=== PATIENT | male | born 1990 | race American Indian/Alaskan Native ===

== ENCOUNTER 2018-12-13 18:12 | Inpatient (IN) | payer OTHER ==
[2018-12-13] MEDS ORDERED: ZOFRAN ODT PO ONE (18:31)
--- NOTE | 2018-12-13 18:31 | Event Note ---
ED Screening Note Date of service: 12/13/18 Time: 18:23 ED Screening Note: This is a 28 y.o. M. that presents with N/V/D x 2 days. Nonsmoker Reports shock sensation going through body. States he think it is food poisoning. This initial assessment/diagnostic orders/clinical plan/treatment(s) is/are subject to change based on patients health status, clinical progression and re- assessment by fellow clinical providers in the ED. Further treatment and workup at subsequent clinical providers discretion. Patient/guardian urged not to elope from the ED as their condition may be serious if not clinically assessed and managed. Initial orders include: Labs and CT of abdomen Given Zofran odt Main ED for further evaluation
[2018-12-13] MEDS ORDERED: ZOFRAN ONE (18:59)
[2018-12-13] MEDS ORDERED: NACL 0.9% 1000 ML 1,000 ML ONE ×2 (19:00)
[2018-12-13] MEDS ORDERED: ZOFRAN IV ONE (19:07)
[2018-12-13] MEDS ORDERED: NACL 0.9% 1000 ML 1,000 ML IV ONE ×3 (19:07→19:48)
[2018-12-13 19:31] LABS: Basophils % (Auto) 0.2 % (0.0-1.8); Hematocrit 59.1 % (35.5-45.6); Hemoglobin 19.2 gm/dl (11.8-15.2); Lymphocytes # (Auto) 0.7 K/mm3 (1.2-5.4); Lymphocytes % (Auto) 8.8 % (13.4-35.0); Mean Corpuscular HGB Conc 33 % (32-34); Mean Corpuscular Volume 83 fl (84-94); Monocytes # (Auto) 0.9 K/mm3 (0.0-0.8); Monocytes % (Auto) 11.1 % (0.0-7.3); Platelet Count 384 K/mm3 (140-440); Red Blood Count 7.11 M/mm3 (3.65-5.03); Red Cell Distribution Width 14.9 % (13.2-15.2)
[2018-12-13] MEDS ORDERED: PEPCID IV ONE (19:49)
[2018-12-13] MEDS ORDERED: LOMOTIL PO ONE (19:54)
--- NOTE | 2018-12-13 19:54 | Emergency Department Report ---
HPI - General Chief Complaint: Nausea/Vomiting/Diarrhea Time Seen by Provider: 12/13/18 18:23 - HPI HPI: Room 2 The patient is a 28-year-old male presenting with a chief complaint of nausea vomiting and diarrhea. The patient states 3 days ago he ate beef and broccoli, [place] chicken and [employer] mein from [employer]. The patient states the following day he developed frequent diarrhea nausea and vomiting. Patient complains of soreness to his bilateral sides and subjective fever. Patient denies having any sick contacts. Patient denies any recent antibiotic use. Location: [See above] Duration: [See above] Quality: [See above] Severity: [See above] Modifying factors: [see above] Context: [see above] Mode of transportation: [not driving] ED Past Medical Hx - Past Medical History Previous Medical History?: No - Surgical History Past Surgical History?: No - Family History Family history: no significant - Social History Smoking Status: Never Smoker Substance Use Type: None (denies illicit drug use) ED Review of Systems ROS: Stated complaint: WEAKNESS/STOMACH PAIN Other details as noted in HPI Constitutional: fever (subjective) Eyes: denies: eye pain ENT: denies: throat pain Respiratory: no symptoms reported Cardiovascular: denies: chest pain Endocrine: no symptoms reported Gastrointestinal: abdominal pain, nausea, vomiting, diarrhea Genitourinary: denies: dysuria Musculoskeletal: denies: back pain Neurological: denies: headache Physical Exam - Physical Exam Vital Signs: Vital Signs 12/13/18 12/13/18 12/13/18 18:23 19:04 19:35 Temperature 96.5 F L Pulse Rate 145 H 126 H 111 H Respiratory 14 15 20 Rate Blood Pressure 132/80 126/91 [Right] O2 Sat by Pulse 84 97 100 Oximetry Physical Exam: GENERAL: The patient is well-developed well-nourished male lying on stretcher not appearing to be in acute distress. [] HEENT: Normocephalic. Atraumatic. Extraocular motions are intact. Patient has dry mucous membranes. NECK: Supple. Trachea midline CHEST/LUNGS: Clear to auscultation. There is no respiratory distress noted. HEART/CARDIOVASCULAR: Regular. There is no tachycardia. There is no gallop rub or murmur. ABDOMEN: Abdomen is soft, with mild discomfort to palpation in the left upper quadrant and left lower quadrant. Patient has normal bowel sounds. There is no abdominal distention. SKIN: There is no rash. There is no edema. There is no diaphoresis. NEURO: The patient is awake, alert, and oriented. The patient is cooperative. The patient has normal speech MUSCULOSKELETAL: There is no evidence of acute injury. ED Course Vital Signs 12/13/18 12/13/18 12/13/18 18:23 19:04 19:35 Temperature 96.5 F L Pulse Rate 145 H 126 H 111 H Respiratory 14 15 20 Rate Blood Pressure 132/80 126/91 [Right] O2 Sat by Pulse 84 97 100 Oximetry - Consultations Consultation #1: 12/13/18 20:30 Nephrology paged- case discussed with Dr. Amadou ARROYO Medical Decision Making - Lab Data Result diagrams: 12/13/18 18:57 12/13/18 18:57 Laboratory Tests 12/13/18 12/13/18 12/13/18 18:57 18:57 18:57 WBC 7.6 RBC 7.11 H Hgb 19.2 H Hct 59.1 H MCV 83 L MCH 27 L MCHC 33 RDW 14.9 Plt Count 384 Lymph % (Auto) 8.8 L Moody % (Auto) 11.1 H Eos % (Auto) 0.0 Baso % (Auto) 0.2 Lymph # 0.7 L Moody # 0.9 H Eos # 0.0 Baso # 0.0 Seg Neutrophils % 79.9 H Seg Neutrophils # 6.1 Sodium 140 Potassium 5.4 H Chloride 92.2 L Carbon Dioxide 11 L Anion Gap 42 BUN 53 H Creatinine 7.5 H Estimated GFR 10 BUN/Creatinine Ratio 7 Glucose 171 H Calcium 10.3 H Total Bilirubin 0.50 AST 27 ALT 16 Alkaline Phosphatase 108 Total Protein 13.3 H Albumin 5.4 H Albumin/Globulin Ratio 0.7 Lipase 85 H Urine Color Urine Turbidity Urine pH Ur Specific Cres[place] Urine Protein Urine Glucose (UA) Urine Ketones Urine Blood Urine Nitrite Urine Bilirubin Urine Urobilinogen Ur Leukocyte Esterase Urine WBC (Auto) Urine RBC (Auto) U Epithel Cells (Auto) Urine Bacteria (Auto) Hyaline Casts Urine Mucus Urine Yeast (Budding) 12/13/18 20:40 WBC RBC Hgb Hct MCV MCH MCHC RDW Plt Count Lymph % (Auto) Moody % (Auto) Eos % (Auto) Baso % (Auto) Lymph # Moody # Eos # Baso # Seg Neutrophils % Seg Neutrophils # Sodium Potassium Chloride Carbon Dioxide Anion Gap BUN Creatinine Estimated GFR BUN/Creatinine Ratio Glucose Calcium Total Bilirubin AST ALT Alkaline Phosphatase Total Protein Albumin Albumin/Globulin Ratio Lipase Urine Color Yellow Urine Turbidity Cloudy Urine pH 5.0 Ur Specific Cresco 1.014 Urine Protein 100 mg/dl Urine Glucose (UA) Neg Urine Ketones Neg Urine Blood Lg Urine Nitrite Neg Urine Bilirubin Neg Urine Urobilinogen < 2.0 Ur Leukocyte Esterase Neg Urine WBC (Auto) 22.0 H Urine RBC (Auto) 9.0 U Epithel Cells (Auto) 2.0 Urine Bacteria (Auto) 1+ Hyaline Casts 2 Urine Mucus 3+ Urine Yeast (Budding) 2+ - Radiology Data Radiology results: report reviewed (CT abdomen pel), image reviewed (CT abdomen and pelvis) [place] [id number] Cat Scan Report Signed Patient: TOBY ROJAS MR#: [id number] : 1990 Acct:[id number] Age/Sex: 28 / M ADM Date: 12/13/18 Loc: ED Attending Dr: Ordering Physician: SHAUNA ROD Date of Service: 12/13/18 Procedure(s): CT abdomen pelvis wo con Accession Number(s): [id number] cc: SHAUNA ROD CT abdomen pelvis wo con INDICATION / CLINICAL INFORMATION: Diffuse abdominal pain with nausea and vomiting for 3 days after eating [place] food. TECHNIQUE: All CT scans at this location are performed using CT dose reduction for ALARA by means of automated exposure control. COMPARISON: None available. FINDINGS: ABDOMEN: The liver, gallbladder, bile ducts, pancreas, spleen, adrenal glands, kidneys and bowel are normal. No adenopathy is seen. The lung bases are clear. PELVIS: The distal ureters, urinary bladder and prostate gland are normal. A normal appendix is present and there is no evidence of diverticulitis. No abnormal mass or fluid collection is seen. I do not identify a hernia. No acute osseous abnormality is seen. IMPRESSION: No acute abnormality is identified. Signer Name: Henok Watt MD Signed: 12/13/2018 9:30 PM Workstation Name: [id number] Transcribed By: RT Dictated By: Henok Watt MD Electronically Authenticated By: Henok Watt MD Signed Date/Time: 12/13/182129 DD/ 26 TD/TT: - Differential Diagnosis acute gastroenteritis, partial small bowel obstruction Critical care attestation.: If time is entered above; I have spent that time in minutes in the direct care of this critically ill patient, excluding procedure time. ED Disposition Clinical Impression: Nausea vomiting and diarrhea, Acute renal failure Disposition: OP ADMIT IP TO THIS HOSP Is pt being admited?: Yes Does the pt Need Aspirin: No Condition: Fair Referrals: ADA HERNANDEZ MD [Primary Care Provider] - 3-5 Days Time of Disposition: 22:11 (hospitalist paged (Dr. Anne-Marie Allen))
[2018-12-13 20:27] LABS: Albumin 5.4 g/dL (3.9-5); Calcium 10.3 mg/dL (8.4-10.2)
[2018-12-13 21:13] LABS: Bacteria,Urine 1+ /HPF (Negative); Bilirubin,Urine NEG (Negative); Blood,Urine LG (Negative); Color,Urine Yellow (Yellow); Hyaline Casts,Urine 2 /LPF; Mucus,Urine 3+ /HPF; Urobilinogen,Urine < 2.0 mg/dL (<2.0)
--- NOTE | 2018-12-13 21:34 | Cat Scan Report ---
CT abdomen pelvis wo con INDICATION / CLINICAL INFORMATION: Diffuse abdominal pain with nausea and vomiting for 3 days after eating [place] food. TECHNIQUE: All CT scans at this location are performed using CT dose reduction for ALARA by means of automated e xposure control. COMPARISON: None available. FINDINGS: ABDOMEN: The liver, gallbladder, bile ducts, pancreas, spleen, adrenal glands, kidneys and bowel are normal. No adenopathy is seen. The lung bases are clear. PELVIS: The distal ureters, urinary bladder and prostate gland are normal. A normal appendix is prese nt and there is no evidence of diverticulitis. No abnormal mass or fluid collection is seen. I do not identify a hernia. No acute osseous abnormality is seen. IMPRESSION: No acute abnormality is identified. Signer Name: Henok Watt MD Signed: 12/13/2018 9:30 PM Workstation Name: [id number]
[2018-12-13] MEDS ORDERED: KIONEX PO ONE (22:06)
--- NOTE | 2018-12-13 22:57 | History and Physical Report ---
History of Present Illness Date of examination: 12/13/18 History of present illness: 28 -year-old male with no medical problems comes emergency room with complaints of nausea vomiting and diarrhea since . He had numerous episodes of each. He stated that he ate at beef and broccoli chomein and an orange chicken at [employer] on Saturday. Symptoms worsened today so he came to the emergency room for evaluation, denies fever chills, no recent antibiotic Review of systems Constitutional: no weight loss, chills, fever Ears, eyes, nose, mouth and throat: no nasal congestion, no nasal discharge, no sinus pressure, no vision change, no red eye. Neck: No neck pain or rigidity. Cardiovascular: no palpitations, chest pain Respiratory: no cough, shortness of breath Gastrointestinal: no hematochezia, abdominal pain Genitourinary : no frequency , no hematuria Musculoskeletal: no joint swelling or muscle ache Integumentary: no rash, no pruritis Neurological: no parathesias, no focal weakness Endocrine: no cold or heat intolerance, no polyuria or polydipsia Hematologic/Lymphatic: no easy bruising, no easy bleeding, no gland swelling Allergic/Immunologic: no urticaria, no angioedema. PAST MEDICAL HISTORY: None PAST SURGICAL HISTORY: None SOCIAL HISTORY: Denies alcohol, drugs, tobacco FAMILY HISTORY: Hypertension Medications and Allergies Allergies Allergy/AdvReac Type Severity Reaction Status Date / Time No Known Allergies Allergy Verified 12/13/18 18:58 Active Meds: Active Medications Acetaminophen (Tylenol) 650 mg PO Q4H PRN PRN Reason: Pain MILD(1-3)/Fever >100.5/HOLT Enoxaparin Sodium (Lovenox) 30 mg SUB-Q QDAY MARIA E Sodium Chloride (Nacl 0.9% 1000 Ml) 1,000 mls @ 150 mls/hr IV DIRECT MARIA E Ondansetron HCl (Zofran) 4 mg IV Q4H PRN PRN Reason: Nausea And Vomiting Sodium Chloride (Sodium Chloride Flush Syringe 10 Ml) 10 ml IV BID MARIA E Sodium Chloride (Sodium Chloride Flush Syringe 10 Ml) 10 ml IV PRN PRN PRN Reason: LINE FLUSH Exam - Physical Exam Narrative exam: General Apperance: The patient lying in bed, breathing comfortable HEENT: Normocephalic, atraumatic. Pupils equally round and reactive to light, EOMI, no sclericterus or JVD or thyromegaly or nodule. , no carotid bruit, mucous membranes moist, no exudate or erythema Heart: S1-S2, regular is rhythm Lungs: Clear to auscultation bilaterally, breathing comfortable Abdomen: Positive bowel sounds, soft, nontender, nondistended, no organomegaly Extremities: No edema cyanosis clubbing Skin: no rash, nodule, warm and dry Neuro: cranial nerves 2-12 intact, speech is fluent, motor/sensory intact - Constitutional Vitals: Temp Pulse Resp BP Pulse Ox 98.3 F 111 H 20 126/91 100 12/13/18 20:21 12/13/18 19:35 12/13/18 19:35 12/13/18 19:04 12/13/18 19:35 Results - Labs CBC & Chem 7: 12/13/18 18:57 12/13/18 18:57 Labs: Abnormal lab results 12/13/18 12/13/18 12/13/18 Range/Units 18:57 18:57 18:57 RBC 7.11 H (3.65-5.03) M/mm3 Hgb 19.2 H (11.8-15.2) gm/dl Hct 59.1 H (35.5-45.6) % MCV 83 L (84-94) fl MCH 27 L (28-32) pg Lymph % (Auto) 8.8 L (13.4-35.0) % Elliott % (Auto) 11.1 H (0.0-7.3) % Lymph # 0.7 L (1.2-5.4) K/mm3 Elliott # 0.9 H (0.0-0.8) K/mm3 Seg Neutrophils % 79.9 H (40.0-70.0) % Potassium 5.4 H (3.6-5.0) mmol/L Chloride 92.2 L (98-107) mmol/L Carbon Dioxide 11 L (22-30) mmol/L BUN 53 H (9-20) mg/dL Creatinine 7.5 H (0.8-1.5) mg/dL Glucose 171 H (75-100) mg/dL Calcium 10.3 H (8.4-10.2) mg/dL Total Protein 13.3 H (6.3-8.2) g/dL Albumin 5.4 H (3.9-5) g/dL Lipase 85 H (13-60) units/L Urine WBC (Auto) (0.0-6.0) /HPF 12/13/18 Range/Units 20:40 RBC (3.65-5.03) M/mm3 Hgb (11.8-15.2) gm/dl Hct (35.5-45.6) % MCV (84-94) fl MCH (28-32) pg Lymph % (Auto) (13.4-35.0) % Elliott % (Auto) (0.0-7.3) % Lymph # (1.2-5.4) K/mm3 Elliott # (0.0-0.8) K/mm3 Seg Neutrophils % (40.0-70.0) % Potassium (3.6-5.0) mmol/L Chloride (98-107) mmol/L Carbon Dioxide (22-30) mmol/L BUN (9-20) mg/dL Creatinine (0.8-1.5) mg/dL Glucose (75-100) mg/dL Calcium (8.4-10.2) mg/dL Total Protein (6.3-8.2) g/dL Albumin (3.9-5) g/dL Lipase (13-60) units/L Urine WBC (Auto) 22.0 H (0.0-6.0) /HPF - Imaging and Cardiology CT scan - abdomen: report reviewed CT scan - pelvis: report reviewed Assessment and Plan Assessment Acute renal failure Hyperkalemia Gastroenteritis, viral Plan Admit to medicine Start aggressive IV fluid, consult renal Check stool cultures, s/p cocktail for hyperkalemia DVT prophylaxis
[2018-12-13] MEDS ORDERED: CALCIUM CHLORIDE 1,000 MG in NACL 0.9% 100 ML IV ONE (23:52)
[2018-12-13] MEDS ORDERED: D50W (25GM) Syringe IV PRN ×2 (23:53)
[2018-12-13] MEDS ORDERED: HumuLIN R SUB-Q ONE (23:53)
[2018-12-14] MEDS ORDERED: LEVAQUIN 500MG/100ML 500 MG/100 ML BAG IV SCH ×3 (01:00→10:00)
[2018-12-14] MEDS: NACL 0.9% 1000 ML 1,000 ML IV SCH ×4 (02:01→22:12)
[2018-12-14 05:53] LABS: Basophils % (Auto) 0.1 % (0.0-1.8); Hematocrit 48.9 % (35.5-45.6); Hemoglobin 16.3 gm/dl (11.8-15.2); Lymphocytes # (Auto) 0.7 K/mm3 (1.2-5.4); Lymphocytes % (Auto) 8.5 % (13.4-35.0); Mean Corpuscular HGB Conc 33 % (32-34); Mean Corpuscular Volume 82 fl (84-94); Monocytes # (Auto) 1.1 K/mm3 (0.0-0.8); Monocytes % (Auto) 14.5 % (0.0-7.3); Platelet Count 299 K/mm3 (140-440); Red Blood Count 5.96 M/mm3 (3.65-5.03); Red Cell Distribution Width 14.6 % (13.2-15.2)
[2018-12-14 06:12] LABS: Calcium 8.9 mg/dL (8.4-10.2)
--- NOTE | 2018-12-14 08:44 | Consultation ---
History of Present Illness - Reason for Consult Consult date: 12/14/18 acute renal failure - History of Present Illness 28-year-old [place] male with no significant past medical history other than chronic migraines presented to emergency department secondary to 3 days of worsening nausea, vomiting, diarrhea, and decreased by mouth intake. This started after he ate and express on Saturday. He states that since then he has had these symptoms which have been continuous. He has not been able to keep any food down. He came into the emergency department for further evaluation. Laboratory studies initially revealed significant acute kidney injury likely the setting of dehydration and pre-renal status. Nephrology consult for further evaluation. Patient was started on IV fluids. His labs today already are showing improvement in his overall renal function. He remains nauseous this morning but denies any significant vomiting. He has not had any diarrheal episodes since coming into the emergency department. He is on contact precautions and stool studies are pending at this time. Past History Past Medical History: other (chronic migraines) Past Surgical History: No surgical history Social history: no significant social history Family history: hypertension Medications and Allergies Allergies Allergy/AdvReac Type Severity Reaction Status Date / Time No Known Allergies Allergy Verified 12/13/18 18:58 Active Meds: Active Medications Acetaminophen (Tylenol) 650 mg PO Q4H PRN PRN Reason: Pain MILD(1-3)/Fever >100.5/HOLT Enoxaparin Sodium (Lovenox) 30 mg SUB-Q QDAY MARIA E Sodium Chloride (Nacl 0.9% 1000 Ml) 1,000 mls @ 150 mls/hr IV DIRECT MARIA E Last Admin: 12/14/18 02:01 Dose: 150 mls/hr Documented by: Levofloxacin/Dextrose (Levaquin 500mg/100ml) 500 mg in 100 mls @ 100 mls/hr IV Q48H MARIA E; Protocol Last Admin: 12/14/18 02:00 Dose: 100 mls/hr Documented by: Ondansetron HCl (Zofran) 4 mg IV Q4H PRN PRN Reason: Nausea And Vomiting Sodium Chloride (Sodium Chloride Flush Syringe 10 Ml) 10 ml IV BID MARIA E Sodium Chloride (Sodium Chloride Flush Syringe 10 Ml) 10 ml IV PRN PRN PRN Reason: LINE FLUSH Review of Systems All systems: negative Constitutional: fatigue, weakness Gastrointestinal: abdominal pain, nausea, vomiting, diarrhea Exam - Vital Signs Vital signs: Vital Signs Temp Pulse Resp BP Pulse Ox 96.5 F L 145 H 14 132/80 84 12/13/18 18:23 12/13/18 18:23 12/13/18 18:23 12/13/18 18:23 12/13/18 18:23 - General Appearance General appearance: well-developed, well-nourished, appears stated age EENT: ATNC, PERRL Neck: Present: neck supple, trachea midline Respiratory: Clear to Ascultation, Normal Exam Heart: regular, S1S2 Gastrointestinal: Present: normal, normoactive bowel sounds Integumentary: no rash, warm and dry Neurologic: no focal deficit, no asterixis, alert and oriented x3 Musculoskeletal: Present: other (negative edema) Psychiatric: mood/affect appropriate, cooperative Results - Lab Results 12/14/18 05:34 12/14/18 05:34 Most recent lab results Calcium 8.9 mg/dL (8.4-10.2) 12/14/18 05:34 Assessment and Plan - Patient Problems (1) Acute renal failure Current Visit: Yes Status: Acute Plan to address problem: Likely prerenal injury secondary to the aforementioned symptoms of persistent nausea, vomiting, diarrhea, decreased oral intake. Agree with current management in regards to fluid hydration. We will also obtain a renal ultrasound as well as urine electrolytes and urine analysis. We will continue to monitor. Please avoid all nephrotoxins. Please maintain MAP above 65. (2) Nausea vomiting and diarrhea Current Visit: Yes Status: Acute Plan to address problem: Symptomatic treatment per primary team. We will continue to monitor. Stool Studies pending at this time (3) Metabolic acidosis Current Visit: Yes Status: Acute Plan to address problem: In The setting of the aforementioned diarrhea symptoms. Slow improvement noted. We'll continue to monitor on consequent labs. Continue with current IV fluid hydration. (4) Weakness Current Visit: Yes Status: Acute Plan to address problem: Slow improvement noted with the appropriate IV fluid hydration and supportive care. We'll continue to monitor. Recommend the patient slowly start diet as tolerated.
[2018-12-14] MEDS: SODIUM CHLORIDE FLUSH SYRINGE 10 ML IV SCH (09:08)
[2018-12-14] MEDS: LOVENOX SUB-Q SCH (09:08)
--- NOTE | 2018-12-14 13:08 | Progress Note ---
Assessment and Plan Assessment and plan: 28-year-old man who presented to the hospital nausea vomiting and diarrhea which began after he ate [employer]. Acute gastroenteritis, most likely viral Continue supportive care, fup stool studies Acute kidney injury due to dehydration and vasomotor nephropathy improving With IV fluids, nephrology input appreciated Hyperkalemia Was medically treated, now resolved DVT prophylaxis early ambulation, most likely viral History Interval history: Review of systems Constitutional: No fevers, no malaise, no joint pains CVS: No chest pain, no orthopnea, no dyspnea on exertion, no pedal edema GI: No abdominal pain, diarrhea and vomiting is less frequent Respiratory: no wheezing, no coughing Hospitalist Physical - Physical exam Narrative exam: General.: Appears well, no distress, nontoxic HEENT: Moist mucous membranes, extraocular muscles intact, no lymphadenopathy Neck: supple Cardiac: S1-S2 heard Lungs: clear to auscultation bilaterally Abdomen: soft , nontender, nondistended, bowel sounds positive Extremities: no edema clubbing or cyanosis Skin: no rash or lesions Neurologic: no gross focal deficits Psych: calm, and cooperative - Constitutional Vitals: Temp Pulse Resp BP Pulse Ox 98.6 F 105 H 18 131/91 98 12/14/18 07:52 12/14/18 09:00 12/14/18 07:52 12/14/18 07:52 12/14/18 05:13 Results - Labs CBC & Chem 7: 12/14/18 05:34 12/14/18 05:34 Labs: Laboratory Last Values WBC 7.8 K/mm3 (4.5-11.0) 12/14/18 05:34 RBC 5.96 M/mm3 (3.65-5.03) H 12/14/18 05:34 Hgb 16.3 gm/dl (11.8-15.2) H 12/14/18 05:34 Hct 48.9 % (35.5-45.6) H D 12/14/18 05:34 MCV 82 fl (84-94) L 12/14/18 05:34 MCH 27 pg (28-32) L 12/14/18 05:34 MCHC 33 % (32-34) 12/14/18 05:34 RDW 14.6 % (13.2-15.2) 12/14/18 05:34 Plt Count 299 K/mm3 (140-440) 12/14/18 05:34 Lymph % (Auto) 8.5 % (13.4-35.0) L 12/14/18 05:34 [place]ama % (Auto) 14.5 % (0.0-7.3) H 12/14/18 05:34 Eos % (Auto) 0.0 % (0.0-4.3) 12/14/18 05:34 Baso % (Auto) 0.1 % (0.0-1.8) 12/14/18 05:34 Lymph # 0.7 K/mm3 (1.2-5.4) L 12/14/18 05:34 Tama # 1.1 K/mm3 (0.0-0.8) H 12/14/18 05:34 Eos # 0.0 K/mm3 (0.0-0.4) 12/14/18 05:34 Baso # 0.0 K/mm3 (0.0-0.1) 12/14/18 05:34 Seg Neutrophils % 76.9 % (40.0-70.0) H 12/14/18 05:34 Seg Neutrophils # 6.0 K/mm3 (1.8-7.7) 12/14/18 05:34 Sodium 143 mmol/L (137-145) 12/14/18 05:34 Potassium 4.2 mmol/L (3.6-5.0) D 12/14/18 05:34 Chloride 107.9 mmol/L (98-107) H 12/14/18 05:34 Carbon Dioxide 15 mmol/L (22-30) L 12/14/18 05:34 24 mmol/L 12/14/18 05:34 BUN 48 mg/dL (9-20) H 12/14/18 05:34 3.1 mg/dL (0.8-1.5) H D 12/14/18 05:34 Estimated GFR 29 ml/min 12/14/18 05:34 15 % 12/14/18 05:34 Glucose 113 mg/dL (75-100) H 12/14/18 05:34 Calcium 8.9 mg/dL (8.4-10.2) 12/14/18 05:34 0.50 mg/dL (0.1-1.2) 12/13/18 18:57 AST 27 units/L (5-40) 12/13/18 18:57 ALT 16 units/L (7-56) 12/13/18 18:57 108 units/L (35-129) 12/13/18 18:57 13.3 g/dL (6.3-8.2) H 12/13/18 18:57 5.4 g/dL (3.9-5) H 12/13/18 18:57 0.7 % 12/13/18 18:57 85 units/L (13-60) H 12/13/18 18:57 Yellow (Yellow) 12/13/18 20:40 Cloudy (Clear) 12/13/18 20:40 5.0 (5.0-7.0) 12/13/18 20:40 Ur Specific Elton 1.014 (1.003-1.030) 12/13/18 20:40 100 mg/dl mg/dL (Negative) 12/13/18 20:40 Neg mg/dL (Negative) 12/13/18 20:40 Neg mg/dL (Negative) 12/13/18 20:40 Lg (Negative) 12/13/18 20:40 Neg (Negative) 12/13/18 20:40 Neg (Negative) 12/13/18 20:40 < 2.0 mg/dL (<2.0) 12/13/18 20:40 Ur Leukocyte Esterase Neg (Negative) 12/13/18 20:40 22.0 /HPF (0.0-6.0) H 12/13/18 20:40 9.0 /HPF (0.0-6.0) 12/13/18 20:40 U Epithel Cells (Auto) 2.0 /HPF (0-13.0) 12/13/18 20:40 1+ /HPF (Negative) 12/13/18 20:40 Hyaline Casts 2 /LPF 12/13/18 20:40 3+ /HPF 12/13/18 20:40 2+ /HPF 12/13/18 20:40 Active Medications - Current Medications Current Medications: Generic Name Dose Route Start Last Admin Trade Name Freq PRN Reason Stop Dose Admin Acetaminophen 650 mg 12/13/18 22:54 Tylenol PO Q4H PRN Pain MILD(1-3)/Fever >100.5/HOLT Enoxaparin Sodium 30 mg 12/14/18 10:00 12/14/18 09:08 Lovenox SUB-Q 30 mg QDAY MARIA E Administration Sodium Chloride 1,000 mls @ 150 mls/hr 12/13/18 23:00 12/14/18 09:07 Nacl 0.9% 1000 Ml IV 150 mls/hr DIRECT MARIA E Administration Levofloxacin/Dextrose 500 mg in 100 mls @ 100 mls/hr 12/14/18 01:00 12/14/18 02:00 Levaquin 500mg/100ml IV 100 mls/hr Q48H MARIA E Administration Protocol Ondansetron HCl 4 mg 12/13/18 22:54 Zofran IV Q4H PRN Nausea And Vomiting Sodium Chloride 10 ml 12/14/18 10:00 12/14/18 09:08 Sodium Chloride Flush Syringe 10 Ml IV 10 ml BID MARIA E Administration Sodium Chloride 10 ml 12/13/18 22:54 Sodium Chloride Flush Syringe 10 Ml IV PRN PRN LINE FLUSH
[2018-12-14] MEDS: ZOFRAN IV PRN ×2 (13:51→20:04)
[2018-12-15] MEDS: SODIUM CHLORIDE FLUSH SYRINGE 10 ML IV SCH ×3 (02:39→23:46)
--- NOTE | 2018-12-15 08:31 | Progress Note ---
Assessment and Plan - Patient Problems (1) Acute renal failure Current Visit: Yes Status: Acute Plan to address problem: Likely prerenal injury secondary to the aforementioned symptoms of persistent nausea, vomiting, diarrhea, decreased oral intake. Agree with current management in regards to fluid hydration. Labs are pending this morning and we will follow-up. We will also obtain a renal ultrasound as well as urine electrolytes and urine analysis. We will continue to monitor. Please avoid all nephrotoxins. Please maintain MAP above 65. (2) Nausea vomiting and diarrhea Current Visit: Yes Status: Acute Plan to address problem: Symptomatic treatment per primary team. We will continue to monitor. Stool Studies preliminarily have been negative (3) Metabolic acidosis Current Visit: Yes Status: Acute Plan to address problem: In The setting of the aforementioned diarrhea symptoms. Slow improvement noted. We'll continue to monitor on consequent labs. Continue with current IV fluid hydration. (4) Weakness Current Visit: Yes Status: Acute Plan to address problem: Slow improvement noted with the appropriate IV fluid hydration and supportive care. We'll continue to monitor. Recommend the patient slowly start diet as tolerated. Subjective Date of service: 12/15/18 Interval history: No acute changes overnight. He continues to have nausea, vomiting, and episodes of diarrhea this morning. He is not tolerating food very well at this time. Labs are pending this morning. He remains on normal saline running at 150 mL an hour. Objective - Vital Signs Vital signs: Vital Signs - 12hr 12/14/18 12/14/18 12/15/18 20:47 21:08 05:26 Temperature 99.3 F 98.5 F Pulse Rate 92 H 94 H Respiratory 20 16 20 Rate Blood Pressure 136/93 139/100 O2 Sat by Pulse 100 99 Oximetry - General Appearance General appearance: well-developed, appears stated age EENT: ATNC, PERRL Neck: no JVD, no thyromegaly Respiratory: Present: Clear to Ascultation, Normal Exam Cardiology: regular, S1S2 Gastrointestinal: normal, normoactive bowel sounds Integumentary: no rash, cool/clammy Neurologic: no focal deficit, no asterixis, alert and oriented x3 Psychiatric: mood/affect appropriate, cooperative - Lab 12/14/18 05:34 12/14/18 05:34 Most recent lab results Calcium 8.9 mg/dL (8.4-10.2) 12/14/18 05:34 - Allied health notes Allied health notes reviewed: nursing Medications & Allergies - Medications Allergies/Adverse Reactions: Allergies No Known Allergies Allergy (Verified 12/13/18 18:58) Active Medications: Generic Name Dose Route Start Last Admin Trade Name Freq PRN Reason Stop Dose Admin Acetaminophen 650 mg 12/13/18 22:54 Tylenol PO Q4H PRN Pain MILD(1-3)/Fever >100.5/HOLT Enoxaparin Sodium 30 mg 12/14/18 10:00 12/14/18 09:08 Lovenox SUB-Q 30 mg QDAY MARIA E Administration Sodium Chloride 1,000 mls @ 150 mls/hr 12/13/18 23:00 12/14/18 22:12 Nacl 0.9% 1000 Ml IV 150 mls/hr DIRECT MARIA E Administration Levofloxacin/Dextrose 500 mg in 100 mls @ 100 mls/hr 12/14/18 01:00 12/14/18 02:00 Levaquin 500mg/100ml IV 100 mls/hr Q48H MARIA E Administration Protocol Metoclopramide HCl 10 mg 12/15/18 04:17 Reglan IV Q6H PRN Nausea And Vomiting Ondansetron HCl 4 mg 12/13/18 22:54 12/14/18 20:04 Zofran IV 4 mg Q4H PRN Administration Nausea And Vomiting Sodium Chloride 10 ml 12/14/18 10:00 12/15/18 02:39 Sodium Chloride Flush Syringe 10 Ml IV Not Given BID MARIA E Sodium Chloride 10 ml 12/13/18 22:54 Sodium Chloride Flush Syringe 10 Ml IV PRN PRN LINE FLUSH
[2018-12-15 10:00] LABS: BUN/Creatinine Ratio 21; Blood Urea Nitrogen 30 mg/dL (9-20); Calcium 9.9 mg/dL (8.4-10.2); Hemolysis Index 149
[2018-12-15] MEDS: LOVENOX SUB-Q SCH (11:01)
[2018-12-15] MEDS: NACL 0.9% 1000 ML 1,000 ML IV SCH ×3 (11:01→23:46)
--- NOTE | 2018-12-15 15:31 | Progress Note ---
Assessment and Plan Assessment and plan: 28-year-old man who presented to the hospital nausea vomiting and diarrhea which began after he ate [employer]. Acute gastroenteritis, most likely viral Continue supportive care, fup stool studies, ID consult keep NPO until vomiting resolves Acute kidney injury due to dehydration and vasomotor nephropathy improving With IV fluids, nephrology input appreciated Hyperkalemia Was medically treated, now resolved DVT prophylaxis early ambulation, most likely viral History Interval history: Review of systems Constitutional: No fevers, no malaise, no joint pains CVS: No chest pain, no orthopnea, no dyspnea on exertion, no pedal edema GI: No abdominal pain, diarrhea and vomiting is less frequent Respiratory: no wheezing, no coughing Hospitalist Physical - Physical exam Narrative exam: General.: Appears well, no distress, nontoxic HEENT: Moist mucous membranes, extraocular muscles intact, no lymphadenopathy Neck: supple Cardiac: S1-S2 heard Lungs: clear to auscultation bilaterally Abdomen: soft , nontender, nondistended, bowel sounds positive Extremities: no edema clubbing or cyanosis Skin: no rash or lesions Neurologic: no gross focal deficits Psych: calm, and cooperative - Constitutional Vitals: Temp Pulse Resp BP Pulse Ox 98.5 F 94 H 20 139/100 99 12/15/18 05:26 12/15/18 05:26 12/15/18 05:26 12/15/18 05:26 12/15/18 05:26 Results - Labs CBC & Chem 7: 12/14/18 05:34 12/15/18 09:14 Labs: Laboratory Last Values WBC 7.8 K/mm3 (4.5-11.0) 12/14/18 05:34 RBC 5.96 M/mm3 (3.65-5.03) H 12/14/18 05:34 Hgb 16.3 gm/dl (11.8-15.2) H 12/14/18 05:34 Hct 48.9 % (35.5-45.6) H D 12/14/18 05:34 MCV 82 fl (84-94) L 12/14/18 05:34 MCH 27 pg (28-32) L 12/14/18 05:34 MCHC 33 % (32-34) 12/14/18 05:34 RDW 14.6 % (13.2-15.2) 12/14/18 05:34 Plt Count 299 K/mm3 (140-440) 12/14/18 05:34 Lymph % (Auto) 8.5 % (13.4-35.0) L 12/14/18 05:34 [place] % (Auto) 14.5 % (0.0-7.3) H 12/14/18 05:34 Eos % (Auto) 0.0 % (0.0-4.3) 12/14/18 05:34 Baso % (Auto) 0.1 % (0.0-1.8) 12/14/18 05:34 Lymph # 0.7 K/mm3 (1.2-5.4) L 12/14/18 05:34 [place] # 1.1 K/mm3 (0.0-0.8) H 12/14/18 05:34 Eos # 0.0 K/mm3 (0.0-0.4) 12/14/18 05:34 Baso # 0.0 K/mm3 (0.0-0.1) 12/14/18 05:34 Seg Neutrophils % 76.9 % (40.0-70.0) H 12/14/18 05:34 Seg Neutrophils # 6.0 K/mm3 (1.8-7.7) 12/14/18 05:34 Sodium 140 mmol/L (137-145) 12/15/18 09:14 Potassium 4.5 mmol/L (3.6-5.0) 12/15/18 09:14 Chloride 109.7 mmol/L (98-107) H 12/15/18 09:14 Carbon Dioxide 16 mmol/L (22-30) L 12/15/18 09:14 19 mmol/L 12/15/18 09:14 BUN 30 mg/dL (9-20) H 12/15/18 09:14 1.4 mg/dL (0.8-1.5) D 12/15/18 09:14 Estimated GFR > 60 ml/min 12/15/18 09:14 21 % 12/15/18 09:14 Glucose 87 mg/dL (75-100) 12/15/18 09:14 Calcium 9.9 mg/dL (8.4-10.2) 12/15/18 09:14 0.50 mg/dL (0.1-1.2) 12/13/18 18:57 AST 27 units/L (5-40) 12/13/18 18:57 ALT 16 units/L (7-56) 12/13/18 18:57 108 units/L (35-129) 12/13/18 18:57 13.3 g/dL (6.3-8.2) H 12/13/18 18:57 5.4 g/dL (3.9-5) H 12/13/18 18:57 0.7 % 12/13/18 18:57 85 units/L (13-60) H 12/13/18 18:57 Yellow (Yellow) 12/13/18 20:40 Cloudy (Clear) 12/13/18 20:40 5.0 (5.0-7.0) 12/13/18 20:40 Ur Specific [place] 1.014 (1.003-1.030) 12/13/18 20:40 100 mg/dl mg/dL (Negative) 12/13/18 20:40 Neg mg/dL (Negative) 12/13/18 20:40 Neg mg/dL (Negative) 12/13/18 20:40 Lg (Negative) 12/13/18 20:40 Neg (Negative) 12/13/18 20:40 Neg (Negative) 12/13/18 20:40 < 2.0 mg/dL (<2.0) 12/13/18 20:40 Ur Leukocyte Esterase Neg (Negative) 12/13/18 20:40 22.0 /HPF (0.0-6.0) H 12/13/18 20:40 9.0 /HPF (0.0-6.0) 12/13/18 20:40 U Epithel Cells (Auto) 2.0 /HPF (0-13.0) 12/13/18 20:40 1+ /HPF (Negative) 12/13/18 20:40 Hyaline Casts 2 /LPF 12/13/18 20:40 3+ /HPF 12/13/18 20:40 2+ /HPF 12/13/18 20:40 C. difficile Tox (PCR) Negative (Negative) 12/14/18 14:00 Active Medications - Current Medications Current Medications: Generic Name Dose Route Start Last Admin Trade Name Freq PRN Reason Stop Dose Admin Acetaminophen 650 mg 12/13/18 22:54 Tylenol PO Q4H PRN Pain MILD(1-3)/Fever >100.5/HOLT Enoxaparin Sodium 40 mg 12/16/18 10:00 Lovenox SUB-Q QDAY@1000 MARIA E Sodium Chloride 1,000 mls @ 150 mls/hr 12/13/18 23:00 12/15/18 11:01 Nacl 0.9% 1000 Ml IV 150 mls/hr DIRECT MARIA E Administration Levofloxacin/Dextrose 500 mg in 100 mls @ 100 mls/hr 12/15/18 12:00 Levaquin 500mg/100ml IV Q24HR [facility] Protocol Metoclopramide HCl 10 mg 12/15/18 04:17 Reglan IV Q6H PRN Nausea And Vomiting Ondansetron HCl 4 mg 12/13/18 22:54 12/14/18 20:04 Zofran IV 4 mg Q4H PRN Administration Nausea And Vomiting Sodium Chloride 10 ml 12/14/18 10:00 12/15/18 11:01 Sodium Chloride Flush Syringe 10 Ml IV 10 ml BID MARIA E Administration Sodium Chloride 10 ml 12/13/18 22:54 Sodium Chloride Flush Syringe 10 Ml IV PRN PRN LINE FLUSH
[2018-12-15] MEDS: LEVAQUIN 500MG/100ML 500 MG/100 ML BAG IV SCH (16:34)
[2018-12-15] MEDS: REGLAN IV PRN (16:35)
[2018-12-16] MEDS: NACL 0.9% 1000 ML 1,000 ML IV SCH ×3 (06:43→18:29)
--- NOTE | 2018-12-16 08:17 | Ultrasound Report ---
ULTRASOUND RENAL INDICATION / CLINICAL INFORMATION: MEHNAZ. Elevated BUN. No flank pain reported by the patient. COMPARISON: CT abdomen pelvis without contrast performed 12/13/2018 FINDINGS: RIGHT KIDNEY: Length = 10.1 cm. [normal > 9 cm] - Parenchymal Thickness = 1.3 cm. [normal > 1.5 cm] - Echogenicity: Slightly increased - Hydronephrosis: None. - Cyst or mass: No significant abnormality. - Stones: None seen. LEFT KIDNEY: Length = 9.5 cm. [normal > 9 cm] - Parenchymal Thickness = 1.7 cm. [normal > 1.5 cm] - Echogenicity: Slightly increased - Hydronephrosis: None. - Cyst or mass: No significant abnormality. - Stones: None seen. URINARY BLADDER: No significant abnormality. FREE FLUID: None. ADDITIONAL FINDINGS: None. IMPRESSION: 1. Normal size but slightly echogenic kidneys consistent with nonspecific renal parenchymal disease. No focal renal lesion or hydronephrosis. Signer Name: Michael Shultz Jr, MD Signed: 12/16/2018 8:13 AM Workstation Name: [id number]
[2018-12-16 10:35] LABS: Blood Urea Nitrogen TNR mg/dL (9-20)
[2018-12-16 10:36] LABS: BUN/Creatinine Ratio TNR; Calcium TNR mg/dL (8.4-10.2)
[2018-12-16 10:37] LABS: Hemolysis Index TNR
[2018-12-16 11:50] LABS: BUN/Creatinine Ratio 20; Blood Urea Nitrogen 26 mg/dL (9-20); Calcium 9.9 mg/dL (8.4-10.2); Hemolysis Index 49
[2018-12-16] MEDS: LOVENOX SUB-Q SCH (12:28)
[2018-12-16] MEDS: LEVAQUIN 500MG/100ML 500 MG/100 ML BAG IV SCH (12:28)
[2018-12-16] MEDS: SODIUM CHLORIDE FLUSH SYRINGE 10 ML IV SCH ×2 (12:29→23:46)
--- NOTE | 2018-12-16 13:01 | Consultation ---
History of Present Illness - Reason for Consult Consult date: 12/16/18 Diarrhea Requesting physician: LOUIE PATTON - History of Present Illness This patient is a 28-year old male with no previous medical history that presents to the ED on 12/13/18 with complaints of nausea, vomiting and diarrhea since . He reports eating beef and broccoli chomein and orange chicken at [email or web address] on Saturday12-10-18. His symptoms worsened the next day. On admission WBC 7.6, Creatinine 7.5, C-Diff negative, Temperature 98.3, HR 97, BP 150/106.. UA with mild pyuria, LE negative.. Abdomen/pelvis is unremarkable. Renal ultrasound shows no focal renal lesion or hydronephrosis. Kidneys consistent with nonspecific renal parechymal disease. Stool cultures Shigella species. Urine cultures no growth. With reluctance, patient admitted to MSM behavior and that he tested positive for HIV in 2017. He states that he has been noncompliant with recommended follow-up with ID doctor. He does not know his current CD4 count or Viral load. He has consented to further testing in the hospital and has agreed to follow-up at our ID [facility]. Extensive education given regarding the same. Review of Systems: General: no fever, chills, nightsweats, + unintentional weight change, and change in appetite Cutaneous: no rash, pruritus Head: no headaches or injury Eyes: no changes in vision, eye pain, double vision Ears: no ear pain, ear discharge, ringing or hearing loss Nose: no nose bleeding, stuffiness Mouth & throat: no bleeding gums, no horseness, no dental problems, or swollen glands Neck: no pain, node enlargement/lumps, tyroid enlargement or tenderness Respiratory: no cough, wheezing, sputum, hemoptysis, pleuritic chest pain Cardiovascular: no chest pain, leg edema, cyanosis, TOURE, orthopnea Musculoskeletal: no decreased joint motion, bone or joint pain, joint swelling, muscle aches Gastrointestinal: + nausea vomiting, diarrhea, no constipation, melena, bright red blood in stools, fecal incontinence, jaundice Genitourinary/Reproductive: no frequent urination, no dysuria, hematuria, incontinence Neurogical: no seizures, no headaches, no weakness, no paresthesias, no loss of speech or vision; no memory loss, no vertigo, no tremors, no numbness Psychiatric: + sadness , no excessive anxiety, Past History Past Medical History: other (chronic migraines) Past Surgical History: No surgical history Social history: no significant social history Family history: hypertension Medications and Allergies Allergies Allergy/AdvReac Type Severity Reaction Status Date / Time No Known Allergies Allergy Verified 12/13/18 18:58 Active Meds: Active Medications Acetaminophen (Tylenol) 650 mg PO Q4H PRN PRN Reason: Pain MILD(1-3)/Fever >100.5/HOLT Enoxaparin Sodium (Lovenox) 40 mg SUB-Q QDAY@1000 MARIA E Last Admin: 12/16/18 12:28 Dose: 40 mg Documented by: Sodium Chloride (Nacl 0.9% 1000 Ml) 1,000 mls @ 150 mls/hr IV DIRECT MARIA E Last Admin: 12/16/18 12:28 Dose: 150 mls/hr Documented by: Levofloxacin/Dextrose (Levaquin 500mg/100ml) 500 mg in 100 mls @ 100 mls/hr IV Q24HR MARIA E; Protocol Last Admin: 12/16/18 12:28 Dose: 100 mls/hr Documented by: Metoclopramide HCl (Reglan) 10 mg IV Q6H PRN PRN Reason: Nausea And Vomiting Last Admin: 12/15/18 16:35 Dose: 10 mg Documented by: Ondansetron HCl (Zofran) 4 mg IV Q4H PRN PRN Reason: Nausea And Vomiting Last Admin: 12/14/18 20:04 Dose: 4 mg Documented by: Sodium Chloride (Sodium Chloride Flush Syringe 10 Ml) 10 ml IV BID [facility] Last Admin: 12/16/18 12:29 Dose: 10 ml Documented by: Sodium Chloride (Sodium Chloride Flush Syringe 10 Ml) 10 ml IV PRN PRN PRN Reason: LINE FLUSH Physical Examination - Physical Exam Narrative exam: Constitutional: Alert, cooperative. Generalized weakness and abdominal pain. Head, Ears, Nose: Normocephalic, atraumatic. External ears, nose normal Eyes: Conjunctivae/corneas clear. No icterus. No ptosis. Neck: Supple, no meningeal signs Oral: dentition good. No thrush Cardiovascular: S1, S2 normal. Respiratory: Good air entry, clear to auscultation bilaterally GI: Soft, -tender; bowel sounds hypoactive, No peritoneal signs Musculoskeletal: No pedal edema, no cyanosis. Skin: No rash or abscess. Hem/Lymphatic: No palpable cervical or supraclavicular nodes. No lymphangitis Psych: Mood ok. Affect normal Neurological: Awake, alert, oriented. - Constitutional Vitals: Vital Signs Temp Pulse Resp BP Pulse Ox 97.5 F L 98 H 20 138/84 100 12/16/18 06:03 12/16/18 06:03 12/16/18 06:03 12/16/18 06:03 12/16/18 06:03 Temperature -Last 24 Hours Temperature 97.5 F Temperature 98.1 F Temperature 97.8 F Results - Labs CBC & Chem 7: 12/14/18 05:34 12/16/18 11:27 Labs: Abnormal lab results 12/16/18 Range/Units 11:27 Carbon Dioxide 16 L (22-30) mmol/L BUN 26 H (9-20) mg/dL - Imaging and Cardiology CT scan - abdomen: report reviewed (No acute abnormality is identified. ) Assessment and Plan Cultures: 12/13/18 Urine: less than 10K 12/14/18 Stool: Shigella species A/P: 28-year old male with no previous medical history that presents to the ED on 12/13/18 with complaints of nausea, vomiting and diarrhea since . He reports eating beef and broccoli chomein and orange chicken at [email or web address] on Saturday12-10-18. His symptoms worsened the next day. Admitted with. 1. Acute Bacterial Gastroenteritis secondary to Shigella. : Acute Diarrhea. Stool cultures Shigella species. Currently being treated with Levaquin. 2. HIV/AIDS: diagnosed 2 years ago.. No follow-up with ID. Unknown CD4 count/Viral load. No ART therapy. Family members do not know his HIV status. Patient consented to HIV testing while inpatient. Extensive patient education given. 3 MEHNAZ: likely reactive to dehydration. Now resolved. Nephrology following. Recommendations: -Discontinue Levaquin 500mg IV q 24 -Start Ceftriaxone 2 grams IV q day -Stool culture ordered for Ova and Parasites HIV rapid CD4 count, Viral load, HIV genotype ordered [facility] M: [phone] O:[phone]
[2018-12-16] MEDS: ZOFRAN IV PRN (18:28)
[2018-12-16] MEDS: ROCEPHIN/NS 2 GM/100 ML 2 GM/100 ML BAG IV SCH (18:28)
--- NOTE | 2018-12-16 18:31 | Progress Note ---
Assessment and Plan Assessment and plan: 28-year-old man who presented to the hospital nausea vomiting and diarrhea which began after he ate [employer]. Acute gastroenteritis, most likely viral Continue supportive care, fup stool studies, ID consult keep NPO until vomiting resolves Acute kidney injury due to dehydration and vasomotor nephropathy improving With IV fluids, nephrology input appreciated Hyperkalemia Was medically treated, now resolved DVT prophylaxis early ambulation, most likely viral History Interval history: Review of systems Constitutional: No fevers, no malaise, no joint pains CVS: No chest pain, no orthopnea, no dyspnea on exertion, no pedal edema GI: No abdominal pain, diarrhea and vomiting is less frequent Respiratory: no wheezing, no coughing Hospitalist Physical - Physical exam Narrative exam: General.: Appears well, no distress, nontoxic HEENT: Moist mucous membranes, extraocular muscles intact, no lymphadenopathy Neck: supple Cardiac: S1-S2 heard Lungs: clear to auscultation bilaterally Abdomen: soft , nontender, nondistended, bowel sounds positive Extremities: no edema clubbing or cyanosis Skin: no rash or lesions Neurologic: no gross focal deficits Psych: calm, and cooperative - Constitutional Vitals: Temp Pulse Resp BP Pulse Ox 97.8 F 91 H 20 139/97 99 12/16/18 16:51 12/16/18 16:51 12/16/18 16:51 12/16/18 16:51 12/16/18 16:51 Results - Labs CBC & Chem 7: 12/19/18 05:49 12/20/18 04:43 Labs: Laboratory Last Values WBC 7.8 K/mm3 (4.5-11.0) 12/14/18 05:34 RBC 5.96 M/mm3 (3.65-5.03) H 12/14/18 05:34 Hgb 16.3 gm/dl (11.8-15.2) H 12/14/18 05:34 Hct 48.9 % (35.5-45.6) H D 12/14/18 05:34 MCV 82 fl (84-94) L 12/14/18 05:34 MCH 27 pg (28-32) L 12/14/18 05:34 MCHC 33 % (32-34) 12/14/18 05:34 RDW 14.6 % (13.2-15.2) 12/14/18 05:34 Plt Count 299 K/mm3 (140-440) 12/14/18 05:34 Lymph % (Auto) 8.5 % (13.4-35.0) L 12/14/18 05:34 [place] % (Auto) 14.5 % (0.0-7.3) H 12/14/18 05:34 Eos % (Auto) 0.0 % (0.0-4.3) 12/14/18 05:34 Baso % (Auto) 0.1 % (0.0-1.8) 12/14/18 05:34 Lymph # 0.7 K/mm3 (1.2-5.4) L 12/14/18 05:34 [place] # 1.1 K/mm3 (0.0-0.8) H 12/14/18 05:34 Eos # 0.0 K/mm3 (0.0-0.4) 12/14/18 05:34 Baso # 0.0 K/mm3 (0.0-0.1) 12/14/18 05:34 Seg Neutrophils % 76.9 % (40.0-70.0) H 12/14/18 05:34 Seg Neutrophils # 6.0 K/mm3 (1.8-7.7) 12/14/18 05:34 Sodium 140 mmol/L (137-145) 12/16/18 11:27 Potassium 3.6 mmol/L (3.6-5.0) 12/16/18 11:27 Chloride 106.1 mmol/L (98-107) 12/16/18 11:27 Carbon Dioxide 16 mmol/L (22-30) L 12/16/18 11:27 22 mmol/L 12/16/18 11:27 BUN 26 mg/dL (9-20) H 12/16/18 11:27 1.3 mg/dL (0.8-1.5) 12/16/18 11:27 Estimated GFR > 60 ml/min 12/16/18 11:27 20 % 12/16/18 11:27 Glucose 98 mg/dL (75-100) 12/16/18 11:27 Calcium 9.9 mg/dL (8.4-10.2) 12/16/18 11:27 0.50 mg/dL (0.1-1.2) 12/13/18 18:57 AST 27 units/L (5-40) 12/13/18 18:57 ALT 16 units/L (7-56) 12/13/18 18:57 108 units/L (35-129) 12/13/18 18:57 13.3 g/dL (6.3-8.2) H 12/13/18 18:57 5.4 g/dL (3.9-5) H 12/13/18 18:57 0.7 % 12/13/18 18:57 85 units/L (13-60) H 12/13/18 18:57 Yellow (Yellow) 12/13/18 20:40 Cloudy (Clear) 12/13/18 20:40 5.0 (5.0-7.0) 12/13/18 20:40 Ur Specific [place] 1.014 (1.003-1.030) 12/13/18 20:40 100 mg/dl mg/dL (Negative) 12/13/18 20:40 Neg mg/dL (Negative) 12/13/18 20:40 Neg mg/dL (Negative) 12/13/18 20:40 Lg (Negative) 12/13/18 20:40 Neg (Negative) 12/13/18 20:40 Neg (Negative) 12/13/18 20:40 < 2.0 mg/dL (<2.0) 12/13/18 20:40 Ur Leukocyte Esterase Neg (Negative) 12/13/18 20:40 22.0 /HPF (0.0-6.0) H 12/13/18 20:40 9.0 /HPF (0.0-6.0) 12/13/18 20:40 U Epithel Cells (Auto) 2.0 /HPF (0-13.0) 12/13/18 20:40 1+ /HPF (Negative) 12/13/18 20:40 Hyaline Casts 2 /LPF 12/13/18 20:40 3+ /HPF 12/13/18 20:40 2+ /HPF 12/13/18 20:40 C. difficile Tox (PCR) Negative (Negative) 12/14/18 14:00 HIV 1&2 Antibody Rapid Reactive (Non React) 12/16/18 16:36 Non react (Non React) 12/16/18 16:36 Active Medications - Current Medications Current Medications: Generic Name Dose Route Start Last Admin Trade Name Freq PRN Reason Stop Dose Admin Acetaminophen 650 mg 12/13/18 22:54 Tylenol PO Q4H PRN Pain MILD(1-3)/Fever >100.5/HOLT Enoxaparin Sodium 40 mg 12/16/18 10:00 12/16/18 12:28 Lovenox SUB-Q 40 mg QDAY@1000 MARIA E Administration Sodium Chloride 1,000 mls @ 150 mls/hr 12/13/18 23:00 12/16/18 18:29 Nacl 0.9% 1000 Ml IV 150 mls/hr DIRECT MARIA E Administration Ceftriaxone Sodium 2 gm in 100 mls @ 200 mls/hr 12/16/18 16:00 12/16/18 18:28 Rocephin/Ns 2 Gm/100 Ml IV 200 mls/hr Q24H MARIA E Administration Protocol Metoclopramide HCl 10 mg 12/15/18 04:17 12/15/18 16:35 Reglan IV 10 mg Q6H PRN Administration Nausea And Vomiting Ondansetron HCl 4 mg 12/13/18 22:54 12/16/18 18:28 Zofran IV 4 mg Q4H PRN Administration Nausea And Vomiting Sodium Chloride 10 ml 12/14/18 10:00 12/16/18 12:29 Sodium Chloride Flush Syringe 10 Ml IV 10 ml BID MARIA E Administration Sodium Chloride 10 ml 12/13/18 22:54 Sodium Chloride Flush Syringe 10 Ml IV PRN PRN LINE FLUSH
[2018-12-17] MEDS: NACL 0.9% 1000 ML 1,000 ML IV SCH ×2 (01:56→08:47)
[2018-12-17] MEDS: ZOFRAN IV PRN ×3 (01:59→22:54)
[2018-12-17] MEDS: SODIUM CHLORIDE FLUSH SYRINGE 10 ML IV SCH ×3 (01:59→22:50)
[2018-12-17 05:34] LABS: BUN/Creatinine Ratio 24; Blood Urea Nitrogen 26 mg/dL (9-20); Calcium 10.1 mg/dL (8.4-10.2); Hemolysis Index 57
[2018-12-17] MEDS: LOVENOX SUB-Q SCH (08:59)
--- NOTE | 2018-12-17 09:11 | Progress Note ---
Assessment and Plan - Patient Problems (1) Acute renal failure Current Visit: Yes Status: Acute Plan to address problem: Likely prerenal injury secondary to the aforementioned symptoms of persistent nausea, vomiting, diarrhea, decreased oral intake. Agree with current management in regards to fluid hydration. Overall renal function is improving back to baseline with appropriate hydration.. Renal ultrasound reviewed without any acute abnormalities. We will continue to monitor. Please avoid all nephrotoxins. Please maintain MAP above 65. (2) Nausea vomiting and diarrhea Current Visit: Yes Status: Acute Plan to address problem: Symptomatic treatment per primary team. We will continue to monitor. Stool studies are positive for Shigella. On appropriate meds. Infectious disease recommendation. (3) Metabolic acidosis Current Visit: Yes Status: Acute Plan to address problem: In The setting of the aforementioned diarrhea symptoms. Slow improvement noted. We'll continue to monitor on consequent labs. Continue with IV fluid hydration but will switch to D5W with 150 mEq of sodium bicarbonate to be running at 75 mL an hour (4) Weakness Current Visit: Yes Status: Acute Plan to address problem: Continue with current supportive care as well as IV fluid hydration. We'll continue to monitor closely. Encourage oral intake as tolerated. Subjective Date of service: 12/17/18 Interval history: Continues to have loose bowel movements. Study showing positive Shigella species. ID evaluation noted and patient apparently had tested positive for HIV in the past. Per infectious disease note he had been noncompliant with follow- up with the infectious disease specialist at the time that he was diagnosed HIV. Testing is underway at this time. Labs noted his renal function stable. He continues to have metabolic acidosis in the setting of his persistent diarrheal symptoms. He is on normal saline IV fluid. Objective - Vital Signs Vital signs: Vital Signs - 12hr 12/16/18 12/17/18 12/17/18 23:31 05:32 05:41 Temperature 97.9 F 97.5 F L Pulse Rate 107 H 97 H 95 H Respiratory 18 18 18 Rate Blood Pressure 140/96 143/111 149/111 Blood Pressure [Right] O2 Sat by Pulse 99 99 98 Oximetry 12/17/18 05:43 Temperature Pulse Rate 88 Respiratory 18 Rate Blood Pressure Blood Pressure 135/93 [Right] O2 Sat by Pulse 100 Oximetry - General Appearance General appearance: well-developed, appears stated age EENT: ATNC, PERRL Neck: no JVD, no thyromegaly Respiratory: Present: Clear to Ascultation, Normal Exam Cardiology: regular, S1S2 Gastrointestinal: normal Integumentary: no rash, warm and dry Neurologic: no focal deficit, no asterixis, alert and oriented x3 Psychiatric: mood/affect appropriate, cooperative - Lab 12/14/18 05:34 12/17/18 04:53 Most recent lab results Calcium 10.1 mg/dL (8.4-10.2) 12/17/18 04:53 - Imaging Kidney/bladder ultrasound: report reviewed - Allied health notes Allied health notes reviewed: nursing Medications & Allergies - Medications Allergies/Adverse Reactions: Allergies No Known Allergies Allergy (Verified 12/13/18 18:58) Active Medications: Generic Name Dose Route Start Last Admin Trade Name Freq PRN Reason Stop Dose Admin Acetaminophen 650 mg 12/13/18 22:54 Tylenol PO Q4H PRN Pain MILD(1-3)/Fever >100.5/HOLT Enoxaparin Sodium 40 mg 12/16/18 10:00 12/17/18 08:59 Lovenox SUB-Q 40 mg QDAY@1000 MARIA E Administration Ceftriaxone Sodium 2 gm in 100 mls @ 200 mls/hr 12/16/18 16:00 12/16/18 18:28 Rocephin/Ns 2 Gm/100 Ml IV 200 mls/hr Q24H MARIA E Administration Protocol Metoclopramide HCl 10 mg 12/15/18 04:17 12/15/18 16:35 Reglan IV 10 mg Q6H PRN Administration Nausea And Vomiting Ondansetron HCl 4 mg 12/13/18 22:54 12/17/18 01:59 Zofran IV 4 mg Q4H PRN Administration Nausea And Vomiting Sodium Chloride 10 ml 12/14/18 10:00 12/17/18 08:59 Sodium Chloride Flush Syringe 10 Ml IV 10 ml BID MARIA E Administration Sodium Chloride 10 ml 12/13/18 22:54 Sodium Chloride Flush Syringe 10 Ml IV PRN PRN LINE FLUSH
--- NOTE | 2018-12-17 10:03 | Progress Note ---
Assessment and Plan Cultures: 12/13/18 Urine: less than 10K 12/14/18 Stool: Shigella species 12/14/18 C-Diff: negative 12/17/18 HIV Rapid; reactive A/P: 28-year old male with no previous medical history that presents to the ED on 12/13/18 with complaints of nausea, vomiting and diarrhea since . 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 His symptoms worsened the next day. Admitted with. 1. Acute Bacterial Gastroenteritis secondary to Shigella. : Diarrhea continuing. Stool cultures Shigella species. Currently being treated with Ceftriaxone and Flagyl. 2. HIV/AIDS: diagnosed 2 years ago.. No follow-up with ID. Unknown CD4 count/Viral load. No ART therapy. Family members do not know his HIV status. Patient consented to HIV testing while inpatient. Extensive patient education given. 3 MEHNAZ: likely reactive to dehydration. Now resolved. Nephrology following. Recommendations: -continue Ceftriaxone 2 grams IV q day, D2 -add Flagyl 500mg IV every 8 hours - follow-up Stool culture ordered for Ova and Parasites -follow-up CD4 count, Viral load, HIV genotype [facility] M: [phone] O:[phone] Subjective Date of service: 12/17/18 Interval history: Patient seen and examined. Continued abdominal pain and generalized weakness. Diarrhea ongoing. No fevers. Objective - Exam Narrative Exam: Constitutional: Alert, cooperative. Generalized weakness and abdominal pain. Head, Ears, Nose: Normocephalic, atraumatic. External ears, nose normal Eyes: Conjunctivae/corneas clear. No icterus. No ptosis. Neck: Supple, no meningeal signs Oral: dentition good. No thrush Cardiovascular: S1, S2 normal. Respiratory: Good air entry, clear to auscultation bilaterally GI: Soft, -tender; bowel sounds hypoactive, No peritoneal signs Musculoskeletal: No pedal edema, no cyanosis. Skin: No rash or abscess. Hem/Lymphatic: No palpable cervical or supraclavicular nodes. No lymphangitis Psych: Mood ok. Affect normal Neurological: Awake, alert, oriented. - Constitutional Vitals: Vital Signs Temp Pulse Resp BP Pulse Ox 97.5 F L 88 18 135/93 100 12/17/18 05:32 12/17/18 05:43 12/17/18 05:43 12/17/18 05:43 12/17/18 05:43 Temperature -Last 24 Hours Temperature 97.5 F Temperature 97.9 F Temperature 97.8 F Temperature 97.3 F - Labs CBC & Chem 7: 12/14/18 05:34 12/17/18 04:53 Labs: Abnormal lab results 12/16/18 12/17/18 Range/Units 11:27 04:53 Chloride 111.8 H (98-107) mmol/L Carbon Dioxide 16 L 12 L (22-30) mmol/L BUN 26 H 26 H (9-20) mg/dL
[2018-12-17] MEDS: SODIUM BICARBONATE 150 MEQ in D5W 1,000 ML IV SCH (12:12)
[2018-12-17] MEDS: FLAGYL 500 MG/100 ML 500 MG/100 ML BAG IV SCH ×2 (13:28→22:50)
--- NOTE | 2018-12-17 15:05 | Progress Note ---
Assessment and Plan Assessment and plan: 28-year-old man who presented to the hospital nausea vomiting and diarrhea which began after he ate [employer]. Shigella enteritis, cryptosporidium enteritis Continue supportive care, fup stool studies, ID consult keep NPO until vomiting resolves cont abx, Acute kidney injury due to dehydration and vasomotor nephropathy cont IV fluids, nephrology input appreciated acute metabolic acidosis cont bicarb drip HIV, with aids defining illness stool pos for crypto, fup viral load and cd4 count on ppx meds per ID Hyperkalemia Was medically treated, now resolved DVT prophylaxis early ambulation, most likely viral History Interval history: Review of systems Constitutional: No fevers, no malaise, no joint pains CVS: No chest pain, no orthopnea, no dyspnea on exertion, no pedal edema GI: No abdominal pain, diarrhea and vomiting is less frequent Respiratory: no wheezing, no coughing Hospitalist Physical - Physical exam Narrative exam: General.: Appears well, no distress, nontoxic HEENT: Moist mucous membranes, extraocular muscles intact, no lymphadenopathy Neck: supple Cardiac: S1-S2 heard Lungs: clear to auscultation bilaterally Abdomen: soft , nontender, nondistended, bowel sounds positive Extremities: no edema clubbing or cyanosis Skin: no rash or lesions Neurologic: no gross focal deficits Psych: calm, and cooperative - Constitutional Vitals: Temp Pulse Resp BP Pulse Ox 97.4 F L 87 20 128/80 86 12/17/18 11:52 12/17/18 11:52 12/17/18 11:52 12/17/18 11:52 12/17/18 11:52 Results - Labs CBC & Chem 7: 12/19/18 05:49 12/20/18 04:43 Labs: Laboratory Last Values WBC 7.8 K/mm3 (4.5-11.0) 12/14/18 05:34 RBC 5.96 M/mm3 (3.65-5.03) H 12/14/18 05:34 Hgb 16.3 gm/dl (11.8-15.2) H 12/14/18 05:34 Hct 48.9 % (35.5-45.6) H D 12/14/18 05:34 MCV 82 fl (84-94) L 12/14/18 05:34 MCH 27 pg (28-32) L 12/14/18 05:34 MCHC 33 % (32-34) 12/14/18 05:34 RDW 14.6 % (13.2-15.2) 12/14/18 05:34 Plt Count 299 K/mm3 (140-440) 12/14/18 05:34 Lymph % (Auto) 8.5 % (13.4-35.0) L 12/14/18 05:34 [place] % (Auto) 14.5 % (0.0-7.3) H 12/14/18 05:34 Eos % (Auto) 0.0 % (0.0-4.3) 12/14/18 05:34 Baso % (Auto) 0.1 % (0.0-1.8) 12/14/18 05:34 Lymph # 0.7 K/mm3 (1.2-5.4) L 12/14/18 05:34 [place] # 1.1 K/mm3 (0.0-0.8) H 12/14/18 05:34 Eos # 0.0 K/mm3 (0.0-0.4) 12/14/18 05:34 Baso # 0.0 K/mm3 (0.0-0.1) 12/14/18 05:34 Seg Neutrophils % 76.9 % (40.0-70.0) H 12/14/18 05:34 Seg Neutrophils # 6.0 K/mm3 (1.8-7.7) 12/14/18 05:34 Sodium 139 mmol/L (137-145) 12/17/18 04:53 Potassium 4.1 mmol/L (3.6-5.0) 12/17/18 04:53 Chloride 111.8 mmol/L (98-107) H 12/17/18 04:53 Carbon Dioxide 12 mmol/L (22-30) L 12/17/18 04:53 19 mmol/L 12/17/18 04:53 BUN 26 mg/dL (9-20) H 12/17/18 04:53 1.1 mg/dL (0.8-1.5) 12/17/18 04:53 Estimated GFR > 60 ml/min 12/17/18 04:53 24 % 12/17/18 04:53 Glucose 99 mg/dL (75-100) 12/17/18 04:53 Calcium 10.1 mg/dL (8.4-10.2) 12/17/18 04:53 0.50 mg/dL (0.1-1.2) 12/13/18 18:57 AST 27 units/L (5-40) 12/13/18 18:57 ALT 16 units/L (7-56) 12/13/18 18:57 108 units/L (35-129) 12/13/18 18:57 13.3 g/dL (6.3-8.2) H 12/13/18 18:57 5.4 g/dL (3.9-5) H 12/13/18 18:57 0.7 % 12/13/18 18:57 85 units/L (13-60) H 12/13/18 18:57 Yellow (Yellow) 12/13/18 20:40 Cloudy (Clear) 12/13/18 20:40 5.0 (5.0-7.0) 12/13/18 20:40 Ur Specific [place] 1.014 (1.003-1.030) 12/13/18 20:40 100 mg/dl mg/dL (Negative) 12/13/18 20:40 Neg mg/dL (Negative) 12/13/18 20:40 Neg mg/dL (Negative) 12/13/18 20:40 Lg (Negative) 12/13/18 20:40 Neg (Negative) 12/13/18 20:40 Neg (Negative) 12/13/18 20:40 < 2.0 mg/dL (<2.0) 12/13/18 20:40 Ur Leukocyte Esterase Neg (Negative) 12/13/18 20:40 22.0 /HPF (0.0-6.0) H 12/13/18 20:40 9.0 /HPF (0.0-6.0) 12/13/18 20:40 U Epithel Cells (Auto) 2.0 /HPF (0-13.0) 12/13/18 20:40 1+ /HPF (Negative) 12/13/18 20:40 Hyaline Casts 2 /LPF 12/13/18 20:40 3+ /HPF 12/13/18 20:40 2+ /HPF 12/13/18 20:40 C. difficile Tox (PCR) Negative (Negative) 12/14/18 14:00 HIV 1&2 Antibody Rapid Reactive (Non React) 12/16/18 16:36 Non react (Non React) 12/16/18 16:36 Active Medications - Current Medications Current Medications: Generic Name Dose Route Start Last Admin Trade Name Freq PRN Reason Stop Dose Admin Acetaminophen 650 mg 12/13/18 22:54 Tylenol PO Q4H PRN Pain MILD(1-3)/Fever >100.5/HOLT Enoxaparin Sodium 40 mg 12/16/18 10:00 12/17/18 08:59 Lovenox SUB-Q 40 mg QDAY@1000 MARIA E Administration Ceftriaxone Sodium 2 gm in 100 mls @ 200 mls/hr 12/16/18 16:00 12/16/18 18:28 Rocephin/Ns 2 Gm/100 Ml IV 200 mls/hr Q24H MARIA E Administration Protocol Sodium Bicarbonate 150 meq/ 1,150 mls @ 75 mls/hr 12/17/18 10:00 12/17/18 12:12 Dextrose IV 75 mls/hr DIRECT MARIA E Administration Metronidazole 500 mg in 100 mls @ 100 mls/hr 12/17/18 14:00 12/17/18 13:28 Flagyl 500 Mg/100 Ml IV 100 mls/hr Q8HR MARIA E Administration Protocol Metoclopramide HCl 10 mg 12/15/18 04:17 12/15/18 16:35 Reglan IV 10 mg Q6H PRN Administration Nausea And Vomiting Ondansetron HCl 4 mg 12/13/18 22:54 12/17/18 12:12 Zofran IV 4 mg Q4H PRN Administration Nausea And Vomiting Sodium Chloride 10 ml 12/14/18 10:00 12/17/18 08:59 Sodium Chloride Flush Syringe 10 Ml IV 10 ml BID MARIA E Administration Sodium Chloride 10 ml 12/13/18 22:54 Sodium Chloride Flush Syringe 10 Ml IV PRN PRN LINE FLUSH
[2018-12-17] MEDS: REGLAN IV PRN (15:58)
[2018-12-17] MEDS: ROCEPHIN/NS 2 GM/100 ML 2 GM/100 ML BAG IV SCH (15:58)
[2018-12-18] MEDS: LOPRESSOR PO SCH ×3 (00:32→11:24)
[2018-12-18 07:15] LABS: Calcium 11.1 mg/dL (8.4-10.2)
[2018-12-18] MEDS: FLAGYL 500 MG/100 ML 500 MG/100 ML BAG IV SCH ×3 (07:28→21:16)
[2018-12-18] MEDS: ZOFRAN IV PRN ×2 (08:35→21:19)
--- NOTE | 2018-12-18 09:08 | Progress Note ---
Assessment and Plan Assessment and plan: 28-year-old man who presented to the hospital nausea vomiting and diarrhea which began after he ate [employer]. Shigella enteritis, cryptosporidium enteritis Continue supportive care, fup stool studies, ID consult keep NPO until vomiting resolves cont abx, Acute kidney injury due to dehydration and vasomotor nephropathy cont IV fluids, nephrology input appreciated acute metabolic acidosis cont bicarb drip HIV, with aids defining illness stool pos for crypto, fup viral load and cd4 count on ppx meds per ID Hyperkalemia Was medically treated, now resolved DVT prophylaxis early ambulation, most likely viral History Interval history: Review of systems Constitutional: No fevers, no malaise, no joint pains CVS: No chest pain, no orthopnea, no dyspnea on exertion, no pedal edema GI: No abdominal pain, diarrhea and vomiting is less frequent Respiratory: no wheezing, no coughing Hospitalist Physical - Physical exam Narrative exam: General.: Appears well, no distress, nontoxic HEENT: Moist mucous membranes, extraocular muscles intact, no lymphadenopathy Neck: supple Cardiac: S1-S2 heard Lungs: clear to auscultation bilaterally Abdomen: soft , nontender, nondistended, bowel sounds positive Extremities: no edema clubbing or cyanosis Skin: no rash or lesions Neurologic: no gross focal deficits Psych: calm, and cooperative - Constitutional Vitals: Temp Pulse Resp BP Pulse Ox 96.4 F L 107 H 18 145/98 95 12/18/18 07:52 12/18/18 08:50 12/18/18 08:50 12/18/18 08:50 12/18/18 07:24 Results - Labs CBC & Chem 7: 12/19/18 05:49 12/20/18 04:43 Labs: Laboratory Last Values WBC 7.8 K/mm3 (4.5-11.0) 12/14/18 05:34 RBC 5.96 M/mm3 (3.65-5.03) H 12/14/18 05:34 Hgb 16.3 gm/dl (11.8-15.2) H 12/14/18 05:34 Hct 48.9 % (35.5-45.6) H D 12/14/18 05:34 MCV 82 fl (84-94) L 12/14/18 05:34 MCH 27 pg (28-32) L 12/14/18 05:34 MCHC 33 % (32-34) 12/14/18 05:34 RDW 14.6 % (13.2-15.2) 12/14/18 05:34 Plt Count 299 K/mm3 (140-440) 12/14/18 05:34 Lymph % (Auto) 8.5 % (13.4-35.0) L 12/14/18 05:34 [place] % (Auto) 14.5 % (0.0-7.3) H 12/14/18 05:34 Eos % (Auto) 0.0 % (0.0-4.3) 12/14/18 05:34 Baso % (Auto) 0.1 % (0.0-1.8) 12/14/18 05:34 Lymph # 0.7 K/mm3 (1.2-5.4) L 12/14/18 05:34 [place] # 1.1 K/mm3 (0.0-0.8) H 12/14/18 05:34 Eos # 0.0 K/mm3 (0.0-0.4) 12/14/18 05:34 Baso # 0.0 K/mm3 (0.0-0.1) 12/14/18 05:34 Seg Neutrophils % 76.9 % (40.0-70.0) H 12/14/18 05:34 Seg Neutrophils # 6.0 K/mm3 (1.8-7.7) 12/14/18 05:34 POC ABG pH 7.324 (7.35-7.45) L 12/18/18 08:56 POC ABG pO2 167 (80-105) H 12/18/18 08:56 POC ABG HCO3 11.3 (22-26 mml/L) 12/18/18 08:56 POC ABG Total CO2 12 (23-27mmol/L) 12/18/18 08:56 POC ABG O2 Sat 99 12/18/18 08:56 POC ABG Base Excess -15 ((-2) - (+3)mmol/L) 12/18/18 08:56 28 % 12/18/18 08:56 Sodium 141 mmol/L (137-145) 12/18/18 05:30 Potassium 4.1 mmol/L (3.6-5.0) 12/18/18 05:30 Chloride 99.0 mmol/L (98-107) 12/18/18 05:30 Carbon Dioxide 7 mmol/L (22-30) L* 12/18/18 05:30 39 mmol/L 12/18/18 05:30 BUN 45 mg/dL (9-20) H 12/18/18 05:30 3.8 mg/dL (0.8-1.5) H D 12/18/18 05:30 Estimated GFR 23 ml/min 12/18/18 05:30 12 % 12/18/18 05:30 Glucose 131 mg/dL (75-100) H 12/18/18 05:30 Calcium 11.1 mg/dL (8.4-10.2) H 12/18/18 05:30 0.50 mg/dL (0.1-1.2) 12/13/18 18:57 AST 27 units/L (5-40) 12/13/18 18:57 ALT 16 units/L (7-56) 12/13/18 18:57 108 units/L (35-129) 12/13/18 18:57 13.3 g/dL (6.3-8.2) H 12/13/18 18:57 5.4 g/dL (3.9-5) H 12/13/18 18:57 0.7 % 12/13/18 18:57 85 units/L (13-60) H 12/13/18 18:57 Yellow (Yellow) 12/13/18 20:40 Cloudy (Clear) 12/13/18 20:40 5.0 (5.0-7.0) 12/13/18 20:40 Ur Specific [place] 1.014 (1.003-1.030) 12/13/18 20:40 100 mg/dl mg/dL (Negative) 12/13/18 20:40 Neg mg/dL (Negative) 12/13/18 20:40 Neg mg/dL (Negative) 12/13/18 20:40 Lg (Negative) 12/13/18 20:40 Neg (Negative) 12/13/18 20:40 Neg (Negative) 12/13/18 20:40 < 2.0 mg/dL (<2.0) 12/13/18 20:40 Ur Leukocyte Esterase Neg (Negative) 12/13/18 20:40 22.0 /HPF (0.0-6.0) H 12/13/18 20:40 9.0 /HPF (0.0-6.0) 12/13/18 20:40 U Epithel Cells (Auto) 2.0 /HPF (0-13.0) 12/13/18 20:40 1+ /HPF (Negative) 12/13/18 20:40 Hyaline Casts 2 /LPF 12/13/18 20:40 3+ /HPF 12/13/18 20:40 2+ /HPF 12/13/18 20:40 C. difficile Tox (PCR) Negative (Negative) 12/14/18 14:00 HIV 1&2 Antibody Rapid Reactive (Non React) 12/16/18 16:36 Non react (Non React) 12/16/18 16:36 Active Medications - Current Medications Current Medications: Generic Name Dose Route Start Last Admin Trade Name Freq PRN Reason Stop Dose Admin Acetaminophen 650 mg 12/13/18 22:54 Tylenol PO Q4H PRN Pain MILD(1-3)/Fever >100.5/HOLT Enoxaparin Sodium 40 mg 12/16/18 10:00 12/17/18 08:59 Lovenox SUB-Q 40 mg QDAY@1000 MARIA E Administration Ceftriaxone Sodium 2 gm in 100 mls @ 200 mls/hr 12/16/18 16:00 12/17/18 15:58 Rocephin/Ns 2 Gm/100 Ml IV 200 mls/hr Q24H MARIA E Administration Protocol Sodium Bicarbonate 150 meq/ 1,150 mls @ 75 mls/hr 12/17/18 10:00 12/17/18 12:12 Dextrose IV 75 mls/hr DIRECT MARIA E Administration Metronidazole 500 mg in 100 mls @ 100 mls/hr 12/17/18 14:00 12/18/18 07:28 Flagyl 500 Mg/100 Ml IV 100 mls/hr Q8HR MARIA E Administration Protocol Metoclopramide HCl 10 mg 12/15/18 04:17 12/17/18 15:58 Reglan IV 10 mg Q6H PRN Administration Nausea And Vomiting Metoprolol Tartrate 50 mg 12/18/18 01:00 12/18/18 00:32 Lopressor PO 50 mg BID MARIA E Administration Ondansetron HCl 4 mg 12/13/18 22:54 12/18/18 08:35 Zofran IV 4 mg Q4H PRN Administration Nausea And Vomiting Sodium Chloride 10 ml 12/14/18 10:00 12/17/18 22:50 Sodium Chloride Flush Syringe 10 Ml IV 10 ml BID MARIA E Administration Sodium Chloride 10 ml 12/13/18 22:54 Sodium Chloride Flush Syringe 10 Ml IV PRN PRN LINE FLUSH
--- NOTE | 2018-12-18 10:03 | Progress Note ---
Assessment and Plan - Patient Problems (1) Acute renal failure Current Visit: Yes Status: Acute Plan to address problem: Likely prerenal injury secondary to the aforementioned symptoms of persistent nausea, vomiting, diarrhea, decreased oral intake. Agree with current management in regards to fluid hydration. Have increased his fluids and agree with transfer to IMCU given his progressively worsening metabolic acidosis/hypotehermia/possible sepsis Overall renal function has now worsened in the setting of worsening renal failure Renal ultrasound reviewed without any acute abnormalities. We will continue to monitor. Please avoid all nephrotoxins. Please maintain MAP above 65. Will repeat UA. (2) Nausea vomiting and diarrhea Current Visit: Yes Status: Acute Plan to address problem: Symptomatic treatment per primary team. We will continue to monitor. Stool studies are positive for Shigella. On appropriate meds. Infectious disease recommendation. His symptoms have progressively worsened, leading to worsening renal failure/metabolic acidosis. (3) Metabolic acidosis Current Visit: Yes Status: Acute Plan to address problem: In The setting of the aforementioned diarrhea symptoms. Worsening noted overnight. Continue with IV fluid hydration but will increase the D5W with 150 mEq of sodium bicarbonate to be running at 150 mL an hour (4) Weakness Current Visit: Yes Status: Acute Plan to address problem: Continue with current supportive care as well as IV fluid hydration. We'll continue to monitor closely. Subjective Date of service: 12/18/18 Interval history: Has been having worsening GI symptoms of nausea, vomitting, diarrhea, and hypothermia overnight. renal function shows worsening along with progressively worsening metabolic acidosis in the setting of worsening diarrhea and pre-renal failure. Discussed case with primary attending, and likely his level of imm unosupression with his HIV status may be making him more prone to worsening affect of his current symptoms. He has been on D5W/150 Meq NaHCO3 at 75cc/hr. Objective - Vital Signs Vital signs: Vital Signs - 12hr 12/17/18 12/17/18 12/18/18 22:55 23:10 00:17 Temperature 97.4 F L 97.5 F L Pulse Rate 143 H 138 H Respiratory 20 18 Rate Blood Pressure 135/92 144/85 Blood Pressure [Right] O2 Sat by Pulse 97 97 Oximetry 12/18/18 12/18/18 12/18/18 00:32 06:51 07:23 Temperature Pulse Rate 138 H 108 H 93 H Respiratory 20 18 Rate Blood Pressure 144/85 135/96 117/71 Blood Pressure [Right] O2 Sat by Pulse 83 L 92 Oximetry 12/18/18 12/18/18 12/18/18 07:24 07:52 08:50 Temperature 96.4 F L Pulse Rate 92 H 107 H Respiratory 18 Rate Blood Pressure Blood Pressure 145/98 [Right] O2 Sat by Pulse 95 Oximetry - General Appearance General appearance: moderate distress, frail EENT: ATNC, PERRL Neck: no JVD, no thyromegaly Respiratory: Present: Normal Exam Cardiology: regular, normal heart rate, S1S2 Gastrointestinal: normal, normoactive bowel sounds Integumentary: warm and dry Neurologic: no focal deficit, alert and oriented x3 Psychiatric: mood/affect appropriate, cooperative - Lab 12/14/18 05:34 12/18/18 05:30 Most recent lab results Calcium 11.1 mg/dL (8.4-10.2) H 12/18/18 05:30 - Allied health notes Allied health notes reviewed: nursing Medications & Allergies - Medications Allergies/Adverse Reactions: Allergies No Known Allergies Allergy (Verified 12/13/18 18:58) Active Medications: Generic Name Dose Route Start Last Admin Trade Name Freq PRN Reason Stop Dose Admin Acetaminophen 650 mg 12/13/18 22:54 Tylenol PO Q4H PRN Pain MILD(1-3)/Fever >100.5/HOLT Enoxaparin Sodium 40 mg 12/16/18 10:00 12/17/18 08:59 Lovenox SUB-Q 40 mg QDAY@1000 MARIA E Administration Ceftriaxone Sodium 2 gm in 100 mls @ 200 mls/hr 12/16/18 16:00 12/17/18 15:58 Rocephin/Ns 2 Gm/100 Ml IV 200 mls/hr Q24H MARIA E Administration Protocol Sodium Bicarbonate 150 meq/ 1,150 mls @ 150 mls/hr 12/17/18 10:00 12/17/18 12:12 Dextrose IV 75 mls/hr DIRECT MARIA E Administration Metronidazole 500 mg in 100 mls @ 100 mls/hr 12/17/18 14:00 12/18/18 07:28 Flagyl 500 Mg/100 Ml IV 100 mls/hr Q8HR MARIA E Administration Protocol Metoclopramide HCl 10 mg 12/15/18 04:17 12/17/18 15:58 Reglan IV 10 mg Q6H PRN Administration Nausea And Vomiting Metoprolol Tartrate 50 mg 12/18/18 01:00 12/18/18 00:32 Lopressor PO 50 mg BID MARIA E Administration Ondansetron HCl 4 mg 12/13/18 22:54 12/18/18 08:35 Zofran IV 4 mg Q4H PRN Administration Nausea And Vomiting Sodium Chloride 10 ml 12/14/18 10:00 12/17/18 22:50 Sodium Chloride Flush Syringe 10 Ml IV 10 ml BID MARIA E Administration Sodium Chloride 10 ml 12/13/18 22:54 Sodium Chloride Flush Syringe 10 Ml IV PRN PRN LINE FLUSH
[2018-12-18] MEDS: LOVENOX SUB-Q SCH ×2 (10:28→11:08)
--- NOTE | 2018-12-18 10:32 | Progress Note ---
Assessment and Plan Cultures: 12/13/18 Urine: less than 10K 12/14/18 Stool: Shigella species 12/14/18 C-Diff: negative 12/17/18 HIV Rapid; reactive 12/17/18 Cryptosporidium: positive : Giardia: negative A/P: 28-year old male with no previous medical history that presents to the ED on 12/13/18 with complaints of nausea, vomiting and diarrhea since . He reports eating beef and broccoli chomein and orange chicken at [employer] on Saturday12-10-18. His symptoms worsened the next day. Admitted with. 1. Acute Bacterial Gastroenteritis secondary to Shigella. : Diarrhea continuing. Clinically not improving. Stool cultures Shigella species. Cryptosporidium: positive. Currently being treated with Ceftriaxone and Flagyl. 2. HIV/AIDS: diagnosed 2 years ago.. No follow-up with ID. Unknown CD4 count/Viral load. No ART therapy. Family members do not know his HIV status. Patient consented to HIV testing while inpatient. Extensive patient education given. 3 MEHNAZ: progressively worsening metabolic acidosis. Nephrology following. 4. Sepsis: not on admission, evidenced by hypothermia, increased lactic acid and tachycardia. Etiology acute bacterial gastroenteritis secondary to shigella and likely immunosupression with HIV. Will be moved to IMCU for closer monitoring. Currently being treated with Ceftriaxone and Flagyl, Atovaquone and Azithromycin. Recommendations: -continue Ceftriaxone 2 grams IV q day, D3 - continue Flagyl 500mg IV every 8 hours, D2 -start Atovaquone 1500mg IV every 24 hours -start Azithromycin 500mg IV every 24 hours -follow-up CD4 count, Viral load, HIV genotype -CBC with differential, CMP ordered. -AFB blood culture crytococcal antigen ,CMV DNA PCR ordered Ann-Marie Rich NP [facility] M: [id number] O:[phone] Subjective Date of service: 12/18/18 Interval history: Patient seen and examined. Continued abdominal pain, generalized weakness, hypothermia. No SOB or fevers. Objective - Exam Narrative Exam: Constitutional: Asleep, easy to arouse but generalized weakness , hypothermia, abdominal pain. . Head, Ears, Nose: Normocephalic, atraumatic. External ears, nose normal Eyes: Conjunctivae/corneas clear. No icterus. No ptosis. Neck: Supple, no meningeal signs Oral: dentition good. No thrush Cardiovascular: S1, S2 normal. Respiratory: Good air entry, clear to auscultation bilaterally GI: Soft, -tender; bowel sounds hypoactive, No peritoneal signs Musculoskeletal: No pedal edema, no cyanosis. Skin: No rash or abscess. Hem/Lymphatic: No palpable cervical or supraclavicular nodes. No lymphangitis Psych: Affect flat Neurological: Asleep, drowsy, acute distress - Constitutional Vitals: Vital Signs Temp Pulse Resp BP Pulse Ox 96.4 F L 107 H 18 145/98 95 12/18/18 07:52 12/18/18 08:50 12/18/18 08:50 12/18/18 08:50 12/18/18 07:24 Temperature -Last 24 Hours Temperature 96.4 F Temperature 97.5 F Temperature 97.4 F Temperature 97.6 F Temperature 97.4 F - Labs CBC & Chem 7: 12/14/18 05:34 12/18/18 05:30 Labs: Abnormal lab results 12/18/18 12/18/18 Range/Units 05:30 08:56 POC ABG pH 7.324 L (7.35-7.45) POC ABG pO2 167 H (80-105) Carbon Dioxide 7 L* (22-30) mmol/L BUN 45 H (9-20) mg/dL Creatinine 3.8 H D (0.8-1.5) mg/dL Glucose 131 H (75-100) mg/dL Calcium 11.1 H (8.4-10.2) mg/dL
[2018-12-18] MEDS: SODIUM CHLORIDE FLUSH SYRINGE 10 ML IV SCH ×2 (11:08→22:32)
[2018-12-18] MEDS: REGLAN IV PRN (11:32)
[2018-12-18] MEDS: SODIUM BICARBONATE 150 MEQ in D5W 1,000 ML IV SCH ×2 (12:00→22:32)
[2018-12-18] MEDS: ZITHROMAX 500 MG in NACL 0.9% 250ML 250 ML IV SCH (13:36)
[2018-12-18] MEDS: MEPRON PO SCH (14:42)
[2018-12-18] MEDS: ROCEPHIN/NS 2 GM/100 ML 2 GM/100 ML BAG IV SCH (17:05)
[2018-12-18] MEDS: TYLENOL PO PRN (21:16)
[2018-12-19] MEDS: FLAGYL 500 MG/100 ML 500 MG/100 ML BAG IV SCH ×3 (05:37→23:31)
[2018-12-19 06:20] LABS: Basophils % (Auto) 0.3 % (0.0-1.8); Eosinophils % (Auto) 0.1 % (0.0-4.3); Hematocrit 54.3 % (35.5-45.6); Hemoglobin 18.3 gm/dl (11.8-15.2); Lymphocytes # (Auto) 1.1 K/mm3 (1.2-5.4); Lymphocytes % (Auto) 13.4 % (13.4-35.0); Mean Corpuscular HGB Conc 34 % (32-34); Mean Corpuscular Volume 79 fl (84-94); Monocytes % (Auto) 13.3 % (0.0-7.3); Platelet Count 331 K/mm3 (140-440); Red Blood Count 6.87 M/mm3 (3.65-5.03); Red Cell Distribution Width 13.5 % (13.2-15.2)
[2018-12-19] MEDS: SODIUM BICARBONATE 150 MEQ in D5W 1,000 ML IV SCH (06:23)
[2018-12-19 06:41] LABS: Albumin 4.8 g/dL (3.9-5); Calcium 9.8 mg/dL (8.4-10.2)
[2018-12-19] MEDS: LOVENOX SUB-Q SCH (10:04)
[2018-12-19] MEDS: SODIUM CHLORIDE FLUSH SYRINGE 10 ML IV SCH (10:05)
[2018-12-19] MEDS: MEPRON PO SCH (10:05)
[2018-12-19] MEDS: ZOFRAN IV PRN ×2 (10:06→14:17)
--- NOTE | 2018-12-19 10:34 | Progress Note ---
Assessment and Plan - Patient Problems (1) Acute renal failure Current Visit: Yes Status: Acute Plan to address problem: Likely prerenal injury secondary to the aforementioned symptoms of persistent nausea, vomiting, diarrhea, decreased oral intake. Agree with current management in regards to fluid hydration. Currently being monitored closely in the ICU Renal ultrasound reviewed without any acute abnormalities. We will continue to monitor. Please avoid all nephrotoxins. Please maintain MAP above 65. Will monitor renal function closely. (2) Nausea vomiting and diarrhea Current Visit: Yes Status: Acute Plan to address problem: Symptomatic treatment per primary team. We will continue to monitor. Stool studies are positive for Shigella and now cryptosporidium. On appropriate meds. Infectious disease recommendation. His symptoms have progressively worsened, lead to worsening renal failure/metabolic acidosis. (3) Metabolic acidosis Current Visit: Yes Status: Acute Plan to address problem: Placed on bicarb gtt, which has shown appropriate improvement. In the setting of improvement in treatment of metabolic acidosis, and also in the setting of hypokalemia, can recommend that we switch IVF to NS at 150 cc/hr and monitor closely. (4) Weakness Current Visit: Yes Status: Acute Plan to address problem: Continue with current supportive care as well as IV fluid hydration. We'll continue to monitor closely. (5) Hypokalemia Current Visit: Yes Status: Acute Plan to address problem: Likely secondary to GI losses. Replete per protocol. Subjective Date of service: 12/19/18 Interval history: Seen earlier this am. Overall symptoms remain with only mild improvement per patient. Transferred to the ICU for further monitoring. Labs noted, and overall renal function stable. Objective - Vital Signs Vital signs: Vital Signs - 12hr 12/18/18 12/18/18 12/18/18 22:31 22:41 22:51 Temperature Pulse Rate 95 H 125 H 98 H Pulse Rate [ From Monitor] Respiratory 15 12 6 L Rate Blood Pressure 135/92 135/92 135/92 O2 Sat by Pulse 99 99 99 Oximetry 12/18/18 12/18/18 12/18/18 23:01 23:10 23:21 Temperature Pulse Rate 103 H 96 H 156 H Pulse Rate [ From Monitor] Respiratory 14 12 24 Rate Blood Pressure 135/92 135/92 135/92 O2 Sat by Pulse 100 98 99 Oximetry 12/18/18 12/18/18 12/18/18 23:31 23:33 23:41 Temperature 97.9 F Pulse Rate 139 H 109 H Pulse Rate [ From Monitor] Respiratory 17 19 Rate Blood Pressure 135/92 135/92 O2 Sat by Pulse 100 99 Oximetry 12/18/18 12/19/18 12/19/18 23:51 00:00 00:11 Temperature Pulse Rate 122 H 99 H 102 H Pulse Rate [ 98 H From Monitor] Respiratory 25 H 15 13 Rate Blood Pressure 135/92 117/73 117/73 O2 Sat by Pulse 97 94 98 Oximetry 12/19/18 12/19/18 12/19/18 00:21 00:31 00:41 Temperature Pulse Rate 122 H 149 H 119 H Pulse Rate [ From Monitor] Respiratory 15 21 13 Rate Blood Pressure 117/73 117/73 117/73 O2 Sat by Pulse 100 98 98 Oximetry 12/19/18 12/19/18 12/19/18 00:51 01:01 01:11 Temperature Pulse Rate 101 H 104 H 100 H Pulse Rate [ From Monitor] Respiratory 14 13 13 Rate Blood Pressure 117/73 117/73 117/73 O2 Sat by Pulse 97 100 98 Oximetry 12/19/18 12/19/18 12/19/18 01:21 01:31 01:41 Temperature Pulse Rate 124 H 114 H 104 H Pulse Rate [ From Monitor] Respiratory 12 14 13 Rate Blood Pressure 117/73 117/73 117/73 O2 Sat by Pulse 94 95 97 Oximetry 12/19/18 12/19/18 12/19/18 01:50 02:01 02:11 Temperature Pulse Rate 124 H 98 H 100 H Pulse Rate [ From Monitor] Respiratory 15 13 14 Rate Blood Pressure 117/73 117/73 117/73 O2 Sat by Pulse 99 98 98 Oximetry 12/19/18 12/19/18 12/19/18 02:12 02:21 02:31 Temperature Pulse Rate 101 H 123 H 125 H Pulse Rate [ From Monitor] Respiratory 14 15 Rate Blood Pressure 117/73 117/73 O2 Sat by Pulse 98 100 Oximetry 12/19/18 12/19/18 12/19/18 02:41 02:51 03:00 Temperature Pulse Rate 135 H 98 H 94 H Pulse Rate [ From Monitor] Respiratory 21 16 13 Rate Blood Pressure 117/73 117/73 117/73 O2 Sat by Pulse 100 100 Oximetry 12/19/18 12/19/18 12/19/18 03:11 03:21 03:31 Temperature Pulse Rate 127 H 96 H 96 H Pulse Rate [ From Monitor] Respiratory 16 13 13 Rate Blood Pressure 117/73 117/73 117/73 O2 Sat by Pulse 98 Oximetry 12/19/18 12/19/18 12/19/18 03:41 03:51 04:00 Temperature 97.8 F Pulse Rate 100 H 96 H 131 H Pulse Rate [ 100 H From Monitor] Respiratory 15 13 11 L Rate Blood Pressure 117/73 117/73 135/89 O2 Sat by Pulse 99 100 100 Oximetry 12/19/18 12/19/18 12/19/18 04:11 04:21 04:31 Temperature Pulse Rate 129 H 121 H 100 H Pulse Rate [ From Monitor] Respiratory 17 16 13 Rate Blood Pressure 135/89 135/89 135/89 O2 Sat by Pulse 100 99 95 Oximetry 12/19/18 12/19/18 05:59 07:38 Temperature Pulse Rate 100 H Pulse Rate [ From Monitor] Respiratory Rate Blood Pressure O2 Sat by Pulse 100 Oximetry - General Appearance General appearance: appears stated age, moderate distress, fatigue EENT: ATNC, PERRL Neck: no JVD, no thyromegaly Respiratory: Present: Clear to Ascultation Cardiology: regular, S1S2 Gastrointestinal: normal, normoactive bowel sounds Integumentary: no rash, warm and dry Neurologic: no focal deficit, no asterixis, alert and oriented x3 Psychiatric: mood/affect appropriate - Lab 12/19/18 05:49 12/19/18 05:49 Most recent lab results Calcium 9.8 mg/dL (8.4-10.2) 12/19/18 05:49 - Allied health notes Allied health notes reviewed: nursing Medications & Allergies - Medications Allergies/Adverse Reactions: Allergies No Known Allergies Allergy (Verified 12/13/18 18:58) Home Medications: Home Medications Medication Instructions Recorded Confirmed Last Taken Type No Known Home Medications [No 12/18/18 12/18/18 Unknown History Reported Home Medications] Active Medications: Generic Name Dose Route Start Last Admin Trade Name Freq PRN Reason Stop Dose Admin Acetaminophen 650 mg 12/13/18 22:54 12/18/18 21:16 Tylenol PO 650 mg Q4H PRN Administration Pain MILD(1-3)/Fever >100.5/HOLT Atovaquone 1,500 mg 12/18/18 14:00 12/19/18 10:05 Mepron PO 1,500 mg QDAY MARIA E Administration Enoxaparin Sodium 30 mg 12/18/18 11:00 12/19/18 10:04 Lovenox SUB-Q 30 mg QDAY MARIA E Administration Ceftriaxone Sodium 2 gm in 100 mls @ 200 mls/hr 12/16/18 16:00 12/18/18 17:05 Rocephin/Ns 2 Gm/100 Ml IV 200 mls/hr Q24H MARIA E Administration Protocol Sodium Bicarbonate 150 meq/ 1,150 mls @ 150 mls/hr 12/17/18 10:00 12/19/18 06:23 Dextrose IV 150 mls/hr DIRECT MARIA E Administration Metronidazole 500 mg in 100 mls @ 100 mls/hr 12/17/18 14:00 12/19/18 05:37 Flagyl 500 Mg/100 Ml IV 100 mls/hr Q8HR MARIA E Administration Protocol Azithromycin 500 mg/ Sodium 250 mls @ 250 mls/hr 12/18/18 14:00 12/18/18 13:36 Chloride IV 250 mls/hr Q24H MARIA E Administration Protocol Metoclopramide HCl 10 mg 12/15/18 04:17 12/18/18 11:32 Reglan IV 10 mg Q6H PRN Administration Nausea And Vomiting Ondansetron HCl 4 mg 12/13/18 22:54 12/19/18 10:06 Zofran IV 4 mg Q4H PRN Administration Nausea And Vomiting Sodium Chloride 10 ml 12/14/18 10:00 12/19/18 10:05 Sodium Chloride Flush Syringe 10 Ml IV 10 ml BID MARIA E Administration Sodium Chloride 10 ml 12/13/18 22:54 Sodium Chloride Flush Syringe 10 Ml IV PRN PRN LINE FLUSH
--- NOTE | 2018-12-19 11:26 | Progress Note ---
Assessment and Plan Cultures: 12/13/18 Urine: less than 10K 12/14/18 Stool: Shigella species 12/14/18 C-Diff: negative 12/17/18 HIV Rapid; reactive 12/17/18 Cryptosporidium: positive : Giardia: negative 12/18/2018 serum Cryptococcal Ag: Negaitve A/P: 28-year old male with no previous medical history that presents to the ED on 12/13/18 with complaints of nausea, vomiting and diarrhea since . He reported eating beef and broccoli chomein and orange chicken at [employer] on Saturday12-10-18. His symptoms worsened the next day. Admitted with. 1. Acute bacterial gastroenteritis secondary to Shigella with co-infection from Cryptosporidium: Diarrhea continuing. Clinically not improving. Stool cultures Shigella species. Cryptosporidium: positive. Currently being treated with Ceftriaxone and Azithromycin as dual coverage for the Shigella and also on empiric IV Flagyl. 2. HIV/AIDS: diagnosed 2 years ago. No follow-up with ID. Unknown CD4 c ount/Viral load. Never been on HIV therapy. Family members do not know his HIV status. Labs pending here. Likely AIDS given the lymphopenia. 3 MEHNAZ: progressively worsening metabolic acidosis and creatinine. Platelet count, hemoglobin normal, unlikely HUS. Nephrology following. 4. Sepsis v/s SIRS: hypothermia, increased lactic acid and tachycardia, likely hypovolemia given the evidence of hemoconcentration. Recs: continue IV Ceftriaxone, Azithromycin and Flagyl No specific treatment for cryptosporidium (mainly needs HIV therapy. Alinia is non-formulary). Continue supportive care continue PO Atovaquone for prophylaxis (likely AIDS) f/u CMV PCR, AFB blood cultures (for disseminated MAC) correction of hypovolemia and acidosis Will follow. Dana Sharp MD, FACP [facility] ([facility] C: [phone] O: [phone] F: [phone] Subjective Date of service: 12/19/18 Interval history: Moved to [facility] yesterday. Continues with diarrhea, per RN stools are quite mucoid, dark. Temperature improving, patient still on [employer] more due to preference. Continues on IV fluids. Denies any abdominal pain. Objective - Exam Narrative Exam: Physical Exam: Constitutional: Alert, cooperative. Mild distress Head, Ears, Nose: Normocephalic, atraumatic. External ears, nose normal Eyes: Conjunctivae/corneas clear. No icterus. No ptosis. Neck: Supple, no meningeal signs Oral: dentition fair, no thrush Cardiovascular: S1, S2 normal. Respiratory: Good air entry, clear to auscultation bilaterally GI: Soft, non-tender; bowel sounds + No peritoneal signs Musculoskeletal: No pedal edema, no cyanosis. Skin: No rash or abscess Hem/Lymphatic: No palpable cervical or supraclavicular nodes. No lymphangitis Psych: Mood ok. Affect normal Neurological: Awake, alert, oriented. No gross abnormality - Constitutional Vitals: Vital Signs Temp Pulse Resp BP Pulse Ox 97.8 F 100 H 13 135/89 100 12/19/18 04:00 12/19/18 05:59 12/19/18 04:31 12/19/18 04:31 12/19/18 07:38 Temperature -Last 24 Hours Temperature 97.8 F Temperature 97.9 F Temperature 98.3 F Temperature 98.3 F Temperature 96.9 F - Labs CBC & Chem 7: 12/19/18 05:49 12/19/18 05:49 Labs: Abnormal lab results 12/18/18 12/18/18 12/19/18 Range/Units 16:09 Unknown 00:42 RBC (3.65-5.03) M/mm3 Hgb (11.8-15.2) gm/dl Hct (35.5-45.6) % MCV (84-94) fl MCH (28-32) pg [place] % (Auto) (0.0-7.3) % Lymph # (1.2-5.4) K/mm3 Adams # (0.0-0.8) K/mm3 Seg Neutrophils % (40.0-70.0) % Potassium (3.6-5.0) mmol/L Chloride (98-107) mmol/L BUN (9-20) mg/dL Creatinine (0.8-1.5) mg/dL Glucose (75-100) mg/dL Lactic Acid 3.40 H* 4.60 H* 2.90 H* (0.7-2.0) mmol/L Total Protein (6.3-8.2) g/dL 12/19/18 12/19/18 12/19/18 Range/Units 05:49 05:49 05:49 RBC 6.87 H (3.65-5.03) M/mm3 Hgb 18.3 H (11.8-15.2) gm/dl Hct 54.3 H (35.5-45.6) % MCV 79 L (84-94) fl MCH 27 L (28-32) pg [place] % (Auto) 13.3 H (0.0-7.3) % Lymph # 1.1 L (1.2-5.4) K/mm3 Adams # 1.0 H (0.0-0.8) K/mm3 Seg Neutrophils % 72.9 H (40.0-70.0) % Potassium 2.9 L* D (3.6-5.0) mmol/L Chloride 89.5 L (98-107) mmol/L BUN 60 H (9-20) mg/dL Creatinine 3.2 H (0.8-1.5) mg/dL Glucose 157 H (75-100) mg/dL Lactic Acid 3.20 H* (0.7-2.0) mmol/L Total Protein 9.3 H (6.3-8.2) g/dL 12/19/18 Range/Units 09:00 RBC (3.65-5.03) M/mm3 Hgb (11.8-15.2) gm/dl Hct (35.5-45.6) % MCV (84-94) fl MCH (28-32) pg [place] % (Auto) (0.0-7.3) % Lymph # (1.2-5.4) K/mm3 Adams # (0.0-0.8) K/mm3 Seg Neutrophils % (40.0-70.0) % Potassium (3.6-5.0) mmol/L Chloride (98-107) mmol/L BUN (9-20) mg/dL Creatinine (0.8-1.5) mg/dL Glucose (75-100) mg/dL Lactic Acid 2.60 H* (0.7-2.0) mmol/L Total Protein (6.3-8.2) g/dL
[2018-12-19] MEDS: REGLAN IV PRN (12:26)
[2018-12-19] MEDS: SODIUM CHLORIDE FLUSH SYRINGE 10 ML IV PRN (12:27)
[2018-12-19] MEDS: ZITHROMAX 500 MG in NACL 0.9% 250ML 250 ML IV SCH (14:04)
[2018-12-19] MEDS: NACL 0.9% 1000 ML 1,000 ML IV SCH (14:16)
[2018-12-19] MEDS: ROCEPHIN/NS 2 GM/100 ML 2 GM/100 ML BAG IV SCH (16:00)
[2018-12-19] MEDS: KCL 10MEQ/100ML 10 MEQ/100 ML BAG IV SCH (16:00)
--- NOTE | 2018-12-19 16:01 | Progress Note ---
Assessment and Plan Assessment and plan: 28-year-old man who presented to the hospital nausea vomiting and diarrhea which began after he ate [employer]. Shigella enteritis, cryptosporidium enteritis, severe sepsis Continue supportive care, fup stool studies, ID consult keep NPO until vomiting resolves cont abx, severe hypokalemia cont to replete IV, likely loss from diarrhea Acute kidney injury due to dehydration and vasomotor nephropathy cont IV fluids, nephrology input appreciated acute metabolic acidosis cont bicarb drip HIV, with aids defining illness stool pos for crypto, fup viral load and cd4 count on ppx meds per ID Hyperkalemia Was medically treated, now resolved DVT prophylaxis early ambulation, most likely viral History Interval history: Review of systems Constitutional: No fevers, no malaise, no joint pains CVS: No chest pain, no orthopnea, no dyspnea on exertion, no pedal edema GI: No abdominal pain, diarrhea and vomiting is less frequent Respiratory: no wheezing, no coughing Hospitalist Physical - Physical exam Narrative exam: General.: Appears well, no distress, nontoxic HEENT: Moist mucous membranes, extraocular muscles intact, no lymphadenopathy Neck: supple Cardiac: S1-S2 heard Lungs: clear to auscultation bilaterally Abdomen: soft , nontender, nondistended, bowel sounds positive Extremities: no edema clubbing or cyanosis Skin: no rash or lesions Neurologic: no gross focal deficits Psych: calm, and cooperative - Constitutional Vitals: Temp Pulse Resp BP Pulse Ox 97.0 F L 100 H 14 132/91 98 12/19/18 12:00 12/19/18 12:00 12/19/18 12:00 12/19/18 12:00 12/19/18 12:00 Results - Labs CBC & Chem 7: 12/19/18 05:49 12/20/18 04:43 Labs: Laboratory Last Values WBC 7.8 K/mm3 (4.5-11.0) 12/19/18 05:49 RBC 6.87 M/mm3 (3.65-5.03) H 12/19/18 05:49 Hgb 18.3 gm/dl (11.8-15.2) H 12/19/18 05:49 Hct 54.3 % (35.5-45.6) H 12/19/18 05:49 MCV 79 fl (84-94) L 12/19/18 05:49 MCH 27 pg (28-32) L 12/19/18 05:49 MCHC 34 % (32-34) 12/19/18 05:49 RDW 13.5 % (13.2-15.2) 12/19/18 05:49 Plt Count 331 K/mm3 (140-440) 12/19/18 05:49 Lymph % (Auto) 13.4 % (13.4-35.0) 12/19/18 05:49 [place] % (Auto) 13.3 % (0.0-7.3) H 12/19/18 05:49 Eos % (Auto) 0.1 % (0.0-4.3) 12/19/18 05:49 Baso % (Auto) 0.3 % (0.0-1.8) 12/19/18 05:49 Lymph # 1.1 K/mm3 (1.2-5.4) L 12/19/18 05:49 [place] # 1.0 K/mm3 (0.0-0.8) H 12/19/18 05:49 Eos # 0.0 K/mm3 (0.0-0.4) 12/19/18 05:49 Baso # 0.0 K/mm3 (0.0-0.1) 12/19/18 05:49 Seg Neutrophils % 72.9 % (40.0-70.0) H 12/19/18 05:49 Seg Neutrophils # 5.7 K/mm3 (1.8-7.7) 12/19/18 05:49 POC ABG pH 7.324 (7.35-7.45) L 12/18/18 08:56 POC ABG pO2 167 (80-105) H 12/18/18 08:56 POC ABG HCO3 11.3 (22-26 mml/L) 12/18/18 08:56 POC ABG Total CO2 12 (23-27mmol/L) 12/18/18 08:56 POC ABG O2 Sat 99 12/18/18 08:56 POC ABG Base Excess -15 ((-2) - (+3)mmol/L) 12/18/18 08:56 28 % 12/18/18 08:56 Sodium 137 mmol/L (137-145) 12/19/18 05:49 Potassium 2.9 mmol/L (3.6-5.0) L* D 12/19/18 05:49 Chloride 89.5 mmol/L (98-107) L 12/19/18 05:49 Carbon Dioxide 24 mmol/L (22-30) D 12/19/18 05:49 26 mmol/L 12/19/18 05:49 BUN 60 mg/dL (9-20) H 12/19/18 05:49 3.2 mg/dL (0.8-1.5) H 12/19/18 05:49 Estimated GFR 28 ml/min 12/19/18 05:49 19 % 12/19/18 05:49 Glucose 157 mg/dL (75-100) H 12/19/18 05:49 Lactic Acid 2.70 mmol/L (0.7-2.0) H* 12/19/18 10:50 Calcium 9.8 mg/dL (8.4-10.2) 12/19/18 05:49 1.10 mg/dL (0.1-1.2) 12/19/18 05:49 AST 21 units/L (5-40) 12/19/18 05:49 ALT 13 units/L (7-56) 12/19/18 05:49 77 units/L (35-129) 12/19/18 05:49 9.3 g/dL (6.3-8.2) H 12/19/18 05:49 4.8 g/dL (3.9-5) 12/19/18 05:49 1.1 % 12/19/18 05:49 85 units/L (13-60) H 12/13/18 18:57 Yellow (Yellow) 12/13/18 20:40 Cloudy (Clear) 12/13/18 20:40 5.0 (5.0-7.0) 12/13/18 20:40 Ur Specific [place] 1.014 (1.003-1.030) 12/13/18 20:40 100 mg/dl mg/dL (Negative) 12/13/18 20:40 Neg mg/dL (Negative) 12/13/18 20:40 Neg mg/dL (Negative) 12/13/18 20:40 Lg (Negative) 12/13/18 20:40 Neg (Negative) 12/13/18 20:40 Neg (Negative) 12/13/18 20:40 < 2.0 mg/dL (<2.0) 12/13/18 20:40 Ur Leukocyte Esterase Neg (Negative) 12/13/18 20:40 22.0 /HPF (0.0-6.0) H 12/13/18 20:40 9.0 /HPF (0.0-6.0) 12/13/18 20:40 U Epithel Cells (Auto) 2.0 /HPF (0-13.0) 12/13/18 20:40 1+ /HPF (Negative) 12/13/18 20:40 Hyaline Casts 2 /LPF 12/13/18 20:40 3+ /HPF 12/13/18 20:40 2+ /HPF 12/13/18 20:40 C. difficile Tox (PCR) Negative (Negative) 12/14/18 14:00 HIV 1&2 Antibody Rapid Reactive (Non React) 12/16/18 16:36 Non react (Non React) 12/16/18 16:36 Active Medications - Current Medications Current Medications: Generic Name Dose Route Start Last Admin Trade Name Freq PRN Reason Stop Dose Admin Acetaminophen 650 mg 12/13/18 22:54 12/18/18 21:16 Tylenol PO 650 mg Q4H PRN Administration Pain MILD(1-3)/Fever >100.5/HOLT Atovaquone 1,500 mg 12/18/18 14:00 12/19/18 10:05 Mepron PO 1,500 mg QDAY MARIA E Administration Enoxaparin Sodium 30 mg 12/18/18 11:00 12/19/18 10:04 Lovenox SUB-Q 30 mg QDAY MARIA E Administration Ceftriaxone Sodium 2 gm in 100 mls @ 200 mls/hr 12/16/18 16:00 12/18/18 17:05 Rocephin/Ns 2 Gm/100 Ml IV 200 mls/hr Q24H MARIA E Administration Protocol Metronidazole 500 mg in 100 mls @ 100 mls/hr 12/17/18 14:00 12/19/18 13:50 Flagyl 500 Mg/100 Ml IV 100 mls/hr Q8HR MARIA E Administration Protocol Azithromycin 500 mg/ Sodium 250 mls @ 250 mls/hr 12/18/18 14:00 12/19/18 14:04 Chloride IV 250 mls/hr Q24H MARIA E Administration Protocol Sodium Chloride 1,000 mls @ 125 mls/hr 12/19/18 14:00 12/19/18 14:16 Nacl 0.9% 1000 Ml IV 125 mls/hr DIRECT MARIA E Administration Metoclopramide HCl 10 mg 12/15/18 04:17 12/19/18 12:26 Reglan IV 10 mg Q6H PRN Administration Nausea And Vomiting Ondansetron HCl 4 mg 12/13/18 22:54 12/19/18 14:17 Zofran IV 4 mg Q4H PRN Administration Nausea And Vomiting Sodium Chloride 10 ml 12/14/18 10:00 12/19/18 10:05 Sodium Chloride Flush Syringe 10 Ml IV 10 ml BID MARIA E Administration Sodium Chloride 10 ml 12/13/18 22:54 12/19/18 12:27 Sodium Chloride Flush Syringe 10 Ml IV 10 ml PRN PRN Administration LINE FLUSH Nutrition/Malnutrition Assess - Dietary Evaluation Nutrition/Malnutrition Findings: Nutrition Notes Start: 12/19/18 15:24 Freq: Status: Active Protocol: Document 12/19/18 15:24 RM (Rec: 12/19/18 15:35 RM [email or web address]) Nutrition Notes Need for Assessment generated from: LOS Initial or Follow up Assessment Current Diagnosis Acute Kidney Injury Other Pertinent Diagnosis N/V/D, Gastroenteritis, HIV Current Diet No diet ordered Labs/Tests Reviewed Pertinent Medications Zofran Height 6 ft 2 in Weight 74.5 kg [place] Body Weight (kg) 86.36 BMI 21.0 Subjective/Other Information Screened for LOS. Pt stated that [employer] he had no appetite, has not eaten since the , and has no appetite now. Admitted to N/V. Stated that he is able to keep down some liquids. Unsure of UBW. No temporal or orbital wasting . Percent of energy/protein needs met: 0%/0% Burn Absent Trauma Absent #1 Nutrition Diagnosis Inadequate oral intake Etiology gastroenteritis As Evidenced by Signs and Symptoms Pt statement that Is patient on ventilator? No Is Patient Ambulatory and/or Out of Bed Yes REE-([place]-. Jeor-ambulatory/OOB) [ 6510.349 [id number]] Calculation Used for Recommendations [facility] Additional Notes Protein Needs: 60-75g (0.8-1g/ kg) Fluid Needs: 1 ml/kcal Nutrition Intervention Change Diet Order: Order diet Add Supplement/Snack (indicate name/kcal Ensure Clear Apple 1 daily /protein ) once diet ordered Provides kCal: 240 Provides Protein (gm) 8 Goal #1 Diet order Anticipated Discharge Needs: Unable to determine at this time Follow-Up By: 12/22/18 Additional Comments Follow for diet order, PO and ONS intakes
[2018-12-19] MEDS ORDERED: KCL 40 MEQ in NACL 0.45% 500 ML IV SCH (16:30)
[2018-12-20] MEDS: NACL 0.9% 1000 ML 1,000 ML IV SCH (03:09)
[2018-12-20] MEDS: SODIUM CHLORIDE FLUSH SYRINGE 10 ML IV SCH ×3 (03:11→23:05)
[2018-12-20 06:02] LABS: Calcium 9.9 mg/dL (8.4-10.2)
[2018-12-20] MEDS: FLAGYL 500 MG/100 ML 500 MG/100 ML BAG IV SCH ×3 (06:56→22:34)
[2018-12-20] MEDS: ZOFRAN IV PRN ×2 (07:02→22:34)
[2018-12-20] MEDS ORDERED: KCL 10MEQ/100ML 10 MEQ/100 ML BAG IV SCH (10:00)
--- NOTE | 2018-12-20 10:15 | Progress Note ---
Assessment and Plan - Patient Problems (1) Acute renal failure Current Visit: Yes Status: Acute Plan to address problem: Acute kidney failure Prerenal azotemia versus acute tubular necrosis secondary to hypotension/volume depletion. Continue volume repletion. Follow-up electrolytes and renal function (2) Hypokalemia Current Visit: Yes Status: Acute Plan to address problem: Supplement potassium and follow-up levels (3) Metabolic acidosis Current Visit: Yes Status: Acute Plan to address problem: secondary to diarrhea. Follow-up bicarbonate level. We will have to restart bicarbonate drip if it drops (4) Nausea vomiting and diarrhea Current Visit: Yes Status: Acute Plan to address problem: Continue management by infectious disease Subjective Date of service: 12/20/18 Principal diagnosis: acute kidney injury Interval history: Patient seen lying in bed. He has no new complaints. Still having copious diarrhea. No nausea or vomiting Objective - Exam Narrative Exam: Young -Bel[place]ian male lying in bed ill-looking in no acute distress HEENT: NCAT, pink oral mucous membrane Neck: Supple, no venous distention CVS: S1S2 RRR with no murmur, rub or gallop Chest: Clear to auscultation Abdomen: Protuberant, soft, nontender, no organomegaly, bowel sounds are present Extremities: No edema Neuro: Awake, alert no focal deficits - Vital Signs Vital signs: Vital Signs - 12hr 12/19/18 12/20/18 12/20/18 23:01 00:00 00:01 Temperature 96.8 F L Pulse Rate 146 H 131 H Pulse Rate [ 123 H From Monitor] Pulse Rate [ 123 H Right Radial] Respiratory 14 23 13 Rate Blood Pressure 155/99 155/99 O2 Sat by Pulse 98 94 95 Oximetry 12/20/18 12/20/18 12/20/18 01:00 02:00 03:00 Temperature Pulse Rate 151 H 106 H 105 H Pulse Rate [ From Monitor] Pulse Rate [ Right Radial] Respiratory 19 Rate Blood Pressure 127/94 150/102 143/109 O2 Sat by Pulse 96 95 97 Oximetry 12/20/18 12/20/18 12/20/18 04:00 06:00 08:00 Temperature 97.9 F 97.3 F L Pulse Rate 116 H Pulse Rate [ 123 H From Monitor] Pulse Rate [ 116 H Right Radial] Respiratory 18 Rate Blood Pressure O2 Sat by Pulse 97 Oximetry - Lab 12/19/18 05:49 07/14/19 Unknown Most recent lab results Calcium 9.9 mg/dL (8.4-10.2) 12/20/18 04:43 Magnesium 2.30 mg/dL (1.7-2.3) 12/19/18 17:09 Medications & Allergies - Medications Allergies/Adverse Reactions: Allergies No Known Allergies Allergy (Verified 12/13/18 18:58) Home Medications: Home Medications Medication Instructions Recorded Confirmed Last Taken Type No Known Home Medications [No 12/18/18 12/18/18 Unknown History Reported Home Medications] Active Medications: Generic Name Dose Route Start Last Admin Trade Name Freq PRN Reason Stop Dose Admin Acetaminophen 650 mg 12/13/18 22:54 12/18/18 21:16 Tylenol PO 650 mg Q4H PRN Administration Pain MILD(1-3)/Fever >100.5/HOLT Atovaquone 1,500 mg 12/18/18 14:00 12/19/18 10:05 Mepron PO 1,500 mg QDAY MARIA E Administration Enoxaparin Sodium 30 mg 12/18/18 11:00 12/19/18 10:04 Lovenox SUB-Q 30 mg QDAY MARIA E Administration Ceftriaxone Sodium 2 gm in 100 mls @ 200 mls/hr 12/16/18 16:00 12/19/18 16:00 Rocephin/Ns 2 Gm/100 Ml IV 200 mls/hr Q24H MARIA E Administration Protocol Metronidazole 500 mg in 100 mls @ 100 mls/hr 12/17/18 14:00 12/20/18 06:56 Flagyl 500 Mg/100 Ml IV 100 mls/hr Q8HR MARIA E Administration Protocol Azithromycin 500 mg/ Sodium 250 mls @ 250 mls/hr 12/18/18 14:00 12/19/18 14:04 Chloride IV 250 mls/hr Q24H MARIA E Administration Protocol Sodium Chloride 1,000 mls @ 125 mls/hr 12/19/18 14:00 12/20/18 03:09 Nacl 0.9% 1000 Ml IV 125 mls/hr DIRECT MARIA E Administration Potassium Chloride 10 meq in 100 mls @ 100 mls/hr 12/20/18 10:00 Kcl 10meq/100ml IV 12/20/18 13:59 Q1H MARIA E Metoclopramide HCl 10 mg 12/15/18 04:17 12/19/18 12:26 Reglan IV 10 mg Q6H PRN Administration Nausea And Vomiting Ondansetron HCl 4 mg 12/13/18 22:54 12/20/18 07:02 Zofran IV 4 mg Q4H PRN Administration Nausea And Vomiting Sodium Chloride 10 ml 12/14/18 10:00 12/20/18 03:11 Sodium Chloride Flush Syringe 10 Ml IV 10 ml BID MARIA E Administration Sodium Chloride 10 ml 12/13/18 22:54 12/19/18 12:27 Sodium Chloride Flush Syringe 10 Ml IV 10 ml PRN PRN Administration LINE FLUSH
[2018-12-20] MEDS ORDERED: NACL 0.9% 1000 ML 1,000 ML with KCL 40 MEQ IV SCH (11:00)
[2018-12-20] MEDS ORDERED: NS/KCL 40MEQ 40 MEQ/1,000 ML BAG IV SCH (11:00)
--- NOTE | 2018-12-20 12:12 | XRay Report ---
CHEST 1 VIEW INDICATION / CLINICAL INFORMATION: L arm PICC placement. Chest pain COMPARISON: None available. FINDINGS: SUPPORT DEVICES: Left arm PICC line terminates near the SVC/right atrial region.. HEART / MEDIASTINUM: No significant abnormality. LUNGS / PLEURA: No significant pulmonary or pleural abnormality. No pneumothorax. ADDITIONAL FINDINGS: No significant additional findings. IMPRESSION: 1. No acute findings. Signer Name: Gurjit Coats MD Signed: 12/20/2018 12:08 PM Workstation Name: [id number]
[2018-12-20] MEDS: KCL 10MEQ/100ML 10 MEQ/100 ML BAG IV SCH (12:52)
[2018-12-20] MEDS: LOVENOX SUB-Q SCH (13:41)
[2018-12-20] MEDS: MEPRON PO SCH (13:43)
[2018-12-20] MEDS: ZITHROMAX 500 MG in NACL 0.9% 250ML 250 ML IV SCH (15:40)
[2018-12-20] MEDS: ROCEPHIN/NS 2 GM/100 ML 2 GM/100 ML BAG IV SCH (15:41)
--- NOTE | 2018-12-20 16:45 | Progress Note ---
Assessment and Plan Assessment and plan: 28-year-old man who presented to the hospital nausea vomiting and diarrhea which began after he ate [employer]. Shigella enteritis, cryptosporidium enteritis, severe sepsis Continue supportive care, fup stool studies, ID consult keep NPO until vomiting resolves cont abx, severe hypokalemia cont to replete IV, likely loss from diarrhea Acute kidney injury due to dehydration and vasomotor nephropathy cont IV fluids, nephrology input appreciated acute metabolic acidosis cont bicarb drip HIV, with aids defining illness stool pos for crypto, fup viral load and cd4 count on ppx meds per ID Hyperkalemia Was medically treated, now resolved DVT prophylaxis early ambulation, most likely viral History Interval history: Review of systems Constitutional: No fevers, no malaise, no joint pains CVS: No chest pain, no orthopnea, no dyspnea on exertion, no pedal edema GI: No abdominal pain, diarrhea and vomiting is less frequent Respiratory: no wheezing, no coughing Hospitalist Physical - Physical exam Narrative exam: General.: Appears well, no distress, nontoxic HEENT: Moist mucous membranes, extraocular muscles intact, no lymphadenopathy Neck: supple Cardiac: S1-S2 heard Lungs: clear to auscultation bilaterally Abdomen: soft , nontender, nondistended, bowel sounds positive Extremities: no edema clubbing or cyanosis Skin: no rash or lesions Neurologic: no gross focal deficits Psych: calm, and cooperative - Constitutional Vitals: Temp Pulse Resp BP Pulse Ox 97.8 F 110 H 20 138/80 97 12/20/18 12:00 12/20/18 11:01 12/20/18 08:00 12/20/18 12:00 12/20/18 12:00 Results - Labs CBC & Chem 7: 12/19/18 05:49 12/20/18 04:43 Labs: Laboratory Last Values WBC 7.8 K/mm3 (4.5-11.0) 12/19/18 05:49 RBC 6.87 M/mm3 (3.65-5.03) H 12/19/18 05:49 Hgb 18.3 gm/dl (11.8-15.2) H 12/19/18 05:49 Hct 54.3 % (35.5-45.6) H 12/19/18 05:49 MCV 79 fl (84-94) L 12/19/18 05:49 MCH 27 pg (28-32) L 12/19/18 05:49 MCHC 34 % (32-34) 12/19/18 05:49 RDW 13.5 % (13.2-15.2) 12/19/18 05:49 Plt Count 331 K/mm3 (140-440) 12/19/18 05:49 Lymph % (Auto) 13.4 % (13.4-35.0) 12/19/18 05:49 [place] % (Auto) 13.3 % (0.0-7.3) H 12/19/18 05:49 Eos % (Auto) 0.1 % (0.0-4.3) 12/19/18 05:49 Baso % (Auto) 0.3 % (0.0-1.8) 12/19/18 05:49 Lymph # 1.1 K/mm3 (1.2-5.4) L 12/19/18 05:49 [place] # 1.0 K/mm3 (0.0-0.8) H 12/19/18 05:49 Eos # 0.0 K/mm3 (0.0-0.4) 12/19/18 05:49 Baso # 0.0 K/mm3 (0.0-0.1) 12/19/18 05:49 Seg Neutrophils % 72.9 % (40.0-70.0) H 12/19/18 05:49 Seg Neutrophils # 5.7 K/mm3 (1.8-7.7) 12/19/18 05:49 POC ABG pH 7.324 (7.35-7.45) L 12/18/18 08:56 POC ABG pO2 167 (80-105) H 12/18/18 08:56 POC ABG HCO3 11.3 (22-26 mml/L) 12/18/18 08:56 POC ABG Total CO2 12 (23-27mmol/L) 12/18/18 08:56 POC ABG O2 Sat 99 12/18/18 08:56 POC ABG Base Excess -15 ((-2) - (+3)mmol/L) 12/18/18 08:56 28 % 12/18/18 08:56 Sodium 135 mmol/L (137-145) L 12/20/18 04:43 Potassium 2.3 mmol/L (3.6-5.0) L* 12/20/18 04:43 Chloride 91.9 mmol/L (98-107) L 12/20/18 04:43 Carbon Dioxide 19 mmol/L (22-30) L 12/20/18 04:43 26 mmol/L 12/20/18 04:43 BUN 75 mg/dL (9-20) H 12/20/18 04:43 2.8 mg/dL (0.8-1.5) H 12/20/18 04:43 Estimated GFR 33 ml/min 12/20/18 04:43 27 % 12/20/18 04:43 Glucose 141 mg/dL (75-100) H 12/20/18 04:43 Lactic Acid 2.70 mmol/L (0.7-2.0) H* 12/19/18 10:50 Calcium 9.9 mg/dL (8.4-10.2) 12/20/18 04:43 Magnesium 2.30 mg/dL (1.7-2.3) 12/19/18 17:09 1.10 mg/dL (0.1-1.2) 12/19/18 05:49 AST 21 units/L (5-40) 12/19/18 05:49 ALT 13 units/L (7-56) 12/19/18 05:49 77 units/L (35-129) 12/19/18 05:49 9.3 g/dL (6.3-8.2) H 12/19/18 05:49 4.8 g/dL (3.9-5) 12/19/18 05:49 1.1 % 12/19/18 05:49 85 units/L (13-60) H 12/13/18 18:57 Yellow (Yellow) 12/13/18 20:40 Cloudy (Clear) 12/13/18 20:40 5.0 (5.0-7.0) 12/13/18 20:40 Ur Specific [place] 1.014 (1.003-1.030) 12/13/18 20:40 100 mg/dl mg/dL (Negative) 12/13/18 20:40 Neg mg/dL (Negative) 12/13/18 20:40 Neg mg/dL (Negative) 12/13/18 20:40 Lg (Negative) 12/13/18 20:40 Neg (Negative) 12/13/18 20:40 Neg (Negative) 12/13/18 20:40 < 2.0 mg/dL (<2.0) 12/13/18 20:40 Ur Leukocyte Esterase Neg (Negative) 12/13/18 20:40 22.0 /HPF (0.0-6.0) H 12/13/18 20:40 9.0 /HPF (0.0-6.0) 12/13/18 20:40 U Epithel Cells (Auto) 2.0 /HPF (0-13.0) 12/13/18 20:40 1+ /HPF (Negative) 12/13/18 20:40 Hyaline Casts 2 /LPF 12/13/18 20:40 3+ /HPF 12/13/18 20:40 2+ /HPF 12/13/18 20:40 C. difficile Tox (PCR) Negative (Negative) 12/14/18 14:00 HIV 1&2 Antibody Rapid Reactive (Non React) 12/16/18 16:36 Non react (Non React) 12/16/18 16:36 Active Medications - Current Medications Current Medications: Generic Name Dose Route Start Last Admin Trade Name Jose PRN Reason Stop Dose Admin Acetaminophen 650 mg 12/13/18 22:54 12/18/18 21:16 Tylenol PO 650 mg Q4H PRN Administration Pain MILD(1-3)/Fever >100.5/HOLT Atovaquone 1,500 mg 12/18/18 14:00 12/20/18 13:43 Mepron PO 1,500 mg QDAY MARIA E Administration Enoxaparin Sodium 30 mg 12/18/18 11:00 12/20/18 13:41 Lovenox SUB-Q 30 mg QDAY MARIA E Administration Ceftriaxone Sodium 2 gm in 100 mls @ 200 mls/hr 12/16/18 16:00 12/20/18 15:41 Rocephin/Ns 2 Gm/100 Ml IV 200 mls/hr Q24H MARIA E Administration Protocol Metronidazole 500 mg in 100 mls @ 100 mls/hr 12/17/18 14:00 12/20/18 13:36 Flagyl 500 Mg/100 Ml IV 100 mls/hr Q8HR MARIA E Administration Protocol Azithromycin 500 mg/ Sodium 250 mls @ 250 mls/hr 12/18/18 14:00 12/20/18 15:40 Chloride IV 250 mls/hr Q24H MARIA E Administration Protocol Potassium Chloride/Sodium Chloride 40 meq in 1,000 mls @ 125 mls/hr 12/20/18 11:00 12/20/18 13:28 Ns/Kcl 40meq IV 125 mls/hr DIRECT AMRIA E Administration Metoclopramide HCl 10 mg 12/15/18 04:17 12/19/18 12:26 Reglan IV 10 mg Q6H PRN Administration Nausea And Vomiting Ondansetron HCl 4 mg 12/13/18 22:54 12/20/18 07:02 Zofran IV 4 mg Q4H PRN Administration Nausea And Vomiting Sodium Chloride 10 ml 12/14/18 10:00 12/20/18 13:42 Sodium Chloride Flush Syringe 10 Ml IV 10 ml BID MARIA E Administration Sodium Chloride 10 ml 12/13/18 22:54 12/19/18 12:27 Sodium Chloride Flush Syringe 10 Ml IV 10 ml PRN PRN Administration LINE FLUSH Nutrition/Malnutrition Assess - Dietary Evaluation Nutrition/Malnutrition Findings: Nutrition Notes Start: 12/19/18 15:24 Freq: Status: Active Protocol: Document 12/19/18 15:24 RM (Rec: 12/19/18 15:35 RM [id number]) Nutrition Notes Need for Assessment generated from: LOS Initial or Follow up Assessment Current Diagnosis Acute Kidney Injury Other Pertinent Diagnosis N/V/D, Gastroenteritis, HIV Current Diet No diet ordered Labs/Tests Reviewed Pertinent Medications Zofran Height 6 ft 2 in Weight 74.5 kg [place] Body Weight (kg) 86.36 BMI 21.0 Subjective/Other Information Screened for 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 Admitted to N/V. Stated that he is able to keep down some liquids. Unsure of UBW. No temporal or orbital wasting . Percent of energy/protein needs met: 0%/0% Burn Absent Trauma Absent #1 Nutrition Diagnosis Inadequate oral intake Etiology gastroenteritis As Evidenced by Signs and Symptoms Pt statement that Is patient on ventilator? No Is Patient Ambulatory and/or Out of Bed Yes REE-([facility]-ambulatory/OOB) [ 2313.675 NUTR.MSJOOB] Calculation Used for Recommendations [facility] Additional Notes Protein Needs: 60-75g (0.8-1g/ kg) Fluid Needs: 1 ml/kcal Nutrition Intervention Change Diet Order: Order diet Add Supplement/Snack (indicate name/kcal Ensure Clear Apple 1 daily /protein ) once diet ordered Provides kCal: 240 Provides Protein (gm) 8 Goal #1 Diet order Anticipated Discharge Needs: Unable to determine at this time Follow-Up By: 12/22/18 Additional Comments Follow for diet order, PO and ONS intakes
[2018-12-20] MEDS ORDERED: KCL 40 MEQ in NACL 0.45% 500 ML IV SCH (17:15)
[2018-12-20] MEDS ORDERED: KCL 20MEQ/100ML 20 MEQ/100 ML BAG IV SCH (19:00)
[2018-12-21] MEDS: FLAGYL 500 MG/100 ML 500 MG/100 ML BAG IV SCH ×3 (05:04→21:06)
[2018-12-21] MEDS: ZOFRAN IV PRN ×4 (05:04→21:07)
[2018-12-21] MEDS ORDERED: KCL 40 MEQ in NACL 0.45% 1000 ML 1,000 ML IV SCH (08:00)
[2018-12-21 08:04] LABS: Calcium 10.2 mg/dL (8.4-10.2)
[2018-12-21] MEDS: SODIUM CHLORIDE FLUSH SYRINGE 10 ML IV SCH ×2 (09:53→22:00)
[2018-12-21] MEDS: REGLAN IV PRN ×2 (09:53→16:33)
[2018-12-21] MEDS: LOVENOX SUB-Q SCH (09:55)
[2018-12-21] MEDS: MEPRON PO SCH (09:55)
[2018-12-21] MEDS: NACL 0.45% IV SCH ×2 (12:04→21:06)
[2018-12-21] MEDS: KCL IV SCH ×2 (12:04→21:06)
--- NOTE | 2018-12-21 14:12 | Progress Note ---
Assessment and Plan Assessment and plan: 28-year-old man who presented to the hospital nausea vomiting and diarrhea which began after he ate [employer]. Shigella enteritis, cryptosporidium enteritis, severe sepsis Continue supportive care, fup stool studies, ID consult keep NPO until vomiting resolves cont abx, severe hypokalemia cont to replete IV, likely loss from diarrhea Acute kidney injury due to dehydration and vasomotor nephropathy cont IV fluids, nephrology input appreciated acute metabolic acidosis cont bicarb drip HIV, with aids defining illness stool pos for crypto, fup viral load and cd4 count on ppx meds per ID Hyperkalemia Was medically treated, now resolved DVT prophylaxis lovenox History Interval history: Review of systems Constitutional: No fevers, no malaise, no joint pains CVS: No chest pain, no orthopnea, no dyspnea on exertion, no pedal edema GI: No abdominal pain, no vomiting, still having diarrhea every 30mins to 1 hour Respiratory: no wheezing, no coughing Hospitalist Physical - Physical exam Narrative exam: General.: Appears ill, mild distresss, toxic HEENT: Moist mucous membranes, extraocular muscles intact, no lymphadenopathy Neck: supple Cardiac: S1-S2 heard Lungs: clear to auscultation bilaterally Abdomen: soft , nontender, nondistended, bowel sounds positive Extremities: no edema clubbing or cyanosis Skin: no rash or lesions Neurologic: no gross focal deficits Psych: calm, and cooperative - Constitutional Vitals: Temp Pulse Resp BP Pulse Ox 95.8 F L 117 H 16 148/117 99 12/21/18 11:41 12/21/18 08:00 12/21/18 11:41 12/21/18 11:41 12/21/18 05:10 Results - Labs CBC & Chem 7: 12/19/18 05:49 12/22/18 06:40 Labs: Laboratory Last Values WBC 7.8 K/mm3 (4.5-11.0) 12/19/18 05:49 RBC 6.87 M/mm3 (3.65-5.03) H 12/19/18 05:49 Hgb 18.3 gm/dl (11.8-15.2) H 12/19/18 05:49 Hct 54.3 % (35.5-45.6) H 12/19/18 05:49 MCV 79 fl (84-94) L 12/19/18 05:49 MCH 27 pg (28-32) L 12/19/18 05:49 MCHC 34 % (32-34) 12/19/18 05:49 RDW 13.5 % (13.2-15.2) 12/19/18 05:49 Plt Count 331 K/mm3 (140-440) 12/19/18 05:49 Lymph % (Auto) 13.4 % (13.4-35.0) 12/19/18 05:49 [place] % (Auto) 13.3 % (0.0-7.3) H 12/19/18 05:49 Eos % (Auto) 0.1 % (0.0-4.3) 12/19/18 05:49 Baso % (Auto) 0.3 % (0.0-1.8) 12/19/18 05:49 Lymph # 1.1 K/mm3 (1.2-5.4) L 12/19/18 05:49 [place] # 1.0 K/mm3 (0.0-0.8) H 12/19/18 05:49 Eos # 0.0 K/mm3 (0.0-0.4) 12/19/18 05:49 Baso # 0.0 K/mm3 (0.0-0.1) 12/19/18 05:49 Seg Neutrophils % 72.9 % (40.0-70.0) H 12/19/18 05:49 Seg Neutrophils # 5.7 K/mm3 (1.8-7.7) 12/19/18 05:49 POC ABG pH 7.324 (7.35-7.45) L 12/18/18 08:56 POC ABG pO2 167 (80-105) H 12/18/18 08:56 POC ABG HCO3 11.3 (22-26 mml/L) 12/18/18 08:56 POC ABG Total CO2 12 (23-27mmol/L) 12/18/18 08:56 POC ABG O2 Sat 99 12/18/18 08:56 POC ABG Base Excess -15 ((-2) - (+3)mmol/L) 12/18/18 08:56 28 % 12/18/18 08:56 Sodium 137 mmol/L (137-145) 12/21/18 Unknown Potassium 2.4 mmol/L (3.6-5.0) L* 12/21/18 Unknown Chloride 93.4 mmol/L (98-107) L 12/21/18 Unknown Carbon Dioxide 19 mmol/L (22-30) L 12/21/18 Unknown 27 mmol/L 12/21/18 Unknown BUN 90 mg/dL (9-20) H 12/21/18 Unknown 3.0 mg/dL (0.8-1.5) H 12/21/18 Unknown Estimated GFR 30 ml/min 12/21/18 Unknown 30 % 12/21/18 Unknown Glucose 140 mg/dL (75-100) H 12/21/18 Unknown Lactic Acid 2.70 mmol/L (0.7-2.0) H* 12/19/18 10:50 Calcium 10.2 mg/dL (8.4-10.2) 12/21/18 Unknown Magnesium 3.00 mg/dL (1.7-2.3) H 12/21/18 Unknown 1.10 mg/dL (0.1-1.2) 12/19/18 05:49 AST 21 units/L (5-40) 12/19/18 05:49 ALT 13 units/L (7-56) 12/19/18 05:49 77 units/L (35-129) 12/19/18 05:49 9.3 g/dL (6.3-8.2) H 12/19/18 05:49 4.8 g/dL (3.9-5) 12/19/18 05:49 1.1 % 12/19/18 05:49 85 units/L (13-60) H 12/13/18 18:57 Yellow (Yellow) 12/13/18 20:40 Cloudy (Clear) 12/13/18 20:40 5.0 (5.0-7.0) 12/13/18 20:40 Ur Specific [place] 1.014 (1.003-1.030) 12/13/18 20:40 100 mg/dl mg/dL (Negative) 12/13/18 20:40 Neg mg/dL (Negative) 12/13/18 20:40 Neg mg/dL (Negative) 12/13/18 20:40 Lg (Negative) 12/13/18 20:40 Neg (Negative) 12/13/18 20:40 Neg (Negative) 12/13/18 20:40 < 2.0 mg/dL (<2.0) 12/13/18 20:40 Ur Leukocyte Esterase Neg (Negative) 12/13/18 20:40 22.0 /HPF (0.0-6.0) H 12/13/18 20:40 9.0 /HPF (0.0-6.0) 12/13/18 20:40 U Epithel Cells (Auto) 2.0 /HPF (0-13.0) 12/13/18 20:40 1+ /HPF (Negative) 12/13/18 20:40 Hyaline Casts 2 /LPF 12/13/18 20:40 3+ /HPF 12/13/18 20:40 2+ /HPF 12/13/18 20:40 C. difficile Tox (PCR) Negative (Negative) 12/14/18 14:00 HIV 1&2 Antibody Rapid Reactive (Non React) 12/16/18 16:36 Non react (Non React) 12/16/18 16:36 Active Medications - Current Medications Current Medications: Generic Name Dose Route Start Last Admin Trade Name Freq PRN Reason Stop Dose Admin Acetaminophen 650 mg 12/13/18 22:54 12/18/18 21:16 Tylenol PO 650 mg Q4H PRN Administration Pain MILD(1-3)/Fever >100.5/HOLT Atovaquone 1,500 mg 12/18/18 14:00 12/21/18 09:55 Mepron PO 1,500 mg QDAY MARIA E Administration Enoxaparin Sodium 30 mg 12/18/18 11:00 12/21/18 09:55 Lovenox SUB-Q 30 mg QDAY MARIA E Administration Ceftriaxone Sodium 2 gm in 100 mls @ 200 mls/hr 12/16/18 16:00 12/20/18 15:41 Rocephin/Ns 2 Gm/100 Ml IV 200 mls/hr Q24H MARIA E Administration Protocol Metronidazole 500 mg in 100 mls @ 100 mls/hr 12/17/18 14:00 12/21/18 05:04 Flagyl 500 Mg/100 Ml IV 100 mls/hr Q8HR MARIA E Administration Protocol Azithromycin 500 mg/ Sodium 250 mls @ 250 mls/hr 12/18/18 14:00 12/20/18 15:40 Chloride IV 250 mls/hr Q24H MARIA E Administration Protocol Potassium Chloride 40 meq/ 1,020 mls @ 125 mls/hr 12/21/18 08:00 12/21/18 09:54 Sodium Chloride IV 125 mls/hr DIRECT MARIA E Administration Potassium Chloride 60 meq/ 530 mls @ 88.333 mls/hr 12/21/18 10:30 12/21/18 12:04 Sodium Chloride IV 12/22/18 16:29 88.333 mls/hr DIRECT MARIA E Administration Metoclopramide HCl 10 mg 12/15/18 04:17 12/21/18 09:53 Reglan IV 10 mg Q6H PRN Administration Nausea And Vomiting Ondansetron HCl 4 mg 12/13/18 22:54 12/21/18 09:53 Zofran IV 4 mg Q4H PRN Administration Nausea And Vomiting Sodium Chloride 10 ml 12/14/18 10:00 12/21/18 09:53 Sodium Chloride Flush Syringe 10 Ml IV 10 ml BID MARIA E Administration Sodium Chloride 10 ml 12/13/18 22:54 12/19/18 12:27 Sodium Chloride Flush Syringe 10 Ml IV 10 ml PRN PRN Administration LINE FLUSH Nutrition/Malnutrition Assess - Dietary Evaluation Nutrition/Malnutrition Findings: Nutrition Notes Start: 12/19/18 15:24 Freq: Status: Active Protocol: Document 12/19/18 15:24 RM (Rec: 12/19/18 15:35 RM [id number]) Nutrition Notes Need for Assessment generated from: LOS Initial or Follow up Assessment Current Diagnosis Acute Kidney Injury Other Pertinent Diagnosis N/V/D, Gastroenteritis, HIV Current Diet No diet ordered Labs/Tests Reviewed Pertinent Medications Zofran Height 6 ft 2 in Weight 74.5 kg [place] Body Weight (kg) 86.36 BMI 21.0 Subjective/Other Information Screened 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 Admitted to N/V. Stated that he is able to keep down some liquids. Unsure of UBW. No temporal or orbital wasting . Percent of energy/protein needs met: 0%/0% Burn Absent Trauma Absent #1 Nutrition Diagnosis Inadequate oral intake Etiology gastroenteritis As Evidenced by Signs and Symptoms Pt statement that Is patient on ventilator? No Is Patient Ambulatory and/or Out of Bed Yes REE-([facility]-ambulatory/OOB) [ 4899.165 NUTR.MSJOOB] Calculation Used for Recommendations [facility] Additional Notes Protein Needs: 60-75g (0.8-1g/ kg) Fluid Needs: 1 ml/kcal Nutrition Intervention Change Diet Order: Order diet Add Supplement/Snack (indicate name/kcal Ensure Clear [place] 1 daily /protein ) once diet ordered Provides kCal: 240 Provides Protein (gm) 8 Goal #1 Diet order Anticipated Discharge Needs: Unable to determine at this time Follow-Up By: 12/22/18 Additional Comments Follow for diet order, PO and ONS intakes
[2018-12-21] MEDS: ROCEPHIN/NS 2 GM/100 ML 2 GM/100 ML BAG IV SCH (16:32)
[2018-12-21] MEDS: ZITHROMAX 500 MG in NACL 0.9% 250ML 250 ML IV SCH (17:12)
[2018-12-21] MEDS ORDERED: NACL 0.9% 1000 ML 1,000 ML IV ONE ×2 (17:56→18:12)
[2018-12-21] MEDS ORDERED: RESTORIL PO PRN (18:13)
--- NOTE | 2018-12-21 19:44 | Progress Note ---
Assessment and Plan - Patient Problems (1) Acute renal failure Current Visit: Yes Status: Acute Plan to address problem: Acute kidney failure Prerenal azotemia versus acute tubular necrosis secondary to hypotension/volume depletion. Continue volume repletion. Follow-up electrolytes and renal function (2) Hypokalemia Current Visit: Yes Status: Acute Plan to address problem: Supplement potassium and follow-up levels (3) Metabolic acidosis Current Visit: Yes Status: Acute Plan to address problem: secondary to diarrhea. Follow-up bicarbonate level. We will have to restart bicarbonate drip if it drops (4) Nausea vomiting and diarrhea Current Visit: Yes Status: Acute Plan to address problem: Continue management by Federico DEGROOT MD and infectious disease Subjective Date of service: 12/21/18 Principal diagnosis: acute kidney injury Interval history: Patient seen lying in bed. He has no new complaints. Still having copious diarrhea. Still having nausea and vomiting Objective - Exam Narrative Exam: Young -[place] male lying in bed ill-looking in no acute distress HEENT: NCAT, pink oral mucous membrane Neck: Supple, no venous distention CVS: S1S2 RRR with no murmur, rub or gallop Chest: Clear to auscultation Abdomen: Protuberant, soft, nontender, no organomegaly, bowel sounds are present Extremities: No edema Neuro: Awake, alert no focal deficits - Vital Signs Vital signs: Vital Signs - 12hr 12/21/18 12/21/18 12/21/18 08:00 11:41 17:44 Temperature 95.8 F L 93.0 F L Pulse Rate 66 Pulse Rate [ 117 H From Monitor] Respiratory 16 16 Rate Blood Pressure 148/117 77/58 O2 Sat by Pulse 97 Oximetry - Lab 12/19/18 05:49 12/21/18 Unknown Most recent lab results Calcium 10.2 mg/dL (8.4-10.2) 12/21/18 Unknown Magnesium 3.00 mg/dL (1.7-2.3) H 12/21/18 Unknown Medications & Allergies - Medications Allergies/Adverse Reactions: Allergies No Known Allergies Allergy (Verified 12/13/18 18:58) Home Medications: Home Medications Medication Instructions Recorded Confirmed Last Taken Type No Known Home Medications [No 12/18/18 12/18/18 Unknown History Reported Home Medications] Active Medications: Generic Name Dose Route Start Last Admin Trade Name Freq PRN Reason Stop Dose Admin Acetaminophen 650 mg 12/13/18 22:54 12/18/18 21:16 Tylenol PO 650 mg Q4H PRN Administration Pain MILD(1-3)/Fever >100.5/HOLT Atovaquone 1,500 mg 12/18/18 14:00 12/21/18 09:55 Mepron PO 1,500 mg QDAY MARIA E Administration Enoxaparin Sodium 30 mg 12/18/18 11:00 12/21/18 09:55 Lovenox SUB-Q 30 mg QDAY MARIA E Administration Ceftriaxone Sodium 2 gm in 100 mls @ 200 mls/hr 12/16/18 16:00 12/21/18 16:32 Rocephin/Ns 2 Gm/100 Ml IV 200 mls/hr Q24H MARIA E Administration Protocol Metronidazole 500 mg in 100 mls @ 100 mls/hr 12/17/18 14:00 12/21/18 16:32 Flagyl 500 Mg/100 Ml IV 100 mls/hr Q8HR MARIA E Administration Protocol Azithromycin 500 mg/ Sodium 250 mls @ 250 mls/hr 12/18/18 14:00 12/21/18 17:12 Chloride IV 250 mls/hr Q24H MARIA E Administration Protocol Potassium Chloride 40 meq/ 1,020 mls @ 125 mls/hr 12/21/18 08:00 12/21/18 09:54 Sodium Chloride IV 125 mls/hr DIRECT MARIA E Administration Potassium Chloride 60 meq/ 530 mls @ 88.333 mls/hr 12/21/18 10:30 12/21/18 12:04 Sodium Chloride IV 12/22/18 16:29 88.333 mls/hr DIRECT MARIA E Administration Metoclopramide HCl 10 mg 12/15/18 04:17 12/21/18 16:33 Reglan IV 10 mg Q6H PRN Administration Nausea And Vomiting Ondansetron HCl 4 mg 12/13/18 22:54 12/21/18 16:33 Zofran IV 4 mg Q4H PRN Administration Nausea And Vomiting Sodium Chloride 10 ml 12/14/18 10:00 12/21/18 09:53 Sodium Chloride Flush Syringe 10 Ml IV 10 ml BID MARIA E Administration Sodium Chloride 10 ml 12/13/18 22:54 12/19/18 12:27 Sodium Chloride Flush Syringe 10 Ml IV 10 ml PRN PRN Administration LINE FLUSH Temazepam 15 mg 12/21/18 18:13 Restoril PO QHS PRN Sleep
[2018-12-22] MEDS: FLAGYL 500 MG/100 ML 500 MG/100 ML BAG IV SCH ×3 (06:13→21:13)
[2018-12-22 07:17] LABS: Calcium 9.7 mg/dL (8.4-10.2)
--- NOTE | 2018-12-22 08:50 | Progress Note ---
Assessment and Plan - Patient Problems (1) Acute renal failure Current Visit: Yes Status: Acute Plan to address problem: Acute kidney failure Prerenal azotemia versus acute tubular necrosis secondary to hypotension/volume depletion. Continue volume repletion but will increase intravenous fluids.. Follow-up electrolytes and renal function (2) Hypokalemia Current Visit: Yes Status: Acute Plan to address problem: Supplement potassium and follow-up levels (3) Metabolic acidosis Current Visit: Yes Status: Acute Plan to address problem: secondary to diarrhea. Restart bicarbonate drip. Follow-up bicarbonate level. (4) Nausea vomiting and diarrhea Current Visit: Yes Status: Acute Plan to address problem: Continue management by Federico DEGROOT MD and infectious disease Subjective Date of service: 12/22/18 Principal diagnosis: acute kidney injury Interval history: Patient seen lying in bed. He has no new complaints. Mother at the bedside and is quite upset. She does not feel he is getting better. Still having copious diarrhea. Still having nausea and vomiting. Had episode of hypotension yesterday Objective - Exam Narrative Exam: Young -[place]er male lying in bed ill-looking in no acute distress HEENT: NCAT, pink oral mucous membrane Neck: Supple, no venous distention CVS: S1S2 RRR with no murmur, rub or gallop Chest: Clear to auscultation Abdomen: Protuberant, soft, nontender, no organomegaly, bowel sounds are present Extremities: No edema Neuro: Awake, alert no focal deficits - Vital Signs Vital signs: Vital Signs - 12hr 12/21/18 12/21/18 12/22/18 21:08 23:22 05:43 Temperature 98.4 F Pulse Rate 125 H 100 H Respiratory 18 20 Rate Blood Pressure 136/96 126/93 O2 Sat by Pulse 92 95 Oximetry - Lab 12/19/18 05:49 12/22/18 06:40 Most recent lab results Calcium 9.7 mg/dL (8.4-10.2) 12/22/18 06:40 Magnesium 3.40 mg/dL (1.7-2.3) H 12/22/18 06:40 Medications & Allergies - Medications Allergies/Adverse Reactions: Allergies No Known Allergies Allergy (Verified 12/13/18 18:58) Home Medications: Home Medications Medication Instructions Recorded Confirmed Last Taken Type No Known Home Medications [No 12/18/18 12/18/18 Unknown History Reported Home Medications] Active Medications: Generic Name Dose Route Start Last Admin Trade Name Freq PRN Reason Stop Dose Admin Acetaminophen 650 mg 12/13/18 22:54 12/18/18 21:16 Tylenol PO 650 mg Q4H PRN Administration Pain MILD(1-3)/Fever >100.5/HOLT Atovaquone 1,500 mg 12/18/18 14:00 12/21/18 09:55 Mepron PO 1,500 mg QDAY MARIA E Administration Enoxaparin Sodium 30 mg 12/18/18 11:00 12/21/18 09:55 Lovenox SUB-Q 30 mg QDAY MARIA E Administration Ceftriaxone Sodium 2 gm in 100 mls @ 200 mls/hr 12/16/18 16:00 12/21/18 16:32 Rocephin/Ns 2 Gm/100 Ml IV 200 mls/hr Q24H MARIA E Administration Protocol Metronidazole 500 mg in 100 mls @ 100 mls/hr 12/17/18 14:00 12/22/18 06:13 Flagyl 500 Mg/100 Ml IV 100 mls/hr Q8HR MARIA E Administration Protocol Azithromycin 500 mg/ Sodium 250 mls @ 250 mls/hr 12/18/18 14:00 12/21/18 17:12 Chloride IV 250 mls/hr Q24H MARIA E Administration Protocol Potassium Chloride 40 meq/ 1,020 mls @ 125 mls/hr 12/21/18 08:00 12/21/18 09:54 Sodium Chloride IV 125 mls/hr DIRECT MARIA E Administration Potassium Chloride 60 meq/ 530 mls @ 88.333 mls/hr 12/21/18 10:30 12/21/18 21:06 Sodium Chloride IV 12/22/18 16:29 88.333 mls/hr DIRECT MARIA E Administration Sodium Bicarbonate 150 meq/ 1,150 mls @ 100 mls/hr 12/22/18 10:00 Sterile Water IV DIRECT MARIA E Metoclopramide HCl 10 mg 12/15/18 04:17 12/21/18 16:33 Reglan IV 10 mg Q6H PRN Administration Nausea And Vomiting Ondansetron HCl 4 mg 12/13/18 22:54 12/21/18 21:07 Zofran IV 4 mg Q4H PRN Administration Nausea And Vomiting Sodium Chloride 10 ml 12/14/18 10:00 12/21/18 22:00 Sodium Chloride Flush Syringe 10 Ml IV 10 ml BID MARIA E Administration Sodium Chloride 10 ml 12/13/18 22:54 12/19/18 12:27 Sodium Chloride Flush Syringe 10 Ml IV 10 ml PRN PRN Administration LINE FLUSH Temazepam 15 mg 12/21/18 18:13 12/21/18 21:07 Restoril PO 15 mg QHS PRN Administration Sleep
[2018-12-22] MEDS: REGLAN IV PRN (10:01)
[2018-12-22] MEDS: SODIUM BICARBONATE 150 MEQ in STERILE WATER 1,000 ML IV SCH ×2 (10:10→22:48)
[2018-12-22] MEDS: LOVENOX SUB-Q SCH (10:19)
[2018-12-22] MEDS: MEPRON PO SCH (10:23)
[2018-12-22] MEDS: SODIUM CHLORIDE FLUSH SYRINGE 10 ML IV SCH ×2 (10:32→21:13)
--- NOTE | 2018-12-22 10:40 | Progress Note ---
Assessment and Plan Assessment and plan: 28-year-old man who presented to the hospital nausea vomiting and diarrhea which began after he ate [employer]. Shigella enteritis, cryptosporidium enteritis, severe sepsis Continue supportive care, fup stool studies, ID consult keep NPO until vomiting resolves cont abx, Rectal tube ordered, TPN ordered (has not kept food down in over a week) severe hypokalemia cont to replete IV, likely loss from diarrhea Acute kidney injury due to dehydration and vasomotor nephropathy and ATN cont IV fluids, nephrology input appreciated acute metabolic acidosis cont bicarb drip HIV, with aids defining illness stool pos for crypto, fup viral load and cd4 count on ppx meds per ID Hyperkalemia Was medically treated, now resolved Moderate malnutrition Ware[employer] consult, for TPN Discussed his HIV status with patient, ID and mother in the room per patients request. all questions answered. DVT prophylaxis lovenox History Interval history: Review of systems Constitutional: No fevers, no malaise, no joint pains CVS: No chest pain, no orthopnea, no dyspnea on exertion, no pedal edema GI: No abdominal pain, he is still vomiting, still having diarrhea every 30mins to 1 hour Respiratory: no wheezing, no coughing Hospitalist Physical - Physical exam Narrative exam: General.: Appears ill, mild distresss, toxic HEENT: Moist mucous membranes, extraocular muscles intact, no lymphadenopathy Neck: supple Cardiac: S1-S2 heard Lungs: clear to auscultation bilaterally Abdomen: soft , nontender, nondistended, bowel sounds positive Extremities: no edema clubbing or cyanosis Skin: no rash or lesions Neurologic: no gross focal deficits Psych: calm, and cooperative - Constitutional Vitals: Temp Pulse Resp BP Pulse Ox 98.4 F 100 H 20 126/93 95 12/21/18 21:08 12/22/18 05:43 12/22/18 05:43 12/22/18 05:43 12/22/18 05:43 Results - Labs CBC & Chem 7: 12/19/18 05:49 12/23/18 04:18 Labs: Laboratory Last Values WBC 7.8 K/mm3 (4.5-11.0) 12/19/18 05:49 RBC 6.87 M/mm3 (3.65-5.03) H 12/19/18 05:49 Hgb 18.3 gm/dl (11.8-15.2) H 12/19/18 05:49 Hct 54.3 % (35.5-45.6) H 12/19/18 05:49 MCV 79 fl (84-94) L 12/19/18 05:49 MCH 27 pg (28-32) L 12/19/18 05:49 MCHC 34 % (32-34) 12/19/18 05:49 RDW 13.5 % (13.2-15.2) 12/19/18 05:49 Plt Count 331 K/mm3 (140-440) 12/19/18 05:49 Lymph % (Auto) 13.4 % (13.4-35.0) 12/19/18 05:49 [place] % (Auto) 13.3 % (0.0-7.3) H 12/19/18 05:49 Eos % (Auto) 0.1 % (0.0-4.3) 12/19/18 05:49 Baso % (Auto) 0.3 % (0.0-1.8) 12/19/18 05:49 Lymph # 1.1 K/mm3 (1.2-5.4) L 12/19/18 05:49 [place] # 1.0 K/mm3 (0.0-0.8) H 12/19/18 05:49 Eos # 0.0 K/mm3 (0.0-0.4) 12/19/18 05:49 Baso # 0.0 K/mm3 (0.0-0.1) 12/19/18 05:49 Seg Neutrophils % 72.9 % (40.0-70.0) H 12/19/18 05:49 Seg Neutrophils # 5.7 K/mm3 (1.8-7.7) 12/19/18 05:49 POC ABG pH 7.324 (7.35-7.45) L 12/18/18 08:56 POC ABG pO2 167 (80-105) H 12/18/18 08:56 POC ABG HCO3 11.3 (22-26 mml/L) 12/18/18 08:56 POC ABG Total CO2 12 (23-27mmol/L) 12/18/18 08:56 POC ABG O2 Sat 99 12/18/18 08:56 POC ABG Base Excess -15 ((-2) - (+3)mmol/L) 12/18/18 08:56 28 % 12/18/18 08:56 Sodium 133 mmol/L (137-145) L 12/22/18 06:40 Potassium 3.2 mmol/L (3.6-5.0) L D 12/22/18 06:40 Chloride 92.4 mmol/L (98-107) L 12/22/18 06:40 Carbon Dioxide 14 mmol/L (22-30) L 12/22/18 06:40 30 mmol/L 12/22/18 06:40 BUN 105 mg/dL (9-20) H 12/22/18 06:40 5.8 mg/dL (0.8-1.5) H D 12/22/18 06:40 Estimated GFR 14 ml/min 12/22/18 06:40 18 % 12/22/18 06:40 Glucose 131 mg/dL (75-100) H 12/22/18 06:40 Lactic Acid 2.70 mmol/L (0.7-2.0) H* 12/19/18 10:50 Calcium 9.7 mg/dL (8.4-10.2) 12/22/18 06:40 Magnesium 3.40 mg/dL (1.7-2.3) H 12/22/18 06:40 1.10 mg/dL (0.1-1.2) 12/19/18 05:49 AST 21 units/L (5-40) 12/19/18 05:49 ALT 13 units/L (7-56) 12/19/18 05:49 77 units/L (35-129) 12/19/18 05:49 9.3 g/dL (6.3-8.2) H 12/19/18 05:49 4.8 g/dL (3.9-5) 12/19/18 05:49 1.1 % 12/19/18 05:49 85 units/L (13-60) H 12/13/18 18:57 Yellow (Yellow) 12/13/18 20:40 Cloudy (Clear) 12/13/18 20:40 5.0 (5.0-7.0) 12/13/18 20:40 Ur Specific [place] 1.014 (1.003-1.030) 12/13/18 20:40 100 mg/dl mg/dL (Negative) 12/13/18 20:40 Neg mg/dL (Negative) 12/13/18 20:40 Neg mg/dL (Negative) 12/13/18 20:40 Lg (Negative) 12/13/18 20:40 Neg (Negative) 12/13/18 20:40 Neg (Negative) 12/13/18 20:40 < 2.0 mg/dL (<2.0) 12/13/18 20:40 Ur Leukocyte Esterase Neg (Negative) 12/13/18 20:40 22.0 /HPF (0.0-6.0) H 12/13/18 20:40 9.0 /HPF (0.0-6.0) 12/13/18 20:40 U Epithel Cells (Auto) 2.0 /HPF (0-13.0) 12/13/18 20:40 1+ /HPF (Negative) 12/13/18 20:40 Hyaline Casts 2 /LPF 12/13/18 20:40 3+ /HPF 12/13/18 20:40 2+ /HPF 12/13/18 20:40 C. difficile Tox (PCR) Negative (Negative) 12/14/18 14:00 HIV 1&2 Antibody Rapid Reactive (Non React) 12/16/18 16:36 Non react (Non React) 12/16/18 16:36 Active Medications - Current Medications Current Medications: Generic Name Dose Route Start Last Admin Trade Name Freq PRN Reason Stop Dose Admin Acetaminophen 650 mg 12/13/18 22:54 12/18/18 21:16 Tylenol PO 650 mg Q4H PRN Administration Pain MILD(1-3)/Fever >100.5/HOLT Atovaquone 1,500 mg 12/18/18 14:00 12/22/18 10:23 Mepron PO 1,500 mg QDAY MARIA E Administration Enoxaparin Sodium 30 mg 12/18/18 11:00 12/22/18 10:19 Lovenox SUB-Q 30 mg QDAY MARIA E Administration Ceftriaxone Sodium 2 gm in 100 mls @ 200 mls/hr 12/16/18 16:00 12/21/18 16:32 Rocephin/Ns 2 Gm/100 Ml IV 200 mls/hr Q24H MARIA E Administration Protocol Metronidazole 500 mg in 100 mls @ 100 mls/hr 12/17/18 14:00 12/22/18 06:13 Flagyl 500 Mg/100 Ml IV 100 mls/hr Q8HR MARIA E Administration Protocol Azithromycin 500 mg/ Sodium 250 mls @ 250 mls/hr 12/18/18 14:00 12/21/18 17:12 Chloride IV 250 mls/hr Q24H MARIA E Administration Protocol Potassium Chloride 40 meq/ 1,020 mls @ 125 mls/hr 12/21/18 08:00 12/21/18 09:54 Sodium Chloride IV 125 mls/hr DIRECT MARIA E Administration Potassium Chloride 60 meq/ 530 mls @ 88.333 mls/hr 12/21/18 10:30 12/21/18 21:06 Sodium Chloride IV 12/22/18 16:29 88.333 mls/hr DIRECT MARIA E Administration Sodium Bicarbonate 150 meq/ 1,150 mls @ 100 mls/hr 12/22/18 10:00 12/22/18 10:10 Sterile Water IV 100 mls/hr DIRECT MARIA E Administration Metoclopramide HCl 5 mg 12/22/18 10:00 12/22/18 10:01 Reglan IV 5 mg Q6H PRN Administration Nausea And Vomiting Ondansetron HCl 4 mg 12/13/18 22:54 12/21/18 21:07 Zofran IV 4 mg Q4H PRN Administration Nausea And Vomiting Sodium Chloride 10 ml 12/14/18 10:00 12/22/18 10:32 Sodium Chloride Flush Syringe 10 Ml IV 10 ml BID MARIA E Administration Sodium Chloride 10 ml 12/13/18 22:54 12/19/18 12:27 Sodium Chloride Flush Syringe 10 Ml IV 10 ml PRN PRN Administration LINE FLUSH Temazepam 15 mg 12/21/18 18:13 12/21/18 21:07 Restoril PO 15 mg QHS PRN Administration Sleep Nutrition/Malnutrition Assess - Dietary Evaluation Nutrition/Malnutrition Findings: Nutrition Notes Start: 12/19/18 15:24 Freq: Status: Active Protocol: Document 12/19/18 15:24 RM (Rec: 12/19/18 15:35 RM [email or web address]) Nutrition Notes Need for Assessment generated from: LOS Initial or Follow up Assessment Current Diagnosis Acute Kidney Injury Other Pertinent Diagnosis N/V/D, Gastroenteritis, HIV Current Diet No diet ordered Labs/Tests Reviewed Pertinent Medications Zofran Height 6 ft 2 in Weight 74.5 kg [place] Body Weight (kg) 86.36 BMI 21.0 Subjective/Other Information Screened for LOS. Pt stated that [employer] he had no appetite, has not eaten since the 4th, and has no appetite now. Admitted to N/V. Stated that he is able to keep down some liquids. Unsure of UBW. No temporal or orbital wasting . Percent of energy/protein needs met: 0%/0% Burn Absent Trauma Absent #1 Nutrition Diagnosis Inadequate oral intake Etiology gastroenteritis As Evidenced by Signs and Symptoms Pt statement that he has not eaten since the 4th Is patient on ventilator? No Is Patient Ambulatory and/or Out of Bed Yes REE-([facility]-ambulatory/OOB) [ 2313.675 [id number]] Calculation Used for Recommendations [facility] Additional Notes Protein Needs: 60-75g (0.8-1g/ kg) Fluid Needs: 1 ml/kcal Nutrition Intervention Change Diet Order: Order diet Add Supplement/Snack (indicate name/kcal Ensure Clear Apple 1 daily /protein ) once diet ordered Provides kCal: 240 Provides Protein (gm) 8 Goal #1 Diet order Anticipated Discharge Needs: Unable to determine at this time Follow-Up By: 12/22/18 Additional Comments Follow for diet order, PO and ONS intakes
--- NOTE | 2018-12-22 13:00 | Progress Note ---
Assessment and Plan Cultures: 12/13/18 Urine: less than 10K 12/14/18 Stool: Shigella species 12/14/18 C-Diff: negative 12/17/18 HIV Rapid; reactive 12/17/18 Cryptosporidium: positive : Giardia: negative 12/18/2018 serum Cryptococcal Ag: Negaitve A/P: 28-year old male with no previous medical history that presents to the ED on 12/13/18 with complaints of nausea, vomiting and diarrhea since . He reported eating beef and broccoli chomein and orange chicken at [employer] on Saturday12-10-18. His symptoms worsened the next day. Admitted with. 1. Acute bacterial gastroenteritis secondary to Shigella with co-infection from Cryptosporidium: Diarrhea continuing. Worsening. Stool cultures Shigella species. Cryptosporidium: positive. Cdiff negative. Currently being treated with Ceftriaxone and Azithromycin as dual coverage for the Shigella and also on empiric IV Flagyl. 2. HIV/AIDS: diagnosed 2 years ago. No follow-up with ID. Unknown CD4 count/Viral load. Never been on HIV therapy. Mother is now aware of HIV. Labs pending here. Likely AIDS given the lymphopenia. Crypto antigen negative. 3 MEHNAZ: worsening. Nephrology following. 4. Sepsis v/s SIRS: hypothermia, increased lactic acid and tachycardia, likely hypovolemia given the evidence of hemoconcentration. Recs: given diarrhea's not improvement after 7 days of IV antibiotics, will start ART renally adjusted - emtricitabine 200 mg q 72 hour, tenofovir 300 mg q 72 hour and raltegravir 400 mg BID (genotype is pending) continue IV Ceftriaxone D7, Azithromycin D5 and Flagyl D6 request nitazoxanide 1 gm po BID - will get it tomorrow per pharmacy GI med consult to consider flexsig to r/o Kaposi's sarcoma/lymphoma continue PO Atovaquone for prophylaxis (likely AIDS) f/u CMV PCR, AFB blood cultures (for disseminated MAC) f/u HIV-VL, CD4, HIV-genotype Discussed with patient, mother and Dr Harrington Will follow. Ani Fry MD Infectious Diseases [employer] [facility] [place] M [phone] O [phone] Subjective Date of service: 07/15/19 Principal diagnosis: acute kidney injury Interval history: Remains sick debilitated having watery diarrhea every 30 min, mother at bedside, she is now aware of HIV. Objective - Exam Narrative Exam: General: Alert in NAD debilitated Head, Ears, Nose: Normocephalic, atraumatic. External ears, nose normal Eyes: Conjunctivae/corneas clear. No icterus. No ptosis. Neck: Supple, no meningeal signs Oral: dentition fair, no thrush Cardiovascular: S1, S2 normal. Respiratory: Good air entry, clear to auscultation bilaterally GI: Soft, non-tender; bowel sounds + No peritoneal signs Musculoskeletal: No pedal edema, no cyanosis. Skin: No rash or abscess Hem/Lymphatic: No palpable cervical or supraclavicular nodes. No lymphangitis Psych: Mood ok. Affect normal Neurological: Awake, alert, oriented. No gross abnormality - Constitutional Vitals: Vital Signs Temp Pulse Resp BP Pulse Ox 98.4 F 100 H 20 126/93 99 12/21/18 21:08 12/22/18 05:43 12/22/18 05:43 12/22/18 05:43 12/22/18 11:00 Temperature -Last 24 Hours Temperature 98.4 F Temperature 93.0 F - Labs CBC & Chem 7: 12/19/18 05:49 12/22/18 06:40 Labs: Abnormal lab results 12/22/18 12/22/18 12/22/18 Range/Units 06:40 06:40 11:08 Sodium 133 L (137-145) mmol/L Potassium 3.2 L D (3.6-5.0) mmol/L Chloride 92.4 L (98-107) mmol/L Carbon Dioxide 14 L (22-30) mmol/L BUN 105 H (9-20) mg/dL Creatinine 5.8 H D (0.8-1.5) mg/dL Glucose 131 H (75-100) mg/dL POC Glucose 115 H (70-105) Phosphorus 9.20 H (2.5-4.5) mg/dL Magnesium 3.40 H (1.7-2.3) mg/dL
[2018-12-22] MEDS ORDERED: EMTRIVA PO SCH (14:00)
[2018-12-22] MEDS ORDERED: VIREAD PO SCH (14:00)
[2018-12-22] MEDS: ISENTRESS PO SCH ×2 (15:35→21:13)
[2018-12-22] MEDS: ZITHROMAX 500 MG in NACL 0.9% 250ML 250 ML IV SCH (15:35)
[2018-12-22 16:32] LABS: HIV-1 RNA QN PCR TNR (())
[2018-12-22] MEDS: ROCEPHIN/NS 2 GM/100 ML 2 GM/100 ML BAG IV SCH (17:23)
[2018-12-22] MEDS ORDERED: TPN ADULT 2,400 ML IV SCH (20:00)
[2018-12-22] MEDS ORDERED: NACL 0.9% 500 ML 500 ML IV ONE (23:01)
[2018-12-23 05:00] LABS: Calcium 8.5 mg/dL (8.4-10.2)
[2018-12-23] MEDS: FLAGYL 500 MG/100 ML 500 MG/100 ML BAG IV SCH (06:20)
[2018-12-23 07:33] LABS: HIV-1 Antibody Differentiation SEE SCANNED RESULT; HIV-2 Antibody Differentiation SEE SCANNED RESULT
[2018-12-23 07:34] LABS: CD19, Absolute SEE SCANNED RESULT; CD3, Absolute SEE SCANNED RESULT; CD3, Percentage SEE SCANNED RESULT; CD4, Absolute SEE SCANNED RESULT; CD4, Percentage SEE SCANNED RESULT; CD4/CD8 Ratio SEE SCANNED RESULT; CD8, Absolute SEE SCANNED RESULT; CD8, Percentage SEE SCANNED RESULT; Lymphocytes, Absolute SEE SCANNED RESULT
--- NOTE | 2018-12-23 08:36 | Progress Note ---
Assessment and Plan - Patient Problems (1) Acute renal failure Current Visit: Yes Status: Acute Plan to address problem: Acute kidney failure Prerenal azotemia versus acute tubular necrosis secondary to hypotension/volume depletion. Unfortunately kidney disease are still worsening. Patient will need to start dialysis for solute clearance. Discussed benefits and risks with patient and mother. He agrees to proceed. We'll consult vascular for access placement and initiate dialysis thereafter (2) Hypokalemia Current Visit: Yes Status: Acute Plan to address problem: Supplement potassium, dialyze on a 4K bath and follow-up levels (3) Metabolic acidosis Current Visit: Yes Status: Acute Plan to address problem: secondary to diarrhea. Continue bicarbonate drip. Dialyze on a 40 mmol/L bicarbonate bath. Follow-up bicarbonate level. (4) Nausea vomiting and diarrhea Current Visit: Yes Status: Acute Plan to address problem: Continue management by Federico DEGROOT MD and infectious disease Subjective Date of service: 12/23/18 Principal diagnosis: acute kidney injury Interval history: Patient seen lying in bed. He has no new complaints. Mother at the bedside. No nausea or vomiting today. Wants to drink water. Objective - Exam Narrative Exam: Young -[place] Islander male lying in bed ill-looking in no acute distress HEENT: NCAT, pink oral mucous membrane Neck: Supple, no venous distention CVS: S1S2 RRR with no murmur, rub or gallop Chest: Clear to auscultation Abdomen: Protuberant, soft, nontender, no organomegaly, bowel sounds are present Extremities: No edema Neuro: Awake, alert no focal deficits - Vital Signs Vital signs: Vital Signs - 12hr 12/22/18 12/22/18 12/22/18 21:58 22:00 22:03 Temperature 97.4 F L Pulse Rate 61 112 H Respiratory Rate Blood Pressure 88/28 O2 Sat by Pulse 93 Oximetry 12/22/18 12/23/18 12/23/18 22:38 00:16 02:42 Temperature Pulse Rate Respiratory Rate Blood Pressure 82/38 96/52 107/66 O2 Sat by Pulse Oximetry 12/23/18 12/23/18 06:15 08:19 Temperature 97.8 F Pulse Rate 121 H Respiratory 20 Rate Blood Pressure 102/56 O2 Sat by Pulse 96 99 Oximetry - Lab 12/19/18 05:49 12/23/18 04:18 Most recent lab results Calcium 8.5 mg/dL (8.4-10.2) 12/23/18 04:18 Phosphorus 10.30 mg/dL (2.5-4.5) H 12/23/18 04:18 Magnesium 2.70 mg/dL (1.7-2.3) H 12/23/18 04:18 Medications & Allergies - Medications Allergies/Adverse Reactions: Allergies No Known Allergies Allergy (Verified 12/13/18 18:58) Home Medications: Home Medications Medication Instructions Recorded Confirmed Last Taken Type No Known Home Medications [No 12/18/18 12/18/18 Unknown History Reported Home Medications] Active Medications: Generic Name Dose Route Start Last Admin Trade Name Freq PRN Reason Stop Dose Admin Acetaminophen 650 mg 12/13/18 22:54 12/18/18 21:16 Tylenol PO 650 mg Q4H PRN Administration Pain MILD(1-3)/Fever >100.5/HOLT Atovaquone 1,500 mg 12/18/18 14:00 12/22/18 10:23 Mepron PO 1,500 mg QDAY MARIA E Administration Emtricitabine 200 mg 12/22/18 14:00 Emtriva PO Q72HR MARIA E Enoxaparin Sodium 30 mg 12/18/18 11:00 12/22/18 10:19 Lovenox SUB-Q 30 mg QDAY MARIA E Administration Ceftriaxone Sodium 2 gm in 100 mls @ 200 mls/hr 12/16/18 16:00 12/22/18 17:23 Rocephin/Ns 2 Gm/100 Ml IV 200 mls/hr Q24H MARIA E Administration Protocol Metronidazole 500 mg in 100 mls @ 100 mls/hr 12/17/18 14:00 12/23/18 06:20 Flagyl 500 Mg/100 Ml IV 100 mls/hr Q8HR MARIA E Administration Protocol Azithromycin 500 mg/ Sodium 250 mls @ 250 mls/hr 12/18/18 14:00 12/22/18 15:35 Chloride IV 250 mls/hr Q24H MARIA E Administration Protocol Sodium Bicarbonate 150 meq/ 1,150 mls @ 100 mls/hr 12/22/18 10:00 12/22/18 22:48 Sterile Water IV 100 mls/hr DIRECT MARIA E Administration Amino Acids/Electrolytes/Dextrose 2,400 mls @ 100 mls/hr 12/22/18 20:00 12/22/18 20:28 Tpn Adult IV 12/23/18 19:59 100 mls/hr DAILY@2000 MARIA E Administration Protocol Lorazepam 1 mg 12/22/18 12:06 Ativan IV Q4H PRN for insomnia or anxiety Metoclopramide HCl 5 mg 12/22/18 10:00 12/22/18 10:01 Reglan IV 5 mg Q6H PRN Administration Nausea And Vomiting Nitazoxanide 500 mg 12/23/18 10:00 Alinia (Nf) PO 12/28/18 22:01 BID MARIA E Ondansetron HCl 4 mg 12/13/18 22:54 12/21/18 21:07 Zofran IV 4 mg Q4H PRN Administration Nausea And Vomiting Raltegravir 400 mg 12/22/18 14:00 12/22/18 21:13 Isentress PO 400 mg BID MARIA E Administration Sodium Chloride 10 ml 12/14/18 10:00 12/22/18 21:13 Sodium Chloride Flush Syringe 10 Ml IV 10 ml BID MARIA E Administration Sodium Chloride 10 ml 12/13/18 22:54 12/19/18 12:27 Sodium Chloride Flush Syringe 10 Ml IV 10 ml PRN PRN Administration LINE FLUSH Temazepam 15 mg 12/21/18 18:13 12/21/18 21:07 Restoril PO 15 mg QHS PRN Administration Sleep Tenofovir Disoproxil Fumarate 300 mg 12/22/18 14:00 Viread PO Q72HR MARIA E
[2018-12-23] MEDS ORDERED: HEPARIN IV PRN (08:39)
[2018-12-23] MEDS ORDERED: NACL 0.9% 100 ML IV PRN (08:39)
--- NOTE | 2018-12-23 09:13 | Event Note ---
Date: 12/23/18 Contacted about permcath placement by Dr. Arriaza. NPO except sips of water. offset label rewinder orders placed for permcath placement today.
[2018-12-23] MEDS: SODIUM CHLORIDE FLUSH SYRINGE 10 ML IV SCH ×2 (10:00→21:27)
[2018-12-23] MEDS: MEPRON PO SCH (10:00)
[2018-12-23] MEDS: ALINIA PO SCH ×2 (10:00→21:26)
[2018-12-23] MEDS: LOVENOX SUB-Q SCH (10:00)
[2018-12-23] MEDS: ISENTRESS PO SCH ×2 (10:00→21:26)
--- NOTE | 2018-12-23 10:46 | Progress Note ---
Assessment and Plan Cultures: 12/13/18 Urine: less than 10K 12/14/18 Stool: Shigella species 12/14/18 C-Diff: negative 12/17/18 HIV Rapid; reactive 12/17/18 Cryptosporidium: positive : Giardia: negative 12/18/2018 serum Cryptococcal Ag: Negaitve A/P: 28-year old male with no previous medical history that presents to the ED on 12/13/18 with complaints of nausea, vomiting and diarrhea since . He reported eating beef and broccoli chomein and orange chicken at [employer] on Saturday12-10-18. His symptoms worsened the next day. Admitted with. 1. Acute bacterial gastroenteritis secondary to Shigella with co-infection from Cryptosporidium: Diarrhea continuing. Stool cultures Shigella species. Cryptosporidium: positive. Cdiff negative. Currently being treated with Ceftriaxone and Azithromycin as dual coverage for the Shigella and also on empiric IV Flagyl. 2. HIV/AIDS: CD4=26, 3% on 12/16/2018; diagnosed 2 years ago. No follow-up with ID. Unknown CD4 count/Viral load. Never been on HIV therapy. Mother is now aware of HIV. Labs pending here. Likely AIDS given the lymphopenia. Crypto antigen negative. 3 MEHNAZ: worsening. Nephrology following. To have 1st HD 4. Sepsis v/s SIRS: hypothermia, increased lactic acid and tachycardia, likely hypovolemia given the evidence of hemoconcentration. Recs: continue ART renally adjusted - emtricitabine 200 mg q 72 hour, tenofovir 300 mg q 72 hour and raltegravir 400 mg BID (genotype is pending) stop IV Ceftriaxone after today D7 stop Flagyl after today D7 continue Azithromycin D6 start nitazoxanide 1 gm po BID x 3 days then 500 mg po BID for 2 weeks GI med consult to consider flexsig to r/o Kaposi's sarcoma/lymphoma continue PO Atovaquone for prophylaxis (likely AIDS) f/u CMV PCR, AFB blood cultures (for disseminated MAC) f/u HIV-VL, HIV-genotype Discussed with patient, mother Will follow. Ani Fry MD Infectious Diseases Assistant Public Defender [facility] M [phone] O [phone] Subjective Date of service: 12/23/18 Principal diagnosis: acute kidney injury Interval history: Feels slightly better, still watery diarrhea now with rectal tube, mother at bedside. ROS weakness, diarrhea, oliguria, rest negative Objective - Exam Narrative Exam: General: Alert in NAD debilitated Head, Ears, Nose: Normocephalic, atraumatic. External ears, nose normal Eyes: Conjunctivae/corneas clear. No icterus. No ptosis. Neck: Supple, no meningeal signs Oral: dentition fair, no thrush Cardiovascular: RRR Respiratory: Good air entry, clear to auscultation bilaterally GI: Soft, non-tender; bowel sounds + No peritoneal signs Musculoskeletal: No pedal edema, no cyanosis. Skin: No rash or abscess Hem/Lymphatic: No palpable cervical or supraclavicular nodes. No lymphangitis Psych: Mood ok. Affect normal Neurological: Awake, alert, oriented. No gross abnormality rectal tube watery black diarrhea - Constitutional Vitals: Vital Signs Temp Pulse Resp BP Pulse Ox 97.8 F 121 H 20 102/56 99 12/23/18 06:15 12/23/18 06:15 12/23/18 06:15 12/23/18 06:15 12/23/18 08:19 Temperature -Last 24 Hours Temperature 97.8 F Temperature 97.4 F - Labs CBC & Chem 7: 12/19/18 05:49 12/23/18 04:18 Labs: Abnormal lab results 12/22/18 12/22/18 12/23/18 Range/Units 06:40 11:08 04:18 Sodium 129 L (137-145) mmol/L Potassium 3.0 L (3.6-5.0) mmol/L Chloride 86.1 L (98-107) mmol/L Carbon Dioxide 15 L (22-30) mmol/L BUN 131 H (9-20) mg/dL Creatinine 8.6 H (0.8-1.5) mg/dL Glucose 122 H (75-100) mg/dL POC Glucose 115 H (70-105) Phosphorus 9.20 H 10.30 H (2.5-4.5) mg/dL Magnesium 2.70 H (1.7-2.3) mg/dL
[2018-12-23] MEDS ORDERED: HEPARIN/NS 5000 UNIT/500ML(CATH LAB) 500 ML IR ONE (13:21)
[2018-12-23] MEDS ORDERED: XYLOCAINE 2% INFILTRATI ONE (13:22)
[2018-12-23] MEDS ORDERED: HEPARIN 10,000 UNITS/10 ML ONE (13:22)
[2018-12-23] MEDS ORDERED: NACL 0.9% 250ML 250 ML ONE (13:24)
[2018-12-23 13:46] LABS: Hepatitis B Surface Antigen Non-Reactive (Negative); Hepatitis C Virus Antibody Non-Reactive (NonReactive)
[2018-12-23] MEDS ORDERED: VERSED ONE (13:51)
[2018-12-23] MEDS ORDERED: SUBLIMAZE ONE (13:51)
[2018-12-23] MEDS: ZITHROMAX 500 MG in NACL 0.9% 250ML 250 ML IV SCH (14:00)
--- NOTE | 2018-12-23 15:04 | Progress Note ---
Assessment and Plan Assessment and plan: Patient is a 28-year-old man with a history of HIV diagnosis 2 years ago, without any follow up, not on antiviral who presented to [facility] ED with nausea/vomiting and diarrhea which began after he ate [employer]. Mother did not know of her son HIV status, HIV status discussed with patient, ID and mother in the room per patients request. all questions answered. Cultures: 12/13/18 Urine: less than 10K 12/14/18 Stool: Shigella species 12/14/18 C-Diff: negative 12/17/18 HIV Rapid; reactive 12/17/18 Cryptosporidium: positive : Giardia: negative 12/18/2018 serum Cryptococcal Ag: Negative Sepsis due to Acute bacterial gastroenteritis secondary to Shigella with co- infection from Cryptosporidium: Diarrhea continuing. Still NPO, on TPN with left arm PICC and rectal tube in place. Treat with Ceftriaxone and Azithromycin as dual coverage for the Shigella and also on empiric IV Flagyl. Severe hypokalemia: cont to replete IV, likely loss from diarrhea ARF, most likely ATN and vasomotor nephropathy: Hemodialysis to start, treated with IVF, Nephrology consulted, input noted Acute metabolic acidosis: treat with bicarbonate, monitor bmp closely HIV, with AIDS defining illness: ID following, adjusted ART mediations, start nitazoxanide 1 gm po BID x 3 days then 500 mg po BID for 2 weeks, continue PO Atovaquone for prophylaxis (likely AIDS), f/u CMV PCR, AFB blood cultures (for disseminated MAC). ID to follow up HIV-VL, HIV-genotype, consulted GI Hyperkalemia, Was medically treated, now resolved: monitor bmp closely Moderate malnutrition: Locomotive Mechanic Apprentice consult, for TPN Chest pains with dyspepsia; Consulted GI DVT prophylaxis lovenox hemodialysis to start History Interval history: Patient was seen and examined. Follow-up on current diagnosis AIDs illness. No overnight events reported to me. Patient denies any shortness breath, nausea/vomiting or severe headaches. Imaging, nursing note, chart, labs and old chart reviewed. Discussed with patient. + burning substernal chest pains. Hospitalist Physical - Physical exam Narrative exam: Gen: WDWN, NAD, Awake, Alert, Orientated HEENT: NCAT, EOMI, PERRL, OP Clear Neck: supple, no adenopathy, no thyromegaly, no JVD CVS/Heart: RRR, normal S1S2, pulses present bilaterally Chest/Lungs: CTA B, Symmetrical chest expansion, good air entry bilaterally GI/Abdomen: soft, NTND, good bowel sounds, no guarding or rebound /Bladder: no suprapubic tenderness, no CVA or paraspinal tenderness Extermity/Skin: no c/c/e, no obvious rash MSK: FROM x 4 Neuro: CN 2-12 grossly intact, no new focal deficits Psych: calm - Constitutional Vitals: Temp Pulse Resp BP Pulse Ox 96.6 F L 106 H 18 90/55 100 12/23/18 11:34 12/23/18 11:34 12/23/18 11:34 12/23/18 11:34 12/23/18 11:34 Results - Labs CBC & Chem 7: 12/19/18 05:49 12/23/18 04:18 Labs: Laboratory Last Values WBC 7.8 K/mm3 (4.5-11.0) 12/19/18 05:49 RBC 6.87 M/mm3 (3.65-5.03) H 12/19/18 05:49 Hgb 18.3 gm/dl (11.8-15.2) H 12/19/18 05:49 Hct 54.3 % (35.5-45.6) H 12/19/18 05:49 MCV 79 fl (84-94) L 12/19/18 05:49 MCH 27 pg (28-32) L 12/19/18 05:49 MCHC 34 % (32-34) 12/19/18 05:49 RDW 13.5 % (13.2-15.2) 12/19/18 05:49 Plt Count 331 K/mm3 (140-440) 12/19/18 05:49 Lymph % (Auto) 13.4 % (13.4-35.0) 12/19/18 05:49 [place] % (Auto) 13.3 % (0.0-7.3) H 12/19/18 05:49 Eos % (Auto) 0.1 % (0.0-4.3) 12/19/18 05:49 Baso % (Auto) 0.3 % (0.0-1.8) 12/19/18 05:49 Lymph # 1.1 K/mm3 (1.2-5.4) L 12/19/18 05:49 [place] # 1.0 K/mm3 (0.0-0.8) H 12/19/18 05:49 Eos # 0.0 K/mm3 (0.0-0.4) 12/19/18 05:49 Baso # 0.0 K/mm3 (0.0-0.1) 12/19/18 05:49 Seg Neutrophils % 72.9 % (40.0-70.0) H 12/19/18 05:49 Seg Neutrophils # 5.7 K/mm3 (1.8-7.7) 12/19/18 05:49 Abs Lymphs (Manual) See scanned result 12/16/18 16:36 POC ABG pH 7.324 (7.35-7.45) L 12/18/18 08:56 POC ABG pCO2 < 30 (35-45) L 12/18/18 08:56 POC ABG pO2 167 (80-105) H 12/18/18 08:56 POC ABG HCO3 11.3 (22-26 mml/L) 12/18/18 08:56 POC ABG Total CO2 12 (23-27mmol/L) 12/18/18 08:56 POC ABG O2 Sat 99 12/18/18 08:56 POC ABG Base Excess -15 ((-2) - (+3)mmol/L) 12/18/18 08:56 28 % 12/18/18 08:56 Sodium 129 mmol/L (137-145) L 12/23/18 04:18 Potassium 3.0 mmol/L (3.6-5.0) L 12/23/18 04:18 Chloride 86.1 mmol/L (98-107) L 12/23/18 04:18 Carbon Dioxide 15 mmol/L (22-30) L 12/23/18 04:18 31 mmol/L 12/23/18 04:18 BUN 131 mg/dL (9-20) H 12/23/18 04:18 8.6 mg/dL (0.8-1.5) H 12/23/18 04:18 Estimated GFR 9 ml/min 12/23/18 04:18 15 % 12/23/18 04:18 Glucose 122 mg/dL (75-100) H 12/23/18 04:18 POC Glucose 115 (70-105) H 12/22/18 11:08 Lactic Acid 2.70 mmol/L (0.7-2.0) H* 12/19/18 10:50 Calcium 8.5 mg/dL (8.4-10.2) 12/23/18 04:18 Phosphorus 10.30 mg/dL (2.5-4.5) H 12/23/18 04:18 Magnesium 2.70 mg/dL (1.7-2.3) H 12/23/18 04:18 1.10 mg/dL (0.1-1.2) 12/19/18 05:49 AST 21 units/L (5-40) 12/19/18 05:49 ALT 13 units/L (7-56) 12/19/18 05:49 77 units/L (35-129) 12/19/18 05:49 9.3 g/dL (6.3-8.2) H 12/19/18 05:49 4.8 g/dL (3.9-5) 12/19/18 05:49 1.1 % 12/19/18 05:49 Triglycerides 148 mg/dL (2-149) 12/23/18 04:18 85 units/L (13-60) H 12/13/18 18:57 Yellow (Yellow) 12/13/18 20:40 Cloudy (Clear) 12/13/18 20:40 5.0 (5.0-7.0) 12/13/18 20:40 Ur Specific [place] 1.014 (1.003-1.030) 12/13/18 20:40 100 mg/dl mg/dL (Negative) 12/13/18 20:40 Neg mg/dL (Negative) 12/13/18 20:40 Neg mg/dL (Negative) 12/13/18 20:40 Lg (Negative) 12/13/18 20:40 Neg (Negative) 12/13/18 20:40 Neg (Negative) 12/13/18 20:40 < 2.0 mg/dL (<2.0) 12/13/18 20:40 Ur Leukocyte Esterase Neg (Negative) 12/13/18 20:40 22.0 /HPF (0.0-6.0) H 12/13/18 20:40 9.0 /HPF (0.0-6.0) 12/13/18 20:40 U Epithel Cells (Auto) 2.0 /HPF (0-13.0) 12/13/18 20:40 1+ /HPF (Negative) 12/13/18 20:40 Hyaline Casts 2 /LPF 12/13/18 20:40 3+ /HPF 12/13/18 20:40 2+ /HPF 12/13/18 20:40 Lymph Enumerat CD4/CD8 See scanned result 12/16/18 16:36 % CD3 Cells See scanned result 12/16/18 16:36 See scanned result 12/16/18 16:36 % CD4 Cells See scanned result 12/16/18 16:36 See scanned result 12/16/18 16:36 % CD8 Cells See scanned result 12/16/18 16:36 See scanned result 12/16/18 16:36 % CD19 Cells See scanned result 12/16/18 16:36 See scanned result 12/16/18 16:36 C. difficile Tox (PCR) Negative (Negative) 12/14/18 14:00 CMV DNA PCR log endoscope technician/mL See scanned result 12/18/18 12:29 Hepatitis A IgM Ab Non-reactive (NonReactive) 12/23/18 11:20 Hep Bs Antigen Non-reactive (Negative) 12/23/18 11:20 Hep B Core IgM Ab Non-reactive (NonReactive) 12/23/18 11:20 Non-reactive (NonReactive) 12/23/18 11:20 See scanned result 12/16/18 16:49 HIV-1 RNA PCR copies/ml TNR 12/16/18 16:36 TNR 12/16/18 16:36 HIV-2 Ab (Immunoblot) See scanned result 12/16/18 16:49 HIV 1&2 Antibody Rapid Reactive (Non React) 12/16/18 16:36 Non react (Non React) 12/16/18 16:36 Active Medications - Current Medications Current Medications: Generic Name Dose Route Start Last Admin Trade Name Freq PRN Reason Stop Dose Admin Acetaminophen 650 mg 12/13/18 22:54 12/18/18 21:16 Tylenol PO 650 mg Q4H PRN Administration Pain MILD(1-3)/Fever >100.5/HOLT Atovaquone 1,500 mg 12/18/18 14:00 12/23/18 10:00 Mepron PO 1,500 mg QDAY MARIA E Administration Emtricitabine 200 mg 12/22/18 14:00 12/23/18 11:13 Emtriva PO 200 mg Q72HR MARIA E Administration Enoxaparin Sodium 30 mg 12/18/18 11:00 12/23/18 10:00 Lovenox SUB-Q 30 mg QDAY MARIA E Administration Heparin Sodium (Porcine) 5,000 unit 12/23/18 08:39 Heparin IV ALYSSIA PRN hemodialysis Azithromycin 500 mg/ Sodium 250 mls @ 250 mls/hr 12/18/18 14:00 12/22/18 15:35 Chloride IV 250 mls/hr Q24H MARIA E Administration Protocol Sodium Bicarbonate 150 meq/ 1,150 mls @ 100 mls/hr 12/22/18 10:00 12/22/18 22:48 Sterile Water IV 100 mls/hr DIRECT MARIA E Administration Amino Acids/Electrolytes/Dextrose 2,400 mls @ 100 mls/hr 12/22/18 20:00 12/22/18 20:28 Tpn Adult IV 12/23/18 19:59 100 mls/hr DAILY@1999 MARIA E Administration Protocol Sodium Chloride 100 mls @ 999 mls/hr 12/23/18 08:39 Nacl 0.9% IV ALYSSIA PRN Hypotension Amino Acids/Electrolytes/Dextrose 2,400 mls @ 100 mls/hr 12/23/18 20:00 Tpn Adult IV 12/24/18 19:59 DAILY@1999 [facility] Protocol Lorazepam 1 mg 12/22/18 12:06 Ativan IV Q4H PRN for insomnia or anxiety Metoclopramide HCl 5 mg 12/22/18 10:00 12/22/18 10:01 Reglan IV 5 mg Q6H PRN Administration Nausea And Vomiting Nitazoxanide 500 mg 12/23/18 10:00 12/23/18 10:00 Alinia (Nf) PO 12/28/18 22:01 500 mg BID MARIA E Administration Ondansetron HCl 4 mg 12/13/18 22:54 12/21/18 21:07 Zofran IV 4 mg Q4H PRN Administration Nausea And Vomiting Raltegravir 400 mg 12/22/18 14:00 12/23/18 10:00 Isentress PO 400 mg BID MARIA E Administration Sodium Chloride 10 ml 12/14/18 10:00 12/23/18 10:00 Sodium Chloride Flush Syringe 10 Ml IV 10 ml BID MARIA E Administration Sodium Chloride 10 ml 12/13/18 22:54 12/19/18 12:27 Sodium Chloride Flush Syringe 10 Ml IV 10 ml PRN PRN Administration LINE FLUSH Temazepam 15 mg 12/21/18 18:13 12/21/18 21:07 Restoril PO 15 mg QHS PRN Administration Sleep Tenofovir Disoproxil Fumarate 300 mg 12/22/18 14:00 Viread PO Q72HR MARIA E Nutrition/Malnutrition Assess - Dietary Evaluation Nutrition/Malnutrition Findings: Nutrition Notes Start: 12/19/18 15:24 Freq: Status: Active Protocol: Document 12/23/18 09:43 LP (Rec: 12/23/18 09:50 LP [id number]) Nutrition Notes Initial or Follow up Reassessment Current Diagnosis Acute Kidney Injury,Sepsis Other Pertinent Diagnosis Shigella enteritis, N/V/D, dehydration, Gastroenteritis, HIV Current Diet PPN at 100ml/hr Labs/Tests Na 129 K 3 Phos 10.3 Mg 2.7 Pertinent Medications Reviewed Height 6 ft 2 in Weight 75 kg [place] Body Weight (kg) 86.36 BMI 21.2 Subjective/Other Information Day 2 PPN. Pt consuming ice chips. Pt with rectal tube with 1500ml of output and will have permacath placed today for dialysis. Percent of energy/protein needs met: 28%/100% Burn Absent Trauma Absent #1 Nutrition Diagnosis Inadequate oral intake Diagnosis Progress(for reassessment Continues documentation) Is patient on ventilator? No Is Patient Ambulatory and/or Out of Bed Yes REE-([facility]-ambulatory/OOB) [ [id number] [id number]] Calculation Used for Recommendations [facility] Additional Notes Protein Needs: 75-97g (1-1.3g/ kg) Fluid Needs: 1 ml/kcal Nutrition Intervention Change Diet Order: TPN Nutrition Support: PPN at 100ml/hr: 204mEq Na, 72mEq K, MVI, thiamine, MTE, Chloride: Acetate 50:50 Kcal 640 Protein (gm) 75 Carbohydrates (gm) 100 Fat (gm) 0 Fluid (mL) 2,400 Fiber (gm) 0 Add Supplement/Snack (indicate name/kcal D/C /protein ) Goal #1 PPN to meet nutritional needs as best possible Anticipated Discharge Needs: Unable to determine at this time Follow-Up By: 12/24/18 Additional Comments Follow for labs in AM: BMP, Mg , Phos
[2018-12-23] MEDS ORDERED: PROTONIX IV SCH (16:00)
[2018-12-23] MEDS: PEPCID IV SCH (16:00)
[2018-12-23] MEDS: SODIUM BICARBONATE 150 MEQ in STERILE WATER 1,000 ML IV SCH (16:00)
--- NOTE | 2018-12-23 18:09 | Operative Report ---
Operative Report Operative Report: Date of procedure: 12/23/2018 Pre-operative diagnosis: Acute Renal Failure Post-operative diagnosis: Same Procedure(s): 1. Ultrasound-Guided Access Right Internal Vein 2. Placement of 23 cm GlidePath Permacath 3. Radiologic Supervision with Interpretation Surgeon: Mikey Gregory MD Manager Adobe: None Anesthesia: Local EBL: Minimal Counts: Correct Complications: None Condition: Stable Findings: Successful placement of right IJ permacath. Specimen: None Indication: The patient is a 28-year-old male presented with acute renal failure secondary to prerenal azotemia. Despite fluid resuscitation is progressed to requiring dialysis. He is a nearly permacath for dialysis. He and his mother were given the risk, benefits, and alternative procedures and consented to the procedure. Description of Procedure: The patient was brought to the laborer car barn and laid in supine position and his right neck and chest were prepped and draped in normal sterile fashion. Ultrasound was used to identify the right internal jugular vein and the overlying skin and soft tissue was anesthetized with lidocaine. A small stab incision was made and then the access needle was used ultrasound guidance in the right internal jugular vein. An 035 J-wire was advanced to the central venous system under fluoroscopic guidance. The tract was serially dilated up to a 16 [place] peel-away safety sheath and the inner cannula and wire removed. An exit site on the chest was then chosen and the presumed tunnel was anesthetized with lidocaine. A small stab incision was made on the chest and then the permacath was connected to the tunneler and pulled antegrade through the tunnel. The catheter was inserted into the safe sheath and safety sheath was pulled away. The catheter was positioned under fluoroscopy. Once in adequate position both ports were aspirated and flushed and then primed with the appropriate amount heparin. The neck incision was then closed with 4-0 Monocryl in interrupted subcuticular fashion and dressed with Surgicel. The catheters was dressed sterilely. Final fluoroscopy demonstrated the catheter was in excellent position without any evidence of pneumothorax. The patient tolerated the procedure well, all sponge needle and instrument counts were correct, the patient was taken to recovery in stable condition.
[2018-12-23] MEDS ORDERED: TPN ADULT 2,400 ML IV SCH (20:00)
[2018-12-23] MEDS ORDERED: NACL 0.9 (PRIMING MACHINE ONLY DIALYSIS) MC ONE (20:38)
[2018-12-24] MEDS: TYLENOL PO PRN ×2 (00:35→22:58)
[2018-12-24 06:59] LABS: Hematocrit 45.5 % (35.5-45.6); Hemoglobin 15.6 gm/dl (11.8-15.2); Mean Corpuscular HGB Conc 34 % (32-34); Mean Corpuscular Volume 77 fl (84-94); Platelet Count 133 K/mm3 (140-440); Red Blood Count 5.88 M/mm3 (3.65-5.03); Red Cell Distribution Width 13.4 % (13.2-15.2)
[2018-12-24 07:24] LABS: Calcium 8.5 mg/dL (8.4-10.2)
[2018-12-24] MEDS: MEPRON PO SCH (09:27)
[2018-12-24] MEDS: ISENTRESS PO SCH ×2 (09:28→23:08)
[2018-12-24] MEDS: SODIUM CHLORIDE FLUSH SYRINGE 10 ML IV SCH ×2 (09:42→23:09)
[2018-12-24] MEDS: LOVENOX SUB-Q SCH (09:42)
[2018-12-24] MEDS: PEPCID IV SCH (09:42)
[2018-12-24] MEDS: ZOFRAN IV PRN ×2 (09:54→22:16)
--- NOTE | 2018-12-24 11:59 | Gastroenterology Consultation ---
History of Present Illness - Reason for Consult Consult date: 12/24/18 continued diarrhea Requesting physician: CECE HUANG - History of Present Illness Patient is a 28 y/o male with PMH of HIV (dx 2 yrs ago w/o f/u) who presented to ED with c/o N/V and diarrhea after eating at [employer]. Upon admission, stool was found positive for shigella and cryptosporidium. He is currently being treated for sepsis 2/2 acute bacterial gastroenteritis, ARF which is worsening (dialysis pending), hypokalemia, acute metabolic acidosis, HIV/AIDS, and malnutrition. Patient is being followed by ID and treated with antibiotics but is having persistent N/V with inability to tolerate PO (on TPN) and watery diarrhea to which GI has been consulted to evaluate for other possible subsequent conditions that may be causing continued symptoms such as Kaposi's sarcoma/lymphoma. Upon exam, patient was noted to be somnolent/ill appearing. Admits to continued abdominal cramping and N/V, along with now having chest pain/burning exacerbated with swallowing. No active signs of bleeding. Rectal tube in place with large amount of liquid brown stool in bag. No hx or Fhx of IBD. No prior EGD/colonoscopy. Past History Past Medical History: other (chronic migraines, HIV) Past Surgical History: No surgical history Social history: no significant social history Family history: hypertension Medications and Allergies Allergies Allergy/AdvReac Type Severity Reaction Status Date / Time No Known Allergies Allergy Verified 12/13/18 18:58 Home Medications Medication Instructions Recorded Confirmed Last Taken Type No Known Home Medications [No 12/18/18 12/18/18 Unknown History Reported Home Medications] Active Meds: Active Medications Acetaminophen (Tylenol) 650 mg PO Q4H PRN PRN Reason: Pain MILD(1-3)/Fever >100.5/HOLT Last Admin: 12/24/18 00:35 Dose: 650 mg Documented by: Atovaquone (Mepron) 1,500 mg PO QDAY [facility] Last Admin: 12/24/18 09:27 Dose: 1,500 mg Documented by: Emtricitabine (Emtriva) 200 mg PO Q72HR [facility] Last Admin: 12/23/18 11:13 Dose: 200 mg Documented by: Enoxaparin Sodium (Lovenox) 30 mg SUB-Q QDAY [facility] Last Admin: 12/24/18 09:42 Dose: 30 mg Documented by: Famotidine (Pepcid) 20 mg IV DAILY [facility] Last Admin: 12/24/18 09:42 Dose: 20 mg Documented by: Heparin Sodium (Porcine) (Heparin) 5,000 unit IV ALYSSIA PRN PRN Reason: hemodialysis Azithromycin 500 mg/ Sodium (Chloride) 250 mls @ 250 mls/hr IV Q24H [facility]; Protocol Last Admin: 12/23/18 14:00 Dose: 250 mls/hr Documented by: Sodium Bicarbonate 150 meq/ (Sterile Water) 1,150 mls @ 100 mls/hr IV DIRECT MARIA E Last Admin: 12/23/18 16:00 Dose: 100 mls/hr Documented by: Sodium Chloride (Nacl 0.9%) 100 mls @ 999 mls/hr IV ALYSSIA PRN PRN Reason: Hypotension Amino Acids/Electrolytes/Dextrose (Tpn Adult) 2,400 mls @ 100 mls/hr IV DAILY@1999 [facility]; Protocol Stop: 12/24/18 19:59 Last Admin: 12/23/18 21:25 Dose: 100 mls/hr Documented by: Amino Acids/Electrolytes/Dextrose (Tpn Adult) 2,400 mls @ 100 mls/hr IV DAILY@1999 [facility]; Protocol Stop: 12/25/18 19:59 Fat Emulsion Intravenous (Intralipid 20%) 250 mls @ 21 mls/hr IV DAILY@1999 [facility] Stop: 12/25/18 08:00 Lorazepam (Ativan) 1 mg IV Q4H PRN PRN Reason: for insomnia or anxiety Metoclopramide HCl (Reglan) 5 mg IV Q6H PRN PRN Reason: Nausea And Vomiting Last Admin: 12/22/18 10:01 Dose: 5 mg Documented by: Nitazoxanide (Alinia (Nf)) 500 mg PO BID [facility] Stop: 12/28/18 22:01 Last Admin: 12/23/18 21:26 Dose: 500 mg Documented by: Ondansetron HCl (Zofran) 4 mg IV Q4H PRN PRN Reason: Nausea And Vomiting Last Admin: 12/24/18 09:54 Dose: 4 mg Documented by: Raltegravir (Isentress) 400 mg PO BID [facility] Last Admin: 12/24/18 09:28 Dose: 400 mg Documented by: Sodium Chloride (Sodium Chloride Flush Syringe 10 Ml) 10 ml IV BID [facility] E Last Admin: 12/24/18 09:42 Dose: 10 ml Documented by: Sodium Chloride (Sodium Chloride Flush Syringe 10 Ml) 10 ml IV PRN PRN PRN Reason: LINE FLUSH Last Admin: 12/19/18 12:27 Dose: 10 ml Documented by: Temazepam (Restoril) 15 mg PO QHS PRN PRN Reason: Sleep Last Admin: 12/21/18 21:07 Dose: 15 mg Documented by: Tenofovir Disoproxil Fumarate (Viread) 300 mg PO Q72HR [facility] medications reviewed/updated as required Review of Systems - Review of Systems All systems: negative Constitutional: weakness Ears, Nose, Throat: painful swallowing Cardiovascular: chest pain Gastrointestinal: abdominal pain, nausea, vomiting, diarrhea Exam - Constitutional Vital Signs: Temp Pulse Resp BP Pulse Ox 98.2 F 115 H 20 124/70 100 12/24/18 05:46 12/24/18 05:46 12/24/18 05:46 12/24/18 05:46 12/24/18 05:46 General appearance: no acute distress, other (somnolent, ill appering) - Respiratory Respiratory effort: normal - Cardiovascular Rhythm: other (tachycardia) - Gastrointestinal General gastrointestinal: Present: tender (slight), non-distended, normal bowel sounds - Labs CBC & Chem 7: 12/24/18 06:30 12/24/18 06:30 Lab Results: Laboratory Results - last 24 hr 12/18/18 12/23/18 12/24/18 08:56 11:20 06:30 WBC RBC Hgb Hct MCV MCH MCHC RDW Plt Count POC ABG pCO2 < 30 L Sodium 131 L Potassium 3.1 L Chloride 88.7 L Carbon Dioxide 19 L Anion Gap 26 BUN 113 H Creatinine 8.4 H Estimated GFR 9 BUN/Creatinine Ratio 13 Glucose 118 H Calcium 8.5 Phosphorus 6.80 H D Magnesium 2.40 H Hepatitis A IgM Ab Non-reactive Hep Bs Antigen Non-reactive Hep B Core IgM Ab Non-reactive Hepatitis C Antibody Non-reactive 12/24/18 06:30 WBC 12.1 H RBC 5.88 H Hgb 15.6 H Hct 45.5 MCV 77 L MCH 27 L MCHC 34 RDW 13.4 Plt Count 133 L POC ABG pCO2 Sodium Potassium Chloride Carbon Dioxide Anion Gap BUN Creatinine Estimated GFR BUN/Creatinine Ratio Glucose Calcium Phosphorus Magnesium Hepatitis A IgM Ab Hep Bs Antigen Hep B Core IgM Ab Hepatitis C Antibody Assessment and Plan 1.persistent N/V and diarrhea 2.atypical CP/odynophagia 3.sepsis 2/2 acute gastroenteritis 2/2 shigella and cryptosporidium (Cdiff negative) 4.ARF (peracath placement today with dialysis pending) 5.HIV/AIDs -afebrile -WBC 12.1 -H/H 15.6/45.4-no active signs of bleeding -rectal tube with a large amount of watery brown stool -will consider EGD/colonoscopy to r/o subsequent conditions causing persistent symptoms such as Kaposi's sarcoma/lymphoma vs other once medically stable -continue IV pepcid -continue TPN -continue antibiotics per ID recommendations -electrolyte management per nephrology/primary team -continue supportive care -will follow
[2018-12-24] MEDS: ALINIA PO SCH ×2 (13:21→23:09)
[2018-12-24] MEDS ORDERED: NACL 0.9% 100 ML IV PRN (13:29)
[2018-12-24] MEDS: ZITHROMAX 500 MG in NACL 0.9% 250ML 250 ML IV SCH (13:46)
--- NOTE | 2018-12-24 13:55 | Progress Note ---
Assessment and Plan Assessment and plan: Patient is a 28-year-old man with a history of HIV diagnosis 2 years ago, without any follow up, not on antiviral who presented to [facility] ED with nausea/vomiting and diarrhea which began after he ate [employer]. Mother did not know of her son HIV status. Cultures: 12/13/18 Urine: less than 10K 12/14/18 Stool: Shigella species 12/14/18 C-Diff: negative 12/17/18 HIV Rapid; reactive 12/17/18 Cryptosporidium: positive : Giardia: negative 12/18/2018 serum Cryptococcal Ag: Negative Sepsis due to Acute bacterial gastroenteritis secondary to Shigella with co-infection from Cryptosporidium: Diarrhea continuing. Still NPO, on TPN with left arm PICC and rectal tube in place. Treat with Ceftriaxone and Azithromycin as dual coverage for the Shigella and also on empiric IV Flagyl. Severe hypokalemia: cont to replete IV, likely loss from diarrhea ARF, most likely ATN and vasomotor nephropathy: Hemodialysis to start, treated with IVF, Nephrology consulted, input noted Acute metabolic acidosis: treat with bicarbonate, monitor bmp closely HIV, with AIDS defining illness: ID following, adjusted ART mediations, start nitazoxanide 1 gm po BID x 3 days then 500 mg po BID for 2 weeks, continue PO Atovaquone for prophylaxis (likely AIDS), f/u CMV PCR, AFB blood cultures (for disseminated MAC). ID to follow up HIV-VL, HIV-genotype, consulted GI Hyperkalemia, Was medically treated, now resolved: monitor bmp closely Moderate malnutrition: [employer] consult, for TPN Chest pains with dyspepsia; Consulted GI DVT prophylaxis lovenox Hemodialysis to started 12/23/18 GI to see History Interval history: Patient was seen and examined. Follow-up on current diagnosis AIDs illness. No overnight events reported to me. Patient denies any shortness breath, or severe headaches. Imaging, nursing note, chart, labs and old chart reviewed. Discussed with patient. + burning substernal chest pains with nausea and vomiting Hospitalist Physical - Physical exam Narrative exam: Gen: WDWN, NAD, Awake, Alert, Orientated HEENT: NCAT, EOMI, PERRL, OP Clear Neck: supple, no adenopathy, no thyromegaly, no JVD CVS/Heart: RRR, normal S1S2, pulses present bilaterally Chest/Lungs: CTA B, Symmetrical chest expansion, good air entry bilaterally GI/Abdomen: soft, NTND, good bowel sounds, no guarding or rebound /Bladder: no suprapubic tenderness, no CVA or paraspinal tenderness Extermity/Skin: no c/c/e, no obvious rash MSK: FROM x 4 Neuro: CN 2-12 grossly intact, no new focal deficits Psych: calm - Constitutional Vitals: Temp Pulse Resp BP Pulse Ox 97.9 F 60 18 110/53 99 12/24/18 12:35 12/24/18 12:35 12/24/18 12:35 12/24/18 12:35 12/24/18 12:35 Results - Labs CBC & Chem 7: 12/24/18 06:30 12/24/18 06:30 Labs: Laboratory Last Values WBC 12.1 K/mm3 (4.5-11.0) H 12/24/18 06:30 RBC 5.88 M/mm3 (3.65-5.03) H 12/24/18 06:30 Hgb 15.6 gm/dl (11.8-15.2) H 12/24/18 06:30 Hct 45.5 % (35.5-45.6) 12/24/18 06:30 MCV 77 fl (84-94) L 12/24/18 06:30 MCH 27 pg (28-32) L 12/24/18 06:30 MCHC 34 % (32-34) 12/24/18 06:30 RDW 13.4 % (13.2-15.2) 12/24/18 06:30 Plt Count 133 K/mm3 (140-440) L 12/24/18 06:30 Lymph % (Auto) 13.4 % (13.4-35.0) 12/19/18 05:49 [place] % (Auto) 13.3 % (0.0-7.3) H 12/19/18 05:49 Eos % (Auto) 0.1 % (0.0-4.3) 12/19/18 05:49 Baso % (Auto) 0.3 % (0.0-1.8) 12/19/18 05:49 Lymph # 1.1 K/mm3 (1.2-5.4) L 12/19/18 05:49 [place] # 1.0 K/mm3 (0.0-0.8) H 12/19/18 05:49 Eos # 0.0 K/mm3 (0.0-0.4) 12/19/18 05:49 Baso # 0.0 K/mm3 (0.0-0.1) 12/19/18 05:49 Seg Neutrophils % 72.9 % (40.0-70.0) H 12/19/18 05:49 Seg Neutrophils # 5.7 K/mm3 (1.8-7.7) 12/19/18 05:49 Abs Lymphs (Manual) See scanned result 12/16/18 16:36 POC ABG pH 7.324 (7.35-7.45) L 12/18/18 08:56 POC ABG pCO2 < 30 (35-45) L 12/18/18 08:56 POC ABG pO2 167 (80-105) H 12/18/18 08:56 POC ABG HCO3 11.3 (22-26 mml/L) 12/18/18 08:56 POC ABG Total CO2 12 (23-27mmol/L) 12/18/18 08:56 POC ABG O2 Sat 99 12/18/18 08:56 POC ABG Base Excess -15 ((-2) - (+3)mmol/L) 12/18/18 08:56 28 % 12/18/18 08:56 Sodium 131 mmol/L (137-145) L 12/24/18 06:30 Potassium 3.1 mmol/L (3.6-5.0) L 12/24/18 06:30 Chloride 88.7 mmol/L (98-107) L 12/24/18 06:30 Carbon Dioxide 19 mmol/L (22-30) L 12/24/18 06:30 26 mmol/L 12/24/18 06:30 BUN 113 mg/dL (9-20) H 12/24/18 06:30 8.4 mg/dL (0.8-1.5) H 12/24/18 06:30 Estimated GFR 9 ml/min 12/24/18 06:30 13 % 12/24/18 06:30 Glucose 118 mg/dL (75-100) H 12/24/18 06:30 POC Glucose 115 (70-105) H 12/22/18 11:08 Lactic Acid 2.70 mmol/L (0.7-2.0) H* 12/19/18 10:50 Calcium 8.5 mg/dL (8.4-10.2) 12/24/18 06:30 Phosphorus 6.80 mg/dL (2.5-4.5) H D 12/24/18 06:30 Magnesium 2.40 mg/dL (1.7-2.3) H 12/24/18 06:30 1.10 mg/dL (0.1-1.2) 12/19/18 05:49 AST 21 units/L (5-40) 12/19/18 05:49 ALT 13 units/L (7-56) 12/19/18 05:49 77 units/L (35-129) 12/19/18 05:49 9.3 g/dL (6.3-8.2) H 12/19/18 05:49 4.8 g/dL (3.9-5) 12/19/18 05:49 1.1 % 12/19/18 05:49 Triglycerides 148 mg/dL (2-149) 12/23/18 04:18 85 units/L (13-60) H 12/13/18 18:57 Yellow (Yellow) 12/13/18 20:40 Cloudy (Clear) 12/13/18 20:40 5.0 (5.0-7.0) 12/13/18 20:40 Ur Specific [place] 1.014 (1.003-1.030) 12/13/18 20:40 100 mg/dl mg/dL (Negative) 12/13/18 20:40 Neg mg/dL (Negative) 12/13/18 20:40 Neg mg/dL (Negative) 12/13/18 20:40 Lg (Negative) 12/13/18 20:40 Neg (Negative) 12/13/18 20:40 Neg (Negative) 12/13/18 20:40 < 2.0 mg/dL (<2.0) 12/13/18 20:40 Ur Leukocyte Esterase Neg (Negative) 12/13/18 20:40 22.0 /HPF (0.0-6.0) H 12/13/18 20:40 9.0 /HPF (0.0-6.0) 12/13/18 20:40 U Epithel Cells (Auto) 2.0 /HPF (0-13.0) 12/13/18 20:40 1+ /HPF (Negative) 12/13/18 20:40 Hyaline Casts 2 /LPF 12/13/18 20:40 3+ /HPF 12/13/18 20:40 2+ /HPF 12/13/18 20:40 Lymph Enumerat CD4/CD8 See scanned result 12/16/18 16:36 % CD3 Cells See scanned result 12/16/18 16:36 See scanned result 12/16/18 16:36 % CD4 Cells See scanned result 12/16/18 16:36 See scanned result 12/16/18 16:36 % CD8 Cells See scanned result 12/16/18 16:36 See scanned result 12/16/18 16:36 % CD19 Cells See scanned result 12/16/18 16:36 See scanned result 12/16/18 16:36 C. difficile Tox (PCR) Negative (Negative) 12/14/18 14:00 CMV DNA PCR log endoscopy registered nurse/mL See scanned result 12/18/18 12:29 Hepatitis A IgM Ab Non-reactive (NonReactive) 12/23/18 11:20 Hep Bs Antigen Non-reactive (Negative) 12/23/18 11:20 Hep B Core IgM Ab Non-reactive (NonReactive) 12/23/18 11:20 Non-reactive (NonReactive) 12/23/18 11:20 See scanned result 12/16/18 16:49 HIV-1 RNA PCR copies/ml TNR 12/16/18 16:36 TNR 12/16/18 16:36 HIV-2 Ab (Immunoblot) See scanned result 12/16/18 16:49 HIV 1&2 Antibody Rapid Reactive (Non React) 12/16/18 16:36 Non react (Non React) 12/16/18 16:36 Active Medications - Current Medications Current Medications: Generic Name Dose Route Start Last Admin Trade Name Freq PRN Reason Stop Dose Admin Acetaminophen 650 mg 12/13/18 22:54 12/24/18 00:35 Tylenol PO 650 mg Q4H PRN Administration Pain MILD(1-3)/Fever >100.5/HOLT Atovaquone 1,500 mg 12/18/18 14:00 12/24/18 09:27 Mepron PO 1,500 mg QDAY MARIA E Administration Emtricitabine 200 mg 12/22/18 14:00 12/23/18 11:13 Emtriva PO 200 mg Q72HR MARIA E Administration Enoxaparin Sodium 30 mg 12/18/18 11:00 12/24/18 09:42 Lovenox SUB-Q 30 mg QDAY MARIA E Administration Famotidine 20 mg 12/23/18 16:00 12/24/18 09:42 Pepcid IV 20 mg DAILY MARIA E Administration Heparin Sodium (Porcine) 5,000 unit 12/23/18 08:39 Heparin IV ALYSSIA PRN hemodialysis Azithromycin 500 mg/ Sodium 250 mls @ 250 mls/hr 12/18/18 14:00 12/24/18 13:46 Chloride IV 250 mls/hr Q24H MARIA E Administration Protocol Sodium Bicarbonate 150 meq/ 1,150 mls @ 100 mls/hr 12/22/18 10:00 12/23/18 16:00 Sterile Water IV 100 mls/hr DIRECT MARIA E Administration Sodium Chloride 100 mls @ 999 mls/hr 12/23/18 08:39 Nacl 0.9% IV ALYSSIA PRN Hypotension Amino Acids/Electrolytes/Dextrose 2,400 mls @ 100 mls/hr 12/23/18 20:00 12/23/18 21:25 Tpn Adult IV 12/24/18 19:59 100 mls/hr DAILY@1999 MAR[facility] E Administration Protocol Amino Acids/Electrolytes/Dextrose 2,400 mls @ 100 mls/hr 12/24/18 20:00 Tpn Adult IV 12/25/18 19:59 DAILY@1999 [facility] Protocol Fat Emulsion Intravenous 250 mls @ 21 mls/hr 12/24/18 20:00 Intralipid 20% IV 12/25/18 08:00 DAILY@1999 [facility] Lorazepam 1 mg 12/22/18 12:06 Ativan IV Q4H PRN for insomnia or anxiety Metoclopramide HCl 5 mg 12/22/18 10:00 12/22/18 10:01 Reglan IV 5 mg Q6H PRN Administration Nausea And Vomiting Nitazoxanide 500 mg 12/23/18 10:00 12/24/18 13:21 Alinia (Nf) PO 12/28/18 22:01 500 mg BID MARIA E Administration Ondansetron HCl 4 mg 12/13/18 22:54 12/24/18 09:54 Zofran IV 4 mg Q4H PRN Administration Nausea And Vomiting Raltegravir 400 mg 12/22/18 14:00 12/24/18 09:28 Isentress PO 400 mg BID MARIA E Administration Sodium Chloride 10 ml 12/14/18 10:00 12/24/18 09:42 Sodium Chloride Flush Syringe 10 Ml IV 10 ml BID MARIA E Administration Sodium Chloride 10 ml 12/13/18 22:54 12/19/18 12:27 Sodium Chloride Flush Syringe 10 Ml IV 10 ml PRN PRN Administration LINE FLUSH Temazepam 15 mg 12/21/18 18:13 12/21/18 21:07 Restoril PO 15 mg QHS PRN Administration Sleep Tenofovir Disoproxil Fumarate 300 mg 12/22/18 14:00 Viread PO Q72HR [facility] Nutrition/Malnutrition Assess - Dietary Evaluation Nutrition/Malnutrition Findings: Nutrition Notes Start: 12/19/18 15:24 Freq: Status: Active Protocol: Document 12/24/18 08:06 LP (Rec: 12/24/18 08:10 LP [id number]) Nutrition Notes Initial or Follow up Reassessment Current Diagnosis Acute Kidney Injury,Sepsis Other Pertinent Diagnosis Shigella enteritis, N/V/D, dehydration, Gastroenteritis, HIV Current Diet PPN at 100ml/hr Labs/Tests Na 131 K 3.1 Pertinent Medications Reviewed Height 6 ft 2 in Weight 78.1 kg [place] Body Weight (kg) 86.36 BMI 22.1 Subjective/Other Information Day [address]. Percent of energy/protein needs met: 28%/100% Burn Absent Trauma Absent #1 Nutrition Diagnosis Inadequate oral intake Diagnosis Progress(for reassessment Continues documentation) Is patient on ventilator? No Is Patient Ambulatory and/or Out of Bed Yes REE-([facility]-ambulatory/OOB) [ 0829.475 [id number]] Calculation Used for Recommendations [facility] Additional Notes Protein Needs: 75-97g (1-1.3g/ kg) Fluid Needs: 1 ml/kcal Nutrition Intervention Change Diet Order: TPN Nutrition Support: PPN at 100ml/hr: 240mEq Na, 110mEq K, MVI, thiamine, Osmolality: 813 Kcal 1,140 Protein (gm) 75 Carbohydrates (gm) 100 Fat (gm) 50 Fluid (mL) 2,650 Fiber (gm) 0 Goal #1 PPN to meet nutritional needs as best possible Anticipated Discharge Needs: Unable to determine at this time Follow-Up By: 12/25/18 Additional Comments Follow for labs in AM: BMP, Mg , Phos
[2018-12-24] MEDS ORDERED: KCL 10MEQ/100ML 10 MEQ/100 ML BAG IV ONE ×2 (14:00→21:00)
--- NOTE | 2018-12-24 16:19 | Progress Note ---
Assessment and Plan - Patient Problems (1) Acute renal failure Current Visit: Yes Status: Acute Plan to address problem: Acute kidney failure Prerenal azotemia versus acute tubular necrosis secondary to hypotension/volume depletion. Hemodialysis started on 12/23/2018. Patient tolerated treatment yesterday. We'll dialyze again today and observe for any signs of renal recovery. (2) Hypokalemia Current Visit: Yes Status: Acute Plan to address problem: Supplement potassium, dialyze on a 4K bath and follow-up levels (3) Metabolic acidosis Current Visit: Yes Status: Acute Plan to address problem: secondary to diarrhea. Continue bicarbonate drip. Dialyze on a 40 mmol/L bicarbonate bath. Follow-up bicarbonate level. (4) Nausea vomiting and diarrhea Current Visit: Yes Status: Acute Plan to address problem: Continue management by Federico DEGROOT MD and infectious disease Subjective Date of service: 12/24/18 Principal diagnosis: acute kidney injury Interval history: Patient seen lying in bed. He has no new complaints. Mother at the bedside. No nausea or vomiting today. Objective - Exam Narrative Exam: Young -[place] male lying in bed ill-looking in no acute distress HEENT: NCAT, pink oral mucous membrane Neck: Supple, no venous distention CVS: S1S2 RRR with no murmur, rub or gallop Chest: Clear to auscultation Abdomen: Protuberant, soft, nontender, no organomegaly, bowel sounds are present Extremities: No edema Neuro: Awake, alert no focal deficits - Vital Signs Vital signs: Vital Signs - 12hr 12/24/18 12/24/18 05:46 12:35 Temperature 98.2 F 97.9 F Pulse Rate 115 H 60 Respiratory 20 18 Rate Blood Pressure 124/70 110/53 O2 Sat by Pulse 100 99 Oximetry - Lab 12/24/18 06:30 12/24/18 06:30 Most recent lab results Calcium 8.5 mg/dL (8.4-10.2) 12/24/18 06:30 Phosphorus 6.80 mg/dL (2.5-4.5) H D 12/24/18 06:30 Magnesium 2.40 mg/dL (1.7-2.3) H 12/24/18 06:30 Medications & Allergies - Medications Allergies/Adverse Reactions: Allergies No Known Allergies Allergy (Verified 12/13/18 18:58) Home Medications: Home Medications Medication Instructions Recorded Confirmed Last Taken Type No Known Home Medications [No 12/18/18 12/18/18 Unknown History Reported Home Medications] Active Medications: Generic Name Dose Route Start Last Admin Trade Name Freq PRN Reason Stop Dose Admin Acetaminophen 650 mg 12/13/18 22:54 12/24/18 00:35 Tylenol PO 650 mg Q4H PRN Administration Pain MILD(1-3)/Fever >100.5/HOLT Atovaquone 1,500 mg 12/18/18 14:00 12/24/18 09:27 Mepron PO 1,500 mg QDAY MARIA E Administration Emtricitabine 200 mg 12/22/18 14:00 12/23/18 11:13 Emtriva PO 200 mg Q72HR [facility] E Administration Enoxaparin Sodium 30 mg 12/18/18 11:00 12/24/18 09:42 Lovenox SUB-Q 30 mg QDAY MARIA E Administration Famotidine 20 mg 12/23/18 16:00 12/24/18 09:42 Pepcid IV 20 mg DAILY MARIA E Administration Heparin Sodium (Porcine) 5,000 unit 12/23/18 08:39 Heparin IV ALYSSIA PRN hemodialysis Azithromycin 500 mg/ Sodium 250 mls @ 250 mls/hr 12/18/18 14:00 12/24/18 13:46 Chloride IV 250 mls/hr Q24H [facility] E Administration Protocol Sodium Bicarbonate 150 meq/ 1,150 mls @ 100 mls/hr 12/22/18 10:00 12/23/18 16:00 Sterile Water IV 100 mls/hr DIRECT MARIA E Administration Sodium Chloride 100 mls @ 999 mls/hr 12/23/18 08:39 Nacl 0.9% IV ALYSSIA PRN Hypotension Amino Acids/Electrolytes/Dextrose 2,400 mls @ 100 mls/hr 12/23/18 20:00 12/08 11/26 21:25 Tpn Adult IV 12/24/18 19:59 100 mls/hr DAILY@1999 MAR[facility] E Administration Protocol Amino Acids/Electrolytes/Dextrose 2,400 mls @ 100 mls/hr 12/24/18 20:00 Tpn Adult IV 12/25/18 19:59 DAILY@1999 [facility] Protocol Fat Emulsion Intravenous 250 mls @ 21 mls/hr 12/24/18 20:00 Intralipid 20% IV 12/25/18 08:00 DAILY@2000 [facility] Lorazepam 1 mg 12/22/18 12:06 Ativan IV Q4H PRN for insomnia or anxiety Metoclopramide HCl 5 mg 12/22/18 10:00 12/22/18 10:01 Reglan IV 5 mg Q6H PRN Administration Nausea And Vomiting Nitazoxanide 500 mg 12/23/18 10:00 12/24/18 13:21 Alinia (Nf) PO 12/28/18 22:01 500 mg BID MARIA E Administration Ondansetron HCl 4 mg 12/13/18 22:54 12/24/18 09:54 Zofran IV 4 mg Q4H PRN Administration Nausea And Vomiting Raltegravir 400 mg 12/22/18 14:00 12/24/18 09:28 Isentress PO 400 mg BID MARIA E Administration Sodium Chloride 10 ml 12/14/18 10:00 12/24/18 09:42 Sodium Chloride Flush Syringe 10 Ml IV 10 ml BID MARIA E Administration Sodium Chloride 10 ml 12/13/18 22:54 12/19/18 12:27 Sodium Chloride Flush Syringe 10 Ml IV 10 ml PRN PRN Administration LINE FLUSH Temazepam 15 mg 12/21/18 18:13 12/21/18 21:07 Restoril PO 15 mg QHS PRN Administration Sleep Tenofovir Disoproxil Fumarate 300 mg 12/22/18 14:00 Viread PO Q72HR MARIA E
[2018-12-24] MEDS ORDERED: TPN ADULT 2,400 ML IV SCH (20:00)
[2018-12-24] MEDS: ATIVAN IV PRN (22:13)
[2018-12-24] MEDS: INTRALIPID 20% 250 ML IV SCH ×2 (22:23→22:33)
[2018-12-25] MEDS: THORAZINE 25 MG in NACL 0.9% 50 ML IV PRN ×2 (00:57→17:59)
[2018-12-25] MEDS: SODIUM BICARBONATE 150 MEQ in STERILE WATER 1,000 ML IV SCH (02:25)
--- NOTE | 2018-12-25 03:55 | Event Note ---
Date: 12/25/18 Notified by HARRISON Diego that pt had near syncopal event. He did not fall or hit his head. He is slightly confused. He is orientated to self and place. Ordered neuro checks every 2 hours 2.
[2018-12-25 07:04] LABS: BUN/Creatinine Ratio TNR; Blood Urea Nitrogen TNR mg/dL (9-20); Calcium TNR mg/dL (8.4-10.2)
[2018-12-25 07:05] LABS: Hemolysis Index TNR
[2018-12-25 07:51] LABS: Mean Corpuscular Volume 80 fl (84-94); Red Blood Count 4.28 M/mm3 (3.65-5.03); Red Cell Distribution Width 13.2 % (13.2-15.2)
[2018-12-25 08:09] LABS: Calcium 6.8 mg/dL (8.4-10.2)
[2018-12-25 08:12] LABS: Platelet Count 81 K/mm3 (140-440)
[2018-12-25 08:13] LABS: Hemoglobin 11.5 gm/dl (11.8-15.2); Mean Corpuscular HGB Conc TNR % (32-34)
[2018-12-25] MEDS: ZOFRAN IV PRN ×2 (08:50→17:32)
--- NOTE | 2018-12-25 09:50 | Progress Note ---
Assessment and Plan Cultures: 12/13/18 Urine: less than 10K 12/14/18 Stool: Shigella species 12/14/18 C-Diff: negative 12/17/18 HIV Rapid; reactive 12/17/18 Cryptosporidium: positive : Giardia: negative 12/18/2018 serum Cryptococcal Ag: Negaitve 12/18/2018 serum CMV PCR 1125 A/P: 28-year old male with no previous medical history that presents to the ED on 12/13/18 with complaints of nausea, vomiting and diarrhea since . He reported eating beef and broccoli chomein and orange chicken at [employer] on Saturday12-10-18. His symptoms worsened the next day. Admitted with. 1. 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 Stool cultures Shigella species. Cryptosporidium: positive. Cdiff negative. Currently being treated with Ceftriaxone and Azithromycin as dual coverage for the Shigella and also on empiric IV Flagyl. 12/18/2018 serum CMV PCR 1125. 2. HIV/AIDS: CD4=26, 3% on 12/16/2018; diagnosed 2 years ago. No follow-up with ID. Unknown CD4 count/Viral load. Never been on HIV therapy. Mother is now aware of HIV. Labs pending here. Likely AIDS given the lymphopenia. Crypto antigen negative. 3 MEHNAZ: worsening. Nephrology following. Hemodialysis started on 12/23/2018. 4. Sepsis v/s SIRS: hypothermia, increased lactic acid and tachycardia, likely hypovolemia given the evidence of hemoconcentration. 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 Ani Fry MD Infectious Diseases [employer] [facility] ([facility]) M [phone] O [phone] Subjective Date of service: 12/25/18 Principal diagnosis: acute kidney injury Interval history: Feels better, still watery brown diarrhea via rectal tube, mother at bedside. ROS weakness, diarrhea, oliguria, rest negative Objective - Exam Narrative Exam: General: Alert in NAD debilitated Head, Ears, Nose: Normocephalic, atraumatic. External ears, nose normal Eyes: Conjunctivae/corneas clear. No icterus. No ptosis. Neck: Supple, no meningeal signs Oral: dentition fair, no thrush Cardiovascular: RRR Respiratory: Good air entry, clear to auscultation bilaterally GI: Soft, diffuse tenderness Musculoskeletal: No pedal edema, no cyanosis. Skin: No rash or abscess Hem/Lymphatic: No palpable cervical or supraclavicular nodes. No lymphangitis Psych: Mood ok. Affect normal Neurological: Awake, alert, oriented. No gross abnormality rectal tube watery black diarrhea - Constitutional Vitals: Vital Signs Temp Pulse Resp BP Pulse Ox 98.3 F 138 H 20 102/46 97 12/25/18 06:25 12/25/18 01:33 12/25/18 06:25 12/25/18 06:25 12/25/18 01:33 Temperature -Last 24 Hours Temperature 98.3 F Temperature 97.4 F Temperature 97.7 F Temperature 97.6 F Temperature 98.1 F Temperature 97.3 F Temperature 97.9 F Temperature 97.9 F - Labs CBC & Chem 7: 12/25/18 05:20 12/25/18 08:48 Labs: Abnormal lab results 12/25/18 12/25/18 12/25/18 Range/Units 05:20 07:35 08:48 Hgb 11.5 L D (11.8-15.2) gm/dl Hct 31.0 L D (35.5-45.6) % MCV 80 L (84-94) fl Plt Count 81 L (140-440) K/mm3 Sodium 127 L 132 L (137-145) mmol/L Potassium 8.4 H* D 3.3 L D (3.6-5.0) mmol/L Chloride 88.3 L 92.1 L (98-107) mmol/L BUN 83 H 89 H (9-20) mg/dL Creatinine 5.2 H 5.9 H (0.8-1.5) mg/dL Glucose 452 H 125 H (75-100) mg/dL Calcium 6.8 L D 8.0 L D (8.4-10.2) mg/dL
[2018-12-25] MEDS: PEPCID IV SCH (11:08)
[2018-12-25] MEDS: LOVENOX SUB-Q SCH (11:08)
[2018-12-25] MEDS: VALCYTE PO SCH (11:09)
[2018-12-25] MEDS: ALINIA PO SCH ×2 (11:09→21:28)
[2018-12-25] MEDS: ISENTRESS PO SCH ×2 (11:10→22:00)
[2018-12-25] MEDS: MEPRON PO SCH (11:11)
--- NOTE | 2018-12-25 11:20 | Progress Note ---
Assessment and Plan - Patient Problems (1) Acute renal failure Current Visit: Yes Status: Acute Plan to address problem: Acute kidney failure Prerenal azotemia versus acute tubular necrosis secondary to hypotension/volume depletion. Hemodialysis started on 12/23/2018. Patient tolerated treatment yesterday. Hold dialysis today and observe for any signs of renal recovery. (2) Hypokalemia Current Visit: Yes Status: Acute Plan to address problem: Supplement potassium, and follow-up levels (3) Metabolic acidosis Current Visit: Yes Status: Acute Plan to address problem: secondary to diarrhea. Continue bicarbonate drip. Follow-up bicarbonate level. (4) Nausea vomiting and diarrhea Current Visit: Yes Status: Acute Plan to address problem: Continue management by Federico DEGROOT MD and infectious disease Subjective Date of service: 12/25/18 Principal diagnosis: acute kidney injury Interval history: Patient seen lying in bed. He has no new complaints. Family at the bedside. No nausea or vomiting today. Objective - Exam Narrative Exam: Young -[place] male lying in bed ill-looking in no acute distress HEENT: NCAT, pink oral mucous membrane Neck: Supple, no venous distention CVS: S1S2 RRR with no murmur, rub or gallop Chest: Clear to auscultation Abdomen: Protuberant, soft, nontender, no organomegaly, bowel sounds are present Extremities: No edema Neuro: Awake, alert no focal deficits - Vital Signs Vital signs: Vital Signs - 12hr 12/25/18 12/25/18 12/25/18 01:33 02:24 03:46 Temperature 97.6 F 97.7 F 97.4 F L Pulse Rate 138 H Respiratory 20 24 20 Rate Blood Pressure 99/61 84/36 93/44 O2 Sat by Pulse 97 Oximetry 12/25/18 06:25 Temperature 98.3 F Pulse Rate Respiratory 20 Rate Blood Pressure 102/46 O2 Sat by Pulse Oximetry - Lab 12/25/18 05:20 12/25/18 08:48 Most recent lab results Calcium 8.0 mg/dL (8.4-10.2) L D 12/25/18 08:48 Phosphorus 2.90 mg/dL (2.5-4.5) D 12/25/18 08:48 Magnesium 1.90 mg/dL (1.7-2.3) 12/25/18 08:48 Medications & Allergies - Medications Allergies/Adverse Reactions: Allergies No Known Allergies Allergy (Verified 12/13/18 18:58) Home Medications: Home Medications Medication Instructions Recorded Confirmed Last Taken Type No Known Home Medications [No 12/18/18 12/18/18 Unknown History Reported Home Medications] Active Medications: Generic Name Dose Route Start Last Admin Trade Name Freq PRN Reason Stop Dose Admin Acetaminophen 650 mg 12/13/18 22:54 12/24/18 22:58 Tylenol PO 650 mg Q4H PRN Administration Pain MILD(1-3)/Fever >100.5/HOLT Atovaquone 1,500 mg 12/18/18 14:00 12/25/18 11:11 Mepron PO 1,500 mg QDAY MARIA E Administration Emtricitabine 200 mg 12/22/18 14:00 12/23/18 11:13 Emtriva PO 200 mg Q72HR MARIA E Administration Enoxaparin Sodium 30 mg 12/18/18 11:00 12/25/18 11:08 Lovenox SUB-Q 30 mg QDAY MARIA E Administration Famotidine 20 mg 12/23/18 16:00 12/25/18 11:08 Pepcid IV 20 mg DAILY MARIA E Administration Heparin Sodium (Porcine) 5,000 unit 12/23/18 08:39 Heparin IV ALYSSIA PRN hemodialysis Azithromycin 500 mg/ Sodium 250 mls @ 250 mls/hr 12/18/18 14:00 12/24/18 13:46 Chloride IV 250 mls/hr Q24H MARIA E Administration Protocol Sodium Bicarbonate 150 meq/ 1,150 mls @ 100 mls/hr 12/22/18 10:00 12/25/18 02:25 Sterile Water IV 100 mls/hr DIRECT MARIA E Administration Sodium Chloride 100 mls @ 999 mls/hr 12/23/18 08:39 Nacl 0.9% IV ALYSSIA PRN Hypotension Amino Acids/Electrolytes/Dextrose 2,400 mls @ 100 mls/hr 12/24/18 20:00 12/24/18 22:24 Tpn Adult IV 12/25/18 19:59 100 mls/hr DAILY@2000 MARIA E Administration Protocol Chlorpromazine HCl 25 mg/ 51 mls @ 100 mls/hr 12/24/18 23:29 12/25/18 00:57 Sodium Chloride IV 100 mls/hr Q4H PRN Administration Hiccups Lorazepam 1 mg 12/22/18 12:06 12/24/18 22:13 Ativan IV 1 mg Q4H PRN Administration for insomnia or anxiety Metoclopramide HCl 5 mg 12/22/18 10:00 12/22/18 10:01 Reglan IV 5 mg Q6H PRN Administration Nausea And Vomiting Nitazoxanide 500 mg 12/23/18 10:00 12/25/18 11:09 Alinia (Nf) PO 12/28/18 22:01 500 mg BID MARIA E Administration Ondansetron HCl 4 mg 12/13/18 22:54 12/25/18 08:50 Zofran IV 4 mg Q4H PRN Administration Nausea And Vomiting Raltegravir 400 mg 12/22/18 14:00 12/25/18 11:10 Isentress PO 400 mg BID MARIA E Administration Sodium Chloride 10 ml 12/14/18 10:00 12/24/18 23:09 Sodium Chloride Flush Syringe 10 Ml IV 10 ml BID MARIA E Administration Sodium Chloride 10 ml 12/13/18 22:54 12/19/18 12:27 Sodium Chloride Flush Syringe 10 Ml IV 10 ml PRN PRN Administration LINE FLUSH Temazepam 15 mg 12/21/18 18:13 12/21/18 21:07 Restoril PO 15 mg QHS PRN Administration Sleep Tenofovir Disoproxil Fumarate 300 mg 12/22/18 14:00 Viread PO Q72HR MARIA E Valganciclovir 450 mg 12/25/18 10:00 12/25/18 11:09 Valcyte (Nf) PO 450 mg Q48HR MARIA E Administration
--- NOTE | 2018-12-25 12:18 | Gastroenterology Progress Note ---
Assessment and Plan 1.persistent N/V and diarrhea 2.atypical CP/odynophagia 3.sepsis 2/2 acute gastroenteritis duet to shigella with co-infection of cryptosporidium +/- CMV (Cdiff negative) 4.ARF (peracath placed yesterday with dialysis initiated) 5.HIV/AIDs -afebrile -WBC 9.1-trending down -H/H 11.5/31.0-no active signs of bleeding -electrolytes now improved s/p dialysis yesterday, will schedule for EGD/colon tomorrow for further evaluation (r/o Kaposi's sarcoma/lymphoma/CMV colitis) -colon prep today (may place NGT as needed given N/V to help facilitate completion) then NPO after MN -INR in am; hold am dose of lovenox -continue IV pepcid -continue TPN -continue antibiotics per ID recommendations -electrolyte management per nephrology/primary team -continue supportive care -will follow Subjective Date of service: 12/25/18 Principal diagnosis: continued diarrhea Interval history: Patient resting in bed w/o acute distress but ill appearing. Reports continued N/V and diarrhea with associated abdominal cramping and chest discomfort (liquid green stool noted in rectal tube). No active signs of bleeding. Objective - Constitutional Vitals: Temp Pulse Resp BP Pulse Ox 98.3 F 138 H 20 102/46 97 12/25/18 06:25 12/25/18 01:33 12/25/18 06:25 12/25/18 06:25 12/25/18 01:33 General appearance: no acute distress, other (ill appearing) - Respiratory Respiratory effort: normal - Cardiovascular Rhythm: other (tachycardia) - Gastrointestinal General gastrointestinal: Present: soft, tender (slight TTP), non-distended, normal bowel sounds - Neurologic Neurological: alert and oriented x3 - Labs CBC & Chem 7: 12/25/18 05:20 12/25/18 08:48 Labs: Laboratory Results - last 24 hr 12/16/18 12/25/18 12/25/18 16:36 05:20 05:20 WBC 9.1 RBC 4.28 Hgb 11.5 L D Hct 31.0 L D MCV 80 L MCH 32 MCHC TNR RDW 13.2 Plt Count 81 L Sodium TNR Potassium TNR Chloride TNR Carbon Dioxide TNR Anion Gap TNR BUN TNR Creatinine TNR Estimated GFR TNR BUN/Creatinine Ratio TNR Glucose TNR Calcium TNR Phosphorus TNR Magnesium TNR HIV-1 Genotyping Tnp 12/25/18 12/25/18 07:35 08:48 WBC RBC Hgb Hct MCV MCH MCHC RDW Plt Count Sodium 127 L 132 L Potassium 8.4 H* D 3.3 L D Chloride 88.3 L 92.1 L Carbon Dioxide 23 25 Anion Gap 24 18 BUN 83 H 89 H Creatinine 5.2 H 5.9 H Estimated GFR 16 14 BUN/Creatinine Ratio 16 15 Glucose 452 H 125 H Calcium 6.8 L D 8.0 L D Phosphorus 2.90 D Magnesium 1.90 HIV-1 Genotyping
[2018-12-25] MEDS ORDERED: GOLYTELY PO ONE (13:00)
--- NOTE | 2018-12-25 14:05 | Progress Note ---
Assessment and Plan Assessment and plan: Patient is a 28-year-old man with a history of HIV diagnosis 2 years ago, without any follow up, not on antiviral who presented to [facility] ED with nausea/vomiting and diarrhea which began after he ate [employer]. Mother did not know of her son HIV status. CMV has come back positive. Patient is still having severe diarrhea, he is unable to eat >7 days, now CMV positive. This is one of the worse cases of AGE/diarrhea. Cultures: 12/13/18 Urine: less than 10K 12/14/18 Stool: Shigella species 12/14/18 C-Diff: negative 12/17/18 HIV Rapid; reactive 12/17/18 Cryptosporidium: positive : Giardia: negative 12/18/2018 serum Cryptococcal Ag: Negative Sepsis due to Acute bacterial gastroenteritis secondary to Shigella with 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 Still NPO, on TPN with left arm PICC and rectal tube in place. Treat with Ceftriaxone and Azithromycin as dual coverage for the Shigella and also on empiric IV Flagyl. 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 ID to follow up HIV-VL, HIV-genotype, consulted GI Hyperkalemia, Was medically treated, now resolved: monitor bmp closely Hypokalemia, now: replete and follow bmp Moderate malnutrition: [place] consult, for TPN Chest pains with dyspepsia; Consulted GI DVT prophylaxis lovenox Hemodialysis started 12/23/18 GI evaluated==>scope planned for tomorrow. Not sure why it wasn't done today. History Interval history: Patient was seen and examined. Follow-up on current diagnosis AIDs illness. No overnight events reported to me. Patient denies any shortness breath, or severe headaches. Imaging, nursing note, chart, labs and old chart reviewed. Discussed with patient. + burning substernal chest pains with nausea and vomiting Hospitalist Physical - Physical exam Narrative exam: Gen: WDWN, NAD, Awake, Alert, Orientated HEENT: NCAT, EOMI, PERRL, OP Clear Neck: supple, no adenopathy, no thyromegaly, no JVD CVS/Heart: RRR, normal S1S2, pulses present bilaterally Chest/Lungs: CTA B, Symmetrical chest expansion, good air entry bilaterally GI/Abdomen: soft, NTND, good bowel sounds, no guarding or rebound /Bladder: no suprapubic tenderness, no CVA or paraspinal tenderness Extermity/Skin: no c/c/e, no obvious rash MSK: FROM x 4 Neuro: CN 2-12 grossly intact, no new focal deficits Psych: calm - Constitutional Vitals: Temp Pulse Resp BP Pulse Ox 98.3 F 139 H 18 122/55 99 12/25/18 13:24 12/25/18 13:24 12/25/18 13:24 12/25/18 13:24 12/25/18 13:24 Results - Labs CBC & Chem 7: 12/25/18 05:20 12/25/18 08:48 Labs: Laboratory Last Values WBC 9.1 K/mm3 (4.5-11.0) 12/25/18 05:20 RBC 4.28 M/mm3 (3.65-5.03) 12/25/18 05:20 Hgb 11.5 gm/dl (11.8-15.2) L D 12/25/18 05:20 Hct 31.0 % (35.5-45.6) L D 12/25/18 05:20 MCV 80 fl (84-94) L 12/25/18 05:20 MCH 32 pg (28-32) 12/25/18 05:20 MCHC TNR 12/25/18 05:20 RDW 13.2 % (13.2-15.2) 12/25/18 05:20 Plt Count 81 K/mm3 (140-440) L 12/25/18 05:20 Lymph % (Auto) 13.4 % (13.4-35.0) 12/19/18 05:49 [place] % (Auto) 13.3 % (0.0-7.3) H 12/19/18 05:49 Eos % (Auto) 0.1 % (0.0-4.3) 12/19/18 05:49 Baso % (Auto) 0.3 % (0.0-1.8) 12/19/18 05:49 Lymph # 1.1 K/mm3 (1.2-5.4) L 12/19/18 05:49 [place] # 1.0 K/mm3 (0.0-0.8) H 12/19/18 05:49 Eos # 0.0 K/mm3 (0.0-0.4) 12/19/18 05:49 Baso # 0.0 K/mm3 (0.0-0.1) 12/19/18 05:49 Seg Neutrophils % 72.9 % (40.0-70.0) H 12/19/18 05:49 Seg Neutrophils # 5.7 K/mm3 (1.8-7.7) 12/19/18 05:49 Abs Lymphs (Manual) See scanned result 12/16/18 16:36 POC ABG pH 7.324 (7.35-7.45) L 12/18/18 08:56 POC ABG pCO2 < 30 (35-45) L 12/18/18 08:56 POC ABG pO2 167 (80-105) H 12/18/18 08:56 POC ABG HCO3 11.3 (22-26 mml/L) 12/18/18 08:56 POC ABG Total CO2 12 (23-27mmol/L) 12/18/18 08:56 POC ABG O2 Sat 99 12/18/18 08:56 POC ABG Base Excess -15 ((-2) - (+3)mmol/L) 12/18/18 08:56 28 % 12/18/18 08:56 Sodium 132 mmol/L (137-145) L 12/25/18 08:48 Potassium 3.3 mmol/L (3.6-5.0) L D 12/25/18 08:48 Chloride 92.1 mmol/L (98-107) L 12/25/18 08:48 Carbon Dioxide 25 mmol/L (22-30) 12/25/18 08:48 18 mmol/L 12/25/18 08:48 BUN 89 mg/dL (9-20) H 12/25/18 08:48 5.9 mg/dL (0.8-1.5) H 12/25/18 08:48 Estimated GFR 14 ml/min 12/25/18 08:48 15 % 12/25/18 08:48 Glucose 125 mg/dL (75-100) H 12/25/18 08:48 POC Glucose 115 (70-105) H 12/22/18 11:08 Lactic Acid 2.70 mmol/L (0.7-2.0) H* 12/19/18 10:50 Calcium 8.0 mg/dL (8.4-10.2) L D 12/25/18 08:48 Phosphorus 2.90 mg/dL (2.5-4.5) D 12/25/18 08:48 Magnesium 1.90 mg/dL (1.7-2.3) 12/25/18 08:48 1.10 mg/dL (0.1-1.2) 12/19/18 05:49 AST 21 units/L (5-40) 12/19/18 05:49 ALT 13 units/L (7-56) 12/19/18 05:49 77 units/L (35-129) 12/19/18 05:49 9.3 g/dL (6.3-8.2) H 12/19/18 05:49 4.8 g/dL (3.9-5) 12/19/18 05:49 1.1 % 12/19/18 05:49 Triglycerides 148 mg/dL (2-149) 12/23/18 04:18 85 units/L (13-60) H 12/13/18 18:57 Yellow (Yellow) 12/13/18 20:40 Cloudy (Clear) 12/13/18 20:40 5.0 (5.0-7.0) 12/13/18 20:40 Ur Specific [place] 1.014 (1.003-1.030) 12/13/18 20:40 100 mg/dl mg/dL (Negative) 12/13/18 20:40 Neg mg/dL (Negative) 12/13/18 20:40 Neg mg/dL (Negative) 12/13/18 20:40 Lg (Negative) 12/13/18 20:40 Neg (Negative) 12/13/18 20:40 Neg (Negative) 12/13/18 20:40 < 2.0 mg/dL (<2.0) 12/13/18 20:40 Ur Leukocyte Esterase Neg (Negative) 12/13/18 20:40 22.0 /HPF (0.0-6.0) H 12/13/18 20:40 9.0 /HPF (0.0-6.0) 12/13/18 20:40 U Epithel Cells (Auto) 2.0 /HPF (0-13.0) 12/13/18 20:40 1+ /HPF (Negative) 12/13/18 20:40 Hyaline Casts 2 /LPF 12/13/18 20:40 3+ /HPF 12/13/18 20:40 2+ /HPF 12/13/18 20:40 Lymph Enumerat CD4/CD8 See scanned result 12/16/18 16:36 % CD3 Cells See scanned result 12/16/18 16:36 See scanned result 12/16/18 16:36 % CD4 Cells See scanned result 12/16/18 16:36 See scanned result 12/16/18 16:36 % CD8 Cells See scanned result 12/16/18 16:36 See scanned result 12/16/18 16:36 % CD19 Cells See scanned result 12/16/18 16:36 See scanned result 12/16/18 16:36 C. difficile Tox (PCR) Negative (Negative) 12/14/18 14:00 CMV DNA PCR log copy lathe tender/mL See scanned result 12/18/18 12:29 Hepatitis A IgM Ab Non-reactive (NonReactive) 12/23/18 11:20 Hep Bs Antigen Non-reactive (Negative) 12/23/18 11:20 Hep B Core IgM Ab Non-reactive (NonReactive) 12/23/18 11:20 Non-reactive (NonReactive) 12/23/18 11:20 See scanned result 12/16/18 16:49 HIV-1 RNA PCR copies/ml TNR 12/16/18 16:36 TNR 12/16/18 16:36 Tnp 12/16/18 16:36 HIV-2 Ab (Immunoblot) See scanned result 12/16/18 16:49 HIV 1&2 Antibody Rapid Reactive (Non React) 12/16/18 16:36 Non react (Non React) 12/16/18 16:36 Active Medications - Current Medications Current Medications: Generic Name Dose Route Start Last Admin Trade Name Freq PRN Reason Stop Dose Admin Acetaminophen 650 mg 12/13/18 22:54 12/24/18 22:58 Tylenol PO 650 mg Q4H PRN Administration Pain MILD(1-3)/Fever >100.5/HOLT Atovaquone 1,500 mg 12/18/18 14:00 12/25/18 11:11 Mepron PO 1,500 mg QDAY MARIA E Administration Emtricitabine 200 mg 12/22/18 14:00 12/23/18 11:13 Emtriva PO 200 mg Q72HR MARIA E Administration Enoxaparin Sodium 30 mg 12/18/18 11:00 12/25/18 11:08 Lovenox SUB-Q 30 mg QDAY MARIA E Administration Famotidine 20 mg 12/23/18 16:00 12/25/18 11:08 Pepcid IV 20 mg DAILY MARIA E Administration Heparin Sodium (Porcine) 5,000 unit 12/23/18 08:39 Heparin IV ALYSSIA PRN hemodialysis Azithromycin 500 mg/ Sodium 250 mls @ 250 mls/hr 12/18/18 14:00 12/24/18 13:46 Chloride IV 12/25/18 22:59 250 mls/hr Q24H MARIA E Administration Protocol Sodium Bicarbonate 150 meq/ 1,150 mls @ 100 mls/hr 12/22/18 10:00 12/25/18 02:25 Sterile Water IV 100 mls/hr DIRECT MARIA E Administration Sodium Chloride 100 mls @ 999 mls/hr 12/23/18 08:39 Nacl 0.9% IV ALYSSIA PRN Hypotension Amino Acids/Electrolytes/Dextrose 2,400 mls @ 100 mls/hr 12/24/18 20:00 12/24/18 22:24 Tpn Adult IV 12/25/18 19:59 100 mls/hr DAILY@2000 MARIA E Administration Protocol Chlorpromazine HCl 25 mg/ 51 mls @ 100 mls/hr 12/24/18 23:29 12/25/18 00:57 Sodium Chloride IV 100 mls/hr Q4H PRN Administration Hiccups Amino Acids/Electrolytes/Dextrose 2,400 mls @ 100 mls/hr 12/25/18 20:00 Tpn Adult IV 12/26/18 19:59 DAILY@1999 [facility] Protocol Potassium Chloride 20 meq in 100 mls @ 100 mls/hr 12/25/18 14:00 Kcl 20meq/100ml IV 12/25/18 15:59 Q1H MARIA E Lorazepam 1 mg 12/22/18 12:06 12/24/18 22:13 Ativan IV 1 mg Q4H PRN Administration for insomnia or anxiety Metoclopramide HCl 5 mg 12/22/18 10:00 12/22/18 10:01 Reglan IV 5 mg Q6H PRN Administration Nausea And Vomiting Nitazoxanide 500 mg 12/23/18 10:00 12/25/18 11:09 Alinia (Nf) PO 500 mg BID MARIA E Administration Ondansetron HCl 4 mg 12/13/18 22:54 12/25/18 08:50 Zofran IV 4 mg Q4H PRN Administration Nausea And Vomiting Raltegravir 400 mg 12/22/18 14:00 12/25/18 11:10 Isentress PO 400 mg BID MARIA E Administration Sodium Chloride 10 ml 12/14/18 10:00 12/24/18 23:09 Sodium Chloride Flush Syringe 10 Ml IV 10 ml BID MARIA E Administration Sodium Chloride 10 ml 12/13/18 22:54 12/19/18 12:27 Sodium Chloride Flush Syringe 10 Ml IV 10 ml PRN PRN Administration LINE FLUSH Temazepam 15 mg 12/21/18 18:13 12/21/18 21:07 Restoril PO 15 mg QHS PRN Administration Sleep Tenofovir Disoproxil Fumarate 300 mg 12/22/18 14:00 Viread PO Q72HR MARIA E Valganciclovir 450 mg 12/25/18 10:00 12/25/18 11:09 Valcyte (Nf) PO 450 mg Q48HR MARIA E Administration Nutrition/Malnutrition Assess - Dietary Evaluation Nutrition/Malnutrition Findings: Nutrition Notes Start: 12/19/18 15:24 Freq: Status: Active Protocol: Document 12/25/18 12:46 LP (Rec: 12/25/18 12:55 LP [id number]) Nutrition Notes Initial or Follow up Reassessment Current Diagnosis Acute Kidney Injury,Sepsis Other Pertinent Diagnosis Shigella enteritis, N/V/D, dehydration, Gastroenteritis, HIV Current Diet PPN at 100ml/hr Labs/Tests Na 132 K 3.3 Phos 2.9 Pertinent Medications Reviewed Height 6 ft 2 in Weight 78.1 kg [place] Body Weight (kg) 86.36 BMI 22.1 Subjective/Other Information Day 4 PPN. Pt continues with diarrhea will not have HD today. Percent of energy/protein needs met: 49%/100% Burn Absent Trauma Absent #1 Nutrition Diagnosis Inadequate oral intake Diagnosis Progress(for reassessment Continues documentation) Is patient on ventilator? No Is Patient Ambulatory and/or Out of Bed Yes REE-([facility]-ambulatory/OOB) [ [id number] [id number]] Calculation Used for Recommendations [facility] Additional Notes Protein Needs: 75-97g (1-1.3g/ kg) Fluid Needs: 1 ml/kcal Nutrition Intervention Change Diet Order: TPN Nutrition Support: PPN at 100ml/hr: 3.8% amino acid, 120mEq K, MVI, Osmolality: 883 Kcal 700 Protein (gm) 90 Carbohydrates (gm) 100 Fat (gm) 0 Fluid (mL) 2,400 Fiber (gm) 0 Goal #1 PPN to meet nutritional needs as best possible Anticipated Discharge Needs: Unable to determine at this time Follow-Up By: 12/26/18 Additional Comments Labs in AM: BMP, Mg, Phos
[2018-12-25] MEDS: ZITHROMAX 500 MG in NACL 0.9% 250ML 250 ML IV SCH (15:18)
[2018-12-25] MEDS: SODIUM CHLORIDE FLUSH SYRINGE 10 ML IV SCH ×2 (15:28→21:58)
[2018-12-25] MEDS: KCL 20MEQ/100ML 20 MEQ/100 ML BAG IV SCH ×2 (17:25→21:29)
[2018-12-25] MEDS: REGLAN IV PRN (17:32)
[2018-12-25] MEDS ORDERED: TPN ADULT 2,400 ML IV SCH (20:00)
[2018-12-26] MEDS: SODIUM BICARBONATE 150 MEQ in STERILE WATER 1,000 ML IV SCH ×2 (04:59→21:45)
[2018-12-26 05:33] LABS: Hematocrit 35.2 % (35.5-45.6); Mean Corpuscular HGB Conc 34 % (32-34); Mean Corpuscular Volume 79 fl (84-94); Red Blood Count 4.45 M/mm3 (3.65-5.03); Red Cell Distribution Width 13.1 % (13.2-15.2)
[2018-12-26 05:38] LABS: INR 1.31 (0.87-1.13)
[2018-12-26 05:42] LABS: Platelet Count 79 K/mm3 (140-440)
[2018-12-26 05:53] LABS: Calcium 8.5 mg/dL (8.4-10.2)
[2018-12-26] MEDS: TYLENOL PO PRN ×2 (06:19→09:57)
[2018-12-26] MEDS ORDERED: NACL 0.9% 100 ML IV PRN (08:34)
--- NOTE | 2018-12-26 09:37 | Progress Note ---
Assessment and Plan - Patient Problems (1) Acute renal failure Current Visit: Yes Status: Acute Plan to address problem: Acute kidney failure Prerenal azotemia versus acute tubular necrosis secondary to hypotension/volume depletion. Hemodialysis started on 12/23/2018. Patient tolerated treatments so far. Hemodialysis today and then observe for any signs of renal recovery over the weekend. (2) Hypokalemia Current Visit: Yes Status: Acute Plan to address problem: Dialyze on a 4K bath and follow-up levels (3) Metabolic acidosis Current Visit: Yes Status: Acute Plan to address problem: secondary to diarrhea. Continue bicarbonate drip. Follow-up bicarbonate level. (4) Nausea vomiting and diarrhea Current Visit: Yes Status: Acute Plan to address problem: Continue management by Federico EDGROOT MD and infectious disease Subjective Date of service: 12/26/18 Principal diagnosis: HIV, diarrhea, acute kidney injury Interval history: Patient seen lying in bed. He has no new complaints. Family -Mother- at the bedside. Had nausea and vomiting overnight. Objective - Exam Narrative Exam: Young -[place]une[place] male lying in bed ill-looking in no acute distress HEENT: NCAT, pink oral mucous membrane Neck: Supple, no venous distention CVS: S1S2 RRR with no murmur, rub or gallop Chest: Clear to auscultation Abdomen: Protuberant, soft, nontender, no organomegaly, bowel sounds are present Extremities: No edema Neuro: Awake, alert no focal deficits - Vital Signs Vital signs: Vital Signs - 12hr 12/26/18 12/26/18 12/26/18 00:00 00:29 00:31 Temperature 98.8 F 98.8 F Pulse Rate 143 H 143 H Respiratory 22 22 Rate Blood Pressure 126/68 Blood Pressure 126/74 126/68 [Right] O2 Sat by Pulse Oximetry 12/26/18 05:54 Temperature 101.2 F H Pulse Rate 146 H Respiratory 18 Rate Blood Pressure 120/64 Blood Pressure [Right] O2 Sat by Pulse 98 Oximetry - Lab 12/26/18 05:10 12/26/18 05:10 Most recent lab results Calcium 8.5 mg/dL (8.4-10.2) 12/26/18 05:10 Phosphorus 2.20 mg/dL (2.5-4.5) L D 12/26/18 05:10 Magnesium 1.90 mg/dL (1.7-2.3) 12/26/18 05:10 Medications & Allergies - Medications Allergies/Adverse Reactions: Allergies No Known Allergies Allergy (Verified 12/13/18 18:58) Home Medications: Home Medications Medication Instructions Recorded Confirmed Last Taken Type No Known Home Medications [No 12/18/18 12/18/18 Unknown History Reported Home Medications] Active Medications: Generic Name Dose Route Start Last Admin Trade Name Freq PRN Reason Stop Dose Admin Acetaminophen 650 mg 12/13/18 22:54 12/26/18 06:19 Tylenol PO 650 mg Q4H PRN Administration Pain MILD(1-3)/Fever >100.5/HOLT Atovaquone 1,500 mg 12/18/18 14:00 12/25/18 11:11 Mepron PO 1,500 mg QDAY MARIA E Administration Emtricitabine 200 mg 12/22/18 14:00 12/23/18 11:13 Emtriva PO 200 mg Q72HR MARIA E Administration Enoxaparin Sodium 30 mg 12/18/18 11:00 12/25/18 11:08 Lovenox SUB-Q 30 mg QDAY MARIA E Administration Famotidine 20 mg 12/23/18 16:00 12/25/18 11:08 Pepcid IV 20 mg DAILY MARIA E Administration Heparin Sodium (Porcine) 5,000 unit 12/23/18 08:39 Heparin IV ALYSSIA PRN hemodialysis Sodium Bicarbonate 150 meq/ 1,150 mls @ 100 mls/hr 12/22/18 10:00 12/26/18 04:59 Sterile Water IV 100 mls/hr DIRECT MARIA E Administration Sodium Chloride 100 mls @ 999 mls/hr 12/23/18 08:39 Nacl 0.9% IV ALYSSIA PRN Hypotension Chlorpromazine HCl 25 mg/ 51 mls @ 100 mls/hr 12/24/18 23:29 12/25/18 17:59 Sodium Chloride IV 100 mls/hr Q4H PRN Administration Hiccups Amino Acids/Electrolytes/Dextrose 2,400 mls @ 100 mls/hr 12/25/18 20:00 12/25/18 21:36 Tpn Adult IV 12/26/18 19:59 100 mls/hr DAILY@2000 MARIA E Administration Protocol Sodium Chloride 100 mls @ 999 mls/hr 12/26/18 08:34 Nacl 0.9% IV ALYSSIA PRN Hypotension Lorazepam 1 mg 12/22/18 12:06 12/24/18 22:13 Ativan IV 1 mg Q4H PRN Administration for insomnia or anxiety Metoclopramide HCl 5 mg 12/22/18 10:00 12/25/18 17:32 Reglan IV 5 mg Q6H PRN Administration Nausea And Vomiting Nitazoxanide 500 mg 12/23/18 10:00 12/25/18 21:28 Alinia (Nf) PO 500 mg BID MARIA E Administration Ondansetron HCl 4 mg 12/13/18 22:54 12/25/18 17:32 Zofran IV 4 mg Q4H PRN Administration Nausea And Vomiting Raltegravir 400 mg 12/22/18 14:00 12/25/18 22:00 Isentress PO 400 mg BID MRAIA E Administration Sodium Chloride 10 ml 12/14/18 10:00 12/25/18 21:58 Sodium Chloride Flush Syringe 10 Ml IV 10 ml BID MARIA E Administration Sodium Chloride 10 ml 12/13/18 22:54 12/19/18 12:27 Sodium Chloride Flush Syringe 10 Ml IV 10 ml PRN PRN Administration LINE FLUSH Temazepam 15 mg 12/21/18 18:13 12/21/18 21:07 Restoril PO 15 mg QHS PRN Administration Sleep Tenofovir Disoproxil Fumarate 300 mg 12/22/18 14:00 Viread PO Q72HR MARIA E Valganciclovir 450 mg 12/25/18 10:00 12/25/18 11:09 Valcyte (Nf) PO 450 mg Q48HR MARIA E Administration
--- NOTE | 2018-12-26 09:40 | Progress Note ---
Assessment and Plan Assessment and plan: Patient is a 28-year-old man with a history of HIV diagnosis 2 years ago, without any follow up, not on antiviral who presented to [facility] ED with nausea/vomiting and diarrhea which began after he ate [employer]. Mother did not know of her son HIV status. CMV has come back positive. Patient is still having severe diarrhea, he is unable to eat >7 days, now CMV positive. This is one of the worse cases of AGE/diarrhea. Cultures: 12/13/18 Urine: less than 10K 12/14/18 Stool: Shigella species 12/14/18 C-Diff: negative 12/17/18 HIV Rapid; reactive 12/17/18 Cryptosporidium: positive : Giardia: negative 12/18/2018 serum Cryptococcal Ag: Negative Sepsis due to Acute bacterial gastroenteritis secondary to Shigella with 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 Still NPO, on TPN with left arm PICC and rectal tube in place. Treat with Ceftriaxone and Azithromycin as dual coverage for the Shigella and also on empiric IV Flagyl. 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 ID to follow up HIV-VL, HIV-genotype, consulted GI Hyperkalemia, Was medically treated, now resolved: monitor bmp closely Hypokalemia, now: replete and follow bmp Moderate malnutrition: Flood Control Engineer consult, for TPN Chest pains with dyspepsia; Consulted GI DVT prophylaxis lovenox Hemodialysis started 12/23/18 GI evaluated==>scope planned but delayed due to electrolytes imbalances History Interval history: Patient was seen and examined. Follow-up on current diagnosis AIDs illness. No overnight events reported to me. Patient denies any shortness breath, or severe headaches. Imaging, nursing note, chart, labs and old chart reviewed. Discussed with patient. + burning substernal chest pains with nausea and vomiting Hospitalist Physical - Physical exam Narrative exam: Gen: WDWN, NAD, Awake, Alert, Orientated HEENT: NCAT, EOMI, PERRL, OP Clear Neck: supple, no adenopathy, no thyromegaly, no JVD CVS/Heart: RRR, normal S1S2, pulses present bilaterally Chest/Lungs: CTA B, Symmetrical chest expansion, good air entry bilaterally GI/Abdomen: soft, NTND, good bowel sounds, no guarding or rebound /Bladder: no suprapubic tenderness, no CVA or paraspinal tenderness Extermity/Skin: no c/c/e, no obvious rash MSK: FROM x 4 Neuro: CN 2-12 grossly intact, no new focal deficits Psych: calm - Constitutional Vitals: Temp Pulse Resp BP Pulse Ox 101.2 F H 146 H 18 120/64 98 12/26/18 05:54 12/26/18 05:54 12/26/18 05:54 12/26/18 05:54 12/26/18 05:54 Results - Labs CBC & Chem 7: 12/26/18 05:10 12/26/18 05:10 Labs: Laboratory Last Values WBC 9.8 K/mm3 (4.5-11.0) 12/26/18 05:10 RBC 4.45 M/mm3 (3.65-5.03) 12/26/18 05:10 Hgb 12.0 gm/dl (11.8-15.2) 12/26/18 05:10 Hct 35.2 % (35.5-45.6) L 12/26/18 05:10 MCV 79 fl (84-94) L 12/26/18 05:10 MCH 27 pg (28-32) L 12/26/18 05:10 MCHC 34 % (32-34) 12/26/18 05:10 RDW 13.1 % (13.2-15.2) L 12/26/18 05:10 Plt Count 79 K/mm3 (140-440) L 12/26/18 05:10 Lymph % (Auto) 13.4 % (13.4-35.0) 12/19/18 05:49 [place] % (Auto) 13.3 % (0.0-7.3) H 12/19/18 05:49 Eos % (Auto) 0.1 % (0.0-4.3) 12/19/18 05:49 Baso % (Auto) 0.3 % (0.0-1.8) 12/19/18 05:49 Lymph # 1.1 K/mm3 (1.2-5.4) L 12/19/18 05:49 [place] # 1.0 K/mm3 (0.0-0.8) H 12/19/18 05:49 Eos # 0.0 K/mm3 (0.0-0.4) 12/19/18 05:49 Baso # 0.0 K/mm3 (0.0-0.1) 12/19/18 05:49 Seg Neutrophils % 72.9 % (40.0-70.0) H 12/19/18 05:49 Seg Neutrophils # 5.7 K/mm3 (1.8-7.7) 12/19/18 05:49 Abs Lymphs (Manual) See scanned result 12/16/18 16:36 PT 16.0 Sec. (12.2-14.9) H 12/26/18 05:10 INR 1.31 (0.87-1.13) H 12/26/18 05:10 POC ABG pH 7.324 (7.35-7.45) L 12/18/18 08:56 POC ABG pCO2 < 30 (35-45) L 12/18/18 08:56 POC ABG pO2 167 (80-105) H 12/18/18 08:56 POC ABG HCO3 11.3 (22-26 mml/L) 12/18/18 08:56 POC ABG Total CO2 12 (23-27mmol/L) 12/18/18 08:56 POC ABG O2 Sat 99 12/18/18 08:56 POC ABG Base Excess -15 ((-2) - (+3)mmol/L) 12/18/18 08:56 28 % 12/18/18 08:56 Sodium 140 mmol/L (137-145) D 12/26/18 05:10 Potassium 4.2 mmol/L (3.6-5.0) D 12/26/18 05:10 Chloride 94.1 mmol/L (98-107) L 12/26/18 05:10 Carbon Dioxide 30 mmol/L (22-30) 12/26/18 05:10 20 mmol/L 12/26/18 05:10 BUN 89 mg/dL (9-20) H 12/26/18 05:10 5.1 mg/dL (0.8-1.5) H 12/26/18 05:10 Estimated GFR 16 ml/min 12/26/18 05:10 17 % 12/26/18 05:10 Glucose 116 mg/dL (75-100) H 12/26/18 05:10 POC Glucose 115 (70-105) H 12/22/18 11:08 Lactic Acid 2.70 mmol/L (0.7-2.0) H* 12/19/18 10:50 Calcium 8.5 mg/dL (8.4-10.2) 12/26/18 05:10 Phosphorus 2.20 mg/dL (2.5-4.5) L D 12/26/18 05:10 Magnesium 1.90 mg/dL (1.7-2.3) 12/26/18 05:10 1.10 mg/dL (0.1-1.2) 12/19/18 05:49 AST 21 units/L (5-40) 12/19/18 05:49 ALT 13 units/L (7-56) 12/19/18 05:49 77 units/L (35-129) 12/19/18 05:49 9.3 g/dL (6.3-8.2) H 12/19/18 05:49 4.8 g/dL (3.9-5) 12/19/18 05:49 1.1 % 12/19/18 05:49 Triglycerides 148 mg/dL (2-149) 12/23/18 04:18 85 units/L (13-60) H 12/13/18 18:57 Yellow (Yellow) 12/13/18 20:40 Cloudy (Clear) 12/13/18 20:40 5.0 (5.0-7.0) 12/13/18 20:40 Ur Specific [place] 1.014 (1.003-1.030) 12/13/18 20:40 100 mg/dl mg/dL (Negative) 12/13/18 20:40 Neg mg/dL (Negative) 12/13/18 20:40 Neg mg/dL (Negative) 12/13/18 20:40 Lg (Negative) 12/13/18 20:40 Neg (Negative) 12/13/18 20:40 Neg (Negative) 12/13/18 20:40 < 2.0 mg/dL (<2.0) 12/13/18 20:40 Ur Leukocyte Esterase Neg (Negative) 12/13/18 20:40 22.0 /HPF (0.0-6.0) H 12/13/18 20:40 9.0 /HPF (0.0-6.0) 12/13/18 20:40 U Epithel Cells (Auto) 2.0 /HPF (0-13.0) 12/13/18 20:40 1+ /HPF (Negative) 12/13/18 20:40 Hyaline Casts 2 /LPF 12/13/18 20:40 3+ /HPF 12/13/18 20:40 2+ /HPF 12/13/18 20:40 Lymph Enumerat CD4/CD8 See scanned result 12/16/18 16:36 % CD3 Cells See scanned result 12/16/18 16:36 See scanned result 12/16/18 16:36 % CD4 Cells See scanned result 12/16/18 16:36 See scanned result 12/16/18 16:36 % CD8 Cells See scanned result 12/16/18 16:36 See scanned result 12/16/18 16:36 % CD19 Cells See scanned result 12/16/18 16:36 See scanned result 12/16/18 16:36 C. difficile Tox (PCR) Negative (Negative) 12/14/18 14:00 CMV DNA PCR log copper tapper/mL See scanned result 12/18/18 12:29 Hepatitis A IgM Ab Non-reactive (NonReactive) 12/23/18 11:20 Hep Bs Antigen Non-reactive (Negative) 12/23/18 11:20 Hep B Core IgM Ab Non-reactive (NonReactive) 12/23/18 11:20 Non-reactive (NonReactive) 12/23/18 11:20 See scanned result 12/16/18 16:49 HIV-1 RNA PCR copies/ml TNR 12/16/18 16:36 TNR 12/16/18 16:36 Tnp 12/16/18 16:36 HIV-2 Ab (Immunoblot) See scanned result 12/16/18 16:49 HIV 1&2 Antibody Rapid Reactive (Non React) 12/16/18 16:36 Non react (Non React) 12/16/18 16:36 Active Medications - Current Medications Current Medications: Generic Name Dose Route Start Last Admin Trade Name Freq PRN Reason Stop Dose Admin Acetaminophen 650 mg 12/13/18 22:54 12/26/18 06:19 Tylenol PO 650 mg Q4H PRN Administration Pain MILD(1-3)/Fever >100.5/HOLT Atovaquone 1,500 mg 12/18/18 14:00 12/25/18 11:11 Mepron PO 1,500 mg QDAY MARIA E Administration Emtricitabine 200 mg 12/22/18 14:00 12/23/18 11:13 Emtriva PO 200 mg Q72HR MARIA E Administration Enoxaparin Sodium 30 mg 12/18/18 11:00 12/25/18 11:08 Lovenox SUB-Q 30 mg QDAY MARIA E Administration Famotidine 20 mg 12/23/18 16:00 12/25/18 11:08 Pepcid IV 20 mg DAILY MARIA E Administration Heparin Sodium (Porcine) 5,000 unit 12/23/18 08:39 Heparin IV ALYSSIA PRN hemodialysis Sodium Bicarbonate 150 meq/ 1,150 mls @ 100 mls/hr 12/22/18 10:00 12/26/18 04:59 Sterile Water IV 100 mls/hr DIRECT MARIA E Administration Sodium Chloride 100 mls @ 999 mls/hr 12/23/18 08:39 Nacl 0.9% IV ALYSSIA PRN Hypotension Chlorpromazine HCl 25 mg/ 51 mls @ 100 mls/hr 12/24/18 23:29 12/25/18 17:59 Sodium Chloride IV 100 mls/hr Q4H PRN Administration Hiccups Amino Acids/Electrolytes/Dextrose 2,400 mls @ 100 mls/hr 12/25/18 20:00 12/25/18 21:36 Tpn Adult IV 12/26/18 19:59 100 mls/hr DAILY@2000 MARIA E Administration Protocol Sodium Chloride 100 mls @ 999 mls/hr 12/26/18 08:34 Nacl 0.9% IV ALYSSIA PRN Hypotension Lorazepam 1 mg 12/22/18 12:06 12/24/18 22:13 Ativan IV 1 mg Q4H PRN Administration for insomnia or anxiety Metoclopramide HCl 5 mg 12/22/18 10:00 12/25/18 17:32 Reglan IV 5 mg Q6H PRN Administration Nausea And Vomiting Nitazoxanide 500 mg 12/23/18 10:00 12/25/18 21:28 Alinia (Nf) PO 500 mg BID MARIA E Administration Ondansetron HCl 4 mg 12/13/18 22:54 12/25/18 17:32 Zofran IV 4 mg Q4H PRN Administration Nausea And Vomiting Raltegravir 400 mg 12/22/18 14:00 12/25/18 22:00 Isentress PO 400 mg BID MARIA E Administration Sodium Chloride 10 ml 12/14/18 10:00 12/25/18 21:58 Sodium Chloride Flush Syringe 10 Ml IV 10 ml BID MARIA E Administration Sodium Chloride 10 ml 12/13/18 22:54 12/19/18 12:27 Sodium Chloride Flush Syringe 10 Ml IV 10 ml PRN PRN Administration LINE FLUSH Temazepam 15 mg 12/21/18 18:13 12/21/18 21:07 Restoril PO 15 mg QHS PRN Administration Sleep Tenofovir Disoproxil Fumarate 300 mg 12/22/18 14:00 Viread PO Q72HR MARIA E Valganciclovir 450 mg 12/25/18 10:00 12/25/18 11:09 Valcyte (Nf) PO 450 mg Q48HR MARIA E Administration Nutrition/Malnutrition Assess - Dietary Evaluation Nutrition/Malnutrition Findings: Nutrition Notes Start: 12/19/18 15:24 Freq: Status: Active Protocol: Document 12/26/18 09:05 LP (Rec: 12/26/18 09:14 LP [id number]) Nutrition Notes Initial or Follow up Reassessment Current Diagnosis Acute Kidney Injury,Sepsis Other Pertinent Diagnosis Shigella enteritis, N/V/D, dehydration, Gastroenteritis, HIV Current Diet PPN at 100ml/hr Labs/Tests Phos 2.2 Pertinent Medications Reviewed Height 6 ft 2 in Weight 78.1 kg [place] Body Weight (kg) 86.36 BMI 22.1 Subjective/Other Information Day 5 PPN. Pt NPO for colonscopy and had an episode of vomiting. Percent of energy/protein needs met: 30%/100% Burn Absent Trauma Absent #1 Nutrition Diagnosis Inadequate oral intake Diagnosis Progress(for reassessment Continues documentation) Is patient on ventilator? No Is Patient Ambulatory and/or Out of Bed Yes REE-([facility]-ambulatory/OOB) [ [id number] [id number]] Calculation Used for Recommendations [facility] Additional Notes Protein Needs: 75-97g (1-1.3g/ kg) Fluid Needs: 1 ml/kcal Nutrition Intervention Change Diet Order: TPN Nutrition Support: PPN at 100ml/hr: 180mEq Na, 108mEq K, Phos 19mmol, MVI, Lipids Osmolality: 823 Kcal 1,200 Protein (gm) 90 Carbohydrates (gm) 100 Fat (gm) 50 Fluid (mL) 2,650 Fiber (gm) 0 Goal #1 PPN to meet nutritional needs as best possible Anticipated Discharge Needs: Unable to determine at this time Follow-Up By: 12/27/18 Additional Comments Labs in AM: BMP, Mg, Phos
[2018-12-26] MEDS: PEPCID IV SCH (09:53)
[2018-12-26] MEDS: LOVENOX SUB-Q SCH (10:00)
--- NOTE | 2018-12-26 11:53 | Progress Note ---
Assessment and Plan Cultures: 12/13/18 Urine: less than 10K 12/14/18 Stool: Shigella species 12/14/18 C-Diff: negative 12/17/18 HIV Rapid; reactive 12/17/18 Cryptosporidium: positive : Giardia: negative 12/18/2018 serum Cryptococcal Ag: Negaitve 12/18/2018 serum CMV PCR 1125 A/P: 28-year old male with no previous medical history that presents to the ED on 12/13/18 with complaints of nausea, vomiting and diarrhea since . He reported eating beef and broccoli chomein and orange chicken at [employer] on Saturday12-10-18. His symptoms worsened the next day. Admitted with. 1. 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 Stool cultures Shigella species. Cryptosporidium: positive. Cdiff negative. Currently being treated with Ceftriaxone and Azithromycin as dual coverage for the Shigella and also on empiric IV Flagyl. 12/18/2018 serum CMV PCR 1125. 2. HIV/AIDS: CD4=26, 3% on 12/16/2018; diagnosed 2 years ago. No follow-up with ID. Unknown CD4 count/Viral load. Never been on HIV therapy. Mother is now aware of HIV. Labs pending here. Likely AIDS given the lymphopenia. Crypto antigen negative. 3 MEHNAZ: worsening. Nephrology following. Hemodialysis started on 12/23/2018. 4. Sepsis v/s SIRS: hypothermia, increased lactic acid and tachycardia, likely hypovolemia given the evidence of hemoconcentration. 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 Ani Fry MD Infectious Diseases Gardener [facility] M [phone] O [phone] Subjective Date of service: 12/26/18 Principal diagnosis: HIV, diarrhea, acute kidney injury Interval history: Feels better, still watery brown diarrhea via rectal tube after bowel prep, noted fever 101. ROS weakness, diarrhea, oliguria, rest negative Objective - Exam Narrative Exam: General: Alert in NAD Head, Ears, Nose: Normocephalic, atraumatic. External ears, nose normal Eyes: Conjunctivae/corneas clear. No icterus. No ptosis. Neck: Supple, no meningeal signs Oral: dentition fair, no thrush Cardiovascular: RRR Respiratory: Good air entry, clear to auscultation bilaterally GI: Soft, diffuse tenderness Musculoskeletal: No pedal edema, no cyanosis. Skin: No rash or abscess Hem/Lymphatic: No palpable cervical or supraclavicular nodes. No lymphangitis Psych: Mood ok. Affect normal Neurological: Awake, alert, oriented. No gross abnormality rectal tube watery black diarrhea - Constitutional Vitals: Vital Signs Temp Pulse Resp BP Pulse Ox 101.2 F H 136 H 18 143/71 98 12/26/18 10:10 12/26/18 11:30 12/26/18 10:10 12/26/18 11:30 12/26/18 05:54 Temperature -Last 24 Hours Temperature 101.2 F Temperature 99.3 F Temperature 101.2 F Temperature 98.8 F Temperature 98.8 F Temperature 99.0 F Temperature 98.3 F - Labs CBC & Chem 7: 12/26/18 05:10 12/26/18 05:10 Labs: Abnormal lab results 12/26/18 12/26/18 12/26/18 Range/Units 05:10 05:10 05:10 Hct 35.2 L (35.5-45.6) % MCV 79 L (84-94) fl MCH 27 L (28-32) pg RDW 13.1 L (13.2-15.2) % Plt Count 79 L (140-440) K/mm3 PT 16.0 H (12.2-14.9) Sec. INR 1.31 H (0.87-1.13) Chloride 94.1 L (98-107) mmol/L BUN 89 H (9-20) mg/dL Creatinine 5.1 H (0.8-1.5) mg/dL Glucose 116 H (75-100) mg/dL Phosphorus 2.20 L D (2.5-4.5) mg/dL
[2018-12-26] MEDS ORDERED: NACL 0.9% 1000 ML 2,000 ML ONE (12:36)
[2018-12-26] MEDS ORDERED: HEPARIN IV PRN (13:00)
[2018-12-26] MEDS: ZOFRAN IV PRN ×2 (13:08→19:13)
[2018-12-26] MEDS ORDERED: NACL 0.9% 1000 ML 1,000 ML IV SCH (14:00)
[2018-12-26] MEDS ORDERED: PHENYLEPHRINE/NS Syringe 1,000 MCG/10 ML IV ONE (15:30)
[2018-12-26] MEDS ORDERED: XYLOCAINE MPF 2% ONE (15:30)
[2018-12-26] MEDS ORDERED: VERSED ONE (16:04)
[2018-12-26] MEDS ORDERED: DIPRIVAN 10 MG/ML IV ONE ×2 (16:04)
[2018-12-26] MEDS ORDERED: XYLOCAINE 1% 20 mL ONE (16:08)
--- NOTE | 2018-12-26 17:00 | Post Operative Note ---
Pre-op diagnosis: diarrhea, weight loss Post-op diagnosis: same Findings: EGD: hiatal hernia - white based moderate inflammation, ulceration noted throughout esophagus (bx's) - fairly benign stomach (bx's) - multiple (5-6) ulcers with inflammation noted 1st-proximal 2nd portion duodenum (larget 12-14 mm circumference) with moderate inflammation remaining mucosa (bx's) - negative other Colon: multiple white mainly white based, shallow ulcers (largest 12 mm) scatterred terminal ileum (bx's) - mild/moderate inflammation distal sigmoid/rectum (bx's) - otherwise normal colon (bx's) Procedure: EGD/colonoscopy Anesthesia: MAC Surgeon: SHAHIDA CARMICHAEL Estimated blood loss: none Pathology: list Specimen disposition: to lab Condition: stable Disposition: floor
--- NOTE | 2018-12-26 17:37 | Operative Report ---
PROCEDURE: EGD with cold biopsies. INDICATIONS: 1. Weight loss. 2. Abdominal pain. MEDICATIONS: Propofol per QUALITY ASSURANCE NURSE. COMPLICATIONS: None. DESCRIPTION OF PROCEDURE: The patient was brought to procedure suite. The patient had the procedure discussed with him at length. All risks, complications, and benefits were discussed with him and his family, after which consent was gotten for the procedure to be performed. The patient was placed in left lateral decubitus position. Mouth block was placed in the patient's oral cavity. After adequate sedation medication as above, endoscope was introduced into the mouth and brought to the level of second portion of duodenum. Retroflexion view performed. The patient's vital signs remained stable throughout the procedure. FINDINGS: There was noted to be moderate inflammation and ulcerations noted with white base light mucosa for most of the esophagus. Biopsies were taken to rule out Freya, but also possibility of viral inclusions was raised. Biopsies again were taken and sent to pathology. This for the most part was a length of the esophagus. There was a medium hiatal hernia at GE junction. There were scattered small ulcerations noted in the stomach, but nothing was necessary significant. Biopsies were taken and sent to pathology of the antrum. The remaining stomach otherwise appeared to be normal. In the first and second portion of duodenum, there were noted to be significant ulcers, especially in the distal first portion. There were multiple white based ulcers approximately 5-6 with the largest being approximately 14 mm in circumference. No bleeding stigmata was noted. It should also be noted the moderate inflammation was noted throughout the first and second portion of duodenum. Biopsies were taken of the first portion of duodenum within the ulcer areas as well as the inflamed areas and sent to pathology. The remaining duodenum otherwise appeared to be normal. Retroflexion view performed in the stomach showed no other pathology other than noted above. The patient tolerated the procedure well. No complications during the procedure. IMPRESSION: 1. Hiatal hernia. 2. Ulceration and inflamed mucosa with white base tissue throughout the esophagus. Possibility of Freya versus viral inclusions versus other. 3. Otherwise, normal esophagus. 4. Mild inflammation in the stomach with biopsies taken, but otherwise benign stomach. 5. Ulcers in the first and second portion of duodenum with moderate inflammation, irritation and with biopsies taken and sent to pathology. RECOMMENDATIONS: 1. Follow up biopsy results. 2. PPI daily as well as Carafate suspension q.i.d. 3. Await further ID input. 4. Colonoscopy, follow further recommendation based on colonoscopy results. JOB# [id number] CAB/NTS
--- NOTE | 2018-12-26 17:51 | Operative Report ---
PROCEDURE: Colonoscopy. INDICATION: 1. Weight loss. 2. Diarrhea. 3. Abdominal pain. 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 COMPLICATIONS: None. DESCRIPTION OF PROCEDURE: The patient was brought to procedure suite. The patient had the procedure discussed with him at length. All risks, complications, and benefits discussed, after which the patient signed for the procedure performed. The patient was placed in left lateral decubitus position. Rectal exam performed prior to insertion of the scope. After adequate sedation medication as above, scope was inserted into the rectum and brought to the level of the cecum. Terminal ileum was also visualized. Colonoscope was then removed and mucosa of colon visualized. Prep quality for this procedure was fair. The patient's vital signs remained stable throughout the procedure. FINDINGS: There were no mass lesions or polyps noted during this procedure. The terminal ileum was visualized and there was noted to be significant ulcers and inflammation noted in that area. There were scattered ulcers, the largest being approximately 10-12 mm. Biopsies were taken and sent to pathology. For the most part, the proximal colon throughout the level of the distal sigmoid appeared normal. Random biopsies were taken and sent to pathology. There was mild inflammation noted in the distal sigmoid and rectum area. Biopsies were taken and sent to pathology. Medium hiatal hernia noted on retroflexion. The patient tolerated the procedure well. No complications during the procedure. IMPRESSION: 1. Ulcers with inflammation, irritation noted. Terminal ileum with biopsy performed. 2. Mild to moderate inflammation distal colon, namely distal sigmoid and rectum with biopsies taken and sent to pathology. 3. Remaining colon otherwise appeared normal with biopsies taken. 4. Internal hemorrhoids. RECOMMENDATIONS: 1. Follow up biopsy results. 2. Avoid NSAIDs and aspirin. 3. Start diet and advance as tolerated. 4. It should be noted that all biopsies, especially of the small intestine were sent for Kaposi sarcoma as well as virus and other possibly infectious. 5. We will follow for now. JOB# [id number] CAB/NTS
[2018-12-26] MEDS: CARAFATE PO SCH (19:13)
[2018-12-26] MEDS: ALINIA PO SCH ×2 (19:14→22:43)
[2018-12-26] MEDS: ISENTRESS PO SCH ×2 (19:15→22:43)
[2018-12-26] MEDS: MEPRON PO SCH (19:16)
[2018-12-26] MEDS: SODIUM CHLORIDE FLUSH SYRINGE 10 ML IV SCH ×2 (19:17→22:43)
[2018-12-26] MEDS ORDERED: TPN ADULT 2,400 ML IV SCH (20:00)
[2018-12-26] MEDS ORDERED: INTRALIPID 20% 250 ML IV SCH (20:00)
[2018-12-26] MEDS: THORAZINE 25 MG in NACL 0.9% 50 ML IV PRN (21:45)
[2018-12-27] MEDS: CARAFATE PO SCH ×4 (00:57→18:14)
[2018-12-27] MEDS: ZOFRAN IV PRN ×2 (01:10→16:04)
[2018-12-27] MEDS: ATIVAN IV PRN ×3 (02:13→22:34)
[2018-12-27] MEDS: SODIUM CHLORIDE FLUSH SYRINGE 10 ML IV PRN (02:13)
[2018-12-27 05:41] LABS: Hematocrit 35.9 % (35.5-45.6); Hemoglobin 12.2 gm/dl (11.8-15.2); Mean Corpuscular HGB Conc 34 % (32-34); Mean Corpuscular Volume 80 fl (84-94); Platelet Count 115 K/mm3 (140-440); Red Blood Count 4.49 M/mm3 (3.65-5.03); Red Cell Distribution Width 13.2 % (13.2-15.2)
[2018-12-27 06:05] LABS: Albumin 2.4 g/dL (3.9-5); Calcium 8.7 mg/dL (8.4-10.2)
[2018-12-27] MEDS: PEPCID IV SCH (09:52)
[2018-12-27] MEDS: LOVENOX SUB-Q SCH (09:52)
[2018-12-27] MEDS: SODIUM CHLORIDE FLUSH SYRINGE 10 ML IV SCH ×2 (09:53→22:36)
[2018-12-27] MEDS: SODIUM BICARBONATE 150 MEQ in STERILE WATER 1,000 ML IV SCH (09:54)
[2018-12-27] MEDS: MEPRON PO SCH (09:56)
[2018-12-27] MEDS: ALINIA PO SCH ×2 (09:57→22:33)
[2018-12-27] MEDS: VALCYTE PO SCH (09:57)
[2018-12-27] MEDS: ISENTRESS PO SCH ×2 (09:58→22:33)
--- NOTE | 2018-12-27 10:23 | Progress Note ---
Assessment and Plan - Patient Problems (1) Acute renal failure Current Visit: Yes Status: Acute Plan to address problem: Acute kidney failure Prerenal azotemia versus acute tubular necrosis secondary to hypotension/volume depletion. Hemodialysis started on 12/23/2018. Patient tolerated treatments so far. Last HD on 12/26, will observe for any signs of renal recovery over the weekend. (2) Hypokalemia Current Visit: Yes Status: Acute Plan to address problem: Dialyzed on a 4K bath, K now replete (3) Nausea vomiting and diarrhea Current Visit: Yes Status: Acute Plan to address problem: Continue management by Federico DEGROOT MD and infectious disease (4) Metabolic acidosis Current Visit: Yes Status: Acute Plan to address problem: secondary to diarrhea. now corrected with HD, d/c sodium bicarb gtt Subjective Date of service: 12/27/18 Principal diagnosis: HIV, diarrhea, acute kidney injury Interval history: Pt awake, alert, in no acute distress, remains non-oliguric Objective - Vital Signs Vital signs: Vital Signs - 12hr 12/26/18 12/27/18 23:49 06:29 Temperature 99.4 F 98.9 F Pulse Rate 154 H 152 H Respiratory 20 18 Rate Blood Pressure 107/64 118/72 O2 Sat by Pulse 95 96 Oximetry - General Appearance General appearance: appears stated age, chronically ill, frail EENT: ATNC, PERRL, mucous membranes moist Neck: no JVD Respiratory: Present: Clear to Ascultation Cardiology: regular, S1S2 Gastrointestinal: normoactive bowel sounds Integumentary: no rash, other (no edema ) Neurologic: no focal deficit, alert and oriented x3, strength 5/5, CN 3-12 intact Psychiatric: mood/affect appropriate, cooperative - Lab 12/27/18 05:30 12/27/18 05:30 Most recent lab results Calcium 8.7 mg/dL (8.4-10.2) 12/27/18 05:30 Phosphorus 3.40 mg/dL (2.5-4.5) D 12/27/18 05:30 Magnesium 1.90 mg/dL (1.7-2.3) 12/27/18 05:30 Medications & Allergies - Medications Allergies/Adverse Reactions: Allergies No Known Allergies Allergy (Verified 12/13/18 18:58) Home Medications: Home Medications Medication Instructions Recorded Confirmed Last Taken Type No Known Home Medications [No 12/18/18 12/18/18 Unknown History Reported Home Medications] Active Medications: Generic Name Dose Route Start Last Admin Trade Name Jose PRN Reason Stop Dose Admin Acetaminophen 650 mg 12/13/18 22:54 12/26/18 09:57 Tylenol PO 650 mg Q4H PRN Administration Pain MILD(1-3)/Fever >100.5/HOLT Atovaquone 1,500 mg 12/18/18 14:00 12/27/18 09:56 Mepron PO 1,500 mg QDAY MARIA E Administration Emtricitabine 200 mg 12/22/18 14:00 12/23/18 11:13 Emtriva PO 200 mg Q72HR MARIA E Administration Enoxaparin Sodium 30 mg 12/18/18 11:00 12/27/18 09:52 Lovenox SUB-Q 30 mg QDAY MARIA E Administration Famotidine 20 mg 12/23/18 16:00 12/27/18 09:52 Pepcid IV 20 mg DAILY MARIA E Administration Heparin Sodium (Porcine) 5,000 unit 12/26/18 13:00 12/26/18 13:54 Heparin IV 5,000 unit ALYSSIA PRN Administration hemodialysis Sodium Bicarbonate 150 meq/ 1,150 mls @ 100 mls/hr 12/22/18 10:00 12/27/18 09:54 Sterile Water IV 100 mls/hr DIRECT MARIA E Administration Chlorpromazine HCl 25 mg/ 51 mls @ 100 mls/hr 12/24/18 23:29 12/26/18 21:45 Sodium Chloride IV 100 mls/hr Q4H PRN Administration Hiccups Sodium Chloride 100 mls @ 999 mls/hr 12/26/18 08:34 Nacl 0.9% IV ALYSSIA PRN Hypotension Amino Acids/Electrolytes/Dextrose 2,400 mls @ 100 mls/hr 12/26/18 20:00 12/26/18 21:18 Tpn Adult IV 12/27/18 19:59 100 mls/hr DAILY@2000 MARIA E Administration Protocol Sodium Chloride 1,000 mls @ 50 mls/hr 12/26/18 14:00 12/26/18 14:41 Nacl 0.9% 1000 Ml IV 50 mls/hr DIRECT MARIA E Administration Lorazepam 1 mg 12/22/18 12:06 12/27/18 02:13 Ativan IV 1 mg Q4H PRN Administration for insomnia or anxiety Metoclopramide HCl 5 mg 12/22/18 10:00 12/25/18 17:32 Reglan IV 5 mg Q6H PRN Administration Nausea And Vomiting Nitazoxanide 500 mg 12/23/18 10:00 12/27/18 09:57 Alinia (Nf) PO 500 mg BID MARIA E Administration Ondansetron HCl 4 mg 12/13/18 22:54 12/27/18 01:10 Zofran IV 4 mg Q4H PRN Administration Nausea And Vomiting Raltegravir 400 mg 12/22/18 14:00 12/27/18 09:58 Isentress PO 400 mg BID MARIA E Administration Sodium Chloride 10 ml 12/14/18 10:00 12/27/18 09:53 Sodium Chloride Flush Syringe 10 Ml IV 10 ml BID MARIA E Administration Sodium Chloride 10 ml 12/13/18 22:54 12/27/18 02:13 Sodium Chloride Flush Syringe 10 Ml IV 10 ml PRN PRN Administration LINE FLUSH Sucralfate 1 gm 12/26/18 18:00 12/27/18 09:58 Carafate PO 1 gm Q6HR MARIA E Administration Temazepam 15 mg 12/21/18 18:13 12/21/18 21:07 Restoril PO 15 mg QHS PRN Administration Sleep Tenofovir Disoproxil Fumarate 300 mg 12/22/18 14:00 Viread PO Q72HR MARIA E Valganciclovir 450 mg 12/25/18 10:00 12/27/18 09:57 Valcyte (Nf) PO 450 mg Q48HR MARIA E Administration
--- NOTE | 2018-12-27 10:46 | Gastroenterology Progress Note ---
Assessment and Plan GI: pt HIV/AIDS w/ Shigella/Cryto, egd/colonoscopy w/ inflammation/ulcers proximal and distal small intestine and distal colon - colon bx's pending - suspect infectious process due to HIV disease - awaiting bx's - management per ID - diet as ordered - will follow for now Subjective Date of service: 12/27/18 Principal diagnosis: HIV, diarrhea, acute kidney injury Interval history: - pt with continued loose stool, general weakness Objective - Constitutional Vitals: Temp Pulse Resp BP Pulse Ox 98.9 F 152 H 18 118/72 96 12/27/18 06:29 12/27/18 06:29 12/27/18 06:29 12/27/18 06:29 12/27/18 06:29 General appearance: no acute distress - EENT Eyes: PERRL - Respiratory Respiratory: bilateral: CTA - Cardiovascular Rhythm: regular Heart Sounds: Present: S1 & S2 - Gastrointestinal General gastrointestinal: Present: soft, non-tender, non-distended - Labs CBC & Chem 7: 12/27/18 05:30 12/27/18 05:30 Labs: Laboratory Results - last 24 hr 12/27/18 12/27/18 05:30 05:30 WBC 10.4 RBC 4.49 Hgb 12.2 Hct 35.9 MCV 80 L MCH 27 L MCHC 34 RDW 13.2 Plt Count 115 L Sodium 144 Potassium 3.8 Chloride 97.2 L Carbon Dioxide 34 H Anion Gap 17 BUN 51 H Creatinine 2.9 H Estimated GFR 31 BUN/Creatinine Ratio 18 Glucose 120 H Calcium 8.7 Phosphorus 3.40 D Magnesium 1.90 Total Bilirubin 0.40 AST 75 H ALT 26 Alkaline Phosphatase 45 Total Protein 6.3 Albumin 2.4 L Albumin/Globulin Ratio 0.6
[2018-12-27] MEDS: TYLENOL PO PRN (11:45)
[2018-12-27] MEDS: QUESTRAN PO SCH ×2 (13:30→22:34)
--- NOTE | 2018-12-27 14:20 | Progress Note ---
Assessment and Plan Assessment and plan: Patient is a 28-year-old man with a history of HIV diagnosis 2 years ago, without any follow up, not on antiviral who presented to [facility] ED with nausea/vomiting and diarrhea which began after he ate [employer]. Mother did not know of her son HIV status. CMV has come back positive. Patient is still having severe diarrhea, he is unable to eat >7 days, now CMV positive. This is one of the worse cases of AGE/diarrhea. Cultures: 12/13/18 Urine: less than 10K 12/14/18 Stool: Shigella species 12/14/18 C-Diff: negative 12/17/18 HIV Rapid; reactive 12/17/18 Cryptosporidium: positive : Giardia: negative 12/18/2018 serum Cryptococcal Ag: Negative 12/26/2018 Procedure: EGD/colonoscopy Pre-op diagnosis: diarrhea, weight loss Post-op diagnosis: same Findings: EGD: hiatal hernia - white based moderate inflammation, ulceration noted throughout esophagus (bx's) - fairly benign stomach (bx's) - multiple (5-6) ulcers with inflammation noted 1st-proximal 2nd portion duodenum (larget 12-14 mm circumference) with moderate inflammation remaining mucosa (bx's) - negative other Colon: multiple white mainly white based, shallow ulcers (largest 12 mm) scatterred terminal ileum (bx's) - mild/moderate inflammation distal sigmoid/rectum (bx's) - otherwise normal colon (bx's) Plan: f/u bx's - start PPI/Carafate - po - await further ID input - will follow Sepsis due to Acute bacterial gastroenteritis secondary to Shigella with 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 Still NPO, on TPN with left arm PICC and rectal tube in place. Treat with Ceftriaxone and Azithromycin as dual coverage for the Shigella and also on empiric IV Flagyl. 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 ID to follow up HIV-VL, HIV-genotype, consulted GI Hyperkalemia, Was medically treated, now resolved: monitor bmp closely Hypokalemia, now: replete and follow bmp Moderate malnutrition: Switchboard Operator Helper consult, for TPN Chest pains with dyspepsia; Consulted GI DVT prophylaxis lovenox Hemodialysis started 12/23/18 New issue of tachycardia, EKG shows sinus tachy suspected because pt is still febrile and in pain. I consulted Cardiology and ordered Echo. bp borderline low to give bblocker or cardizem. History Interval history: Patient was seen and examined. Follow-up on current diagnosis AIDs defining illness. No overnight events reported to me. Patient denies any shortness breath, or severe headaches. Imaging, nursing note, chart, labs and old chart reviewed. Discussed with patient. Aunt Sri, Aunt Rito, and cousin Claudio at bedside. NO detail history discussed with them. He is still nauseated. Hospitalist Physical - Physical exam Narrative exam: Gen: WDWN, NAD, Awake, Alert, Orientated HEENT: NCAT, EOMI, PERRL, OP Clear Neck: supple, no adenopathy, no thyromegaly, no JVD CVS/Heart: RRR, normal S1S2, pulses present bilaterally Chest/Lungs: CTA B, Symmetrical chest expansion, good air entry bilaterally GI/Abdomen: soft, NTND, good bowel sounds, no guarding or rebound /Bladder: no suprapubic tenderness, no CVA or paraspinal tenderness Extermity/Skin: no c/c/e, no obvious rash MSK: FROM x 4 Neuro: CN 2-12 grossly intact, no new focal deficits Psych: calm - Constitutional Vitals: Temp Pulse Resp BP Pulse Ox 98.9 F 152 H 18 118/72 96 12/27/18 06:29 12/27/18 06:29 12/27/18 06:29 12/27/18 06:29 12/27/18 06:29 Results - Labs CBC & Chem 7: 12/27/18 05:30 12/27/18 05:30 Labs: Laboratory Last Values WBC 10.4 K/mm3 (4.5-11.0) 12/27/18 05:30 RBC 4.49 M/mm3 (3.65-5.03) 12/27/18 05:30 Hgb 12.2 gm/dl (11.8-15.2) 12/27/18 05:30 Hct 35.9 % (35.5-45.6) 12/27/18 05:30 MCV 80 fl (84-94) L 12/27/18 05:30 MCH 27 pg (28-32) L 12/27/18 05:30 MCHC 34 % (32-34) 12/27/18 05:30 RDW 13.2 % (13.2-15.2) 12/27/18 05:30 Plt Count 115 K/mm3 (140-440) L 12/27/18 05:30 Lymph % (Auto) 13.4 % (13.4-35.0) 12/19/18 05:49 Rains % (Auto) 13.3 % (0.0-7.3) H 12/19/18 05:49 Eos % (Auto) 0.1 % (0.0-4.3) 12/19/18 05:49 Baso % (Auto) 0.3 % (0.0-1.8) 12/19/18 05:49 Lymph # 1.1 K/mm3 (1.2-5.4) L 12/19/18 05:49 Rains # 1.0 K/mm3 (0.0-0.8) H 12/19/18 05:49 Eos # 0.0 K/mm3 (0.0-0.4) 12/19/18 05:49 Baso # 0.0 K/mm3 (0.0-0.1) 12/19/18 05:49 Seg Neutrophils % 72.9 % (40.0-70.0) H 12/19/18 05:49 Seg Neutrophils # 5.7 K/mm3 (1.8-7.7) 12/19/18 05:49 Abs Lymphs (Manual) See scanned result 12/16/18 16:36 PT 16.0 Sec. (12.2-14.9) H 12/26/18 05:10 INR 1.31 (0.87-1.13) H 12/26/18 05:10 POC ABG pH 7.324 (7.35-7.45) L 12/18/18 08:56 POC ABG pCO2 < 30 (35-45) L 12/18/18 08:56 POC ABG pO2 167 (80-105) H 12/18/18 08:56 POC ABG HCO3 11.3 (22-26 mml/L) 12/18/18 08:56 POC ABG Total CO2 12 (23-27mmol/L) 12/18/18 08:56 POC ABG O2 Sat 99 12/18/18 08:56 POC ABG Base Excess -15 ((-2) - (+3)mmol/L) 12/18/18 08:56 28 % 12/18/18 08:56 Sodium 144 mmol/L (137-145) 12/27/18 05:30 Potassium 3.8 mmol/L (3.6-5.0) 12/27/18 05:30 Chloride 97.2 mmol/L (98-107) L 12/27/18 05:30 Carbon Dioxide 34 mmol/L (22-30) H 12/27/18 05:30 17 mmol/L 12/27/18 05:30 BUN 51 mg/dL (9-20) H 12/27/18 05:30 2.9 mg/dL (0.8-1.5) H 12/27/18 05:30 Estimated GFR 31 ml/min 12/27/18 05:30 18 % 12/27/18 05:30 Glucose 120 mg/dL (75-100) H 12/27/18 05:30 POC Glucose 115 (70-105) H 12/22/18 11:08 Lactic Acid 2.70 mmol/L (0.7-2.0) H* 12/19/18 10:50 Calcium 8.7 mg/dL (8.4-10.2) 12/27/18 05:30 Phosphorus 3.40 mg/dL (2.5-4.5) D 12/27/18 05:30 Magnesium 1.90 mg/dL (1.7-2.3) 12/27/18 05:30 0.40 mg/dL (0.1-1.2) 12/27/18 05:30 AST 75 units/L (5-40) H 12/27/18 05:30 ALT 26 units/L (7-56) 12/27/18 05:30 45 units/L (35-129) 12/27/18 05:30 6.3 g/dL (6.3-8.2) 12/27/18 05:30 2.4 g/dL (3.9-5) L 12/27/18 05:30 0.6 % 12/27/18 05:30 Triglycerides 148 mg/dL (2-149) 12/23/18 04:18 85 units/L (13-60) H 12/13/18 18:57 Yellow (Yellow) 12/13/18 20:40 Cloudy (Clear) 12/13/18 20:40 5.0 (5.0-7.0) 12/13/18 20:40 Ur Specific Barney 1.014 (1.003-1.030) 12/13/18 20:40 100 mg/dl mg/dL (Negative) 12/13/18 20:40 Neg mg/dL (Negative) 12/13/18 20:40 Neg mg/dL (Negative) 12/13/18 20:40 Lg (Negative) 12/13/18 20:40 Neg (Negative) 12/13/18 20:40 Neg (Negative) 12/13/18 20:40 < 2.0 mg/dL (<2.0) 12/13/18 20:40 Ur Leukocyte Esterase Neg (Negative) 12/13/18 20:40 22.0 /HPF (0.0-6.0) H 12/13/18 20:40 9.0 /HPF (0.0-6.0) 12/13/18 20:40 U Epithel Cells (Auto) 2.0 /HPF (0-13.0) 12/13/18 20:40 1+ /HPF (Negative) 12/13/18 20:40 Hyaline Casts 2 /LPF 12/13/18 20:40 3+ /HPF 12/13/18 20:40 2+ /HPF 12/13/18 20:40 Lymph Enumerat CD4/CD8 See scanned result 12/16/18 16:36 % CD3 Cells See scanned result 12/16/18 16:36 See scanned result 12/16/18 16:36 % CD4 Cells See scanned result 12/16/18 16:36 See scanned result 12/16/18 16:36 % CD8 Cells See scanned result 12/16/18 16:36 See scanned result 12/16/18 16:36 % CD19 Cells See scanned result 12/16/18 16:36 See scanned result 12/16/18 16:36 C. 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 See scanned result 12/18/18 12:29 Hepatitis A IgM Ab Non-reactive (NonReactive) 12/23/18 11:20 Hep Bs Antigen Non-reactive (Negative) 12/23/18 11:20 Hep B Core IgM Ab Non-reactive (NonReactive) 12/23/18 11:20 Non-reactive (NonReactive) 12/23/18 11:20 See scanned result 12/16/18 16:49 HIV-1 RNA PCR copies/ml TNR 12/16/18 16:36 TNR 12/16/18 16:36 Tnp 12/16/18 16:36 HIV-2 Ab (Immunoblot) See scanned result 12/16/18 16:49 HIV 1&2 Antibody Rapid Reactive (Non React) 12/16/18 16:36 Non react (Non React) 12/16/18 16:36 Active Medications - Current Medications Current Medications: Generic Name Dose Route Start Last Admin Trade Name Freq PRN Reason Stop Dose Admin Acetaminophen 650 mg 12/13/18 22:54 12/27/18 11:45 Tylenol PO 650 mg Q4H PRN Administration Pain MILD(1-3)/Fever >100.5/HOLT Atovaquone 1,500 mg 12/18/18 14:00 12/27/18 09:56 Mepron PO 1,500 mg QDAY MARIA E Administration Cholestyramine Resin 4 gm 12/27/18 11:00 12/27/18 13:30 Questran PO 4 gm BID MARIA E Administration Emtricitabine 200 mg 12/22/18 14:00 12/23/18 11:13 Emtriva PO 200 mg Q72HR MARIA E Administration Enoxaparin Sodium 30 mg 12/18/18 11:00 12/27/18 09:52 Lovenox SUB-Q 30 mg QDAY MARIA E Administration Famotidine 20 mg 12/23/18 16:00 12/27/18 09:52 Pepcid IV 20 mg DAILY MARIA E Administration Heparin Sodium (Porcine) 5,000 unit 12/26/18 13:00 12/26/18 13:54 Heparin IV 5,000 unit ALYSSIA PRN Administration hemodialysis Chlorpromazine HCl 25 mg/ 51 mls @ 100 mls/hr 12/24/18 23:29 12/26/18 21:45 Sodium Chloride IV 100 mls/hr Q4H PRN Administration Hiccups Sodium Chloride 100 mls @ 999 mls/hr 12/26/18 08:34 Nacl 0.9% IV ALYSSIA PRN Hypotension Amino Acids/Electrolytes/Dextrose 2,400 mls @ 100 mls/hr 12/26/18 20:00 12/26/18 21:18 Tpn Adult IV 12/27/18 19:59 100 mls/hr DAILY@1999 MARIA E Administration Protocol Sodium Chloride 1,000 mls @ 50 mls/hr 12/26/18 14:00 12/26/18 14:41 Nacl 0.9% 1000 Ml IV 50 mls/hr DIRECT MARIA E Administration Amino Acids/Electrolytes/Dextrose 2,400 mls @ 100 mls/hr 12/27/18 20:00 Tpn Adult IV 12/28/18 19:59 DAILY@1999 [facility] Protocol Lorazepam 1 mg 12/22/18 12:06 12/27/18 02:13 Ativan IV 1 mg Q4H PRN Administration for insomnia or anxiety Metoclopramide HCl 5 mg 12/22/18 10:00 12/25/18 17:32 Reglan IV 5 mg Q6H PRN Administration Nausea And Vomiting Nitazoxanide 500 mg 12/23/18 10:00 12/27/18 09:57 Alinia (Nf) PO 500 mg BID MARIA E Administration Ondansetron HCl 4 mg 12/13/18 22:54 12/27/18 01:10 Zofran IV 4 mg Q4H PRN Administration Nausea And Vomiting Raltegravir 400 mg 12/22/18 14:00 12/27/18 09:58 Isentress PO 400 mg BID MARIA E Administration Sodium Chloride 10 ml 12/14/18 10:00 12/27/18 09:53 Sodium Chloride Flush Syringe 10 Ml IV 10 ml BID MARIA E Administration Sodium Chloride 10 ml 12/13/18 22:54 12/27/18 02:13 Sodium Chloride Flush Syringe 10 Ml IV 10 ml PRN PRN Administration LINE FLUSH Sucralfate 1 gm 12/26/18 18:00 12/27/18 13:32 Carafate PO 1 gm Q6HR MARIA E Administration Temazepam 15 mg 12/21/18 18:13 12/21/18 21:07 Restoril PO 15 mg QHS PRN Administration Sleep Tenofovir Disoproxil Fumarate 300 mg 12/22/18 14:00 Viread PO Q72HR MARIA E Valganciclovir 450 mg 12/25/18 10:00 12/27/18 09:57 Valcyte (Nf) PO 450 mg Q48HR MARIA E Administration Nutrition/Malnutrition Assess - Dietary Evaluation Nutrition/Malnutrition Findings: Nutrition Notes Start: 12/19/18 15:24 Freq: Status: Active Protocol: Document 12/27/18 10:36 LP (Rec: 12/27/18 10:51 LP [email or web address]) Nutrition Notes Initial or Follow up Reassessment Current Diagnosis Acute Kidney Injury,Sepsis Other Pertinent Diagnosis Shigella enteritis, N/V/D, dehydration, Gastroenteritis, HIV Current Diet PPN at 100ml/hr + GI soft Labs/Tests Reviewed Pertinent Medications Reviewed Height 6 ft 2 in Weight 78.1 kg [place] Body Weight (kg) 86.36 BMI 22.1 Subjective/Other Information Day 6 CPN. Hiatial hernia found. Pt consumed a small amount of oatmeal this morning . Pt has been drinking juice. Tolerating so far but continues with diarrhea. Percent of energy/protein needs met: 38%/100% Burn Absent Trauma Absent #1 Nutrition Diagnosis Inadequate oral intake Diagnosis Progress(for reassessment Continues documentation) Is patient on ventilator? No Is Patient Ambulatory and/or Out of Bed Yes REE-([facility]-ambulatory/OOB) [ [id number] [id number]] Calculation Used for Recommendations [facility] Additional Notes Protein Needs: 75-97g (1-1.3g/ kg) Fluid Needs: 1 ml/kcal Nutrition Intervention Change Diet Order: TPN + GI soft diet Nutrition Support: CPN at 100ml/hr: 6.3% dextrose, 4% amino acid MVI, Chloride: Acetate 75:25 Osmolality: 948 Kcal 890 Protein (gm) 95 Carbohydrates (gm) 150 Fat (gm) 0 Fluid (mL) 2,400 Fiber (gm) 0 Add Supplement/Snack (indicate name/kcal Ensure Clear apple TID /protein ) Provides kCal: 720 Provides Protein (gm) 24 Goal #1 CPN and Diet to meet nutritional needs as best possible Anticipated Discharge Needs: Unable to determine at this time Follow-Up By: 12/28/18 Additional Comments Labs in AM: BMP, Mg, Cornels
[2018-12-27] MEDS: REGLAN IV PRN (19:36)
[2018-12-27] MEDS ORDERED: TPN ADULT 2,400 ML IV SCH (20:00)
[2018-12-28] MEDS: TYLENOL PO PRN (01:21)
[2018-12-28] MEDS: ATIVAN IV PRN ×2 (02:44→21:17)
[2018-12-28] MEDS: CARAFATE PO SCH ×4 (06:43→18:09)
[2018-12-28 07:42] LABS: Calcium 9.8 mg/dL (8.4-10.2)
--- NOTE | 2018-12-28 09:00 | Progress Note ---
Assessment and Plan - Patient Problems (1) Acute renal failure Current Visit: Yes Status: Acute Plan to address problem: Acute kidney failure Prerenal azotemia versus acute tubular necrosis secondary to hypotension/volume depletion. Hemodialysis started on 12/23/2018. Patient tolerated treatments so far. Last HD on 12/26, will observe for any signs of renal recovery over the weekend. (2) Hypokalemia Current Visit: Yes Status: Acute Plan to address problem: Dialyzed on a 4K bath, K now replete (3) Nausea vomiting and diarrhea Current Visit: Yes Status: Acute Plan to address problem: Continue management by Federico DEGROOT MD and infectious disease (4) Metabolic acidosis Current Visit: Yes Status: Acute Plan to address problem: secondary to diarrhea. now corrected with HD, d/guillermo sodium bicarb gtt Subjective Date of service: 12/28/18 Principal diagnosis: HIV, diarrhea, acute kidney injury Interval history: Pt awake, alert, in no acute distress, remains non-oliguric Objective - Vital Signs Vital signs: Vital Signs - 12hr 12/28/18 12/28/18 01:11 05:32 Temperature 101.2 F H 97.7 F Pulse Rate 160 H 149 H Respiratory 22 20 Rate Blood Pressure 127/78 125/91 O2 Sat by Pulse 94 94 Oximetry - General Appearance General appearance: appears stated age, cachectic, frail EENT: ATNC, PERRL, mucous membranes moist Neck: no JVD Respiratory: Present: Clear to Ascultation Cardiology: regular, S1S2 Gastrointestinal: normoactive bowel sounds Integumentary: no rash, other (no edema ) Neurologic: no focal deficit, alert and oriented x3, strength 5/5, CN 3-12 intact Psychiatric: mood/affect appropriate, cooperative - Lab 12/27/18 05:30 12/28/18 06:00 Most recent lab results Calcium 9.8 mg/dL (8.4-10.2) 12/28/18 06:00 Phosphorus 5.80 mg/dL (2.5-4.5) H D 12/28/18 06:00 Magnesium 2.00 mg/dL (1.7-2.3) 12/28/18 06:00 Medications & Allergies - Medications Allergies/Adverse Reactions: Allergies No Known Allergies Allergy (Verified 12/13/18 18:58) Home Medications: Home Medications Medication Instructions Recorded Confirmed Last Taken Type No Known Home Medications [No 07/11/19 07/11/19 Unknown History Reported Home Medications] Active Medications: Generic Name Dose Route Start Last Admin Trade Name Jose PRN Reason Stop Dose Admin Acetaminophen 650 mg 12/13/18 22:54 12/28/18 01:21 Tylenol PO 650 mg Q4H PRN Administration Pain MILD(1-3)/Fever >100.5/HOLT Atovaquone 1,500 mg 12/18/18 14:00 12/27/18 09:56 Mepron PO 1,500 mg QDAY MARIA E Administration Cholestyramine Resin 4 gm 12/27/18 11:00 12/27/18 22:34 Questran PO 4 gm BID MARIA E Administration Emtricitabine 200 mg 12/22/18 14:00 12/23/18 11:13 Emtriva PO 200 mg Q72HR MARIA E Administration Enoxaparin Sodium 30 mg 12/18/18 11:00 12/27/18 09:52 Lovenox SUB-Q 30 mg QDAY MARIA E Administration Famotidine 20 mg 12/23/18 16:00 12/27/18 09:52 Pepcid IV 20 mg DAILY MARIA E Administration Heparin Sodium (Porcine) 5,000 unit 12/26/18 13:00 12/26/18 13:54 Heparin IV 5,000 unit ALYSSIA PRN Administration hemodialysis Sodium Chloride 100 mls @ 999 mls/hr 12/26/18 08:34 Nacl 0.9% IV ALYSSIA PRN Hypotension Sodium Chloride 1,000 mls @ 50 mls/hr 12/26/18 14:00 12/26/18 14:41 Nacl 0.9% 1000 Ml IV 50 mls/hr DIRECT MARIA E Administration Amino Acids/Electrolytes/Dextrose 2,400 mls @ 100 mls/hr 12/27/18 20:00 12/27/18 20:00 Tpn Adult IV 12/28/18 19:59 100 mls/hr DAILY@2000 MARIA E Administration Protocol Lorazepam 1 mg 12/22/18 12:06 12/28/18 02:44 Ativan IV 1 mg Q4H PRN Administration for insomnia or anxiety Metoclopramide HCl 5 mg 12/22/18 10:00 12/27/18 19:36 Reglan IV 5 mg Q6H PRN Administration Nausea And Vomiting Nitazoxanide 500 mg 12/23/18 10:00 12/27/18 22:33 Alinia (Nf) PO 500 mg BID MARIA E Administration Ondansetron HCl 4 mg 12/13/18 22:54 12/27/18 16:04 Zofran IV 4 mg Q4H PRN Administration Nausea And Vomiting Raltegravir 400 mg 12/22/18 14:00 12/27/18 22:33 Isentress PO 400 mg BID MARIA E Administration Sodium Chloride 10 ml 12/14/18 10:00 12/27/18 22:36 Sodium Chloride Flush Syringe 10 Ml IV 10 ml BID MARIA E Administration Sodium Chloride 10 ml 12/13/18 22:54 12/27/18 02:13 Sodium Chloride Flush Syringe 10 Ml IV 10 ml PRN PRN Administration LINE FLUSH Sucralfate 1 gm 12/26/18 18:00 12/28/18 06:43 Carafate PO 1 gm Q6HR MARIA E Administration Tenofovir Disoproxil Fumarate 300 mg 12/22/18 14:00 Viread PO Q72HR MARIA E Valganciclovir 450 mg 12/25/18 10:00 12/27/18 09:57 Valcyte (Nf) PO 450 mg Q48HR MARIA E Administration
[2018-12-28] MEDS: ALINIA PO SCH ×2 (10:18→21:00)
[2018-12-28] MEDS: ISENTRESS PO SCH ×2 (10:20→21:00)
[2018-12-28] MEDS: PEPCID IV SCH (10:22)
[2018-12-28] MEDS: MEPRON PO SCH (10:22)
[2018-12-28] MEDS: LOVENOX SUB-Q SCH (10:23)
[2018-12-28] MEDS: QUESTRAN PO SCH ×2 (10:25→21:01)
[2018-12-28] MEDS: SODIUM CHLORIDE FLUSH SYRINGE 10 ML IV SCH ×2 (10:25→21:15)
--- NOTE | 2018-12-28 13:10 | Consultation ---
History of Present Illness Consult date: 12/28/18 Requesting physician: CECE HUANG Consult reason: tachycardia History of present illness: The patient has a history HIV positivity with no prior therapies. He presented with acute gastroenteritis which has been found to be due to Shigella with Cryptosporidium co-infection. Endoscopy revealed uclers in the esophagus, duodenum, terminal ileum and colon. Cardiology consult was requested on account of sinus tachycardia. He denies CP, dyspnea, palpitations or dizziness. Past History Past Medical History: other (chronic migraines, HIV) Past Surgical History: No surgical history Social history: denies: smoking, alcohol abuse Family history: no significant family history Medications and Allergies Allergies Allergy/AdvReac Type Severity Reaction Status Date / Time No Known Allergies Allergy Verified 12/13/18 18:58 Home Medications Medication Instructions Recorded Confirmed Last Taken Type No Known Home Medications [No 12/18/18 12/18/18 Unknown History Reported Home Medications] Active Meds: Active Medications Acetaminophen (Tylenol) 650 mg PO Q4H PRN PRN Reason: Pain MILD(1-3)/Fever >100.5/HOLT Last Admin: 12/28/18 01:21 Dose: 650 mg Documented by: Atovaquone (Mepron) 1,500 mg PO QDAY [facility] Last Admin: 12/28/18 10:22 Dose: 1,500 mg Documented by: Cholestyramine Resin (Questran) 4 gm PO BID [facility] Last Admin: 12/28/18 10:25 Dose: 4 gm Documented by: Emtricitabine (Emtriva) 200 mg PO Q72HR [facility] Last Admin: 12/23/18 11:13 Dose: 200 mg Documented by: Enoxaparin Sodium (Lovenox) 30 mg SUB-Q QDAY [facility] Last Admin: 12/28/18 10:23 Dose: 30 mg Documented by: Famotidine (Pepcid) 20 mg IV DAILY [facility] Last Admin: 12/28/18 10:22 Dose: 20 mg Documented by: Heparin Sodium (Porcine) (Heparin) 5,000 unit IV ALYSSIA PRN PRN Reason: hemodialysis Last Admin: 12/26/18 13:54 Dose: 5,000 unit Documented by: Sodium Chloride (Nacl 0.9%) 100 mls @ 999 mls/hr IV ALYSSIA PRN PRN Reason: Hypotension Sodium Chloride (Nacl 0.9% 1000 Ml) 1,000 mls @ 50 mls/hr IV DIRECT [facility] Last Admin: 12/26/18 14:41 Dose: 50 mls/hr Documented by: Amino Acids/Electrolytes/Dextrose (Tpn Adult) 2,400 mls @ 100 mls/hr IV DAILY@1999 [facility]; Protocol Stop: 12/28/18 19:59 Last Admin: 12/27/18 20:00 Dose: 100 mls/hr Documented by: Amino Acids/Electrolytes/Dextrose (Tpn Adult) 2,400 mls @ 100 mls/hr IV DAILY@1999 [facility]; Protocol Stop: 12/29/18 19:59 Lorazepam (Ativan) 1 mg IV Q4H PRN PRN Reason: for insomnia or anxiety Last Admin: 12/28/18 02:44 Dose: 1 mg Documented by: Metoclopramide HCl (Reglan) 5 mg IV Q6H PRN PRN Reason: Nausea And Vomiting Last Admin: 12/27/18 19:36 Dose: 5 mg Documented by: Nitazoxanide (Alinia (Nf)) 500 mg PO BID [facility] Last Admin: 12/28/18 10:18 Dose: 500 mg Documented by: Ondansetron HCl (Zofran) 4 mg IV Q4H PRN PRN Reason: Nausea And Vomiting Last Admin: 12/27/18 16:04 Dose: 4 mg Documented by: Raltegravir (Isentress) 400 mg PO BID [facility] Last Admin: 12/28/18 10:20 Dose: 400 mg Documented by: Sodium Chloride (Sodium Chloride Flush Syringe 10 Ml) 10 ml IV BID [facility] Last Admin: 12/28/18 10:25 Dose: 10 ml Documented by: Sodium Chloride (Sodium Chloride Flush Syringe 10 Ml) 10 ml IV PRN PRN PRN Reason: LINE FLUSH Last Admin: 12/27/18 02:13 Dose: 10 ml Documented by: Sucralfate (Carafate) 1 gm PO Q6HR [facility] Last Admin: 12/28/18 06:43 Dose: 1 gm Documented by: Tenofovir Disoproxil Fumarate (Viread) 300 mg PO Q72HR [facility] Valganciclovir (Valcyte (Nf)) 450 mg PO Q48HR [facility] Last Admin: 12/27/18 09:57 Dose: 450 mg Documented by: Review of Systems Constitutional: no fever, no chills Ears, nose, mouth and throat: no ear pain, no ear discharge, no hoarseness Cardiovascular: no chest pain, no palpitations, no lightheadedness, no shortness of breath Respiratory: no cough, no hemoptysis, no shortness of breath Gastrointestinal: abdominal pain, nausea, vomiting, diarrhea, no constipation Genitourinary Male: no dysuria, no urinary frequency Rectal: no pain, no bleeding Musculoskeletal: no neck stiffness, no neck pain, no myalgias Integumentary: no rash, no pruritis Neurological: no weakness, no parathesias, no numbness, no tingling, no headaches Endocrine: no cold intolerance, no heat intolerance Hematologic/Lymphatic: no easy bruising, no easy bleeding Allergic/Immunologic: no urticaria, no wheezing Physical Examination Vital Signs Last Vital Signs Temp 97.6 F 12/28/18 11:30 Pulse 161 H 12/28/18 11:30 Resp 24 12/28/18 11:30 BP 140/83 12/28/18 11:30 Pulse Ox 96 12/28/18 11:30 General appearance: no acute distress HEENT: Positive: EOMI, Normocephaly, Mucus Membranes Moist Neck: Positive: neck supple, trachea midline Cardiac: Positive: Reg Rate and Rhythm, S1/S2 Lungs: Positive: clear to auscultation Neuro: Positive: Grossly Intact Abdomen: Positive: Soft, Active Bowel Sounds, Tender Skin: Positive: Clear. Negative: Rash Musculoskeletal: Normal Range of Motion Extremities: Present: normal. Absent: edema Results 12/27/18 05:30 12/28/18 06:00 Comprehensive Metabolic Panel 12/28/18 Range/Units 06:00 Sodium 145 (137-145) mmol/L Potassium 3.9 (3.6-5.0) mmol/L Chloride 94.9 L (98-107) mmol/L Carbon Dioxide 31 H (22-30) mmol/L BUN 75 H (9-20) mg/dL Creatinine 2.9 H (0.8-1.5) mg/dL Glucose 112 H (75-100) mg/dL Calcium 9.8 (8.4-10.2) mg/dL - Imaging and Cardiology EKG: image reviewed EKG interpretations - Telemetry EKG Rhythm: Sinus Tachycardia Assessment and Plan His sinus sinus tachycardia is likely a physiologic response to underlying septic process plus dehydration. Rx IVF. Place of telemetry. For marked tachycardia >150s, may utilize beta roberto if BP permits. Obtain echo. - Patient Problems (1) Sinus tachycardia Current Visit: Yes Status: Acute (2) Sepsis Current Visit: Yes Status: Acute (3) Acute gastroenteritis Current Visit: Yes Status: Acute (4) Acute renal failure Current Visit: Yes Status: Acute (5) AIDS Current Visit: Yes Status: Acute
[2018-12-28] MEDS: LOPRESSOR PO SCH ×2 (14:22→21:09)
--- NOTE | 2018-12-28 14:30 | Progress Note ---
Assessment and Plan Assessment and plan: Patient is a 28-year-old man with a history of HIV diagnosis 2 years ago, without any follow up, not on antiviral who presented to [facility] ED with nausea/vomiting and diarrhea which began after he ate [employer]. Mother did not know of her son HIV status. CMV has come back positive. Patient is still having severe diarrhea, he is unable to eat >7 days, now CMV positive. This is one of the worse cases of AGE/diarrhea. Cultures: 12/13/18 Urine: less than 10K 12/14/18 Stool: Shigella species 12/14/18 C-Diff: negative 12/17/18 HIV Rapid; reactive 12/17/18 Cryptosporidium: positive : Giardia: negative 12/18/2018 serum Cryptococcal Ag: Negative 12/20/18 CMV DNA PCR positive 12/26/2018 Procedure: EGD/colonoscopy Pre-op diagnosis: diarrhea, weight loss Post-op diagnosis: same Findings: EGD: hiatal hernia - white based moderate inflammation, ulceration noted throughout esophagus (bx's) - fairly benign stomach (bx's) - multiple (5-6) ulcers with inflammation noted 1st-proximal 2nd portion duodenum (larget 12-14 mm circumference) with moderate inflammation remaining mucosa (bx's) - negative other Colon: multiple white mainly white based, shallow ulcers (largest 12 mm) scatterred terminal ileum (bx's) - mild/moderate inflammation distal sigmoid/rectum (bx's) - otherwise normal colon (bx's) Plan: f/u bx's - start PPI/Carafate - po - await further ID input - will follow Sepsis due to Acute bacterial gastroenteritis secondary to Shigella with 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 Still NPO, on TPN with left arm PICC and rectal tube in place. Treat with Ceftriaxone and Azithromycin as dual coverage for the Shigella and also on empiric IV Flagyl. 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 ID to follow up HIV-VL, HIV-genotype, consulted GI Hyperkalemia, Was medically treated, now resolved: monitor bmp closely Hypokalemia, now: replete and follow bmp Moderate malnutrition: [employer] consult, for TPN Chest pains with dyspepsia; Consulted GI DVT prophylaxis lovenox Hemodialysis started 12/23/18 New issue of tachycardia, EKG shows sinus tachy suspected because pt is still febrile and in pain. I consulted Cardiology because HR >150, ECHO pending;. bp borderline low to give bblocker or cardizem. Still on TPN which was started on 12/22/18 History Interval history: Patient was seen and examined. Follow-up on current diagnosis AIDs defining illness. No overnight events reported to me. Patient denies any shortness breath, or severe headaches. Imaging, nursing note, chart, labs and old chart reviewed. Discussed with patient. Aunt Hitesh and mother at bedside. He is still nauseated. Hospitalist Physical - Physical exam Narrative exam: Gen: WDWN, NAD, Awake, Alert, Orientated HEENT: NCAT, EOMI, PERRL, OP Clear Neck: supple, no adenopathy, no thyromegaly, no JVD CVS/Heart: RRR, normal S1S2, pulses present bilaterally Chest/Lungs: CTA B, Symmetrical chest expansion, good air entry bilaterally GI/Abdomen: soft, NTND, good bowel sounds, no guarding or rebound /Bladder: no suprapubic tenderness, no CVA or paraspinal tenderness Extermity/Skin: no c/c/e, no obvious rash MSK: FROM x 4 Neuro: CN 2-12 grossly intact, no new focal deficits Psych: calm - Constitutional Vitals: Temp Pulse Resp BP Pulse Ox 97.6 F 152 H 24 140/83 96 12/28/18 11:30 12/28/18 14:22 12/28/18 11:30 12/28/18 11:30 12/28/18 11:30 General appearance: Present: no acute distress Results - Labs CBC & Chem 7: 12/27/18 05:30 12/28/18 06:00 Labs: Laboratory Last Values WBC 10.4 K/mm3 (4.5-11.0) 12/27/18 05:30 RBC 4.49 M/mm3 (3.65-5.03) 12/27/18 05:30 Hgb 12.2 gm/dl (11.8-15.2) 12/27/18 05:30 Hct 35.9 % (35.5-45.6) 12/27/18 05:30 MCV 80 fl (84-94) L 12/27/18 05:30 MCH 27 pg (28-32) L 12/27/18 05:30 MCHC 34 % (32-34) 12/27/18 05:30 RDW 13.2 % (13.2-15.2) 12/27/18 05:30 Plt Count 115 K/mm3 (140-440) L 12/27/18 05:30 Lymph % (Auto) 13.4 % (13.4-35.0) 12/19/18 05:49 [place] % (Auto) 13.3 % (0.0-7.3) H 12/19/18 05:49 Eos % (Auto) 0.1 % (0.0-4.3) 12/19/18 05:49 Baso % (Auto) 0.3 % (0.0-1.8) 12/19/18 05:49 Lymph # 1.1 K/mm3 (1.2-5.4) L 12/19/18 05:49 Winn # 1.0 K/mm3 (0.0-0.8) H 12/19/18 05:49 Eos # 0.0 K/mm3 (0.0-0.4) 12/19/18 05:49 Baso # 0.0 K/mm3 (0.0-0.1) 12/19/18 05:49 Seg Neutrophils % 72.9 % (40.0-70.0) H 12/19/18 05:49 Seg Neutrophils # 5.7 K/mm3 (1.8-7.7) 12/19/18 05:49 Abs Lymphs (Manual) See scanned result 12/16/18 16:36 PT 16.0 Sec. (12.2-14.9) H 12/26/18 05:10 INR 1.31 (0.87-1.13) H 12/26/18 05:10 POC ABG pH 7.324 (7.35-7.45) L 12/18/18 08:56 POC ABG pCO2 < 30 (35-45) L 12/18/18 08:56 POC ABG pO2 167 (80-105) H 12/18/18 08:56 POC ABG HCO3 11.3 (22-26 mml/L) 12/18/18 08:56 POC ABG Total CO2 12 (23-27mmol/L) 12/18/18 08:56 POC ABG O2 Sat 99 12/18/18 08:56 POC ABG Base Excess -15 ((-2) - (+3)mmol/L) 12/18/18 08:56 28 % 12/18/18 08:56 Sodium 145 mmol/L (137-145) 12/28/18 06:00 Potassium 3.9 mmol/L (3.6-5.0) 12/28/18 06:00 Chloride 94.9 mmol/L (98-107) L 12/28/18 06:00 Carbon Dioxide 31 mmol/L (22-30) H 12/28/18 06:00 23 mmol/L 12/28/18 06:00 BUN 75 mg/dL (9-20) H 12/28/18 06:00 2.9 mg/dL (0.8-1.5) H 12/28/18 06:00 Estimated GFR 31 ml/min 12/28/18 06:00 26 % 12/28/18 06:00 Glucose 112 mg/dL (75-100) H 12/28/18 06:00 POC Glucose 115 (70-105) H 12/22/18 11:08 Lactic Acid 2.70 mmol/L (0.7-2.0) H* 12/19/18 10:50 Calcium 9.8 mg/dL (8.4-10.2) 12/28/18 06:00 Phosphorus 5.80 mg/dL (2.5-4.5) H D 12/28/18 06:00 Magnesium 2.00 mg/dL (1.7-2.3) 12/28/18 06:00 0.40 mg/dL (0.1-1.2) 12/27/18 05:30 AST 75 units/L (5-40) H 12/27/18 05:30 ALT 26 units/L (7-56) 12/27/18 05:30 45 units/L (35-129) 12/27/18 05:30 6.3 g/dL (6.3-8.2) 12/27/18 05:30 2.4 g/dL (3.9-5) L 12/27/18 05:30 0.6 % 12/27/18 05:30 Triglycerides 148 mg/dL (2-149) 12/23/18 04:18 85 units/L (13-60) H 12/13/18 18:57 Yellow (Yellow) 12/13/18 20:40 Cloudy (Clear) 12/13/18 20:40 5.0 (5.0-7.0) 12/13/18 20:40 Ur Specific [place] 1.014 (1.003-1.030) 12/13/18 20:40 100 mg/dl mg/dL (Negative) 12/13/18 20:40 Neg mg/dL (Negative) 12/13/18 20:40 Neg mg/dL (Negative) 12/13/18 20:40 Lg (Negative) 12/13/18 20:40 Neg (Negative) 12/13/18 20:40 Neg (Negative) 12/13/18 20:40 < 2.0 mg/dL (<2.0) 12/13/18 20:40 Ur Leukocyte Esterase Neg (Negative) 12/13/18 20:40 22.0 /HPF (0.0-6.0) H 12/13/18 20:40 9.0 /HPF (0.0-6.0) 12/13/18 20:40 U Epithel Cells (Auto) 2.0 /HPF (0-13.0) 12/13/18 20:40 1+ /HPF (Negative) 12/13/18 20:40 Hyaline Casts 2 /LPF 12/13/18 20:40 3+ /HPF 12/13/18 20:40 2+ /HPF 12/13/18 20:40 Lymph Enumerat CD4/CD8 See scanned result 12/16/18 16:36 % CD3 Cells See scanned result 12/16/18 16:36 See scanned result 12/16/18 16:36 % CD4 Cells See scanned result 12/16/18 16:36 See scanned result 12/16/18 16:36 % CD8 Cells See scanned result 12/16/18 16:36 See scanned result 12/16/18 16:36 % CD19 Cells See scanned result 12/16/18 16:36 See scanned result 12/16/18 16:36 C. difficile Tox (PCR) Negative (Negative) 12/14/18 14:00 CMV DNA PCR log copy preparer/mL See scanned result 12/18/18 12:29 Hepatitis A IgM Ab Non-reactive (NonReactive) 12/23/18 11:20 Hep Bs Antigen Non-reactive (Negative) 12/23/18 11:20 Hep B Core IgM Ab Non-reactive (NonReactive) 12/23/18 11:20 Non-reactive (NonReactive) 12/23/18 11:20 See scanned result 12/16/18 16:49 HIV-1 RNA PCR copies/ml TNR 12/16/18 16:36 TNR 12/16/18 16:36 Tnp 12/16/18 16:36 HIV-2 Ab (Immunoblot) See scanned result 12/16/18 16:49 HIV 1&2 Antibody Rapid Reactive (Non React) 12/16/18 16:36 Non react (Non React) 12/16/18 16:36 Active Medications - Current Medications Current Medications: Generic Name Dose Route Start Last Admin Trade Name Freq PRN Reason Stop Dose Admin Acetaminophen 650 mg 12/13/18 22:54 12/28/18 01:21 Tylenol PO 650 mg Q4H PRN Administration Pain MILD(1-3)/Fever >100.5/HOLT Atovaquone 1,500 mg 12/18/18 14:00 12/28/18 10:22 Mepron PO 1,500 mg QDAY MARIA E Administration Cholestyramine Resin 4 gm 12/27/18 11:00 12/28/18 10:25 Questran PO 4 gm BID MARIA E Administration Emtricitabine 200 mg 12/22/18 14:00 12/23/18 11:13 Emtriva PO 200 mg Q72HR MARIA E Administration Enoxaparin Sodium 30 mg 12/18/18 11:00 12/28/18 10:23 Lovenox SUB-Q 30 mg QDAY MARIA E Administration Famotidine 20 mg 12/23/18 16:00 12/28/18 10:22 Pepcid IV 20 mg DAILY MARIA E Administration Heparin Sodium (Porcine) 5,000 unit 12/26/18 13:00 12/26/18 13:54 Heparin IV 5,000 unit ALYSSIA PRN Administration hemodialysis Sodium Chloride 100 mls @ 999 mls/hr 12/26/18 08:34 Nacl 0.9% IV ALYSSIA PRN Hypotension Sodium Chloride 1,000 mls @ 50 mls/hr 12/26/18 14:00 12/26/18 14:41 Nacl 0.9% 1000 Ml IV 50 mls/hr DIRECT MARIA E Administration Amino Acids/Electrolytes/Dextrose 2,400 mls @ 100 mls/hr 12/27/18 20:00 12/27/18 20:00 Tpn Adult IV 12/28/18 19:59 100 mls/hr DAILY@1999 MARIA E Administration Protocol Amino Acids/Electrolytes/Dextrose 2,400 mls @ 100 mls/hr 12/28/18 20:00 Tpn Adult IV 12/29/18 19:59 DAILY@1999 [facility] Protocol Lorazepam 1 mg 12/22/18 12:06 12/28/18 02:44 Ativan IV 1 mg Q4H PRN Administration for insomnia or anxiety Metoclopramide HCl 5 mg 12/22/18 10:00 12/27/18 19:36 Reglan IV 5 mg Q6H PRN Administration Nausea And Vomiting Metoprolol Tartrate 12.5 mg 12/28/18 14:00 12/28/18 14:22 Lopressor PO 12.5 mg Q6H MARIA E Administration Nitazoxanide 500 mg 12/23/18 10:00 12/28/18 10:18 Alinia (Nf) PO 500 mg BID MARIA E Administration Ondansetron HCl 4 mg 12/13/18 22:54 12/27/18 16:04 Zofran IV 4 mg Q4H PRN Administration Nausea And Vomiting Raltegravir 400 mg 12/22/18 14:00 12/28/18 10:20 Isentress PO 400 mg BID MARIA E Administration Sodium Chloride 10 ml 12/14/18 10:00 12/28/18 10:25 Sodium Chloride Flush Syringe 10 Ml IV 10 ml BID MARIA E Administration Sodium Chloride 10 ml 12/13/18 22:54 12/27/18 02:13 Sodium Chloride Flush Syringe 10 Ml IV 10 ml PRN PRN Administration LINE FLUSH Sucralfate 1 gm 12/26/18 18:00 12/28/18 13:23 Carafate PO 1 gm Q6HR MARIA E Administration Tenofovir Disoproxil Fumarate 300 mg 12/22/18 14:00 Viread PO Q72HR MARIA E Valganciclovir 450 mg 12/25/18 10:00 12/27/18 09:57 Valcyte (Nf) PO 450 mg Q48HR MARIA E Administration Nutrition/Malnutrition Assess - Dietary Evaluation Nutrition/Malnutrition Findings: Nutrition Notes Start: 12/19/18 15:24 Freq: Status: Active Protocol: Document 12/28/18 09:03 LP (Rec: 12/28/18 09:13 LP [id number]) Nutrition Notes Current Diagnosis Acute Kidney Injury,Sepsis Other Pertinent Diagnosis Shigella enteritis, N/V/D, dehydration, Gastroenteritis, HIV Current Diet CPN at 100ml/hr + GI soft Labs/Tests Reviewed Pertinent Medications Reviewed Height 6 ft 2 in Weight 72.5 kg [place] Body Weight (kg) 86.36 BMI 20.5 Subjective/Other Information Day 7 CPN. Pt had some vomiting last night. Still only eating bites of food. Does not like the supplement. Percent of energy/protein needs met: 38%/100% Burn Absent Trauma Absent #1 Nutrition Diagnosis Inadequate oral intake Diagnosis Progress(for reassessment Continues documentation) Is patient on ventilator? No Is Patient Ambulatory and/or Out of Bed Yes REE-([facility]-ambulatory/OOB) [ 2287.675 [id number]] Calculation Used for Recommendations [facility] Additional Notes Protein Needs: 75-97g (1-1.3g/ kg) Fluid Needs: 1 ml/kcal Nutrition Intervention Change Diet Order: TPN + GI soft diet Nutrition Support: CPN at 100ml/hr: 8.3% dextrose, 120mEq Na, 12mmol Phos, MVI, Osmolality: 1003 Kcal 1,060 Protein (gm) 95 Carbohydrates (gm) 200 Fat (gm) 0 Fluid (mL) 2,400 Fiber (gm) 0 Add Supplement/Snack (indicate name/kcal D/C /protein ) Goal #1 CPN and Diet to meet nutritional needs as best possible Anticipated Discharge Needs: Unable to determine at this time Follow-Up By: 12/29/18 Additional Comments Labs in AM: Mg CROW, Tarun
--- NOTE | 2018-12-28 17:27 | Gastroenterology Progress Note ---
Assessment and Plan Symptoms consistent with infectious sources, ID on board, appreciate input and continued recommendations Follow up biopsy results from endoscopy/colonoscopy We will sign off, please call back for any questions or concerns - Patient Problems (1) AIDS Current Visit: Yes Status: Acute (2) Nausea vomiting and diarrhea Current Visit: Yes Status: Acute Subjective Date of service: 12/28/18 Principal diagnosis: HIV, diarrhea, acute kidney injury Interval history: pt very lethargic. Still with diarrhea Objective - Constitutional Vitals: Temp Pulse Resp BP Pulse Ox 97.6 F 152 H 24 140/83 96 12/28/18 11:30 12/28/18 14:22 12/28/18 11:30 12/28/18 11:30 12/28/18 11:30 - Gastrointestinal General gastrointestinal: Present: soft - Labs CBC & Chem 7: 12/27/18 05:30 12/28/18 06:00 Labs: Laboratory Results - last 24 hr 12/28/18 06:00 Sodium 145 Potassium 3.9 Chloride 94.9 L Carbon Dioxide 31 H Anion Gap 23 BUN 75 H Creatinine 2.9 H Estimated GFR 31 BUN/Creatinine Ratio 26 Glucose 112 H Calcium 9.8 Phosphorus 5.80 H D Magnesium 2.00
[2018-12-28] MEDS ORDERED: TPN ADULT 2,400 ML IV SCH (20:00)
[2018-12-28] MEDS: REGLAN IV PRN (21:03)
--- NOTE | 2018-12-28 22:25 | Cat Scan Report ---
CT head/brain wo con INDICATION / CLINICAL INFORMATION: lethargy. Altered mental status TECHNIQUE: Axial CT imaging of the brain was obtained without IV contrast. Coronal and sagittal reformatted imag ing obtained and reviewed. All CT scans at this location are performed using CT dose reduction for AL RONI by means of automated exposure control. COMPARISON: None available. FINDINGS: No intracranial hemorrhage, mass, or midline shift identified. No extra-axial fluid collections or sanders ggestion of acute territorial infarct. Ventricular system and basilar cisterns are unremarkable. Visualized paranasal sinuses and mastoid air cells are well aerated and clear. No calvarial abnormali ty. IMPRESSION: 1. Negative head CT scan. Signer Name: Susan Amaya MD Signed: 12/28/2018 10:20 PM Workstation Name: [id number]
[2018-12-28 23:23] LABS: Creatine Kinase MB 2.1 ng/mL (0.0-4.0)
[2018-12-28 23:24] LABS: INR 1.18 (0.87-1.13)
[2018-12-28 23:27] LABS: Basophils # (Auto) TNR K/mm3 (0.0-0.1); Basophils % (Auto) TNR % (0.0-1.8); Eosinophils # (Auto) TNR K/mm3 (0.0-0.4); Eosinophils % (Auto) TNR % (0.0-4.3); Hematocrit TNR % (35.5-45.6); Hemoglobin TNR gm/dl (11.8-15.2); Lymphocytes # (Auto) TNR K/mm3 (1.2-5.4); Lymphocytes % (Auto) TNR % (13.4-35.0); Mean Corpuscular HGB Conc TNR % (32-34); Mean Corpuscular Volume TNR fl (84-94); Mean Platelet Volume TNR fl (6-12); Monocytes # (Auto) TNR K/mm3 (0.0-0.8); Monocytes % (Auto) TNR % (0.0-7.3); Platelet Count TNR K/mm3 (140-440); Red Blood Count TNR M/mm3 (3.65-5.03); Red Cell Distribution Width TNR % (13.2-15.2)
[2018-12-28 23:57] LABS: Basophils % (Auto) 0.2 % (0.0-1.8); Eosinophils # (Auto) 0.1 K/mm3 (0.0-0.4); Eosinophils % (Auto) 1.7 % (0.0-4.3); Hematocrit 43.1 % (35.5-45.6); Hemoglobin 14.4 gm/dl (11.8-15.2); Lymphocytes # (Auto) 1.1 K/mm3 (1.2-5.4); Lymphocytes % (Auto) 13.1 % (13.4-35.0); Mean Corpuscular HGB Conc 33 % (32-34); Mean Corpuscular Volume 81 fl (84-94); Monocytes # (Auto) 1.4 K/mm3 (0.0-0.8); Monocytes % (Auto) 15.8 % (0.0-7.3); Platelet Count 257 K/mm3 (140-440); Red Cell Distribution Width 13.6 % (13.2-15.2)
[2018-12-29 00:59] LABS: Calcium 10.1 mg/dL (8.4-10.2)
--- NOTE | 2018-12-29 00:59 | Event Note ---
Date: 12/28/18 Code Met: Pt found to be unresponsive with saturation in mid 80's on RA. STAT labs pending. Stat CT Head did not show any intracranial hemorrhage, mass,midline shift, extra-axial fluid collections or suggestion of acute territorial infarct. Pt was xferred to ICU.
[2018-12-29] MEDS: LOPRESSOR PO SCH (02:11)
[2018-12-29 04:01] LABS: Calcium 9.8 mg/dL (8.4-10.2)
[2018-12-29] MEDS: CARAFATE PO SCH ×4 (06:23→17:32)
--- NOTE | 2018-12-29 06:53 | Progress Note ---
Assessment and Plan Assessment and plan: Patient is a 28-year-old man with a history of HIV diagnosis 2 years ago, without any follow up or treatment, not on antiviral who presented to [facility] ED with nausea/vomiting and diarrhea which began after he ate [employer]. Mother did not know of her son HIV status. CMV has come back positive. Patient is still having severe diarrhea, he is unable to eat >7 days, now CMV positive. This is one of the worse cases of AGE/diarrhea. TPN started on 12/22/18. Hemodialysis started 12/23/18. On 12/25/18 Valcyte was started for CMW treatment. He also became tachycardic. Mother name is Ms. Brown is usually at bedside, she did not know he was HIV positive and she is having difficulties. Family members who visit has not been told and mother does not want them to know. She wants him to return to [facility] with her. Overnight on 12/28/18, he developed AMS, more lethargy and hypoxic, Code MET called and he was moved to the ICU again. CT head unrevealing. pCXR pending. Most likely cause is oversedation with iv ativan, which i stopped. The iv ativan was given to help stop the intractable hiccups because the IV thorazine wasn't helping. The hiccups improved with the iv ativan and addition of the Carafate for the plethora of GI ulcerations. He actually is doing much better clinically as far as the n/v. He is asking for a Sprite soda. The diarrhea is still present but output is less today Cultures: 12/13/18 Urine: less than 10K 12/14/18 Stool: Shigella species 12/14/18 C-Diff: negative 12/17/18 HIV Rapid; reactive 12/17/18 Cryptosporidium stool positive : Giardia stool negative 12/18/2018 serum Cryptococcal Ag: Negative 12/20/18 CMV DNA PCR positive CD4 count 26 12/26/2018 Procedure: EGD/colonoscopy Pre-op diagnosis: diarrhea, weight loss Post-op diagnosis: same Findings: EGD: hiatal hernia - white based moderate inflammation, ulceration noted throughout esophagus (bx's) - fairly benign stomach (bx's) - multiple (5-6) ulcers with inflammation noted 1st-proximal 2nd portion duodenum (larget 12-14 mm circumference) with moderate inflammation remaining mucosa (bx's) - negative other Colon: multiple white mainly white based, shallow ulcers (largest 12 mm) scatterred terminal ileum (bx's) - mild/moderate inflammation distal sigmoid/rectum (bx's) - otherwise normal colon (bx's) Plan: f/u bx's - start PPI/Carafate - po - await further ID input - will follow HIV, with AIDS defining illness: ID following, adjusted ART mediations, start nitazoxanide 1 gm po BID x 3 days then 500 mg po BID for 2 weeks, continue PO Atovaquone for prophylaxis (likely AIDS), f/u CMV PCR, AFB blood cultures (for disseminated MAC). ID to follow up HIV-VL, HIV-genotype, consulted GI Sepsis due to Acute bacterial gastroenteritis secondary to Shigella with 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 Still NPO, on TPN with left arm PICC and rectal tube in place. Treated with Ceftriaxone and Azithromycin as dual coverage for the Shigella and also on empiric IV Flagyl. 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 Severe sinus tachycardia: Cardiology consulted, input noted, started on Lopressor, ECHO done but pending Acute toxic metabolic encephalopathy, resolved: d/c IV ativan Hiccups, was on iv thorazine but it wasn't helping, the carafate is working better. DVT prophylaxis lovenox Disposition: continue inpatient care, goal is to stop the n/v so TPN can be stopped and diarrhea slowed down, placed a consult to LTAC Transfer back to [facility] with remote CCT 34 minutes History Interval history: Patient was seen and examined. Follow-up on current diagnosis AIDs defining illness. Overnight events reported to me; patient moved to ICU due to AMS and not talking with hypoxia. Imaging, nursing note, chart, labs and old chart reviewed. Hospitalist Physical - Physical exam Narrative exam: Gen: critically ill, thin frail, NAD, Orientated HEENT: NCAT, EOMI, PERRL, OP dry Neck: supple, neck adenopathy, no thyromegaly, no JVD CVS/Heart: Regular tachycardia, normal S1S2, pulses present bilaterally Chest/Lungs: diminished, Symmetrical chest expansion, good air entry bilaterally , reproducible chest wall tenderness GI/Abdomen: distended, diffuse tenderness, good bowel sounds, no guarding or rebound /Bladder: no suprapubic tenderness, no CVA or paraspinal tenderness Extermity/Skin: no c/c/e, MSK: FROM x 4 Neuro: CN 2-12 grossly intact, no new focal deficits Psych: calm - Constitutional Vitals: Temp Pulse Resp BP Pulse Ox 98.7 F 132 H 15 117/73 99 12/29/18 03:51 12/29/18 04:15 12/29/18 04:15 12/29/18 04:15 12/29/18 04:00 General appearance: Absent: no acute distress Results - Labs CBC & Chem 7: 12/28/18 23:43 12/29/18 08:15 Labs: Laboratory Last Values WBC 8.6 K/mm3 (4.5-11.0) 12/28/18 23:43 RBC 5.30 M/mm3 (3.65-5.03) H 12/28/18 23:43 Hgb 14.4 gm/dl (11.8-15.2) 12/28/18 23:43 Hct 43.1 % (35.5-45.6) D 12/28/18 23:43 MCV 81 fl (84-94) L 12/28/18 23:43 MCH 27 pg (28-32) L 12/28/18 23:43 MCHC 33 % (32-34) 12/28/18 23:43 RDW 13.6 % (13.2-15.2) 12/28/18 23:43 Plt Count 257 K/mm3 (140-440) D 12/28/18 23:43 Lymph % (Auto) 13.1 % (13.4-35.0) L 12/28/18 23:43 [place] % (Auto) 15.8 % (0.0-7.3) H 12/28/18 23:43 Eos % (Auto) 1.7 % (0.0-4.3) 12/28/18 23:43 Baso % (Auto) 0.2 % (0.0-1.8) 12/28/18 23:43 Lymph # 1.1 K/mm3 (1.2-5.4) L 12/28/18 23:43 [place] # 1.4 K/mm3 (0.0-0.8) H 12/28/18 23:43 Eos # 0.1 K/mm3 (0.0-0.4) 12/28/18 23:43 Baso # 0.0 K/mm3 (0.0-0.1) 12/28/18 23:43 Add Manual Diff TNR 12/28/18 22:30 Seg Neutrophils % 69.2 % (40.0-70.0) 12/28/18 23:43 Seg Neutrophils # 5.9 K/mm3 (1.8-7.7) 12/28/18 23:43 Abs Lymphs (Manual) See scanned result 12/16/18 16:36 PT 14.7 Sec. (12.2-14.9) 12/28/18 22:30 INR 1.18 (0.87-1.13) H 12/28/18 22:30 POC ABG pH 7.438 (7.35-7.45) 12/28/18 22:30 POC ABG pCO2 35.3 (35-45) 12/28/18 22:30 POC ABG pO2 220 (80-105) H 12/28/18 22:30 POC ABG HCO3 23.9 (22-26 mml/L) 12/28/18 22:30 POC ABG Total CO2 25 (23-27mmol/L) 12/28/18 22:30 POC ABG O2 Sat 100 12/28/18 22:30 POC ABG Base Excess 0 ((-2) - (+3)mmol/L) 12/28/18 22:30 28 % 12/28/18 22:30 Sodium 142 mmol/L (137-145) 12/29/18 03:10 Potassium 3.6 mmol/L (3.6-5.0) 12/29/18 03:10 Chloride 93.8 mmol/L (98-107) L 12/29/18 03:10 Carbon Dioxide 26 mmol/L (22-30) 12/29/18 03:10 26 mmol/L 12/29/18 03:10 BUN 95 mg/dL (9-20) H 12/29/18 03:10 3.3 mg/dL (0.8-1.5) H 12/29/18 03:10 Estimated GFR 27 ml/min 12/29/18 03:10 29 % 12/29/18 03:10 Glucose 113 mg/dL (75-100) H 12/29/18 03:10 POC Glucose 97 (70-105) 12/29/18 05:17 Lactic Acid 1.60 mmol/L (0.7-2.0) 12/28/18 22:30 Calcium 9.8 mg/dL (8.4-10.2) 12/29/18 03:10 Phosphorus 8.70 mg/dL (2.5-4.5) H D 12/29/18 03:10 Magnesium 2.00 mg/dL (1.7-2.3) 12/29/18 03:10 0.40 mg/dL (0.1-1.2) 12/27/18 05:30 AST 75 units/L (5-40) H 12/27/18 05:30 ALT 26 units/L (7-56) 12/27/18 05:30 45 units/L (35-129) 12/27/18 05:30 34.0 umol/L (25-60) 12/28/18 22:30 534 units/L (55-170) H 12/28/18 22:30 CK-MB (CK-2) 2.1 ng/mL (0.0-4.0) 12/28/18 22:30 CK-MB (CK-2) Rel Index 0.3 (0-4) 12/28/18 22:30 0.010 ng/mL (0.00-0.029) 12/28/18 22:30 NT-Pro-B Natriuret Pep 173.0 pg/mL (0-450) 12/28/18 22:30 6.3 g/dL (6.3-8.2) 12/27/18 05:30 2.4 g/dL (3.9-5) L 12/27/18 05:30 0.6 % 12/27/18 05:30 Triglycerides 148 mg/dL (2-149) 12/23/18 04:18 85 units/L (13-60) H 12/13/18 18:57 Yellow (Yellow) 12/13/18 20:40 Cloudy (Clear) 12/13/18 20:40 5.0 (5.0-7.0) 12/13/18 20:40 Ur Specific [place] 1.014 (1.003-1.030) 12/13/18 20:40 100 mg/dl mg/dL (Negative) 12/13/18 20:40 Neg mg/dL (Negative) 12/13/18 20:40 Neg mg/dL (Negative) 12/13/18 20:40 Lg (Negative) 12/13/18 20:40 Neg (Negative) 12/13/18 20:40 Neg (Negative) 12/13/18 20:40 < 2.0 mg/dL (<2.0) 12/13/18 20:40 Ur Leukocyte Esterase Neg (Negative) 12/13/18 20:40 22.0 /HPF (0.0-6.0) H 12/13/18 20:40 9.0 /HPF (0.0-6.0) 12/13/18 20:40 U Epithel Cells (Auto) 2.0 /HPF (0-13.0) 12/13/18 20:40 1+ /HPF (Negative) 12/13/18 20:40 Hyaline Casts 2 /LPF 12/13/18 20:40 3+ /HPF 12/13/18 20:40 2+ /HPF 12/13/18 20:40 Lymph Enumerat CD4/CD8 See scanned result 12/16/18 16:36 % CD3 Cells See scanned result 12/16/18 16:36 See scanned result 12/16/18 16:36 % CD4 Cells See scanned result 12/16/18 16:36 See scanned result 12/16/18 16:36 % CD8 Cells See scanned result 12/16/18 16:36 See scanned result 12/16/18 16:36 % CD19 Cells See scanned result 12/16/18 16:36 See scanned result 12/16/18 16:36 C. difficile Tox (PCR) Negative (Negative) 12/14/18 14:00 CMV DNA PCR log telescope maintenance/mL See scanned result 12/18/18 12:29 Hepatitis A IgM Ab Non-reactive (NonReactive) 12/23/18 11:20 Hep Bs Antigen Non-reactive (Negative) 12/23/18 11:20 Hep B Core IgM Ab Non-reactive (NonReactive) 12/23/18 11:20 Non-reactive (NonReactive) 12/23/18 11:20 See scanned result 12/16/18 16:49 HIV-1 RNA PCR copies/ml TNR 12/16/18 16:36 TNR 12/16/18 16:36 Tnp 12/16/18 16:36 HIV-2 Ab (Immunoblot) See scanned result 12/16/18 16:49 HIV 1&2 Antibody Rapid Reactive (Non React) 12/16/18 16:36 Non react (Non React) 12/16/18 16:36 Active Medications - Current Medications Current Medications: Generic Name Dose Route Start Last Admin Trade Name Scottyq PRN Reason Stop Dose Admin Acetaminophen 650 mg 12/13/18 22:54 12/28/18 01:21 Tylenol PO 650 mg Q4H PRN Administration Pain MILD(1-3)/Fever >100.5/HOLT Atovaquone 1,500 mg 12/18/18 14:00 12/28/18 10:22 Mepron PO 1,500 mg QDAY MARIA E Administration Cholestyramine Resin 4 gm 12/27/18 11:00 12/28/18 21:01 Questran PO 4 gm BID MARIA E Administration Emtricitabine 200 mg 12/22/18 14:00 12/23/18 11:13 Emtriva PO 200 mg Q72HR MARIA E Administration Enoxaparin Sodium 30 mg 12/18/18 11:00 12/28/18 10:23 Lovenox SUB-Q 30 mg QDAY MARIA E Administration Famotidine 20 mg 12/23/18 16:00 12/28/18 10:22 Pepcid IV 20 mg DAILY MARIA E Administration Heparin Sodium (Porcine) 5,000 unit 12/26/18 13:00 12/26/18 13:54 Heparin IV 5,000 unit ALYSSIA PRN Administration hemodialysis Sodium Chloride 100 mls @ 999 mls/hr 12/26/18 08:34 Nacl 0.9% IV ALYSSIA PRN Hypotension Sodium Chloride 1,000 mls @ 50 mls/hr 12/26/18 14:00 12/26/18 14:41 Nacl 0.9% 1000 Ml IV 50 mls/hr DIRECT MARIA E Administration Amino Acids/Electrolytes/Dextrose 2,400 mls @ 100 mls/hr 12/28/18 20:00 12/28/18 20:59 Tpn Adult IV 12/29/18 19:59 100 mls/hr DAILY@2000 MARIA E Administration Protocol Lorazepam 1 mg 12/22/18 12:06 12/28/18 21:17 Ativan IV 1 mg Q4H PRN Administration for insomnia or anxiety Metoclopramide HCl 5 mg 12/22/18 10:00 12/28/18 21:03 Reglan IV 5 mg Q6H PRN Administration Nausea And Vomiting Metoprolol Tartrate 12.5 mg 12/28/18 14:00 12/29/18 02:11 Lopressor PO 12.5 mg Q6H MARIA E Administration Nitazoxanide 500 mg 12/23/18 10:00 12/28/18 21:00 Alinia (Nf) PO 500 mg BID MARIA E Administration Ondansetron HCl 4 mg 12/13/18 22:54 12/27/18 16:04 Zofran IV 4 mg Q4H PRN Administration Nausea And Vomiting Raltegravir 400 mg 12/22/18 14:00 12/28/18 21:00 Isentress PO 400 mg BID MARIA E Administration Sodium Chloride 10 ml 12/14/18 10:00 12/28/18 21:15 Sodium Chloride Flush Syringe 10 Ml IV 10 ml BID MARIA E Administration Sodium Chloride 10 ml 12/13/18 22:54 12/27/18 02:13 Sodium Chloride Flush Syringe 10 Ml IV 10 ml PRN PRN Administration LINE FLUSH Sucralfate 1 gm 12/26/18 18:00 12/29/18 06:23 Carafate PO 1 gm Q6HR MARIA E Administration Tenofovir Disoproxil Fumarate 300 mg 12/22/18 14:00 Viread PO Q72HR MARIA E Valganciclovir 450 mg 12/25/18 10:00 12/27/18 09:57 Valcyte (Nf) PO 450 mg Q48HR MARIA E Administration Nutrition/Malnutrition Assess - Dietary Evaluation Nutrition/Malnutrition Findings: Nutrition Notes Start: 12/19/18 15:24 Freq: Status: Active Protocol: Document 12/28/18 09:03 LP (Rec: 12/28/18 09:13 LP [id number]) Nutrition Notes Current Diagnosis Acute Kidney Injury,Sepsis Other Pertinent Diagnosis Shigella enteritis, N/V/D, dehydration, Gastroenteritis, HIV Current Diet CPN at 100ml/hr + GI soft Labs/Tests Reviewed Pertinent Medications Reviewed Height 6 ft 2 in Weight 72.5 kg [place] Body Weight (kg) 86.36 BMI 20.5 Subjective/Other Information Day 7 CPN. Pt had some vomiting last night. Still only eating bites of food. Does not like the supplement. Percent of energy/protein needs met: 38%/100% Burn Absent Trauma Absent #1 Nutrition Diagnosis Inadequate oral intake Diagnosis Progress(for reassessment Continues documentation) Is patient on ventilator? No Is Patient Ambulatory and/or Out of Bed Yes REE-([facility]-ambulatory/OOB) [ 2287.675 [id number]] Calculation Used for Recommendations [facility] Additional Notes Protein Needs: 75-97g (1-1.3g/ kg) Fluid Needs: 1 ml/kcal Nutrition Intervention Change Diet Order: TPN + GI soft diet Nutrition Support: CPN at 100ml/hr: 8.3% dextrose, 120mEq Na, 12mmol Phos, MVI, Osmolality: 1003 Kcal 1,060 Protein (gm) 95 Carbohydrates (gm) 200 Fat (gm) 0 Fluid (mL) 2,400 Fiber (gm) 0 Add Supplement/Snack (indicate name/kcal D/C /protein ) Goal #1 CPN and Diet to meet nutritional needs as best possible Anticipated Discharge Needs: Unable to determine at this time Follow-Up By: 12/29/18 Additional Comments Labs in AM: BMP, Mg, Phos
--- NOTE | 2018-12-29 07:38 | XRay Report ---
CHEST 1 VIEW 12/29/2018 7:19 AM INDICATION / CLINICAL INFORMATION: hypoxia. COMPARISON: One view of the chest from 12/20/2018 FINDINGS: SUPPORT DEVICES: Similar positioning of the left arm PICC with interval placement of a right internal jugular vein PermCath that terminates over the right atrium. HEART / MEDIASTINUM: No significant abnormality. LUNGS / PLEURA: No significant pulmonary or pleural abnormality. No pneumothorax. ADDITIONAL FINDINGS: No significant additional findings. IMPRESSION: 1. No acute findings. 2. Interval placement of a right internal jugular vein PermCath. Signer Name: Clement Segovia MD Signed: 12/29/2018 7:34 AM Workstation Name: [id number]
--- NOTE | 2018-12-29 08:11 | Progress Note ---
Assessment and Plan Cultures: 12/13/18 Urine: less than 10K 12/14/18 Stool: Shigella species 12/14/18 C-Diff: negative 12/17/18 HIV Rapid; reactive 12/17/18 Cryptosporidium: positive : Giardia: negative 12/18/2018 serum Cryptococcal Ag: Negaitve 12/18/2018 serum CMV PCR 1125 A/P: 28-year old male with no previous medical history that presents to the ED on 12/13/18 with complaints of nausea, vomiting and diarrhea since . He reported eating beef and broccoli chomein and orange chicken at [employer] on Saturday12-10-18. His symptoms worsened the next day. Admitted with. 1. 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 Stool cultures Shigella species. Cryptosporidium: positive. Cdiff negative. Currently being treated with Ceftriaxone and Azithromycin as dual coverage for the Shigella and also on empiric IV Flagyl. 12/18/2018 serum CMV PCR 1125. S/p EGD: hiatal hernia, white based moderate inflammation, ulceration noted throughout esophagus (bx's) and multiple (5-6) ulcers with inflammation noted 1st-proximal 2nd portion duodenum (larget 12-14 mm circumference) with moderate inflammation remaining mucosa (bx's). Colon: multiple white mainly white based, shallow ulcers (largest 12 mm) scatterred terminal ileum (bx's) with mild/moderate inflammation distal sigmoid/rectum (bx's) 2. HIV/AIDS: CD4=26, 3% on 12/16/2018; diagnosed 2 years ago. No follow-up with ID. Unknown CD4 count/Viral load. Never been on HIV therapy. Mother is now aware of HIV. Labs pending here. Likely AIDS given the lymphopenia. Crypto antigen negative. 3 MEHNAZ: worsening. Nephrology following. Hemodialysis started on 12/23/2018. 4. Sepsis v/s SIRS: hypothermia, increased lactic acid and tachycardia, likely hypovolemia given the evidence of hemoconcentration. 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 Ani Fry MD Infectious Diseases [employer] [facility] ([facility]) M [phone] O [phone] Subjective Date of service: 12/29/18 Principal diagnosis: HIV, diarrhea, acute kidney injury Interval history: Patient feels ok despite found unresponsive with saturation in mid 80's on RA overnight, now in the ICU. tamx 101.2. +thristy, denies SOB. ROS weakness, diarrhea, oliguria, rest negative Objective - Exam Narrative Exam: General: Alert in NAD Head, Ears, Nose: Normocephalic, atraumatic. External ears, nose normal Eyes: Conjunctivae/corneas clear. No icterus. No ptosis. Neck: Supple, no meningeal signs Oral: dentition fair, no thrush Cardiovascular: tachycardic Respiratory: Good air entry, clear to auscultation bilaterally GI: Soft, diffuse tenderness Musculoskeletal: No pedal edema, no cyanosis. Skin: No rash or abscess Hem/Lymphatic: No palpable cervical or supraclavicular nodes. No lymphangitis Psych: Mood ok. Affect normal Neurological: Awake, alert, oriented. No gross abnormality rectal tube watery minimal black diarrhea Right IJ perm cath - Constitutional Vitals: Vital Signs Temp Pulse Resp BP Pulse Ox 98.7 F 132 H 15 117/73 99 12/29/18 03:51 12/29/18 04:15 12/29/18 04:15 12/29/18 04:15 12/29/18 04:00 Temperature -Last 24 Hours Temperature 98.7 F Temperature 98.9 F Temperature 99.2 F Temperature 99.4 F Temperature 97.6 F - Labs CBC & Chem 7: 12/28/18 23:43 12/29/18 03:10 Labs: Abnormal lab results 12/28/18 12/28/18 12/28/18 Range/Units 21:49 22:30 22:30 RBC (3.65-5.03) M/mm3 MCV (84-94) fl MCH (28-32) pg Lymph % (Auto) (13.4-35.0) % [place] % (Auto) (0.0-7.3) % Lymph # (1.2-5.4) K/mm3 [place] # (0.0-0.8) K/mm3 INR 1.18 H (0.87-1.13) POC ABG pO2 (80-105) Potassium (3.6-5.0) mmol/L Chloride (98-107) mmol/L BUN (9-20) mg/dL Creatinine (0.8-1.5) mg/dL Glucose (75-100) mg/dL POC Glucose 116 H (70-105) Phosphorus (2.5-4.5) mg/dL Total Creatine Kinase 534 H (55-170) units/L 12/28/18 12/28/18 12/29/18 Range/Units 22:30 23:43 00:02 RBC 5.30 H (3.65-5.03) M/mm3 MCV 81 L (84-94) fl MCH 27 L (28-32) pg Lymph % (Auto) 13.1 L (13.4-35.0) % [place] % (Auto) 15.8 H (0.0-7.3) % Lymph # 1.1 L (1.2-5.4) K/mm3 [place] # 1.4 H (0.0-0.8) K/mm3 INR (0.87-1.13) POC ABG pO2 220 H (80-105) Potassium (3.6-5.0) mmol/L Chloride (98-107) mmol/L BUN (9-20) mg/dL Creatinine (0.8-1.5) mg/dL Glucose (75-100) mg/dL POC Glucose 113 H (70-105) Phosphorus (2.5-4.5) mg/dL Total Creatine Kinase (55-170) units/L 12/29/18 12/29/18 Range/Units 00:32 03:10 RBC (3.65-5.03) M/mm3 MCV (84-94) fl MCH (28-32) pg Lymph % (Auto) (13.4-35.0) % [place] % (Auto) (0.0-7.3) % Lymph # (1.2-5.4) K/mm3 [place] # (0.0-0.8) K/mm3 INR (0.87-1.13) POC ABG pO2 (80-105) Potassium 3.4 L (3.6-5.0) mmol/L Chloride 91.7 L 93.8 L (98-107) mmol/L BUN 92 H 95 H (9-20) mg/dL Creatinine 3.4 H 3.3 H (0.8-1.5) mg/dL Glucose 131 H 113 H (75-100) mg/dL POC Glucose (70-105) Phosphorus 8.70 H D (2.5-4.5) mg/dL Total Creatine Kinase (55-170) units/L
[2018-12-29 09:00] LABS: Calcium 10.3 mg/dL (8.4-10.2)
--- NOTE | 2018-12-29 10:05 | Progress Note ---
Assessment and Plan - Patient Problems (1) Acute renal failure Current Visit: Yes Status: Acute Plan to address problem: Acute kidney failure Prerenal azotemia versus acute tubular necrosis secondary to hypotension/volume depletion. Hemodialysis started on 12/23/2018. Last HD on 12/26, Cr remains unchanged, pt remains non-oliguric. out of proportion elevation of BUN due to pre-renal azotemia/dehydration. Cont TPN (2) Hypokalemia Current Visit: Yes Status: Acute Plan to address problem: K replete, cont TPN (3) Nausea vomiting and diarrhea Current Visit: Yes Status: Acute Plan to address problem: Continue management by Federico DEGROOT MD and infectious disease (4) Metabolic acidosis Current Visit: Yes Status: Acute Plan to address problem: secondary to diarrhea. now corrected with HD, d/guillermo sodium bicarb gtt (5) AIDS Current Visit: Yes Status: Acute Plan to address problem: antiviral therapy as per ID. Subjective Date of service: 12/29/18 Principal diagnosis: HIV, diarrhea, acute kidney injury Interval history: Pt awake, alert, in no acute distress, remains non-oliguric. Pt developed episode of altered mental status, after receiving meds for his hiccups. CT head unrevealing. Objective - Vital Signs Vital signs: Vital Signs - 12hr 12/28/18 12/28/18 12/28/18 22:20 22:30 22:40 Temperature Pulse Rate 139 H 134 H Pulse Rate [ 128 H From Monitor] Respiratory 18 16 Rate Blood Pressure 116/50 O2 Sat by Pulse 98 98 Oximetry 12/28/18 12/28/18 12/28/18 22:43 22:45 22:50 Temperature 99.2 F Pulse Rate 132 H 127 H Pulse Rate [ From Monitor] Respiratory 22 Rate Blood Pressure 124/77 O2 Sat by Pulse 98 Oximetry 12/28/18 12/28/18 12/28/18 23:00 23:14 23:15 Temperature 98.9 F Pulse Rate 131 H 129 H Pulse Rate [ From Monitor] Respiratory 18 19 Rate Blood Pressure 124/87 119/81 O2 Sat by Pulse 99 98 Oximetry 12/28/18 12/28/18 12/29/18 23:30 23:45 00:00 Temperature Pulse Rate 129 H 129 H 131 H Pulse Rate [ From Monitor] Respiratory 16 18 22 Rate Blood Pressure 123/84 115/82 118/88 O2 Sat by Pulse 100 100 99 Oximetry 12/29/18 12/29/18 12/29/18 00:15 00:31 00:45 Temperature Pulse Rate 132 H 130 H 131 H Pulse Rate [ From Monitor] Respiratory 24 19 22 Rate Blood Pressure 118/88 115/82 115/82 O2 Sat by Pulse 99 99 100 Oximetry 12/29/18 12/29/18 12/29/18 01:01 01:15 01:31 Temperature Pulse Rate 131 H 130 H 131 H Pulse Rate [ From Monitor] Respiratory 18 17 17 Rate Blood Pressure 123/79 123/79 123/79 O2 Sat by Pulse 100 99 100 Oximetry 12/29/18 12/29/18 12/29/18 01:45 02:00 02:11 Temperature Pulse Rate 134 H 132 H 133 H Pulse Rate [ From Monitor] Respiratory 24 19 Rate Blood Pressure 123/85 113/81 113/81 O2 Sat by Pulse 99 98 Oximetry 12/29/18 12/29/18 12/29/18 02:15 02:31 02:45 Temperature Pulse Rate 133 H 130 H 132 H Pulse Rate [ From Monitor] Respiratory 19 17 15 Rate Blood Pressure 113/81 123/85 123/85 O2 Sat by Pulse 96 60 L Oximetry 12/29/18 12/29/18 12/29/18 03:00 03:15 03:31 Temperature Pulse Rate 136 H 133 H 134 H Pulse Rate [ From Monitor] Respiratory 21 18 21 Rate Blood Pressure 113/81 117/73 117/73 O2 Sat by Pulse 100 99 99 Oximetry 12/29/18 12/29/18 12/29/18 03:45 03:51 04:00 Temperature 98.7 F Pulse Rate 135 H Pulse Rate [ 132 H From Monitor] Respiratory 18 24 Rate Blood Pressure 117/73 O2 Sat by Pulse 99 Oximetry 12/29/18 12/29/18 12/29/18 04:01 04:15 04:31 Temperature Pulse Rate 134 H 132 H 136 H Pulse Rate [ From Monitor] Respiratory 20 15 20 Rate Blood Pressure 117/73 117/73 117/73 O2 Sat by Pulse Oximetry 12/29/18 12/29/18 12/29/18 04:45 05:00 05:15 Temperature Pulse Rate 133 H 129 H 130 H Pulse Rate [ From Monitor] Respiratory 14 18 15 Rate Blood Pressure 121/85 130/90 121/85 O2 Sat by Pulse Oximetry 12/29/18 12/29/18 12/29/18 05:31 05:45 06:00 Temperature Pulse Rate 132 H 133 H 135 H Pulse Rate [ From Monitor] Respiratory 16 16 18 Rate Blood Pressure 121/85 121/85 131/83 O2 Sat by Pulse 97 97 Oximetry 12/29/18 12/29/18 12/29/18 06:15 06:31 06:45 Temperature Pulse Rate 133 H 129 H 130 H Pulse Rate [ From Monitor] Respiratory 21 20 17 Rate Blood Pressure 130/90 130/90 130/90 O2 Sat by Pulse 96 79 L Oximetry 12/29/18 12/29/18 12/29/18 07:00 07:15 07:31 Temperature Pulse Rate 133 H 139 H 133 H Pulse Rate [ From Monitor] Respiratory 18 21 16 Rate Blood Pressure 122/85 122/85 122/85 O2 Sat by Pulse 99 97 Oximetry 12/29/18 12/29/18 12/29/18 07:45 08:00 08:15 Temperature 95.7 F L Pulse Rate 137 H 133 H 133 H Pulse Rate [ 133 H From Monitor] Respiratory 16 13 20 Rate Blood Pressure 122/85 131/81 122/85 O2 Sat by Pulse 97 98 94 Oximetry 12/29/18 12/29/18 12/29/18 08:31 08:45 09:00 Temperature Pulse Rate 134 H 140 H 137 H Pulse Rate [ From Monitor] Respiratory 20 12 16 Rate Blood Pressure 122/85 122/85 126/84 O2 Sat by Pulse 100 Oximetry 12/29/18 09:52 Temperature Pulse Rate Pulse Rate [ From Monitor] Respiratory Rate Blood Pressure O2 Sat by Pulse 98 Oximetry - General Appearance General appearance: appears stated age, cachectic, frail EENT: ATNC, PERRL, mucous membranes moist Neck: no JVD Respiratory: Present: Clear to Ascultation Cardiology: regular, S1S2 Gastrointestinal: normoactive bowel sounds Integumentary: no rash, other (no edema ) Neurologic: no focal deficit, alert and oriented x3, strength 5/5, CN 3-12 intact Psychiatric: mood/affect appropriate, cooperative - Lab 12/28/18 23:43 12/29/18 08:15 Most recent lab results Calcium 10.3 mg/dL (8.4-10.2) H 12/29/18 08:15 Phosphorus 8.70 mg/dL (2.5-4.5) H D 12/29/18 03:10 Magnesium 2.00 mg/dL (1.7-2.3) 12/29/18 03:10 Medications & Allergies - Medications Allergies/Adverse Reactions: Allergies No Known Allergies Allergy (Verified 12/13/18 18:58) Home Medications: Home Medications Medication Instructions Recorded Confirmed Last Taken Type No Known Home Medications [No 12/18/18 12/18/18 Unknown History Reported Home Medications] Active Medications: Generic Name Dose Route Start Last Admin Trade Name Freq PRN Reason Stop Dose Admin Acetaminophen 650 mg 12/13/18 22:54 12/28/18 01:21 Tylenol PO 650 mg Q4H PRN Administration Pain MILD(1-3)/Fever >100.5/HOLT Atovaquone 1,500 mg 12/18/18 14:00 12/28/18 10:22 Mepron PO 1,500 mg QDAY MARIA E Administration Cholestyramine Resin 4 gm 12/27/18 11:00 12/28/18 21:01 Questran PO 4 gm BID MARIA E Administration Emtricitabine 200 mg 12/22/18 14:00 12/23/18 11:13 Emtriva PO 200 mg Q72HR MARIA E Administration Enoxaparin Sodium 30 mg 12/18/18 11:00 12/28/18 10:23 Lovenox SUB-Q 30 mg QDAY MARIA E Administration Famotidine 20 mg 12/23/18 16:00 12/28/18 10:22 Pepcid IV 20 mg DAILY MARIA E Administration Heparin Sodium (Porcine) 5,000 unit 12/26/18 13:00 12/26/18 13:54 Heparin IV 5,000 unit ALYSSIA PRN Administration hemodialysis Sodium Chloride 100 mls @ 999 mls/hr 12/26/18 08:34 Nacl 0.9% IV ALYSSIA PRN Hypotension Amino Acids/Electrolytes/Dextrose 2,400 mls @ 100 mls/hr 12/28/18 20:00 12/28/18 20:59 Tpn Adult IV 12/29/18 19:59 100 mls/hr DAILY@2000 MARIA E Administration Protocol Lorazepam 1 mg 12/22/18 12:06 12/28/18 21:17 Ativan IV 1 mg Q4H PRN Administration for insomnia or anxiety Metoclopramide HCl 5 mg 12/22/18 10:00 12/28/18 21:03 Reglan IV 5 mg Q6H PRN Administration Nausea And Vomiting Metoprolol Tartrate 12.5 mg 12/28/18 14:00 12/29/18 02:11 Lopressor PO 12.5 mg Q6H MARIA E Administration Nitazoxanide 500 mg 12/23/18 10:00 12/28/18 21:00 Alinia (Nf) PO 500 mg BID MARIA E Administration Ondansetron HCl 4 mg 12/13/18 22:54 12/27/18 16:04 Zofran IV 4 mg Q4H PRN Administration Nausea And Vomiting Raltegravir 400 mg 12/22/18 14:00 12/28/18 21:00 Isentress PO 400 mg BID MARIA E Administration Sodium Chloride 10 ml 12/14/18 10:00 12/28/18 21:15 Sodium Chloride Flush Syringe 10 Ml IV 10 ml BID MARIA E Administration Sodium Chloride 10 ml 12/13/18 22:54 12/27/18 02:13 Sodium Chloride Flush Syringe 10 Ml IV 10 ml PRN PRN Administration LINE FLUSH Sucralfate 1 gm 12/26/18 18:00 12/29/18 06:23 Carafate PO 1 gm Q6HR MARIA E Administration Tenofovir Disoproxil Fumarate 300 mg 12/22/18 14:00 Viread PO Q72HR MARIA E Valganciclovir 450 mg 12/25/18 10:00 12/27/18 09:57 Valcyte (Nf) PO 450 mg Q48HR MARAI E Administration
--- NOTE | 2018-12-29 10:13 | Progress Note ---
Assessment and Plan His sinus sinus tachycardia is likely a physiologic response to underlying septic process plus dehydration. Cont IVF. Optimize HR - initiate IV lopressor and cont as BPs permit. Await echo - unable to obtain echo thus far as HR has been too high. The patient has been seen in conjunction with Dr. Wahsburn who agrees with the assessment and plan of care. - Patient Problems (1) Sinus tachycardia Current Visit: Yes Status: Acute (2) Sepsis Current Visit: Yes Status: Acute (3) Acute gastroenteritis Current Visit: Yes Status: Acute (4) Acute renal failure Current Visit: Yes Status: Acute (5) Nausea vomiting and diarrhea Current Visit: Yes Status: Acute (6) HIV (human immunodeficiency virus infection) Current Visit: Yes Status: Chronic Subjective Date of service: 12/29/18 Principal diagnosis: HIV, diarrhea, acute kidney injury Interval history: pt resting in bed, remains in ST, vomiting, mother at bedside. Objective Last Vital Signs Temp 95.7 F L 12/29/18 08:00 Pulse 137 H 12/29/18 09:00 Resp 16 12/29/18 09:00 BP 126/84 12/29/18 09:00 Pulse Ox 98 12/29/18 09:52 - Physical Examination HEENT: Positive: EOMI, Normocephaly, Mucus Membranes Moist Neck: Positive: neck supple, trachea midline Cardiac: Positive: Regular Rhythm, S1/S2, Tachycardia Lungs: Positive: Decreased Breath Sounds Neuro: Positive: Grossly Intact Abdomen: Positive: Soft, Active Bowel Sounds, Tender Skin: Positive: Clear. Negative: Rash Musculoskeletal: Normal Range of Motion Extremities: Present: normal. Absent: edema - Labs and Meds Cardiac Enzymes 12/28/18 Range/Units 22:30 CK-MB (CK-2) 2.1 (0.0-4.0) ng/mL Coagulation 12/28/18 Range/Units 22:30 PT 14.7 (12.2-14.9) Sec. INR 1.18 H (0.87-1.13) CBC 12/28/18 12/28/18 Range/Units 22:30 23:43 WBC TNR 8.6 RBC TNR 5.30 H Hgb TNR 14.4 Hct TNR 43.1 D Plt Count TNR 257 D Lymph # TNR 1.1 L [place] # TNR 1.4 H Eos # TNR 0.1 Baso # TNR 0.0 Comprehensive Metabolic Panel 12/29/18 12/29/18 12/29/18 Range/Units 00:32 03:10 08:15 Sodium 141 142 142 (137-145) mmol/L Potassium 3.4 L 3.6 3.7 (3.6-5.0) mmol/L Chloride 91.7 L 93.8 L 92.6 L (98-107) mmol/L Carbon Dioxide 23 D 26 24 (22-30) mmol/L BUN 92 H 95 H 102 H (9-20) mg/dL Creatinine 3.4 H 3.3 H 3.4 H (0.8-1.5) mg/dL Glucose 131 H 113 H 122 H (75-100) mg/dL Calcium 10.1 9.8 10.3 H (8.4-10.2) mg/dL - Imaging and Cardiology EKG: image reviewed - Allied health notes Allied health notes reviewed: nursing
[2018-12-29] MEDS: ALINIA PO SCH ×2 (10:50→21:52)
[2018-12-29] MEDS: MEPRON PO SCH (10:50)
[2018-12-29] MEDS: ISENTRESS PO SCH ×2 (10:51→21:52)
[2018-12-29] MEDS: PEPCID IV SCH (10:51)
[2018-12-29] MEDS: QUESTRAN PO SCH ×2 (10:51→22:04)
[2018-12-29] MEDS: LOVENOX SUB-Q SCH (10:51)
[2018-12-29] MEDS: VALCYTE PO SCH (10:52)
[2018-12-29] MEDS: SODIUM CHLORIDE FLUSH SYRINGE 10 ML IV SCH ×2 (10:52→21:52)
[2018-12-29] MEDS: LOPRESSOR IV SCH ×4 (11:03→21:51)
[2018-12-29] MEDS: ZOFRAN IV PRN ×3 (11:10→22:07)
--- NOTE | 2018-12-29 15:19 | Consultation ---
History of Present Illness - Reason for Consult Consult date: 12/29/18 icu transfer - History of Present Illness 12/29 28 yo M transferred to icu last nite with AMS ?ativan better now Mult med problems recently Dx HIV w complicating infections, diarreha, met acid, renal fail tachycardia on nutritional support unable to take po due to n/v/d bp ok hr 130s sat ok no resp distress Past History Past Medical History: HIV/AIDS, other (chronic migraines, HIV) Past Surgical History: No surgical history Social history: denies: smoking, alcohol abuse Family history: no significant family history Medications and Allergies Allergies Allergy/AdvReac Type Severity Reaction Status Date / Time No Known Allergies Allergy Verified 12/13/18 18:58 Home Medications Medication Instructions Recorded Confirmed Last Taken Type No Known Home Medications [No 12/18/18 12/18/18 Unknown History Reported Home Medications] Active Meds: Active Medications Acetaminophen (Tylenol) 650 mg PO Q4H PRN PRN Reason: Pain MILD(1-3)/Fever >100.5/HOLT Last Admin: 12/28/18 01:21 Dose: 650 mg Documented by: Atovaquone (Mepron) 1,500 mg PO QDAY [facility] Last Admin: 12/29/18 10:50 Dose: 1,500 mg Documented by: Cholestyramine Resin (Questran) 4 gm PO BID [facility] Last Admin: 12/29/18 10:51 Dose: 4 gm Documented by: Emtricitabine (Emtriva) 200 mg PO Q72HR [facility] Last Admin: 12/23/18 11:13 Dose: 200 mg Documented by: Enoxaparin Sodium (Lovenox) 30 mg SUB-Q QDAY [facility] Last Admin: 12/29/18 10:51 Dose: 30 mg Documented by: Famotidine (Pepcid) 20 mg IV DAILY [facility] Last Admin: 12/29/18 10:51 Dose: 20 mg Documented by: Heparin Sodium (Porcine) (Heparin) 5,000 unit IV ALYSSIA PRN PRN Reason: hemodialysis Last Admin: 12/26/18 13:54 Dose: 5,000 unit Documented by: Sodium Chloride (Nacl 0.9%) 100 mls @ 999 mls/hr IV ALYSSIA PRN PRN Reason: Hypotension Amino Acids/Electrolytes/Dextrose (Tpn Adult) 2,400 mls @ 100 mls/hr IV DAILY@2000 [facility]; Protocol Stop: 12/29/18 19:59 Last Admin: 12/28/18 20:59 Dose: 100 mls/hr Documented by: Amino Acids/Electrolytes/Dextrose (Tpn Adult) 2,400 mls @ 100 mls/hr IV DAILY@1999 [facility]; Protocol Stop: 12/30/18 19:59 Fat Emulsion Intravenous (Intralipid 20%) 250 mls @ 21 mls/hr IV DAILY@1999 [facility] Stop: 12/30/18 08:00 Metoclopramide HCl (Reglan) 5 mg IV Q6H PRN PRN Reason: Nausea And Vomiting Last Admin: 12/28/18 21:03 Dose: 5 mg Documented by: Metoprolol Tartrate (Lopressor) 5 mg IV Q4HR [facility] Last Admin: 12/29/18 11:03 Dose: 5 mg Documented by: Nitazoxanide (Alinia (Nf)) 500 mg PO BID [facility] Last Admin: 12/29/18 10:50 Dose: 500 mg Documented by: Ondansetron HCl (Zofran) 4 mg IV Q4H PRN PRN Reason: Nausea And Vomiting Last Admin: 12/29/18 11:10 Dose: 4 mg Documented by: Raltegravir (Isentress) 400 mg PO BID [facility] Last Admin: 12/29/18 10:51 Dose: 400 mg Documented by: Sodium Chloride (Sodium Chloride Flush Syringe 10 Ml) 10 ml IV BID [facility] Last Admin: 12/29/18 10:52 Dose: 10 ml Documented by: Sodium Chloride (Sodium Chloride Flush Syringe 10 Ml) 10 ml IV PRN PRN PRN Reason: LINE FLUSH Last Admin: 12/27/18 02:13 Dose: 10 ml Documented by: Sucralfate (Carafate) 1 gm PO Q6HR [facility] Last Admin: 12/29/18 11:03 Dose: 1 gm Documented by: Tenofovir Disoproxil Fumarate (Viread) 300 mg PO Q72HR [facility] Valganciclovir (Valcyte (Nf)) 450 mg PO Q48HR [facility] Last Admin: 12/29/18 10:52 Dose: 450 mg Documented by: Review of Systems Gastrointestinal: diarrhea Exam - Constitutional Vitals: Temp Pulse Resp BP Pulse Ox 96.5 F L 139 H 17 134/86 99 12/29/18 12:00 12/29/18 15:01 12/29/18 15:01 12/29/18 15:01 12/29/18 15:01 General appearance: Present: no acute distress - EENT Eyes: Present: PERRL - Neck Neck: Present: supple - Respiratory Respiratory effort: normal Respiratory: bilateral: CTA - Cardiovascular Heart rate: 130 Rhythm: regular Heart Sounds: Present: S1 & S2 - Extremities Extremities: No edema - Abdominal Male genitourinary: Present: deferred Results - Labs CBC & Chem 7: 12/28/18 23:43 12/29/18 08:15 Labs: Abnormal lab results 12/28/18 12/28/18 12/28/18 Range/Units 21:49 22:30 22:30 RBC (3.65-5.03) M/mm3 MCV (84-94) fl MCH (28-32) pg Lymph % (Auto) (13.4-35.0) % [place] % (Auto) (0.0-7.3) % Lymph # (1.2-5.4) K/mm3 [place] # (0.0-0.8) K/mm3 INR 1.18 H (0.87-1.13) POC ABG pO2 (80-105) Potassium (3.6-5.0) mmol/L Chloride (98-107) mmol/L BUN (9-20) mg/dL Creatinine (0.8-1.5) mg/dL Glucose (75-100) mg/dL POC Glucose 116 H (70-105) Calcium (8.4-10.2) mg/dL Phosphorus (2.5-4.5) mg/dL Total Creatine Kinase 534 H (55-170) units/L 12/28/18 12/28/18 12/29/18 Range/Units 22:30 23:43 00:02 RBC 5.30 H (3.65-5.03) M/mm3 MCV 81 L (84-94) fl MCH 27 L (28-32) pg Lymph % (Auto) 13.1 L (13.4-35.0) % [place] % (Auto) 15.8 H (0.0-7.3) % Lymph # 1.1 L (1.2-5.4) K/mm3 [place] # 1.4 H (0.0-0.8) K/mm3 INR (0.87-1.13) POC ABG pO2 220 H (80-105) Potassium (3.6-5.0) mmol/L Chloride (98-107) mmol/L BUN (9-20) mg/dL Creatinine (0.8-1.5) mg/dL Glucose (75-100) mg/dL POC Glucose 113 H (70-105) Calcium (8.4-10.2) mg/dL Phosphorus (2.5-4.5) mg/dL Total Creatine Kinase (55-170) units/L 12/29/18 12/29/18 12/29/18 Range/Units 00:32 03:10 08:15 RBC (3.65-5.03) M/mm3 MCV (84-94) fl MCH (28-32) pg Lymph % (Auto) (13.4-35.0) % [place] % (Auto) (0.0-7.3) % Lymph # (1.2-5.4) K/mm3 [place] # (0.0-0.8) K/mm3 INR (0.87-1.13) POC ABG pO2 (80-105) Potassium 3.4 L (3.6-5.0) mmol/L Chloride 91.7 L 93.8 L 92.6 L (98-107) mmol/L BUN 92 H 95 H 102 H (9-20) mg/dL Creatinine 3.4 H 3.3 H 3.4 H (0.8-1.5) mg/dL Glucose 131 H 113 H 122 H (75-100) mg/dL POC Glucose (70-105) Calcium 10.3 H (8.4-10.2) mg/dL Phosphorus 8.70 H D (2.5-4.5) mg/dL Total Creatine Kinase (55-170) units/L 12/29/18 Range/Units 11:55 RBC (3.65-5.03) M/mm3 MCV (84-94) fl MCH (28-32) pg Lymph % (Auto) (13.4-35.0) % [place] % (Auto) (0.0-7.3) % Lymph # (1.2-5.4) K/mm3 [place] # (0.0-0.8) K/mm3 INR (0.87-1.13) POC ABG pO2 (80-105) Potassium (3.6-5.0) mmol/L Chloride (98-107) mmol/L BUN (9-20) mg/dL Creatinine (0.8-1.5) mg/dL Glucose (75-100) mg/dL POC Glucose 111 H (70-105) Calcium (8.4-10.2) mg/dL Phosphorus (2.5-4.5) mg/dL Total Creatine Kinase (55-170) units/L - Imaging and Cardiology Chest x-ray: image reviewed (neg) Assessment and Plan 12/29 ass: MOF/sepsis acute change in mental status prob related to sedation, resolved HIV GI issues Tachycardia prob related to underlying sepsis etc Recc: continue support monitor I/O electrollytes etc abx antiviral per ID
[2018-12-29] MEDS ORDERED: INTRALIPID 20% 250 ML IV SCH (20:00)
[2018-12-29] MEDS ORDERED: TPN ADULT 2,400 ML IV SCH (20:00)
[2018-12-30] MEDS: CARAFATE PO SCH ×4 (04:31→18:17)
[2018-12-30] MEDS: LOPRESSOR IV SCH ×6 (04:31→21:49)
[2018-12-30] MEDS: ZOFRAN IV PRN ×2 (04:31→21:49)
[2018-12-30] MEDS: SODIUM CHLORIDE FLUSH SYRINGE 10 ML IV PRN (04:36)
[2018-12-30 04:56] LABS: Calcium 9.8 mg/dL (8.4-10.2)
--- NOTE | 2018-12-30 08:50 | Progress Note ---
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 on TPN with left arm PICC and rectal tube in place. Treated with Ceftriaxone and Azithromycin as dual coverage for the Shigella and also on empiric IV Flagyl. 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 /Severe hypokalemia: cont to replete IV as needed, likely loss from diarrhea /ARF, most likely ATN and vasomotor nephropathy: Hemodialysis to started from 12/23/18, Nephrology consulted, input noted /Acute metabolic acidosis: treat with bicarbonate, monitor bmp closely /Hyperkalemia, Was medically treated, now resolved: monitor bmp closely /Severe malnutrition, poa: Clinical Account Liaison consulted, due to chronic diarrhea. treat with TPN /Severe sinus tachycardia: [place] from underlying sepsis, Cardiology consulted, input noted, started on Lopressor, ECHO done but pending /Acute toxic metabolic encephalopathy, resolved: d/c IV ativan /Hiccups, was on iv thorazine but it wasn't helping, the carafate is working better. DVT prophylaxis lovenox Disposition: continue inpatient care, goal is to stop the n/v so TPN can be stopped and diarrhea slowed down, placed a consult to LTAC Transfer [facility] with remote CCT 34 minutes Brief History Patient is a 28-year-old man with a history of HIV diagnosis 2 years ago, without any follow up or treatment presented to [facility] ED with nausea/vomiting and diarrhea which began after he ate [employer]. Mother now know son HIV status but other family member doesn't. CMV has come back positive. Patient is still having severe diarrhea, he is unable to eat >7 days, now CMV positive. TPN started on 12/22/18. Hemodialysis started 12/23/18 due to worsening renal function. On 12/25/18 Valcyte was started for CMW treatment. He also became tach ycardic. Overnight on 12/28/18, he developed AMS, more lethargy and hypoxic, Code MET called and he was moved to the ICU again. CT head unrevealing. Most likely cause is oversedation with iv ativan, which now stopped. The iv ativan was given to help stop the intractable hiccups because the IV thorazine wasn't helping. The hiccups now improved with addition of the Carafate for the plethora of GI ulcerations. He actually is doing much better clinically, BUt N/V/D still persisted. Cultures: 12/13/18 Urine: less than 10K 12/14/18 Stool: Shigella species 12/14/18 C-Diff: negative 12/17/18 HIV Rapid; reactive 12/17/18 Cryptosporidium stool positive : Giardia stool negative 12/18/2018 serum Cryptococcal Ag: Negative 12/20/18 CMV DNA PCR positive CD4 count 26 12/26/2018 Procedure: EGD/colonoscopy Findings: EGD: hiatal hernia - white based moderate inflammation, ulceration noted throughout esophagus (bx's) - fairly benign stomach (bx's) - multiple (5-6) ulcers with inflammation noted 1st-proximal 2nd portion duodenum (larget 12-14 mm circumference) with moderate inflammation remaining mucosa (bx's) - negative other Colon: multiple white mainly white based, shallow ulcers (largest 12 mm) sc atterred terminal ileum (bx's) - mild/moderate inflammation distal sigmoid/rectum (bx's) - otherwise normal colon (bx's) Hospitalist Physical Gen: critically ill, thin frail, NAD, Orientated HEENT: NCAT, EOMI, PERRL, OP dry Neck: supple, neck adenopathy, no thyromegaly, no JVD CVS/Heart: Regular tachycardia, normal S1S2, pulses present bilaterally Chest/Lungs: diminished, Symmetrical chest expansion, good air entry bilaterally , reproducible chest wall tenderness GI/Abdomen: distended, diffuse tenderness, good bowel sounds, no guarding or rebound /Bladder: no suprapubic tenderness, no CVA or paraspinal tenderness Extermity/Skin: no c/c/e, MSK: FROM x 4 Neuro: CN 2-12 grossly intact, no new focal deficits Psych: calm Subjective Date of service: 12/30/18 Principal diagnosis: HIV, diarrhea, acute kidney injury Interval history: Patient seen and examined Mother at bedside updated, c/o N/v and unable to keep anything down Also c/o burning sensation allover the body Objective - Constitutional Vitals: Vital Signs - 12hr 12/29/18 12/29/18 12/29/18 20:50 21:00 21:15 Temperature Pulse Rate 133 H 135 H Respiratory 16 15 Rate Blood Pressure 137/93 124/82 O2 Sat by Pulse 98 95 Oximetry 12/29/18 12/29/18 12/29/18 21:31 21:45 21:50 Temperature Pulse Rate 140 H 139 H Respiratory 22 15 Rate Blood Pressure 124/82 137/93 O2 Sat by Pulse 97 100 100 Oximetry 12/29/18 12/29/18 12/29/18 21:51 22:01 22:09 Temperature Pulse Rate 138 H 121 H 121 H Respiratory 13 Rate Blood Pressure 105/77 116/86 O2 Sat by Pulse 96 Oximetry 12/29/18 12/29/18 12/29/18 22:15 22:30 22:45 Temperature Pulse Rate 118 H 119 H 125 H Respiratory 15 16 16 Rate Blood Pressure 105/77 116/81 116/81 O2 Sat by Pulse 97 98 Oximetry 12/29/18 12/29/18 12/29/18 22:55 23:00 23:03 Temperature Pulse Rate 129 H 127 H 127 H Respiratory 19 12 19 Rate Blood Pressure 116/81 115/82 115/82 O2 Sat by Pulse 94 97 97 Oximetry 12/29/18 12/29/18 12/29/18 23:13 23:15 23:30 Temperature 97.8 F Pulse Rate 129 H 126 H Respiratory 16 16 Rate Blood Pressure 116/81 112/75 O2 Sat by Pulse 97 Oximetry 12/29/18 12/30/18 12/30/18 23:45 00:00 00:15 Temperature Pulse Rate 132 H 135 H 133 H Respiratory 21 20 16 Rate Blood Pressure 112/75 112/75 112/75 O2 Sat by Pulse 88 99 96 Oximetry 12/30/18 12/30/1819 00:25 00:30 00:45 Temperature Pulse Rate 133 H 128 H 133 H Respiratory 15 16 Rate Blood Pressure 121/79 117/80 O2 Sat by Pulse 100 97 Oximetry 12/30/18 12/30/18 12/30/18 01:00 01:15 01:30 Temperature Pulse Rate 132 H 130 H 134 H Respiratory 17 15 16 Rate Blood Pressure 121/82 121/82 116/82 O2 Sat by Pulse 98 85 100 Oximetry 12/30/18 12/30/18 12/30/18 01:45 02:00 02:15 Temperature Pulse Rate 126 H 133 H 131 H Respiratory 14 15 13 Rate Blood Pressure 116/82 126/83 126/83 O2 Sat by Pulse 97 Oximetry 12/30/18 12/30/18 12/30/18 02:30 02:45 03:00 Temperature Pulse Rate 128 H 129 H 137 H Respiratory 15 14 14 Rate Blood Pressure 124/87 124/87 118/87 O2 Sat by Pulse Oximetry 12/30/18 12/30/18 12/30/18 03:15 03:20 03:30 Temperature Pulse Rate 135 H 134 H 134 H Respiratory 14 21 Rate Blood Pressure 118/87 125/85 O2 Sat by Pulse 97 100 98 Oximetry 12/30/18 12/30/18 12/30/18 03:45 04:00 04:01 Temperature 98.4 F Pulse Rate 134 H 133 H Respiratory 16 17 Rate Blood Pressure 125/85 125/85 O2 Sat by Pulse 98 97 Oximetry 12/30/18 12/30/18 12/30/18 04:15 04:31 04:45 Temperature Pulse Rate 135 H 136 H 115 H Respiratory 14 13 17 Rate Blood Pressure 125/85 123/87 123/87 O2 Sat by Pulse 98 97 97 Oximetry 12/30/18 12/30/18 12/30/18 05:00 05:15 05:31 Temperature Pulse Rate 116 H 120 H 122 H Respiratory 16 15 18 Rate Blood Pressure 124/84 124/84 123/87 O2 Sat by Pulse 96 97 Oximetry 12/30/18 12/30/18 12/30/18 05:45 05:57 06:00 Temperature Pulse Rate 123 H 126 H 117 H Respiratory 16 13 Rate Blood Pressure 123/87 124/84 117/84 O2 Sat by Pulse 97 96 Oximetry 07/12/30/18 12/30/18 06:15 06:30 06:45 Temperature Pulse Rate 111 H 114 H 117 H Respiratory 14 16 15 Rate Blood Pressure 117/84 117/84 117/84 O2 Sat by Pulse 98 95 Oximetry 12/30/18 12/30/18 12/30/18 07:00 07:15 07:31 Temperature Pulse Rate 124 H 125 H 125 H Respiratory 18 15 13 Rate Blood Pressure 117/84 127/90 127/90 O2 Sat by Pulse 96 96 Oximetry 12/30/18 12/30/18 12/30/18 07:45 08:00 08:01 Temperature 97.9 F Pulse Rate 124 H 124 H Respiratory 16 18 Rate Blood Pressure 127/90 128/99 O2 Sat by Pulse 97 98 Oximetry 12/30/18 08:15 Temperature Pulse Rate 126 H Respiratory 17 Rate Blood Pressure 128/99 O2 Sat by Pulse Oximetry - Labs CBC & Chem 7: 12/31/18 04:25 12/31/18 04:25 Labs: Abnormal lab results 12/29/18 12/29/18 12/29/18 Range/Units 08:15 11:55 23:35 Sodium (137-145) mmol/L Chloride 92.6 L (98-107) mmol/L Carbon Dioxide (22-30) mmol/L BUN 102 H (9-20) mg/dL Creatinine 3.4 H (0.8-1.5) mg/dL Glucose 122 H (75-100) mg/dL POC Glucose 111 H 122 H (70-105) Lactic Acid (0.7-2.0) mmol/L Calcium 10.3 H (8.4-10.2) mg/dL Phosphorus (2.5-4.5) mg/dL 12/30/18 12/30/18 12/30/18 Range/Units 03:57 03:57 05:18 Sodium 133 L D (137-145) mmol/L Chloride 91.9 L (98-107) mmol/L Carbon Dioxide 15 L D (22-30) mmol/L BUN 94 H (9-20) mg/dL Creatinine 3.7 H (0.8-1.5) mg/dL Glucose 117 H (75-100) mg/dL POC Glucose 160 H (70-105) Lactic Acid 2.70 H* (0.7-2.0) mmol/L Calcium (8.4-10.2) mg/dL Phosphorus 8.30 H (2.5-4.5) mg/dL
--- NOTE | 2018-12-30 09:49 | Progress Note ---
Assessment and Plan His sinus sinus tachycardia is likely a physiologic response to underlying septic process plus dehydration. Cont IVF and TPN. Cont IV lopressor as BPs permit. Await echo. The patient has been seen in conjunction with Dr. Washburn who agrees with the assessment and plan of care. - Patient Problems (1) Sinus tachycardia Current Visit: Yes Status: Acute (2) Sepsis Current Visit: Yes Status: Acute (3) Acute gastroenteritis Current Visit: Yes Status: Acute (4) Acute renal failure Current Visit: Yes Status: Acute (5) Nausea vomiting and diarrhea Current Visit: Yes Status: Acute (6) HIV (human immunodeficiency virus infection) Current Visit: Yes Status: Chronic Subjective Date of service: 12/30/18 Principal diagnosis: HIV, diarrhea, acute kidney injury Interval history: pt resting in bed, remains in ST, c/o abdominal pain, mother at bedside. Objective Last Vital Signs Temp 97.9 F 12/30/18 08:00 Pulse 126 H 12/30/18 08:15 Resp 17 12/30/18 08:15 BP 128/99 12/30/18 08:15 Pulse Ox 98 12/30/18 08:01 - Physical Examination General: Other (lethargic) HEENT: Positive: EOMI, Normocephaly, Mucus Membranes Moist Neck: Positive: neck supple, trachea midline Cardiac: Positive: Regular Rhythm, S1/S2, Tachycardia Lungs: Positive: Decreased Breath Sounds Neuro: Positive: Grossly Intact Abdomen: Positive: Soft, Active Bowel Sounds, Tender Skin: Positive: Clear. Negative: Rash Musculoskeletal: Normal Range of Motion Extremities: Present: normal. Absent: edema - Labs and Meds Comprehensive Metabolic Panel 12/30/18 Range/Units 03:57 Sodium 133 L D (137-145) mmol/L Potassium 4.9 D (3.6-5.0) mmol/L Chloride 91.9 L (98-107) mmol/L Carbon Dioxide 15 L D (22-30) mmol/L BUN 94 H (9-20) mg/dL Creatinine 3.7 H (0.8-1.5) mg/dL Glucose 117 H (75-100) mg/dL Calcium 9.8 (8.4-10.2) mg/dL - Imaging and Cardiology EKG: image reviewed - Telemetry EKG Rhythm: Sinus Tachycardia - Allied health notes Allied health notes reviewed: nursing
[2018-12-30] MEDS: QUESTRAN PO SCH ×2 (09:58→22:00)
[2018-12-30] MEDS: LOVENOX SUB-Q SCH (09:59)
[2018-12-30] MEDS: ISENTRESS PO SCH ×2 (10:00→22:00)
[2018-12-30] MEDS: PEPCID IV SCH (10:00)
[2018-12-30] MEDS: SODIUM CHLORIDE FLUSH SYRINGE 10 ML IV SCH ×2 (10:00→22:01)
[2018-12-30] MEDS: ALINIA PO SCH ×2 (10:00→22:00)
[2018-12-30] MEDS: MEPRON PO SCH (10:00)
[2018-12-30] MEDS: REGLAN IV PRN ×3 (10:48→23:58)
--- NOTE | 2018-12-30 11:07 | Progress Note ---
Assessment and Plan - Patient Problems (1) Acute renal failure Current Visit: Yes Status: Acute Plan to address problem: Acute kidney failure Prerenal azotemia versus acute tubular necrosis secondary to hypotension/volume depletion. Hemodialysis started on 12/23/2018. Last HD on 12/26, Cr trending up marginally, however pt remains non-oliguric. out of proportion elevation of BUN due to pre-renal azotemia/dehydration. Cont TPN, added IV bicarb given worsening metabolic acidosis. if met acidosis remains refractory and renal function continues to decline will reconsider HD. check bladder scan and straight cath if post-void residual > 300ccs. (2) Hypokalemia Current Visit: Yes Status: Acute Plan to address problem: K replete, cont TPN (3) Nausea vomiting and diarrhea Current Visit: Yes Status: Acute Plan to address problem: Continue management by Federico DEGROOT MD and infectious disease (4) Metabolic acidosis Current Visit: Yes Status: Acute Plan to address problem: secondary to diarrhea, restarted bicarb gtt (5) AIDS Current Visit: Yes Status: Acute Plan to address problem: antiviral therapy as per ID. Subjective Date of service: 12/30/18 Principal diagnosis: HIV, diarrhea, acute kidney injury Interval history: Pt awake, alert, in no acute distress, denies fever, chills, continues to have n/v diarrhea, remains non-oliguric. Objective - Vital Signs Vital signs: Vital Signs - 12hr 12/29/18 12/29/18 12/29/18 23:13 23:15 23:30 Temperature 97.8 F Pulse Rate 129 H 126 H Respiratory 16 16 Rate Blood Pressure 116/81 112/75 O2 Sat by Pulse 97 Oximetry 12/29/18 12/30/18 12/30/18 23:45 00:00 00:15 Temperature Pulse Rate 132 H 135 H 133 H Respiratory 21 20 16 Rate Blood Pressure 112/75 112/75 112/75 O2 Sat by Pulse 88 99 96 Oximetry 12/30/18 12/30/18 12/30/18 00:25 00:30 00:45 Temperature Pulse Rate 133 H 128 H 133 H Respiratory 15 16 Rate Blood Pressure 121/79 117/80 O2 Sat by Pulse 100 97 Oximetry 12/30/18 12/30/18 12/30/18 01:00 01:15 01:30 Temperature Pulse Rate 132 H 130 H 134 H Respiratory 17 15 16 Rate Blood Pressure 121/82 121/82 116/82 O2 Sat by Pulse 98 85 100 Oximetry 12/30/18 12/30/18 12/30/18 01:45 02:00 02:15 Temperature Pulse Rate 126 H 133 H 131 H Respiratory 14 15 13 Rate Blood Pressure 116/82 126/83 126/83 O2 Sat by Pulse 97 Oximetry 12/30/18 12/30/18 12/30/18 02:30 02:45 03:00 Temperature Pulse Rate 128 H 129 H 137 H Respiratory 15 14 14 Rate Blood Pressure 124/87 124/87 118/87 O2 Sat by Pulse Oximetry 12/30/18 12/30/18 12/30/18 03:15 03:20 03:30 Temperature Pulse Rate 135 H 134 H 134 H Respiratory 14 21 Rate Blood Pressure 118/87 125/85 O2 Sat by Pulse 97 100 98 Oximetry 12/30/18 12/30/18 12/30/18 03:45 04:00 04:01 Temperature 98.4 F Pulse Rate 134 H 133 H Respiratory 16 17 Rate Blood Pressure 125/85 125/85 O2 Sat by Pulse 98 97 Oximetry 12/30/18 12/30/18 12/30/18 04:15 04:31 04:45 Temperature Pulse Rate 135 H 136 H 115 H Respiratory 14 13 17 Rate Blood Pressure 125/85 123/87 123/87 O2 Sat by Pulse 98 97 97 Oximetry 12/30/18 12/30/18 12/30/18 05:00 05:15 05:31 Temperature Pulse Rate 116 H 120 H 122 H Respiratory 16 15 18 Rate Blood Pressure 124/84 124/84 123/87 O2 Sat by Pulse 96 97 Oximetry 12/30/18 12/30/18 12/30/18 05:45 05:57 06:00 Temperature Pulse Rate 123 H 126 H 117 H Respiratory 16 13 Rate Blood Pressure 123/87 124/84 117/84 O2 Sat by Pulse 97 96 Oximetry 12/30/18 12/30/18 12/30/18 06:15 06:30 06:45 Temperature Pulse Rate 111 H 114 H 117 H Respiratory 14 16 15 Rate Blood Pressure 117/84 117/84 117/84 O2 Sat by Pulse 98 95 Oximetry 12/30/18 12/30/18 12/30/18 07:00 07:15 07:31 Temperature Pulse Rate 124 H 125 H 125 H Respiratory 18 15 13 Rate Blood Pressure 117/84 127/90 127/90 O2 Sat by Pulse 96 96 Oximetry 12/30/18 12/30/18 12/30/18 07:45 08:00 08:01 Temperature 97.9 F Pulse Rate 124 H 124 H Respiratory 16 18 Rate Blood Pressure 127/90 128/99 O2 Sat by Pulse 97 98 Oximetry 12/30/18 12/30/18 08:15 10:00 Temperature Pulse Rate 126 H 133 H Respiratory 17 Rate Blood Pressure 128/99 122/71 O2 Sat by Pulse Oximetry - General Appearance General appearance: cachectic, chronically ill, frail EENT: ATNC, PERRL, mucous membranes moist Neck: no JVD Respiratory: Present: Clear to Ascultation Cardiology: regular, S1S2 Gastrointestinal: normoactive bowel sounds Integumentary: no rash, other (no edema ) Neurologic: no focal deficit, alert and oriented x3, strength 5/5, CN 3-12 intact Psychiatric: mood/affect appropriate, cooperative - Lab 12/28/18 23:43 12/30/18 03:57 Most recent lab results Calcium 9.8 mg/dL (8.4-10.2) 12/30/18 03:57 Phosphorus 8.30 mg/dL (2.5-4.5) H 12/30/18 03:57 Magnesium 2.10 mg/dL (1.7-2.3) 12/30/18 03:57 Medications & Allergies - Medications Allergies/Adverse Reactions: Allergies No Known Allergies Allergy (Verified 12/13/18 18:58) Home Medications: Home Medications Medication Instructions Recorded Confirmed Last Taken Type No Known Home Medications [No 12/18/18 12/18/18 Unknown History Reported Home Medications] Active Medications: Generic Name Dose Route Start Last Admin Trade Name Freq PRN Reason Stop Dose Admin Acetaminophen 650 mg 12/13/18 22:54 12/28/18 01:21 Tylenol PO 650 mg Q4H PRN Administration Pain MILD(1-3)/Fever >100.5/HOLT Atovaquone 1,500 mg 12/18/18 14:00 12/30/18 10:00 Mepron PO 1,500 mg QDAY MARIA E Administration Cholestyramine Resin 4 gm 12/27/18 11:00 12/30/18 09:58 Questran PO 4 gm BID MARIA E Administration Emtricitabine 200 mg 12/22/18 14:00 12/23/18 11:13 Emtriva PO 200 mg Q72HR MARIA E Administration Enoxaparin Sodium 30 mg 12/18/18 11:00 12/30/18 09:59 Lovenox SUB-Q 30 mg QDAY MARIA E Administration Famotidine 20 mg 12/23/18 16:00 12/30/18 10:00 Pepcid IV 20 mg DAILY MARIA E Administration Heparin Sodium (Porcine) 5,000 unit 12/26/18 13:00 12/26/18 13:54 Heparin IV 5,000 unit ALYSSIA PRN Administration hemodialysis Sodium Chloride 100 mls @ 999 mls/hr 12/26/18 08:34 Nacl 0.9% IV ALYSSIA PRN Hypotension Amino Acids/Electrolytes/Dextrose 2,400 mls @ 100 mls/hr 12/29/18 20:00 12/29/18 20:24 Tpn Adult IV 12/30/18 19:59 100 mls/hr DAILY@2000 MARIA E Administration Protocol Sodium Bicarbonate 150 meq/ 1,150 mls @ 75 mls/hr 12/30/18 11:00 Dextrose IV DIRECT MARIA E Metoclopramide HCl 5 mg 12/22/18 10:00 12/30/18 10:48 Reglan IV 5 mg Q6H PRN Administration Nausea And Vomiting Metoprolol Tartrate 5 mg 12/29/18 11:00 12/30/18 10:00 Lopressor IV 5 mg Q4HR MARIA E Administration Nitazoxanide 500 mg 12/23/18 10:00 12/30/18 10:00 Alinia (Nf) PO 500 mg BID MARIA E Administration Ondansetron HCl 4 mg 12/13/18 22:54 12/30/18 04:31 Zofran IV 4 mg Q4H PRN Administration Nausea And Vomiting Raltegravir 400 mg 12/22/18 14:00 12/30/18 10:00 Isentress PO 400 mg BID MARIA E Administration Sodium Chloride 10 ml 12/14/18 10:00 12/30/18 10:00 Sodium Chloride Flush Syringe 10 Ml IV 10 ml BID MARIA E Administration Sodium Chloride 10 ml 12/13/18 22:54 12/30/18 04:36 Sodium Chloride Flush Syringe 10 Ml IV 10 ml PRN PRN Administration LINE FLUSH Sucralfate 1 gm 12/26/18 18:00 12/30/18 05:56 Carafate PO 1 gm Q6HR MARIA E Administration Tenofovir Disoproxil Fumarate 300 mg 12/22/18 14:00 Viread PO Q72HR MARIA E Valganciclovir 450 mg 12/25/18 10:00 12/29/18 10:52 Valcyte (Nf) PO 450 mg Q48HR MARIA E Administration
--- NOTE | 2018-12-30 11:42 | Progress Note ---
Assessment and Plan 12/29 ass: MOF/sepsis acute change in mental status prob related to sedation, resolved HIV GI issues Tachycardia prob related to underlying sepsis etc Recc: continue support monitor I/O electrollytes etc abx antiviral per ID 12/30 no clinical change Worsening renal fx'n see renal note placed on bicarb drip continue to monitor etc Subjective Date of service: 12/30/18 Principal diagnosis: HIV, diarrhea, acute kidney injury Interval history: 12/30 Alert p120 sl down Overall unch still some diarreha, not able to keep d own po No resp distress abd pain Objective - Constitutional Vitals: Vital Signs - 12hr 12/29/18 12/30/18 12/30/18 23:45 00:00 00:15 Temperature Pulse Rate 132 H 135 H 133 H Respiratory 21 20 16 Rate Blood Pressure 112/75 112/75 112/75 O2 Sat by Pulse 88 99 96 Oximetry 12/30/18 12/30/18 12/30/18 00:25 00:30 00:45 Temperature Pulse Rate 133 H 128 H 133 H Respiratory 15 16 Rate Blood Pressure 121/79 117/80 O2 Sat by Pulse 100 97 Oximetry 12/30/18 12/30/18 12/30/18 01:00 01:15 01:30 Temperature Pulse Rate 132 H 130 H 134 H Respiratory 17 15 16 Rate Blood Pressure 121/82 121/82 116/82 O2 Sat by Pulse 98 85 100 Oximetry 12/30/18 12/30/18 12/30/18 01:45 02:00 02:15 Temperature Pulse Rate 126 H 133 H 131 H Respiratory 14 15 13 Rate Blood Pressure 116/82 126/83 126/83 O2 Sat by Pulse 97 Oximetry 12/30/18 12/30/18 12/30/18 02:30 02:45 03:00 Temperature Pulse Rate 128 H 129 H 137 H Respiratory 15 14 14 Rate Blood Pressure 124/87 124/87 118/87 O2 Sat by Pulse Oximetry 12/30/18 12/30/18 12/30/18 03:15 03:20 03:30 Temperature Pulse Rate 135 H 134 H 134 H Respiratory 14 21 Rate Blood Pressure 118/87 125/85 O2 Sat by Pulse 97 100 98 Oximetry 12/30/18 12/30/18 12/30/18 03:45 04:00 04:01 Temperature 98.4 F Pulse Rate 134 H 133 H Respiratory 16 17 Rate Blood Pressure 125/85 125/85 O2 Sat by Pulse 98 97 Oximetry 12/30/18 12/30/18 12/30/18 04:15 04:31 04:45 Temperature Pulse Rate 135 H 136 H 115 H Respiratory 14 13 17 Rate Blood Pressure 125/85 123/87 123/87 O2 Sat by Pulse 98 97 97 Oximetry 12/30/18 12/30/18 12/30/18 05:00 05:15 05:31 Temperature Pulse Rate 116 H 120 H 122 H Respiratory 16 15 18 Rate Blood Pressure 124/84 124/84 123/87 O2 Sat by Pulse 96 97 Oximetry 12/30/18 12/30/18 12/30/18 05:45 05:57 06:00 Temperature Pulse Rate 123 H 126 H 117 H Respiratory 16 13 Rate Blood Pressure 123/87 124/84 117/84 O2 Sat by Pulse 97 96 Oximetry 12/30/18 12/30/18 12/30/18 06:15 06:30 06:45 Temperature Pulse Rate 111 H 114 H 117 H Respiratory 14 16 15 Rate Blood Pressure 117/84 117/84 117/84 O2 Sat by Pulse 98 95 Oximetry 12/30/18 12/30/18 12/30/18 07:00 07:15 07:31 Temperature Pulse Rate 124 H 125 H 125 H Respiratory 18 15 13 Rate Blood Pressure 117/84 127/90 127/90 O2 Sat by Pulse 96 96 Oximetry 12/30/18 12/30/18 12/30/18 07:45 08:00 08:01 Temperature 97.9 F Pulse Rate 124 H 124 H Respiratory 16 18 Rate Blood Pressure 127/90 128/99 O2 Sat by Pulse 97 98 Oximetry 12/30/18 12/30/18 08:15 10:00 Temperature Pulse Rate 126 H 133 H Respiratory 17 Rate Blood Pressure 128/99 122/71 O2 Sat by Pulse Oximetry General appearance: Present: no acute distress - EENT Eyes: no scleral icterus - Respiratory Respiratory effort: normal Respiratory: bilateral: CTA - Cardiovascular Heart rate: 120 Rhythm: regular Extremities: no ischemia, No edema - Gastrointestinal General gastrointestinal: Present: soft, non-tender, hypoactive bowel sounds - Labs CBC & Chem 7: 12/28/18 23:43 12/30/18 03:57 Labs: Abnormal lab results 12/29/18 12/29/18 12/30/18 Range/Units 11:55 23:35 03:57 Sodium 133 L D (137-145) mmol/L Chloride 91.9 L (98-107) mmol/L Carbon Dioxide 15 L D (22-30) mmol/L BUN 94 H (9-20) mg/dL Creatinine 3.7 H (0.8-1.5) mg/dL Glucose 117 H (75-100) mg/dL POC Glucose 111 H 122 H (70-105) Lactic Acid (0.7-2.0) mmol/L Phosphorus 8.30 H (2.5-4.5) mg/dL 12/30/18 12/30/18 Range/Units 03:57 05:18 Sodium (137-145) mmol/L Chloride (98-107) mmol/L Carbon Dioxide (22-30) mmol/L BUN (9-20) mg/dL Creatinine (0.8-1.5) mg/dL Glucose (75-100) mg/dL POC Glucose 160 H (70-105) Lactic Acid 2.70 H* (0.7-2.0) mmol/L Phosphorus (2.5-4.5) mg/dL Medications & Allergies - Medications Allergies/Adverse Reactions: Allergies No Known Allergies Allergy (Verified 12/13/18 18:58) Home Medications: Home Medications Medication Instructions Recorded Confirmed Last Taken Type No Known Home Medications [No 12/18/18 12/18/18 Unknown History Reported Home Medications] Active Medications: Generic Name Dose Route Start Last Admin Trade Name Scottyq PRN Reason Stop Dose Admin Acetaminophen 650 mg 12/13/18 22:54 12/28/18 01:21 Tylenol PO 650 mg Q4H PRN Administration Pain MILD(1-3)/Fever >100.5/HOLT Atovaquone 1,500 mg 12/18/18 14:00 12/30/18 10:00 Mepron PO 1,500 mg QDAY MARIA E Administration Cholestyramine Resin 4 gm 12/27/18 11:00 12/30/18 09:58 Questran PO 4 gm BID MARIA E Administration Emtricitabine 200 mg 12/22/18 14:00 12/23/18 11:13 Emtriva PO 200 mg Q72HR MARIA E Administration Enoxaparin Sodium 30 mg 12/18/18 11:00 12/30/18 09:59 Lovenox SUB-Q 30 mg QDAY MARIA E Administration Famotidine 20 mg 12/23/18 16:00 12/30/18 10:00 Pepcid IV 20 mg DAILY MARIA E Administration Heparin Sodium (Porcine) 5,000 unit 12/26/18 13:00 12/26/18 13:54 Heparin IV 5,000 unit ALYSSIA PRN Administration hemodialysis Sodium Chloride 100 mls @ 999 mls/hr 12/26/18 08:34 Nacl 0.9% IV ALYSSIA PRN Hypotension Amino Acids/Electrolytes/Dextrose 2,400 mls @ 100 mls/hr 12/29/18 20:00 12/29/18 20:24 Tpn Adult IV 12/30/18 19:59 100 mls/hr DAILY@2000 MARIA E Administration Protocol Sodium Bicarbonate 150 meq/ 1,150 mls @ 75 mls/hr 12/30/18 12:00 Dextrose IV DIRECT MARIA E Metoclopramide HCl 5 mg 12/22/18 10:00 12/30/18 10:48 Reglan IV 5 mg Q6H PRN Administration Nausea And Vomiting Metoprolol Tartrate 5 mg 12/29/18 11:00 12/30/18 10:00 Lopressor IV 5 mg Q4HR MARIA E Administration Nitazoxanide 500 mg 12/23/18 10:00 12/30/18 10:00 Alinia (Nf) PO 500 mg BID MARIA E Administration Ondansetron HCl 4 mg 12/13/18 22:54 12/30/18 04:31 Zofran IV 4 mg Q4H PRN Administration Nausea And Vomiting Raltegravir 400 mg 12/22/18 14:00 12/30/18 10:00 Isentress PO 400 mg BID MARIA E Administration Sodium Chloride 10 ml 12/14/18 10:00 12/30/18 10:00 Sodium Chloride Flush Syringe 10 Ml IV 10 ml BID MARIA E Administration Sodium Chloride 10 ml 12/13/18 22:54 12/30/18 04:36 Sodium Chloride Flush Syringe 10 Ml IV 10 ml PRN PRN Administration LINE FLUSH Sucralfate 1 gm 12/26/18 18:00 12/30/18 05:56 Carafate PO 1 gm Q6HR MARIA E Administration Tenofovir Disoproxil Fumarate 300 mg 12/22/18 14:00 Viread PO Q72HR MARIA E Valganciclovir 450 mg 12/25/18 10:00 12/29/18 10:52 Valcyte (Nf) PO 450 mg Q48HR MARIA E Administration
[2018-12-30] MEDS: SODIUM BICARBONATE 150 MEQ in D5W 1,000 ML IV SCH (12:26)
--- NOTE | 2018-12-30 13:53 | Progress Note ---
Assessment and Plan Cultures: 12/13/18 Urine: less than 10K 12/14/18 Stool: Shigella species 12/14/18 C-Diff: negative 12/17/18 HIV Rapid; reactive 12/17/18 Cryptosporidium: positive : Giardia: negative 12/18/2018 serum Cryptococcal Ag: Negaitve 12/18/2018 serum CMV PCR 1125 A/P: 28-year old male with no previous medical history that presents to the ED on 12/13/18 with complaints of nausea, vomiting and diarrhea since . He reported eating beef and broccoli chomein and orange chicken at [employer] on Saturday12-10-18. His symptoms worsened the next day. Admitted with. 1. 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 Stool cultures Shigella species. Cryptosporidium: positive. Cdiff negative. Currently being treated with Ceftriaxone and Azithromycin as dual coverage for the Shigella and also on empiric IV Flagyl. 12/18/2018 serum CMV PCR 1125. S/p EGD: hiatal hernia, white based moderate inflammation, ulceration noted throughout esophagus (bx's) and multiple (5-6) ulcers with inflammation noted 1st-proximal 2nd portion duodenum (larget 12-14 mm circumference) with moderate inflammation remaining mucosa (bx's). Colon: multiple white mainly white based, shallow ulcers (largest 12 mm) scatterred terminal ileum (bx's) with mild/moderate inflammation distal sigmoid/rectum (bx's) 2. HIV/AIDS: CD4=26, 3% on 12/16/2018; diagnosed 2 years ago. No follow-up with ID. Unknown CD4 count/Viral load. Never been on HIV therapy. Mother is now aware of HIV. Labs pending here. Likely AIDS given the lymphopenia. Crypto antigen negative. 3 MEHNAZ: worsening. Nephrology following. Hemodialysis started on 12/23/2018. 4. Sepsis v/s SIRS: hypothermia, increased lactic acid and tachycardia, likely hypovolemia given the evidence of hemoconcentration. 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 Guarded prognosis Ani Fry MD Infectious Diseases [employer] [facility] ([facility]) M [phone] O [phone] Subjective Date of service: 12/30/18 Principal diagnosis: HIV, diarrhea, acute kidney injury Interval history: Patient feels weak very hot, no fever, tachycardic on monitor, persistent nausea/vomiting, on TPN +thristy, denies SOB. ROS weakness, diarrhea, oliguria, rest negative Objective - Exam Narrative Exam: General: Alert in NAD cachetic debilitated Head, Ears, Nose: Normocephalic, atraumatic. External ears, nose normal Eyes: Conjunctivae/corneas clear. No icterus. No ptosis. Neck: Supple, no meningeal signs Oral: dentition fair, no thrush Cardiovascular: tachycardic Respiratory: Good air entry, clear to auscultation bilaterally GI: Soft, diffuse tenderness Musculoskeletal: No pedal edema, no cyanosis. Skin: No rash or abscess Hem/Lymphatic: No palpable cervical or supraclavicular nodes. No lymphangitis Psych: Mood ok. Affect normal Neurological: Awake, alert, oriented. No gross abnormality rectal tube watery minimal black diarrhea Right IJ perm cath - Constitutional Vitals: Vital Signs Temp Pulse Resp BP Pulse Ox 98.0 F 133 H 17 122/71 98 12/30/18 12:00 12/30/18 10:00 12/30/18 08:15 12/30/18 10:00 12/30/18 08:01 Temperature -Last 24 Hours Temperature 98.0 F Temperature 97.9 F Temperature 98.4 F Temperature 97.8 F Temperature 97.4 F Temperature 96.3 F - Labs CBC & Chem 7: 12/28/18 23:43 12/30/18 03:57 Labs: Abnormal lab results 12/29/18 12/30/18 12/30/18 Range/Units 23:35 03:57 03:57 Sodium 133 L D (137-145) mmol/L Chloride 91.9 L (98-107) mmol/L Carbon Dioxide 15 L D (22-30) mmol/L BUN 94 H (9-20) mg/dL Creatinine 3.7 H (0.8-1.5) mg/dL Glucose 117 H (75-100) mg/dL POC Glucose 122 H (70-105) Lactic Acid 2.70 H* (0.7-2.0) mmol/L Phosphorus 8.30 H (2.5-4.5) mg/dL 12/30/18 Range/Units 05:18 Sodium (137-145) mmol/L Chloride (98-107) mmol/L Carbon Dioxide (22-30) mmol/L BUN (9-20) mg/dL Creatinine (0.8-1.5) mg/dL Glucose (75-100) mg/dL POC Glucose 160 H (70-105) Lactic Acid (0.7-2.0) mmol/L Phosphorus (2.5-4.5) mg/dL
[2018-12-30 16:22] LABS: HIV-1 RNA QN PCR 4.2 Log cps/mL
[2018-12-30] MEDS ORDERED: TPN ADULT 1,999.92 ML IV SCH (20:00)
[2018-12-31] MEDS: CARAFATE PO SCH ×2 (00:02→06:06)
[2018-12-31] MEDS: LOPRESSOR IV SCH ×4 (02:13→22:38)
[2018-12-31 05:00] LABS: Hematocrit 42.3 % (35.5-45.6); Hemoglobin 14.4 gm/dl (11.8-15.2); Mean Corpuscular HGB Conc 34 % (32-34); Mean Corpuscular Volume 79 fl (84-94); Platelet Count 262 K/mm3 (140-440); Red Blood Count 5.33 M/mm3 (3.65-5.03); Red Cell Distribution Width 13.2 % (13.2-15.2)
[2018-12-31 05:15] LABS: Calcium 10.1 mg/dL (8.4-10.2)
[2018-12-31] MEDS: REGLAN IV PRN ×2 (05:24→21:34)
[2018-12-31 06:21] LABS: Anisocytosis 1+; Basophils % (Manual) 0 % (0.0-1.8); Eosinophils % (Manual) 0 % (0.0-4.3); Platelet Estimate Consistent w Auto; Stomatocytes 1+; Total Cells Counted 100
[2018-12-31] MEDS ORDERED: NACL 0.9% 100 ML IV PRN (09:21)
--- NOTE | 2018-12-31 10:03 | Progress Note ---
Assessment and Plan - Patient Problems (1) Acute renal failure Current Visit: Yes Status: Acute Plan to address problem: Acute kidney failure Prerenal azotemia versus acute tubular necrosis secondary to hypotension/volume depletion. Hemodialysis started on 12/23/2018. Last HD on 12/26, metabolic acidosis improved on bicarb gtt, however worsening azotemia noted. will arrange HD today for solute clearance, using 4K bath to correct hypokalemia (2) Hypokalemia Current Visit: Yes Status: Acute Plan to address problem: cont TPN, HD today with 4K bath (3) Nausea vomiting and diarrhea Current Visit: Yes Status: Acute Plan to address problem: Continue management by Federico DEGROOT MD and infectious disease (4) Metabolic acidosis Current Visit: Yes Status: Acute Plan to address problem: secondary to diarrhea, restarted bicarb gtt. HD arranged today (5) AIDS Current Visit: Yes Status: Acute Plan to address problem: antiviral therapy as per ID. Subjective Date of service: 12/31/18 Principal diagnosis: HIV, diarrhea, acute kidney injury Interval history: Pt awake, alert, in no acute distress, denies fever, chills, continues to have n/v diarrhea, remains non-oliguric, but worsening renal parameters seen Objective - Vital Signs Vital signs: Vital Signs - 12hr 12/30/18 12/30/18 12/31/18 23:00 23:01 00:00 Temperature 96.1 F L Pulse Rate 116 H 118 H 130 H Pulse Rate [ 130 H From Monitor] Respiratory 15 13 21 Rate Blood Pressure 121/89 121/89 119/80 O2 Sat by Pulse 79 L 99 Oximetry 12/31/18 12/31/18 12/31/18 01:00 02:00 02:13 Temperature Pulse Rate 133 H 130 H 128 H Pulse Rate [ From Monitor] Respiratory 22 16 Rate Blood Pressure 119/80 113/76 113/76 O2 Sat by Pulse 99 Oximetry 12/31/18 12/31/18 12/31/18 03:00 04:00 05:00 Temperature 96.2 F L Pulse Rate 120 H 123 H 124 H Pulse Rate [ 124 H From Monitor] Respiratory 12 16 16 Rate Blood Pressure 113/76 126/86 126/86 O2 Sat by Pulse 100 98 Oximetry 12/31/18 12/31/18 12/31/18 05:24 06:00 07:00 Temperature Pulse Rate 127 H 114 H 122 H Pulse Rate [ From Monitor] Respiratory 20 19 Rate Blood Pressure 130/88 130/88 127/92 O2 Sat by Pulse 85 Oximetry - General Appearance General appearance: appears stated age, chronically ill, frail EENT: ATNC, PERRL, mucous membranes moist Neck: no JVD Respiratory: Present: Clear to Ascultation Cardiology: regular, S1S2 Gastrointestinal: normoactive bowel sounds Integumentary: no rash, other (no edema ) Neurologic: no focal deficit, alert and oriented x3, strength 5/5, CN 3-12 intact Psychiatric: mood/affect appropriate, cooperative - Lab 12/31/18 04:25 12/31/18 04:25 Most recent lab results Calcium 10.1 mg/dL (8.4-10.2) 12/31/18 04:25 Phosphorus 8.30 mg/dL (2.5-4.5) H 12/31/18 04:25 Magnesium 1.80 mg/dL (1.7-2.3) 12/31/18 04:25 Medications & Allergies - Medications Allergies/Adverse Reactions: Allergies No Known Allergies Allergy (Verified 12/13/18 18:58) Home Medications: Home Medications Medication Instructions Recorded Confirmed Last Taken Type No Known Home Medications [No 12/18/18 12/18/18 Unknown History Reported Home Medications] Active Medications: Generic Name Dose Route Start Last Admin Trade Name Freq PRN Reason Stop Dose Admin Acetaminophen 650 mg 12/13/18 22:54 12/28/18 01:21 Tylenol PO 650 mg Q4H PRN Administration Pain MILD(1-3)/Fever >100.5/HOLT Atovaquone 1,500 mg 12/18/18 14:00 12/30/18 10:00 Mepron PO 1,500 mg QDAY MARIA E Administration Cholestyramine Resin 4 gm 12/27/18 11:00 12/30/18 22:00 Questran PO 4 gm BID MARIA E Administration Emtricitabine 200 mg 12/22/18 14:00 12/23/18 11:13 Emtriva PO 200 mg Q72HR MARIA E Administration Enoxaparin Sodium 30 mg 12/18/18 11:00 12/30/18 09:59 Lovenox SUB-Q 30 mg QDAY MARIA E Administration Famotidine 20 mg 12/23/18 16:00 12/30/18 10:00 Pepcid IV 20 mg DAILY MARIA E Administration Heparin Sodium (Porcine) 5,000 unit 12/26/18 13:00 12/26/18 13:54 Heparin IV 5,000 unit ALYSSIA PRN Administration hemodialysis Sodium Chloride 100 mls @ 999 mls/hr 12/26/18 08:34 Nacl 0.9% IV ALYSSIA PRN Hypotension Sodium Bicarbonate 150 meq/ 1,150 mls @ 75 mls/hr 12/30/18 12:00 12/30/18 12:26 Dextrose IV 75 mls/hr DIRECT MARIA E Administration Amino Acids/Electrolytes/Dextrose 1,999.92 mls @ 83.33 mls/hr 12/30/18 20:00 12/30/18 20:04 Tpn Adult IV 12/31/18 19:59 83.33 mls/hr DAILY@2000 MARIA E Administration Protocol Sodium Chloride 100 mls @ 999 mls/hr 12/31/18 09:21 Nacl 0.9% IV ALYSSIA PRN Hypotension Metoclopramide HCl 5 mg 12/22/18 10:00 12/31/18 05:24 Reglan IV 5 mg Q6H PRN Administration Nausea And Vomiting Metoprolol Tartrate 5 mg 12/29/18 11:00 12/31/18 05:24 Lopressor IV 5 mg Q4HR MARIA E Administration Nitazoxanide 500 mg 12/23/18 10:00 12/30/18 22:00 Alinia (Nf) PO 500 mg BID MARIA E Administration Ondansetron HCl 4 mg 12/13/18 22:54 12/30/18 21:49 Zofran IV 4 mg Q4H PRN Administration Nausea And Vomiting Raltegravir 400 mg 12/22/18 14:00 12/30/18 22:00 Isentress PO 400 mg BID MARIA E Administration Sodium Chloride 10 ml 12/14/18 10:00 12/30/18 22:01 Sodium Chloride Flush Syringe 10 Ml IV 10 ml BID MARIA E Administration Sodium Chloride 10 ml 12/13/18 22:54 12/30/18 04:36 Sodium Chloride Flush Syringe 10 Ml IV 10 ml PRN PRN Administration LINE FLUSH Sucralfate 1 gm 12/26/18 18:00 12/31/18 00:02 Carafate PO 1 gm Q6HR MARIA E Administration Tenofovir Disoproxil Fumarate 300 mg 12/22/18 14:00 Viread PO Q72HR [facility] Valganciclovir 450 mg 12/25/18 10:00 12/29/18 10:52 Valcyte (Nf) PO 450 mg Q48HR [facility] Administration
[2018-12-31] MEDS: ISENTRESS PO SCH ×2 (10:53→21:04)
[2018-12-31] MEDS: VALCYTE PO SCH (10:54)
[2018-12-31] MEDS: ALINIA PO SCH ×2 (10:54→21:04)
[2018-12-31] MEDS: LOVENOX SUB-Q SCH (10:54)
[2018-12-31] MEDS: MEPRON PO SCH (10:55)
[2018-12-31] MEDS: QUESTRAN PO SCH ×2 (10:55→21:04)
[2018-12-31] MEDS: PEPCID IV SCH (10:55)
--- NOTE | 2018-12-31 10:56 | Progress Note ---
Assessment and Plan 12/29 ass: MOF/sepsis acute change in mental status prob related to sedation, resolved HIV GI issues Tachycardia prob related to underlying sepsis etc Recc: continue support monitor I/O electrollytes etc abx antiviral per ID 12/30 no clinical change Worsening renal fx'n see renal note placed on bicarb drip continue to monitor etc 12/31 as above worsening renal fx'n for HD today Subjective Date of service: 12/31/18 Principal diagnosis: HIV, diarrhea, acute kidney injury Interval history: 12/30 Alert p120 sl down Overall unch still some diarreha, not able to keep down po No resp distress abd pain 12/31 No clinical change no resp issues still tachy Objective - Constitutional Vitals: Vital Signs - 12hr 12/30/18 12/30/18 12/31/18 23:00 23:01 00:00 Temperature 96.1 F L Pulse Rate 116 H 118 H 130 H Pulse Rate [ 130 H From Monitor] Respiratory 15 13 21 Rate Blood Pressure 121/89 121/89 119/80 O2 Sat by Pulse 79 L 99 Oximetry 12/31/18 12/31/18 12/31/18 01:00 02:00 02:13 Temperature Pulse Rate 133 H 130 H 128 H Pulse Rate [ From Monitor] Respiratory 22 16 Rate Blood Pressure 119/80 113/76 113/76 O2 Sat by Pulse 99 Oximetry 12/31/18 12/31/18 12/31/18 03:00 04:00 05:00 Temperature 96.2 F L Pulse Rate 120 H 123 H 124 H Pulse Rate [ 124 H From Monitor] Respiratory 12 16 16 Rate Blood Pressure 113/76 126/86 126/86 O2 Sat by Pulse 100 98 Oximetry 12/31/18 12/31/18 12/31/18 05:24 06:00 07:00 Temperature Pulse Rate 127 H 114 H 122 H Pulse Rate [ From Monitor] Respiratory 20 19 Rate Blood Pressure 130/88 130/88 127/92 O2 Sat by Pulse 85 Oximetry General appearance: Present: no acute distress - Respiratory Respiratory effort: normal Respiratory: bilateral: CTA, diminished (no wheeze ) - Labs CBC & Chem 7: 12/31/18 04:25 12/31/18 04:25 Labs: Abnormal lab results 12/26/18 12/30/18 12/30/18 Range/Units 11:48 15:20 15:20 RBC (3.65-5.03) M/mm3 MCV (84-94) fl MCH (28-32) pg Seg Neuts % (Manual) (40.0-70.0) % Monocytes % (Manual) (0.0-7.3) % Nucleated RBC % (0.0-0.9) % Lymphocytes # (Manual) (1.2-5.4) K/mm3 Sodium (137-145) mmol/L Potassium (3.6-5.0) mmol/L Chloride (98-107) mmol/L BUN (9-20) mg/dL Creatinine (0.8-1.5) mg/dL Glucose (75-100) mg/dL Phosphorus (2.5-4.5) mg/dL TSH 7.340 H (0.270-4.200) mlU/mL Free T4 1.87 H (0.76-1.46) ng/dL HIV-1 RNA PCR copies/ml 98250 H Copies/mL HIV-1 RNA (PCR) log 4.20 H Log cps/mL 12/31/18 12/31/18 Range/Units 04:25 04:25 RBC 5.33 H (3.65-5.03) M/mm3 MCV 79 L (84-94) fl MCH 27 L (28-32) pg Seg Neuts % (Manual) 77.0 H (40.0-70.0) % Monocytes % (Manual) 9.0 H (0.0-7.3) % Nucleated RBC % 1.0 H (0.0-0.9) % Lymphocytes # (Manual) 1.1 L (1.2-5.4) K/mm3 Sodium 134 L (137-145) mmol/L Potassium 3.1 L D (3.6-5.0) mmol/L Chloride 84.2 L (98-107) mmol/L BUN 144 H (9-20) mg/dL Creatinine 5.1 H (0.8-1.5) mg/dL Glucose 117 H (75-100) mg/dL Phosphorus 8.30 H (2.5-4.5) mg/dL TSH (0.270-4.200) mlU/mL Free T4 (0.76-1.46) ng/dL HIV-1 RNA PCR copies/ml Copies/mL HIV-1 RNA (PCR) log Log cps/mL - Imaging and cardiology Chest x-ray: image reviewed (12/29 neg/vascath) Medications & Allergies - Medications Allergies/Adverse Reactions: Allergies No Known Allergies Allergy (Verified 12/13/18 18:58) Home Medications: Home Medications Medication Instructions Recorded Confirmed Last Taken Type No Known Home Medications [No 12/18/18 12/18/18 Unknown History Reported Home Medications] Active Medications: Generic Name Dose Route Start Last Admin Trade Name Freq PRN Reason Stop Dose Admin Acetaminophen 650 mg 12/13/18 22:54 12/28/18 01:21 Tylenol PO 650 mg Q4H PRN Administration Pain MILD(1-3)/Fever >100.5/HOLT Atovaquone 1,500 mg 12/18/18 14:00 12/30/18 10:00 Mepron PO 1,500 mg QDAY MARIA E Administration Cholestyramine Resin 4 gm 12/27/18 11:00 12/30/18 22:00 Questran PO 4 gm BID MARIA E Administration Emtricitabine 200 mg 12/22/18 14:00 12/23/18 11:13 Emtriva PO 200 mg Q72HR MARIA E Administration Enoxaparin Sodium 30 mg 12/18/18 11:00 12/30/18 09:59 Lovenox SUB-Q 30 mg QDAY MARIA E Administration Famotidine 20 mg 12/23/18 16:00 12/30/18 10:00 Pepcid IV 20 mg DAILY MARIA E Administration Heparin Sodium (Porcine) 5,000 unit 12/26/18 13:00 12/26/18 13:54 Heparin IV 5,000 unit ALYSSIA PRN Administration hemodialysis Sodium Chloride 100 mls @ 999 mls/hr 12/26/18 08:34 Nacl 0.9% IV ALYSSIA PRN Hypotension Sodium Bicarbonate 150 meq/ 1,150 mls @ 75 mls/hr 12/30/18 12:00 12/30/18 12:26 Dextrose IV 75 mls/hr DIRECT MARIA E Administration Amino Acids/Electrolytes/Dextrose 1,999.92 mls @ 83.33 mls/hr 12/30/18 20:00 12/30/18 20:04 Tpn Adult IV 12/31/18 19:59 83.33 mls/hr DAILY@2000 MARIA E Administration Protocol Sodium Chloride 100 mls @ 999 mls/hr 12/31/18 09:21 Nacl 0.9% IV ALYSSIA PRN Hypotension Potassium Chloride 10 meq in 100 mls @ 100 mls/hr 12/31/18 11:00 Kcl 10meq/100ml IV 12/31/18 13:59 Q1H MARIA E Metoclopramide HCl 5 mg 12/22/18 10:00 12/31/18 05:24 Reglan IV 5 mg Q6H PRN Administration Nausea And Vomiting Metoprolol Tartrate 5 mg 12/29/18 11:00 12/31/18 05:24 Lopressor IV 5 mg Q4HR MARIA E Administration Nitazoxanide 500 mg 12/23/18 10:00 12/30/18 22:00 Alinia (Nf) PO 500 mg BID MARIA E Administration Ondansetron HCl 4 mg 12/13/18 22:54 12/30/18 21:49 Zofran IV 4 mg Q4H PRN Administration Nausea And Vomiting Raltegravir 400 mg 12/22/18 14:00 12/30/18 22:00 Isentress PO 400 mg BID MARIA E Administration Sodium Chloride 10 ml 12/14/18 10:00 12/30/18 22:01 Sodium Chloride Flush Syringe 10 Ml IV 10 ml BID MARIA E Administration Sodium Chloride 10 ml 12/13/18 22:54 12/30/18 04:36 Sodium Chloride Flush Syringe 10 Ml IV 10 ml PRN PRN Administration LINE FLUSH Sucralfate 1 gm 12/26/18 18:00 12/31/18 00:02 Carafate PO 1 gm Q6HR MARIA E Administration Tenofovir Disoproxil Fumarate 300 mg 12/22/18 14:00 Viread PO Q72HR MARIA E Valganciclovir 450 mg 12/25/18 10:00 12/29/18 10:52 Valcyte (Nf) PO 450 mg Q48HR MARIA E Administration
[2018-12-31] MEDS ORDERED: KCL 10MEQ/100ML 10 MEQ/100 ML BAG IV SCH (11:00)
--- NOTE | 2018-12-31 11:51 | Progress Note ---
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 on TPN with left arm PICC and rectal tube in place. Treated with Ceftriaxone and Azithromycin as dual coverage for the Shigella and also on empiric IV Flagyl. 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 /Severe hypokalemia: cont to replete IV as needed, likely loss from diarrhea /ARF, most likely ATN and vasomotor nephropathy: Hemodialysis to started from 12/23/18, Nephrology consulted, input noted /Acute metabolic acidosis: treat with bicarbonate, monitor bmp closely /Hyperkalemia, Was medically treated, now resolved: monitor bmp closely /Severe malnutrition, poa: [employer] consulted, due to chronic diarrhea. treat with TPN /Severe sinus tachycardia: likely from underlying sepsis, Cardiology consulted, input noted, started on Lopressor, ECHO done but pending /Acute toxic metabolic encephalopathy, resolved: d/c IV ativan /Hiccups, was on iv thorazine but it wasn't helping, the carafate is working better. /Elevated TSH/T4 - likely subacute thyroiditis from severe sepsis, cont to monitor DVT prophylaxis lovenox Disposition: continue inpatient care, goal is to stop the n/v so TPN can be stopped and diarrhea slowed down, placed a consult to LTAC Transfer back to [facility] with remote CCT 34 minutes Had extensive discussion with family and they are requesting transfer to [place]. Call [place] transfer center and initiated the process. Brief History Patient is a 28-year-old man with a history of HIV diagnosis 2 years ago, without any follow up or treatment presented to [facility] ED with nausea/vomiting and diarrhea which began after he ate [employer]. Mother now know son HIV status but other family member doesn't. CMV has come back positive. Patient is still having severe diarrhea, he is unable to eat >7 days, now CMV positive. TPN started on 12/22/18. Hemodialysis started 12/23/18 due to worsening renal function. On 12/25/18 Valcyte was started for CMW treatment. He also became tachycardic. Overnight on 12/28/18, he developed AMS, more lethargy and hypoxic, Code MET called and he was moved to the ICU again. CT head unrevealing. Most likely cause is oversedation with iv ativan, which now stopped. The iv ativan was given to help stop the intractable hiccups because the IV thorazine wasn't helping. The hiccups now improved with addition of the Carafate for the plethora of GI ulcerations. He actually is doing much better clinically, BUt N/V/D still persisted. Cultures: 12/13/18 Urine: less than 10K 12/14/18 Stool: Shigella species 12/14/18 C-Diff: negative 12/17/18 HIV Rapid; reactive 12/17/18 Cryptosporidium stool positive : Giardia stool negative 12/18/2018 serum Cryptococcal Ag: Negative 12/20/18 CMV DNA PCR positive CD4 count 26 12/26/2018 Procedure: EGD/colonoscopy Findings: EGD: hiatal hernia - white based moderate inflammation, ulceration noted throughout esophagus (bx's) - fairly benign stomach (bx's) - multiple (5-6) ulcers with inflammation noted 1st-proximal 2nd portion duodenum (larget 12-14 mm circumference) with moderate inflammation remaining mucosa (bx's) - negative other Colon: multiple white mainly white based, shallow ulcers (largest 12 mm) scatterred terminal ileum (bx's) - mild/moderate inflammation distal sigmoid/rectum (bx's) - otherwise normal colon (bx's) Hospitalist Physical Gen: critically ill, thin frail, NAD, Orientated HEENT: NCAT, EOMI, PERRL, OP dry Neck: supple, neck adenopathy, no thyromegaly, no JVD CVS/Heart: Regular tachycardia, normal S1S2, pulses present bilaterally Chest/Lungs: diminished, Symmetrical chest expansion, good air entry bilat erally, reproducible chest wall tenderness GI/Abdomen: distended, diffuse tenderness, good bowel sounds, no guarding or rebound /Bladder: no suprapubic tenderness, no CVA or paraspinal tenderness Extermity/Skin: no c/c/e, MSK: FROM x 4 Neuro: CN 2-12 grossly intact, no new focal deficits Psych: calm Subjective Date of service: 12/31/18 Principal diagnosis: HIV, diarrhea, acute kidney injury Interval history: Patient seen and examined Mother at bedside updated, cont to c/o N/v and unable to keep anything down Also c/o burning sensation all over the body, refusing dobhoff Objective - Constitutional Vitals: Vital Signs - 12hr 12/31/18 12/31/18 12/31/18 00:00 01:00 02:00 Temperature 96.1 F L Pulse Rate 130 H 133 H 130 H Pulse Rate [ 130 H From Monitor] Respiratory 21 22 16 Rate Blood Pressure 119/80 119/80 113/76 O2 Sat by Pulse 99 99 Oximetry 12/31/18 12/31/18 12/31/18 02:13 03:00 04:00 Temperature 96.2 F L Pulse Rate 128 H 120 H 123 H Pulse Rate [ 124 H From Monitor] Respiratory 12 16 Rate Blood Pressure 113/76 113/76 126/86 O2 Sat by Pulse 100 98 Oximetry 12/31/18 12/31/18 12/31/18 05:00 05:24 06:00 Temperature Pulse Rate 124 H 127 H 114 H Pulse Rate [ From Monitor] Respiratory 16 20 Rate Blood Pressure 126/86 130/88 130/88 O2 Sat by Pulse 85 Oximetry 12/31/18 12/31/18 07:00 10:55 Temperature Pulse Rate 122 H 134 H Pulse Rate [ From Monitor] Respiratory 19 Rate Blood Pressure 127/92 129/91 O2 Sat by Pulse Oximetry - Labs CBC & Chem 7: 12/31/18 04:25 01/01/19 04:30 Labs: Abnormal lab results 12/26/18 12/30/18 12/30/18 Range/Units 11:48 15:20 15:20 RBC (3.65-5.03) M/mm3 MCV (84-94) fl MCH (28-32) pg Seg Neuts % (Manual) (40.0-70.0) % Monocytes % (Manual) (0.0-7.3) % Nucleated RBC % (0.0-0.9) % Lymphocytes # (Manual) (1.2-5.4) K/mm3 Sodium (137-145) mmol/L Potassium (3.6-5.0) mmol/L Chloride (98-107) mmol/L BUN (9-20) mg/dL Creatinine (0.8-1.5) mg/dL Glucose (75-100) mg/dL Phosphorus (2.5-4.5) mg/dL TSH 7.340 H (0.270-4.200) mlU/mL Free T4 1.87 H (0.76-1.46) ng/dL HIV-1 RNA PCR copies/ml 04259 H Copies/mL HIV-1 RNA (PCR) log 4.20 H Log cps/mL 12/31/18 12/31/18 Range/Units 04:25 04:25 RBC 5.33 H (3.65-5.03) M/mm3 MCV 79 L (84-94) fl MCH 27 L (28-32) pg Seg Neuts % (Manual) 77.0 H (40.0-70.0) % Monocytes % (Manual) 9.0 H (0.0-7.3) % Nucleated RBC % 1.0 H (0.0-0.9) % Lymphocytes # (Manual) 1.1 L (1.2-5.4) K/mm3 Sodium 134 L (137-145) mmol/L Potassium 3.1 L D (3.6-5.0) mmol/L Chloride 84.2 L (98-107) mmol/L BUN 144 H (9-20) mg/dL Creatinine 5.1 H (0.8-1.5) mg/dL Glucose 117 H (75-100) mg/dL Phosphorus 8.30 H (2.5-4.5) mg/dL TSH (0.270-4.200) mlU/mL Free T4 (0.76-1.46) ng/dL HIV-1 RNA PCR copies/ml Copies/mL HIV-1 RNA (PCR) log Log cps/mL
--- NOTE | 2018-12-31 13:21 | Progress Note ---
Assessment and Plan Cont present cardiac management. The patient has been seen in conjunction with Dr. Washburn who agrees with the assessment and plan of care. - Patient Problems (1) Sinus tachycardia Current Visit: Yes Status: Acute (2) Sepsis Current Visit: Yes Status: Acute (3) Acute gastroenteritis Current Visit: Yes Status: Acute (4) Acute renal failure Current Visit: Yes Status: Acute (5) Nausea vomiting and diarrhea Current Visit: Yes Status: Acute (6) HIV (human immunodeficiency virus infection) Current Visit: Yes Status: Chronic Subjective Date of service: 12/31/18 Principal diagnosis: HIV, diarrhea, acute kidney injury Interval history: pt resting in bed, appears more alert today, remains in ST, states abdominal pain is improved today and he is tolerating some liquids. Objective Last Vital Signs Temp 96.2 F L 12/31/18 04:00 Pulse 134 H 12/31/18 10:55 Resp 19 12/31/18 07:00 BP 129/91 12/31/18 10:55 Pulse Ox 85 12/31/18 06:00 - Physical Examination General: Other (lethargic) HEENT: Positive: EOMI, Normocephaly, Mucus Membranes Moist Neck: Positive: neck supple, trachea midline Cardiac: Positive: Regular Rhythm, S1/S2, Tachycardia Lungs: Positive: Decreased Breath Sounds Neuro: Positive: Grossly Intact Abdomen: Positive: Soft, Active Bowel Sounds, Tender Skin: Positive: Clear. Negative: Rash Musculoskeletal: Normal Range of Motion Extremities: Present: normal. Absent: edema - Labs and Meds CBC 12/31/18 Range/Units 04:25 WBC 8.2 (4.5-11.0) K/mm3 RBC 5.33 H (3.65-5.03) M/mm3 Hgb 14.4 (11.8-15.2) gm/dl Hct 42.3 (35.5-45.6) % Plt Count 262 (140-440) K/mm3 Comprehensive Metabolic Panel 12/31/18 Range/Units 04:25 Sodium 134 L (137-145) mmol/L Potassium 3.1 L D (3.6-5.0) mmol/L Chloride 84.2 L (98-107) mmol/L Carbon Dioxide 23 D (22-30) mmol/L BUN 144 H (9-20) mg/dL Creatinine 5.1 H (0.8-1.5) mg/dL Glucose 117 H (75-100) mg/dL Calcium 10.1 (8.4-10.2) mg/dL - Imaging and Cardiology EKG: image reviewed - Allied health notes Allied health notes reviewed: nursing
[2018-12-31] MEDS ORDERED: LIDOCAINE VISCOUS 2% PO ONE (13:46)
--- NOTE | 2018-12-31 15:03 | Progress Note ---
Assessment and Plan Cultures: 12/13/18 Urine: less than 10K 12/14/18 Stool: Shigella species 12/14/18 C-Diff: negative 12/17/18 HIV Rapid; reactive 12/17/18 Cryptosporidium: positive : Giardia: negative 12/18/2018 serum Cryptococcal Ag: Negaitve 12/18/2018 serum CMV PCR 1125 A/P: 28-year old male with no previous medical history that presents to the ED on 12/13/18 with complaints of nausea, vomiting and diarrhea since . He reported eating beef and broccoli chomein and orange chicken at [employer] on Saturday12-10-18. His symptoms worsened the next day. Admitted with. 1. 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 Stool cultures Shigella species. Cryptosporidium: po sitive. Cdiff negative. Currently being treated with Ceftriaxone and Azithromycin as dual coverage for the Shigella and also on empiric IV Flagyl. 12/18/2018 serum CMV PCR 1125. S/p EGD: hiatal hernia, white based moderate inflammation, ulceration noted throughout esophagus (bx's) and multiple (5-6) ulcers with inflammation noted 1st-proximal 2nd portion duodenum (larget 12-14 mm circumference) with moderate inflammation remaining mucosa (bx's). Colon: multiple white mainly white based, shallow ulcers (largest 12 mm) scatterred terminal ileum (bx's) with mild/moderate inflammation distal sigmoid/rectum (bx's) 2. HIV/AIDS: CD4=26, 3% on 12/16/2018; diagnosed 2 years ago. No follow-up with ID. Unknown CD4 count/Viral load. Never been on HIV therapy. Mother is now aware of HIV. Labs pending here. Likely AIDS given the lymphopenia. Crypto antigen negative. 3 MEHNAZ: worsening. Nephrology following. Hemodialysis started on 12/23/2018. 4. Sepsis v/s SIRS: hypothermia, increased lactic acid and tachycardia, likely hypovolemia given the evidence of hemoconcentration. 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 Guarded prognosis Dr Lynne covering next 4 days. Ani rFy MD Infectious Diseases Labor Employment Associate [facility], [place], [facility]ated [facility] ([facility]) M [phone] O [phone] Subjective Date of service: 12/31/18 Principal diagnosis: HIV, diarrhea, acute kidney injury Interval history: Patient continues to feel weak, hot, no fever, tachycardic on monitor, persistent nausea/vomiting, on TPN +thristy, denies SOB. ROS weakness, diarrhea, oliguria, rest negative Objective - Exam Narrative Exam: General: Alert in NAD cachetic debilitated Head, Ears, Nose: Normocephalic, atraumatic. External ears, nose normal Eyes: Conjunctivae/corneas clear. No icterus. No ptosis. Neck: Supple, no meningeal signs Oral: dentition fair, no thrush Cardiovascular: tachycardic Respiratory: Good air entry, clear to auscultation bilaterally GI: Soft, diffuse tenderness Musculoskeletal: No pedal edema, no cyanosis. Skin: No rash or abscess Hem/Lymphatic: No palpable cervical or supraclavicular nodes. No lymphangitis Psych: Mood ok. Affect normal Neurological: Awake, alert, oriented. No gross abnormality rectal tube watery minimal black diarrhea Right IJ perm cath - Constitutional Vitals: Vital Signs Temp Pulse Resp BP Pulse Ox 96.2 F L 134 H 19 129/91 85 12/31/18 04:00 12/31/18 10:55 12/31/18 07:00 12/31/18 10:55 12/31/18 06:00 Temperature -Last 24 Hours Temperature 96.2 F Temperature 96.1 F Temperature 97.2 F Temperature 97.8 F - Labs CBC & Chem 7: 12/31/18 04:25 12/31/18 04:25 Labs: Abnormal lab results 12/26/18 12/30/18 12/30/18 Range/Units 11:48 15:20 15:20 RBC (3.65-5.03) M/mm3 MCV (84-94) fl MCH (28-32) pg Seg Neuts % (Manual) (40.0-70.0) % Monocytes % (Manual) (0.0-7.3) % Nucleated RBC % (0.0-0.9) % Lymphocytes # (Manual) (1.2-5.4) K/mm3 Sodium (137-145) mmol/L Potassium (3.6-5.0) mmol/L Chloride (98-107) mmol/L BUN (9-20) mg/dL Creatinine (0.8-1.5) mg/dL Glucose (75-100) mg/dL Phosphorus (2.5-4.5) mg/dL TSH 7.340 H (0.270-4.200) mlU/mL Free T4 1.87 H (0.76-1.46) ng/dL HIV-1 RNA PCR copies/ml 28567 H Copies/mL HIV-1 RNA (PCR) log 4.20 H Log cps/mL 12/31/18 12/31/18 Range/Units 04:25 04:25 RBC 5.33 H (3.65-5.03) M/mm3 MCV 79 L (84-94) fl MCH 27 L (28-32) pg Seg Neuts % (Manual) 77.0 H (40.0-70.0) % Monocytes % (Manual) 9.0 H (0.0-7.3) % Nucleated RBC % 1.0 H (0.0-0.9) % Lymphocytes # (Manual) 1.1 L (1.2-5.4) K/mm3 Sodium 134 L (137-145) mmol/L Potassium 3.1 L D (3.6-5.0) mmol/L Chloride 84.2 L (98-107) mmol/L BUN 144 H (9-20) mg/dL Creatinine 5.1 H (0.8-1.5) mg/dL Glucose 117 H (75-100) mg/dL Phosphorus 8.30 H (2.5-4.5) mg/dL TSH (0.270-4.200) mlU/mL Free T4 (0.76-1.46) ng/dL HIV-1 RNA PCR copies/ml Copies/mL HIV-1 RNA (PCR) log Log cps/mL
[2018-12-31] MEDS ORDERED: CYTOVENE IV SCH (17:00)
[2018-12-31] MEDS ORDERED: NACL 0.9% IV SCH (17:00)
[2018-12-31] MEDS ORDERED: TPN ADULT 1,999.92 ML IV SCH (20:00)
[2018-12-31] MEDS: SODIUM BICARBONATE 150 MEQ in D5W 1,000 ML IV SCH (21:02)
[2018-12-31 22:12] LABS: Calcium 9.9 mg/dL (8.4-10.2)
[2018-12-31] MEDS: KCL 10MEQ/100ML 10 MEQ/100 ML BAG IV SCH ×2 (22:19→23:19)
[2018-12-31] MEDS: ZOFRAN IV PRN (23:47)
[2019-01-01] MEDS: KCL 10MEQ/100ML 10 MEQ/100 ML BAG IV SCH (00:33)
[2019-01-01] MEDS: SODIUM CHLORIDE FLUSH SYRINGE 10 ML IV SCH ×4 (01:42→23:10)
[2019-01-01] MEDS: LOPRESSOR IV SCH ×7 (01:49→22:38)
[2019-01-01] MEDS: CARAFATE PO SCH ×6 (03:06→23:09)
[2019-01-01] MEDS: REGLAN IV PRN (03:51)
[2019-01-01 05:43] LABS: Calcium 10.1 mg/dL (8.4-10.2)
[2019-01-01] MEDS ORDERED: MORPHINE IV PRN (05:45)
--- NOTE | 2019-01-01 09:55 | Progress Note ---
Assessment and Plan Cont present cardiac management. Pt to be tx to [facility] today. The patient has been seen in conjunction with Dr. Washbrun who agrees with the a ssessment and plan of care. - Patient Problems (1) Sinus tachycardia Current Visit: Yes Status: Acute (2) Sepsis Current Visit: Yes Status: Acute (3) Acute gastroenteritis Current Visit: Yes Status: Acute (4) Acute renal failure Current Visit: Yes Status: Acute (5) Nausea vomiting and diarrhea Current Visit: Yes Status: Acute (6) HIV (human immunodeficiency virus infection) Current Visit: Yes Status: Chronic Subjective Date of service: 01/01/19 Principal diagnosis: HIV, diarrhea, acute kidney injury Interval history: pt resting in bed, remains in ST. Objective Last Vital Signs Temp 97.8 F 01/01/19 08:00 Pulse 122 H 01/01/19 06:00 Resp 14 01/01/19 06:00 BP 127/51 01/01/19 06:00 Pulse Ox 99 01/01/19 06:00 - Physical Examination General: Other (lethargic) HEENT: Positive: EOMI, Normocephaly, Mucus Membranes Moist Neck: Positive: neck supple, trachea midline Cardiac: Positive: Regular Rhythm, S1/S2, Tachycardia Lungs: Positive: Decreased Breath Sounds Neuro: Positive: Grossly Intact Abdomen: Positive: Soft, Active Bowel Sounds, Tender Skin: Positive: Clear. Negative: Rash Musculoskeletal: Normal Range of Motion Extremities: Present: normal. Absent: edema - Labs and Meds Lipids 01/01/19 Range/Units 04:30 Triglycerides 309 H (2-149) mg/dL Comprehensive Metabolic Panel 12/31/18 01/01/19 Range/Units 21:35 04:30 Sodium 136 L 138 (137-145) mmol/L Potassium 2.8 L* 3.7 D (3.6-5.0) mmol/L Chloride 87.9 L 86.7 L (98-107) mmol/L Carbon Dioxide 29 28 (22-30) mmol/L BUN 91 H 102 H (9-20) mg/dL Creatinine 4.0 H 5.1 H (0.8-1.5) mg/dL Glucose 159 H 106 H (75-100) mg/dL Calcium 9.9 10.1 (8.4-10.2) mg/dL - Imaging and Cardiology EKG: image reviewed - Allied health notes Allied health notes reviewed: nursing
[2019-01-01] MEDS: ALINIA PO SCH ×2 (10:00→23:10)
[2019-01-01] MEDS: ISENTRESS PO SCH ×2 (10:00→23:10)
[2019-01-01] MEDS: MEPRON PO SCH (10:00)
[2019-01-01] MEDS: PEPCID IV SCH (10:04)
[2019-01-01] MEDS: QUESTRAN PO SCH ×2 (10:04→23:08)
[2019-01-01] MEDS: LOVENOX SUB-Q SCH (10:04)
--- NOTE | 2019-01-01 10:47 | Progress Note ---
Assessment and Plan 12/29 ass: MOF/sepsis acute change in mental status prob related to sedation, resolved HIV GI issues Tachycardia prob related to underlying sepsis etc Recc: continue support monitor I/O electrollytes etc abx antiviral per ID 12/30 no clinical change Worsening renal fx'n see renal note placed on bicarb drip continue to monitor etc 12/31 as above worsening renal fx'n for HD today 01/01 Same followed by renal, cards, ID cont current mgmt ?floor Subjective Date of service: 01/01/19 Principal diagnosis: HIV, diarrhea, acute kidney injury Interval history: 12/30 Alert p120 sl down Overall unch still some diarreha, not able to keep down po No resp distress abd pain 12/31 No clinical change no resp issues still tachy 01/01 HD done yest alert starting po No clinical changes p 140 Objective - Constitutional Vitals: Vital Signs - 12hr 12/31/18 12/31/18 01/01/19 22:46 23:00 00:00 Temperature 98.7 F Pulse Rate 128 H 127 H 133 H Respiratory 22 25 H 22 Rate Blood Pressure 116/77 114/75 109/93 O2 Sat by Pulse 100 97 76 L Oximetry 01/01/19 01/01/19 01/01/19 01:00 01:49 02:00 Temperature Pulse Rate 136 H 145 H 126 H Respiratory 13 17 Rate Blood Pressure 126/95 126/81 122/74 O2 Sat by Pulse Oximetry 01/01/19 01/01/19 01/01/19 03:00 03:44 04:00 Temperature 98.8 F Pulse Rate 140 H 136 H Respiratory 15 16 Rate Blood Pressure 107/76 107/77 O2 Sat by Pulse 90 Oximetry 01/01/19 01/01/19 01/01/19 05:00 05:57 06:00 Temperature Pulse Rate 142 H 145 H 122 H Respiratory 20 14 Rate Blood Pressure 97/67 127/51 127/51 O2 Sat by Pulse 98 99 Oximetry 01/01/19 01/01/19 08:00 10:06 Temperature 97.8 F Pulse Rate 140 H Respiratory Rate Blood Pressure 127/51 O2 Sat by Pulse Oximetry General appearance: Present: no acute distress - Respiratory Respiratory: bilateral: diminished (clear ) - Cardiovascular Heart rate: 140 Rhythm: regular Extremities: pulses intact, No edema, normal color, Full ROM - Gastrointestinal General gastrointestinal: Present: soft, hypoactive bowel sounds - Neurologic Neurologic: no focal deficits - Labs CBC & Chem 7: 12/31/18 04:25 01/01/19 04:30 Labs: Abnormal lab results 12/31/18 01/01/19 Range/Units 21:35 04:30 Sodium 136 L (137-145) mmol/L Potassium 2.8 L* (3.6-5.0) mmol/L Chloride 87.9 L 86.7 L (98-107) mmol/L BUN 91 H 102 H (9-20) mg/dL Creatinine 4.0 H 5.1 H (0.8-1.5) mg/dL Glucose 159 H 106 H (75-100) mg/dL Phosphorus 7.20 H (2.5-4.5) mg/dL Triglycerides 309 H (2-149) mg/dL Medications & Allergies - Medications Allergies/Adverse Reactions: Allergies No Known Allergies Allergy (Verified 12/13/18 18:58) Home Medications: Home Medications Medication Instructions Recorded Confirmed Last Taken Type No Known Home Medications [No 12/18/18 12/18/18 Unknown History Reported Home Medications] Active Medications: Generic Name Dose Route Start Last Admin Trade Name Freq PRN Reason Stop Dose Admin Acetaminophen 650 mg 12/13/18 22:54 12/28/18 01:21 Tylenol PO 650 mg Q4H PRN Administration Pain MILD(1-3)/Fever >100.5/HOLT Atovaquone 1,500 mg 12/18/18 14:00 12/31/18 10:55 Mepron PO 1,500 mg QDAY MARIA E Administration Cholestyramine Resin 4 gm 12/27/18 11:00 01/01/19 10:04 Questran PO 4 gm BID MARIA E Administration Emtricitabine 200 mg 12/22/18 14:00 12/23/18 11:13 Emtriva PO 200 mg Q72HR MARIA E Administration Enoxaparin Sodium 30 mg 12/18/18 11:00 01/01/19 10:04 Lovenox SUB-Q 30 mg QDAY MARIA E Administration Famotidine 20 mg 12/23/18 16:00 01/01/19 10:04 Pepcid IV 20 mg DAILY MARIA E Administration Heparin Sodium (Porcine) 5,000 unit 12/26/18 13:00 12/26/18 13:54 Heparin IV 5,000 unit ALYSSIA PRN Administration hemodialysis Sodium Chloride 100 mls @ 999 mls/hr 12/26/18 08:34 Nacl 0.9% IV ALYSSIA PRN Hypotension Sodium Bicarbonate 150 meq/ 1,150 mls @ 75 mls/hr 12/30/18 12:00 12/31/18 21:02 Dextrose IV 75 mls/hr DIRECT MARIA E Administration Sodium Chloride 100 mls @ 999 mls/hr 12/31/18 09:21 Nacl 0.9% IV ALYSSIA PRN Hypotension Amino Acids/Electrolytes/Dextrose 1,999.92 mls @ 83.33 mls/hr 12/31/18 20:00 12/31/18 21:02 Tpn Adult IV 01/01/19 19:59 83.33 mls/hr DAILY@2000 MARIA E Administration Protocol Ganciclovir Sodium 86 mg/ 250 mls @ 100 mls/hr 12/31/18 17:00 12/31/18 21:41 Sodium Chloride IV 100 mls/hr Q72H MARIA E Administration Metoclopramide HCl 5 mg 12/22/18 10:00 01/01/19 03:51 Reglan IV 5 mg Q6H PRN Administration Nausea And Vomiting Metoprolol Tartrate 5 mg 12/29/18 11:00 01/01/19 10:06 Lopressor IV 5 mg Q4HR MARIA E Administration Morphine Sulfate 2 mg 01/01/19 05:45 Morphine IV Q4H PRN Pain, Moderate (4-6) Nitazoxanide 500 mg 12/23/18 10:00 12/31/18 21:04 Alinia (Nf) PO Not Given BID [facility] Ondansetron HCl 4 mg 12/13/18 22:54 12/31/18 23:47 Zofran IV 4 mg Q4H PRN Administration Nausea And Vomiting Raltegravir 400 mg 12/22/18 14:00 12/31/18 21:04 Isentress PO Not Given BID MARIA E Sodium Chloride 10 ml 12/14/18 10:00 01/01/19 03:06 Sodium Chloride Flush Syringe 10 Ml IV Not Given BID MARIA E Sodium Chloride 10 ml 12/13/18 22:54 12/30/18 04:36 Sodium Chloride Flush Syringe 10 Ml IV 10 ml PRN PRN Administration LINE FLUSH Sucralfate 1 gm 12/26/18 18:00 01/01/19 06:00 Carafate PO Not Given Q6HR MARIA E Tenofovir Disoproxil Fumarate 300 mg 12/22/18 14:00 Viread PO Q72HR MARIA E
[2019-01-01] MEDS ORDERED: NACL 0.9% 100 ML IV PRN (12:30)
--- NOTE | 2019-01-01 12:53 | Progress Note ---
Assessment and Plan Cultures: 12/13/18 Urine: less than 10K 12/14/18 Stool: Shigella species 12/14/18 C-Diff: negative 12/17/18 HIV Rapid; reactive 12/17/18 Cryptosporidium: positive : Giardia: negative 12/18/2018 serum Cryptococcal Ag: Negaitve 12/18/2018 serum CMV PCR - 1125 A/P: 28-year old male with no previous medical history that presents to the ED on 12/13/18 with complaints of nausea, vomiting and diarrhea since . He reported eating beef and broccoli chomein and orange chicken at [employer] on Saturday12-10-18. His symptoms worsened the next day. Admitted with. 1. 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 Stool cultures Shigella species. Cryptosporidium: posit alvaro. Cdiff negative. Currently being treated with Ceftriaxone and Azithromycin as dual coverage for the Shigella and also on empiric IV Flagyl. 12/18/2018 serum CMV PCR 1125. S/p EGD: hiatal hernia, white based moderate inflammation, ulceration noted throughout esophagus (bx's) and multiple (5-6) ulcers with inflammation noted 1st-proximal 2nd portion duodenum (larget 12-14 mm circumference) with moderate inflammation remaining mucosa (bx's). Colon: multiple white mainly white based, shallow ulcers (largest 12 mm) scatterred terminal ileum (bx's) with mild/moderate inflammation distal sigmoid/rectum (bx's) 2. HIV/AIDS: CD4=26, 3% on 12/16/2018; apparently diagnosed 2 years ago but did not inform anyone. No follow-up with ID. Never been on HIV therapy. Mother is now aware of HIV. HIV RNA PCR: 15.8K on 12/26/2018. Crypto antigen negative. 3 MEHNAZ: worsening to acute renal failure. Nephrology following. Hemodialysis started on 12/23/2018. 4. 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 However, GI disease from CMV does not correlate with serum PCR. Follow up colon biopsies, if negative for CMV, can d/c Valcyte. 5. Cachexia: poor oral intake. Patient refusing DHT. Currently on TPN. 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 continue PO Atovaquone for prophylaxis (likely AIDS) f/u AFB blood cultures (for disseminated MAC) - pending f/u HIV genotype - order resent on 12/26 Dana Sharp MD, FACP [facility] ([facility] C: [phone] O: [phone] F: [phone] Subjective Date of service: 01/01/19 Principal diagnosis: HIV, diarrhea, acute kidney injury Interval history: Continues to complain of nausea and vomiting. Diarrhea + requiring rectal tube. No fever. Patient apparently wanting to stop continued medical care. Refusing DHT. Currently on TPN. Objective - Exam Narrative Exam: Physical Exam: Constitutional: Alert, cooperative. Cachexia + Head, Ears, Nose: Normocephalic, atraumatic. External ears, nose normal Eyes: Conjunctivae/corneas clear. No icterus. No ptosis. Neck: Supple, no meningeal signs Oral: dentition fair, no thrush Cardiovascular: S1, S2 normal. Respiratory: Good air entry, clear to auscultation bilaterally GI: Soft, non-tender; bowel sounds + No peritoneal signs. Rectal tube + Musculoskeletal: No pedal edema, no cyanosis. Skin: No rash or abscess Hem/Lymphatic: No palpable cervical or supraclavicular nodes. No lymphangitis Psych: Mood ok. Affect normal Neurological: Awake, alert, oriented. No gross abnormality - Constitutional Vitals: Vital Signs Temp Pulse Resp BP Pulse Ox 97.9 F 140 H 14 127/51 99 01/01/19 12:00 01/01/19 10:06 01/01/19 06:00 01/01/19 10:06 01/01/19 06:00 Temperature -Last 24 Hours Temperature 97.9 F Temperature 97.8 F Temperature 98.8 F Temperature 98.7 F Temperature 98.1 F Temperature 96.0 F Temperature 96.2 F - Labs CBC & Chem 7: 12/31/18 04:25 01/01/19 04:30 Labs: Abnormal lab results 12/31/18 01/01/19 Range/Units 21:35 04:30 Sodium 136 L (137-145) mmol/L Potassium 2.8 L* (3.6-5.0) mmol/L Chloride 87.9 L 86.7 L (98-107) mmol/L BUN 91 H 102 H (9-20) mg/dL Creatinine 4.0 H 5.1 H (0.8-1.5) mg/dL Glucose 159 H 106 H (75-100) mg/dL Phosphorus 7.20 H (2.5-4.5) mg/dL Triglycerides 309 H (2-149) mg/dL
[2019-01-01] MEDS: ZOFRAN IV PRN (15:24)
--- NOTE | 2019-01-01 15:37 | Progress Note ---
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 on TPN with left arm PICC and rectal tube in place. Treated with Ceftriaxone and Azithromycin as dual coverage for the Shigella and also on empiric IV Flagyl. 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 /Severe hypokalemia: cont to replete IV as needed, likely loss from diarrhea /ARF, most likely ATN and vasomotor nephropathy: Hemodialysis to started from 12/23/18, Nephrology consulted, input noted /Acute metabolic acidosis: treat with bicarbonate, monitor bmp closely /Hyperkalemia, Was medically treated, now resolved: monitor bmp closely /Severe malnutrition, poa: Line Construction Superintendent consulted, due to chronic diarrhea. treat with TPN /Severe sinus tachycardia: likely from underlying sepsis, Cardiology consulted, input noted, started on Lopressor, ECHO done but pending /Acute toxic metabolic encephalopathy, resolved: d/c IV ativan /Hiccups, was on iv thorazine but it wasn't helping, the carafate is working better. /Elevated TSH/T4 - likely subacute thyroiditis from severe sepsis, cont to monitor DVT prophylaxis lovenox Disposition: continue inpatient care, goal is to stop the n/v so TPN can be stopped and diarrhea slowed down, placed a consult to LTAC Transfer back to [facility] with remote CCT 34 minutes Had extensive discussion with family and CC/Id attendings at [facility]. No acute need to transfer per discussion and patient's insuance will only approve for one day stay at [facility]. Family updated. Brief History Patient is a 28-year-old man with a history of HIV diagnosis 2 years ago, without any follow up or treatment presented to [facility] ED with nausea/vomiting and diarrhea which began after he ate [employer]. Mother now know son HIV status but other family member doesn't. CMV has come back positive. Patient is still having severe diarrhea, he is unable to eat >7 days, now CMV positive. TPN started on 12/22/18. Hemodialysis started 12/23/18 due to worsening renal function. On 12/25/18 Valcyte was started for CMW treatment. He also became tachycardic. Overnight on 12/28/18, he developed AMS, more lethargy and hypoxic, Code MET called and he was moved to the ICU again. CT head unrevealing. Most likely cause is oversedation with iv ativan, which now stopped. The iv ativan was given to help stop the intractable hiccups because the IV thorazine wasn't helping. The hiccups now improved with addition of the Carafate for the plethora of GI ulcerations. He actually is doing much better clinically, BUt N/V/D still persisted. Cultures: 12/13/18 Urine: less than 10K 12/14/18 Stool: Shigella species 12/14/18 C-Diff: negative 12/17/18 HIV Rapid; reactive 12/17/18 Cryptosporidium stool positive : Giardia stool negative 12/18/2018 serum Cryptococcal Ag: Negative 12/20/18 CMV DNA PCR positive CD4 count 26 12/26/2018 Procedure: EGD/colonoscopy Findings: EGD: hiatal hernia - white based moderate inflammation, ulceration noted throughout esophagus (bx's) - fairly benign stomach (bx's) - multiple (5-6) ulcers with inflammation noted 1st-proximal 2nd portion duodenum (larget 12-14 mm circumference) with moderate inflammation remaining mucosa (bx's) - negative other Colon: multiple white mainly white based, shallow ulcers (largest 12 mm) scatterred terminal ileum (bx's) - mild/moderate inflammation distal sigmoid/rectum (bx's) - otherwise normal colon (bx's) Hospitalist Physical Gen: critically ill, thin frail, NAD, Orientated HEENT: NCAT, EOMI, PERRL, OP dry Neck: supple, neck adenopathy, no thyromegaly, no JVD CVS/Heart: Regular tachycardia, normal S1S2, pulses present bilaterally Chest/Lungs: diminished, Symmetrical chest expansion, good air entry bilaterally, reproducible chest wall tenderness GI/Abdomen: distended, diffuse tenderness, good bowel sounds, no guarding or rebound /Bladder: no suprapubic tenderness, no CVA or paraspinal tenderness Extermity/Skin: no c/c/e, MSK: FROM x 4 Neuro: CN 2-12 grossly intact, no new focal deficits Psych: calm Subjective Date of service: 01/01/19 Principal diagnosis: HIV, diarrhea, acute kidney injury Objective - Constitutional Vitals: Vital Signs - 12hr 01/01/19 01/01/19 01/01/19 03:44 04:00 05:00 Temperature 98.8 F Pulse Rate 136 H 142 H Respiratory 16 20 Rate Blood Pressure 107/77 97/67 O2 Sat by Pulse 98 Oximetry 01/01/19 01/01/19 01/01/19 05:57 06:00 08:00 Temperature 97.8 F Pulse Rate 145 H 122 H Respiratory 14 Rate Blood Pressure 127/51 127/51 O2 Sat by Pulse 99 Oximetry 01/01/19 01/01/19 01/01/19 10:06 12:00 14:00 Temperature 97.9 F Pulse Rate 140 H 140 H Respiratory Rate Blood Pressure 127/51 119/70 O2 Sat by Pulse Oximetry - Labs CBC & Chem 7: 12/31/18 04:25 01/01/19 04:30 Labs: Abnormal lab results 12/31/18 01/01/19 Range/Units 21:35 04:30 Sodium 136 L (137-145) mmol/L Potassium 2.8 L* (3.6-5.0) mmol/L Chloride 87.9 L 86.7 L (98-107) mmol/L BUN 91 H 102 H (9-20) mg/dL Creatinine 4.0 H 5.1 H (0.8-1.5) mg/dL Glucose 159 H 106 H (75-100) mg/dL Phosphorus 7.20 H (2.5-4.5) mg/dL Triglycerides 309 H (2-149) mg/dL
[2019-01-01] MEDS ORDERED: LEVOPHED DRIP 4 MG/NS 250 ML 4 MG/250 ML BAG IV ONE (15:50)
[2019-01-01] MEDS: REGLAN IV SCH ×2 (16:00→23:09)
[2019-01-01] MEDS: LEVOPHED DRIP 4 MG/NS 250 ML 4 MG/250 ML BAG IV SCH ×3 (16:00→23:37)
--- NOTE | 2019-01-01 16:00 | Event Note ---
Date: 01/01/19 Responded to CODE blue Patient was in PEA Agonal respiratory effort - CPR started - Ambu-bagging started - 1 amp of Epinephrine pushed - ROSC noted after 2 rounds of CPR - good BP - ABG great - NGT placed and connected to LIS - attending notified ... 35 mins total time
[2019-01-01] MEDS ORDERED: fentaNYL DRIP Premix 2,000 MCG/100 ML BAG IV ONE (16:18)
[2019-01-01] MEDS ORDERED: VASELINE LIP THERAPY TP PRN (16:22)
[2019-01-01] MEDS ORDERED: ARTIFICIAL TEARS OPHTH OINT OU PRN (16:22)
[2019-01-01] MEDS ORDERED: SUBLIMAZE IV PRN (16:22)
--- NOTE | 2019-01-01 16:22 | Event Note ---
Date: 01/01/19 Responded to Another CODE blue Patient was in PEA Agonal respiratory effort - CPR started - Ambu-bagging started - 1 amp of Epinephrine pushed - ROSC noted after 2 rounds of CPR - Intubated at bedside - ventilator management orders placed - good BP - attending notified ... 30 min's total time
--- NOTE | 2019-01-01 16:24 | Event Note ---
Date: 01/01/19 called code blue x2 with PEA Intubated during 2nd code by dr Ferguson family updated ROSC noted after 2 rounds of CPR each time cancel IMCU transfer, monitor ICU
[2019-01-01] MEDS ORDERED: D50W (25GM) Syringe IV ONE ×3 (16:36→16:56)
[2019-01-01] MEDS ORDERED: SODIUM BICARBONATE IV ONE ×2 (16:39→21:00)
[2019-01-01] MEDS ORDERED: CALCIUM CHLORIDE IV ONE (16:46)
[2019-01-01] MEDS ORDERED: D10W 1,000 ML IV ONE (16:57)
--- NOTE | 2019-01-01 16:58 | Event Note ---
Date: 01/01/19 Patient had another cardiac arrest with Vfib then PEA he was shocked x3, received, NaHCO3, epinephrene, amioderone, calciun Cl2, mg, BG noted 23 - given 4 amp of d50 started on epinephrene drip, placed on bicarbonate drip and D10 Had ROSC, updated family CC time spend total 94 minutes
[2019-01-01] MEDS ORDERED: fentaNYL DRIP Premix 2,000 MCG/100 ML BAG IV SCH (17:00)
[2019-01-01] MEDS ORDERED: ADRENALIN 8 MG in NACL 0.9% 250ML 242 ML IV SCH ×2 (17:00→18:00)
[2019-01-01] MEDS: SODIUM BICARBONATE 150 MEQ in D5W 1,000 ML IV SCH (17:15)
--- NOTE | 2019-01-01 17:24 | Progress Note ---
Assessment and Plan - Patient Problems (1) Acute renal failure Current Visit: Yes Status: Acute Plan to address problem: Acute kidney failure Prerenal azotemia versus acute tubular necrosis secondary to hypotension/volume depletion. Hemodialysis started on 12/23/2018, was off HD from 12/26 to 12/30, however due to worsening azotemia restarted HD on 12/31. Cont HD on MWF schedule until significant renal recovery seen. (2) Hypokalemia Current Visit: Yes Status: Acute Plan to address problem: cont TPN, dialyzed with 4K bath. cont KCl prn to target K > 4 (3) Nausea vomiting and diarrhea Current Visit: Yes Status: Acute Plan to address problem: Continue management by Federico DEGROOT MD and infectious disease (4) Metabolic acidosis Current Visit: Yes Status: Acute Plan to address problem: secondary to diarrhea. improved on HD. can d/c bicarb gtt. (5) AIDS Current Visit: Yes Status: Acute Plan to address problem: antiviral therapy as per ID. Subjective Date of service: 01/01/19 Principal diagnosis: HIV, diarrhea, acute kidney injury Interval history: Pt awake, alert, in no acute distress, continues to have n/v diarrhea, remains non-oliguric, but due to worsening renal parameters restarted on HD yesterday Objective - Vital Signs Vital signs: Vital Signs - 12hr 01/01/19 01/01/19 01/01/19 05:57 06:00 08:00 Temperature 97.8 F Pulse Rate 145 H 122 H Respiratory 14 Rate Blood Pressure 127/51 127/51 O2 Sat by Pulse 99 Oximetry 01/01/19 01/01/19 01/01/19 10:06 12:00 14:00 Temperature 97.9 F Pulse Rate 140 H 140 H Respiratory Rate Blood Pressure 127/51 119/70 O2 Sat by Pulse Oximetry 01/01/19 16:24 Temperature Pulse Rate Respiratory Rate Blood Pressure O2 Sat by Pulse 99 Oximetry - General Appearance General appearance: appears stated age, chronically ill, frail EENT: ATNC, PERRL, mucous membranes moist Neck: no JVD Respiratory: Present: Clear to Ascultation Cardiology: tachycardia, S1S2 Gastrointestinal: normoactive bowel sounds Integumentary: no rash, other (no edema ) Neurologic: no focal deficit, alert and oriented x3, strength 5/5, CN 3-12 intact Psychiatric: mood/affect appropriate, cooperative - Lab 12/31/18 04:25 01/01/19 04:30 Most recent lab results Calcium 10.1 mg/dL (8.4-10.2) 01/01/19 04:30 Phosphorus 7.20 mg/dL (2.5-4.5) H 01/01/19 04:30 Magnesium 1.90 mg/dL (1.7-2.3) 01/01/19 04:30 Medications & Allergies - Medications Allergies/Adverse Reactions: Allergies No Known Allergies Allergy (Verified 12/13/18 18:58) Home Medications: Home Medications Medication Instructions Recorded Confirmed Last Taken Type No Known Home Medications [No 12/18/18 12/18/18 Unknown History Reported Home Medications] Active Medications: Generic Name Dose Route Start Last Admin Trade Name Freq PRN Reason Stop Dose Admin Acetaminophen 650 mg 12/13/18 22:54 12/28/18 01:21 Tylenol PO 650 mg Q4H PRN Administration Pain MILD(1-3)/Fever >100.5/HOLT Atovaquone 1,500 mg 12/18/18 14:00 12/31/18 10:55 Mepron PO 1,500 mg QDAY MARIA E Administration Cholestyramine Resin 4 gm 12/27/18 11:00 01/01/19 10:04 Questran PO 4 gm BID MARIA E Administration Emtricitabine 200 mg 12/22/18 14:00 12/23/18 11:13 Emtriva PO 200 mg Q72HR MARIA E Administration Enoxaparin Sodium 30 mg 12/18/18 11:00 01/01/19 10:04 Lovenox SUB-Q 30 mg QDAY MARIA E Administration Famotidine 20 mg 12/23/18 16:00 01/01/19 10:04 Pepcid IV 20 mg DAILY MARIA E Administration Fentanyl 50 mcg 01/01/19 16:22 Sublimaze IV Q10MIN PRN ANALGESIA Heparin Sodium (Porcine) 5,000 unit 12/26/18 13:00 12/26/18 13:54 Heparin IV 5,000 unit ALYSSIA PRN Administration hemodialysis Hydrophilic Ointment 1 applic 01/01/19 16:22 Vaseline Lip Therapy TP Q2HR PRN Dry Lips Amino Acids/Electrolytes/Dextrose 1,999.92 mls @ 83.33 mls/hr 12/31/18 20:00 12/31/18 21:02 Tpn Adult IV 01/01/19 19:59 83.33 mls/hr DAILY@1999 [facility] Administration Protocol Ganciclovir Sodium 86 mg/ 250 mls @ 100 mls/hr 12/31/18 17:00 12/31/18 21:41 Sodium Chloride IV 100 mls/hr Q72H MARIA E Administration Sodium Chloride 100 mls @ 999 mls/hr 01/01/19 12:30 Nacl 0.9% IV ALYSSIA PRN Hypotension Amino Acids/Electrolytes/Dextrose 1,999.92 mls @ 83.33 mls/hr 01/01/19 20:00 Tpn Adult IV 01/02/19 19:59 DAILY@1999 [facility] Protocol Fentanyl Citrate 2,000 mcg in 100 mls @ 3.435 mls/hr 01/01/19 17:00 Fentanyl Drip Premix IV TITR [facility] Protocol 1 MCG/KG/HR Dextrose 1,000 mls @ 75 mls/hr 01/01/19 18:00 D10w IV DIRECT MARIA E Epinephrine 8 mg/ Sodium 250 mls @ 3.75 mls/hr 01/01/19 18:00 Chloride IV TITR [facility] Protocol 2 MCG/MIN Norepinephrine 4 mg in 250 mls @ 7.5 mls/hr 01/01/19 18:00 Levophed Drip 4 Mg/Ns 250 Ml IV TITR [facility] Protocol 2 MCG/MIN Metoclopramide HCl 5 mg 01/01/19 16:00 Reglan IV Q6H MARIA E Metoprolol Tartrate 5 mg 12/29/18 11:00 01/01/19 14:00 Lopressor IV 5 mg Q4HR [facility] Administration Morphine Sulfate 2 mg 01/01/19 05:45 Morphine IV Q4H PRN Pain, Moderate (4-6) Multi-Ingred Cream/Lotion/Oil/Oint 1 applic 01/01/19 16:22 Artificial Tears Ophth Oint OU Q4HR PRN Dry Eye(s) Nitazoxanide 500 mg 12/23/18 10:00 01/01/19 10:00 Alinia (Nf) PO 500 mg BID MARIA E Administration Ondansetron HCl 4 mg 12/13/18 22:54 01/01/19 15:24 Zofran IV 4 mg Q4H PRN Administration Nausea And Vomiting Raltegravir 400 mg 12/22/18 14:00 12/31/18 21:04 Isentress PO Not Given BID MARIA E Sodium Chloride 10 ml 12/14/18 10:00 01/01/19 03:06 Sodium Chloride Flush Syringe 10 Ml IV Not Given BID MARIA E Sodium Chloride 10 ml 12/13/18 22:54 12/30/18 04:36 Sodium Chloride Flush Syringe 10 Ml IV 10 ml PRN PRN Administration LINE FLUSH Sucralfate 1 gm 12/26/18 18:00 01/01/19 12:00 Carafate PO Not Given Q6HR [facility] Tenofovir Disoproxil Fumarate 300 mg 12/22/18 14:00 Viread PO Q72HR MARIA E
[2019-01-01 17:32] LABS: Mean Corpuscular HGB Conc 26 % (32-34); Mean Corpuscular Volume 102 fl (84-94); Platelet Count 209 K/mm3 (140-440); Red Blood Count 5.07 M/mm3 (3.65-5.03); Red Cell Distribution Width 15.6 % (13.2-15.2)
--- NOTE | 2019-01-01 17:32 | XRay Report ---
. CHEST 1 VIEW INDICATION / CLINICAL INFORMATION: ETT placement. COMPARISON: Chest radiograph 12/29/2018 FINDINGS: SUPPORT DEVICES: The endotracheal tube tip is in the lower thoracic trachea just above the hector. Ri ght IJ hemodialysis catheter and left upper extremity PICC are unchanged. Tip and sidehole of the gas tric suction tube are in the stomach. HEART / MEDIASTINUM: No significant abnormality. LUNGS / PLEURA: No significant pulmonary or pleural abnormality. No pneumothorax is appreciable withi n the limitations of a supine radiograph ADDITIONAL FINDINGS: No significant additional findings. IMPRESSION: 1. Endotracheal tube tip is about 1 cm above the hector. Consider retraction by 3 to 5 cm. 2. Appropriately positioned gastric suction tube. Central lines are unchanged. Signer Name: Jeffrey Mathias MD Signed: 01/01/2019 5:28 PM Workstation Name: [id number]
[2019-01-01 17:33] LABS: Hemoglobin 13.5 gm/dl (11.8-15.2)
[2019-01-01 17:34] LABS: Hematocrit 51.6 % (35.5-45.6)
[2019-01-01] MEDS ORDERED: D10W 1,000 ML IV SCH (18:00)
--- NOTE | 2019-01-01 18:45 | XRay Report ---
ABDOMEN 1 VIEW(S) INDICATION / CLINICAL INFORMATION: ngt insertion. COMPARISON: None available. FINDINGS: TUBES / LINES: The nasogastric tube is positioned in the gastric fundus. BOWEL GAS PATTERN: Visualized small bowel is moderately distended with gas FREE AIR / EXTRALUMINAL GAS: None seen. ADDITIONAL FINDINGS: No significant additional findings. IMPRESSION: 1. Satisfactory NG tube positioning. Signer Name: Osbaldo Concepcion MD Signed: 01/01/2019 6:41 PM Workstation Name: [id number]
[2019-01-01 18:54] LABS: BUN/Creatinine Ratio TNR; Blood Urea Nitrogen TNR mg/dL (9-20)
[2019-01-01 18:55] LABS: Alanine Aminotransferase TNR units/L (7-56); Albumin TNR g/dL (3.9-5); Calcium TNR mg/dL (8.4-10.2); Hemolysis Index TNR
[2019-01-01] MEDS ORDERED: TPN ADULT 1,999.92 ML IV SCH (20:00)
[2019-01-01] MEDS ORDERED: Vasostrict 20 UNIT in NACL 0.9% 100 ML IV SCH (20:09)
[2019-01-01] MEDS ORDERED: SODIUM BICARBONATE IV SCH (20:11)
[2019-01-01] MEDS ORDERED: D5NS IV SCH (20:11)
[2019-01-01] MEDS ORDERED: NEO-SYNEPHRINE 100 MG in NACL 0.9% 90 ML IV SCH (20:15)
[2019-01-01] MEDS: NACL 0.9% 1000 ML 1,000 ML IV SCH ×4 (20:25→23:55)
[2019-01-01 20:30] LABS: Albumin 2.6 g/dL (3.9-5); Calcium 11.2 mg/dL (8.4-10.2)
[2019-01-01] MEDS ORDERED: D5NS IV ONE (21:00)
[2019-01-01] MEDS ORDERED: D5W 1,000 ML with SODIUM BICARBONATE 150 MEQ IV SCH (21:07)
[2019-01-01] MEDS ORDERED: SODIUM BICARBONATE 150 MEQ in D5W 1,000 ML IV ONE (22:00)
[2019-01-01] MEDS: TYLENOL PO PRN (22:51)
[2019-01-02] MEDS ORDERED: D5W 1,000 ML IV SCH (00:08)
[2019-01-02] MEDS ORDERED: SODIUM BICARBONATE 150 MEQ in D5W 1,000 ML IV SCH (00:12)
[2019-01-02] MEDS ORDERED: ADRENALIN ONE (00:20)
[2019-01-02 00:46] LABS: Hematocrit 28.6 % (35.5-45.6); Hemoglobin 8.9 gm/dl (11.8-15.2); Mean Corpuscular HGB Conc 31 % (32-34); Mean Corpuscular Volume 85 fl (84-94); Platelet Count 115 K/mm3 (140-440); Red Blood Count 3.38 M/mm3 (3.65-5.03); Red Cell Distribution Width 13.2 % (13.2-15.2)
[2019-01-02] MEDS ORDERED: D5W IV ONE (01:10)
[2019-01-02] MEDS ORDERED: [UNRECOGNIZED DRUG - OTHER] IV ONE (01:10)
[2019-01-02 01:18] LABS: Creatine Kinase MB 23.9 ng/mL (0.0-4.0)
--- NOTE | 2019-01-02 01:19 | Event Note ---
called lauren miguel Initial rhythm PEA ROSC noted after 2 rounds of epi He is hypotensive on levophed drip Add vasopressin, family updated Another Code Blue ACLS protocol initiated, rhythm PEA Mom wants codeto stop, she signed DNR Time of 0112
[2019-01-02 01:33] LABS: Calcium 4.8 mg/dL (8.4-10.2)
[2019-01-02 02:19] LABS: Chol/HDL Ratio 10.8 %
[2019-01-02 04:43] VITALS: BP 62/25
--- NOTE | 2019-01-02 10:28 | Death Summary ---
Summary - Providers Date of service: 01/02/19 Consults: 12/13/18 20:34 Consult to Physician [CONS] Urgent Comment: Consulting Provider: ISHAAN GERMAN Physician Instructions: Reason For Exam: acute renal failure 12/15/18 16:58 Consult to Physician [CONS] Routine Comment: Consulting Provider: RONY GUTIERREZ Physician Instructions: Reason For Exam: diarrhea 12/20/18 09:27 Consult to PICC Line RN [CONS] Routine Reason For Exam: FLUID MANAGEMENT. IF OK WITH NEPHROLOGY Type Line:: PICC 12/20/18 09:48 Consult to PICC Line RN [CONS] Urgent Reason For Exam: hypokalemia Type Line:: PICC 12/22/18 10:38 Consult to Dietitian/Nutrition [CONS] Routine Physician Instructions: Reason For Exam: Reason for Consult: Write/Manage TPN/PPN 12/23/18 08:39 Consult to Physician [CONS] Routine Comment: Consulting Provider: TALIB LAO Physician Instructions: Reason For Exam: catheter placement for dialysis 12/23/18 15:04 Consult to Physician [CONS] Routine Comment: Consulting Provider: SHAHIDA CARMICHAEL Physician Instructions: Reason For Exam: continued diarrhea, r/o kaposi, lymphoma 12/27/18 14:12 Consult to Physician [CONS] Routine Comment: Consulting Provider: CORTNEY KAHN Physician Instructions: Reason For Exam: Severe tachycardia 12/28/18 22:19 Consult to Physician [CONS] Routine Comment: Consulting Provider: JONNY DENTON Physician Instructions: Reason For Exam: icu re-admission 12/29/18 07:10 Consult to Case Management [CONS] Routine Services Needed at Discharge: Other Comment:: LTAC Additional Physician Instructions: Ltach Placement as per family request: Please send out Manuel. 01/01/19 13:20 Consult to Interventional Radiology [CONS] Routine Consulting Provider: TALIB OSORIO Reason For Exam: post pylorus dobhoff placement Attending: PAOLA APODACA - summary Date of admission: 12/13/18 22:54 Date of : 01/02/19 Significant findings: Brief History: Patient is a 28-year-old man with a history of HIV diagnosis 2 years ago, without any follow up or treatment presented to [facility] ED with nausea/vomiting and diarrhea which began after he ate [employer]. Mother now know son HIV status but other family member doesn't. CMV has come back positive. Patient is still having severe diarrhea, he is unable to eat >7 days, now CMV positive. TPN started on 12/22/18. Hemodialysis started 12/23/18 due to worsening renal function. On 12/25/18 Valcyte was started for CMV treatment then changed to ganciclovir iv. He also became tachycardic from severe sepsis, cardiology recommended BB. Overnight on 12/28/18, he developed AMS, more lethargy and hypoxic, Code MET called and he was moved to the ICU again. CT head unrevealing. Most likely cause is oversedation with iv ativan, which then stopped. The iv ativan was given to help stop the intractable hiccups because the IV thorazine wasn't helping. The hiccups then improved with addition of the Carafate for the plethora of GI ulcerations. He continue to have N/V/D regardless of treatment . Discussed with [facility] for possible transfer but he was turned down by CC attending, then discussed plan of care for 2nd opinion with ID attending at [facility] and no other options were advised, family updated. Patient then on 01/01/19 became unresponsive with agonal breathing, required intubation, placed on pressors, noted to be severely hypoglycemic eventhough he was on TPN and bicarbonate drip with D5. He was placed on D10W, but interim he went through multiple round of cardiac arrest with PEA. Patient's mother then made him DNR and patient was pronounced on 01/02/19 at 0112. Cause of : Cardiorespiratory arrest due to severe sepsis from HIV with AIDS defining illness........ Cultures: 12/13/18 Urine: less than 10K 12/14/18 Stool: Shigella species 12/14/18 C-Diff: negative 12/17/18 HIV Rapid; reactive 12/17/18 Cryptosporidium stool positive : Giardia stool negative 12/18/2018 serum Cryptococcal Ag: Negative 12/20/18 CMV DNA PCR positive CD4 count 26 12/26/2018 Procedure: EGD/colonoscopy Findings: EGD: hiatal hernia - white based moderate inflammation, ulceration noted throughout esophagus (bx's) - fairly benign stomach (bx's) - multiple (5-6) ulcers with inflammation noted 1st-proximal 2nd portion duodenum (larget 12-14 mm circumference) with moderate inflammation remaining mucosa (bx's) - negative other Colon: multiple white mainly white based, shallow ulcers (largest 12 mm) scatterred terminal ileum (bx's) - mild/moderate inflammation distal sigmoid/rectum (bx's) - otherwise normal colon (bx's)
== END 2019-01-02 05:54 | DRG 974 ==
LOC: ED 18:12 → 4A 22:54 → 3A 12-14 16:54 → IMCU 12-18 17:44 → 3A 12-20 19:25 → CC1 12-28 21:57
PROVIDERS: ADMIT Internal Medicine; ATTEND Internal Medicine
PROC: 4A033R1 Measurement of Arterial Saturation, Peripheral, Percutaneous Approach (ICD-10-PCS; 2018-12-18)
PROC: 02HV33Z Insertion of Infusion Device into Superior Vena Cava, Percutaneous Approach (ICD-10-PCS; 2018-12-20)
PROC: 0JH63XZ Insertion of Tunneled Vascular Access Device into Chest Subcutaneous Tissue and Fascia, Percutaneous Approach (ICD-10-PCS; 2018-12-23)
PROC: 02HV33Z Insertion of Infusion Device into Superior Vena Cava, Percutaneous Approach (ICD-10-PCS; 2018-12-23)
PROC: B5181ZA Fluoroscopy of Superior Vena Cava using Low Osmolar Contrast, Guidance (ICD-10-PCS; 2018-12-23)
PROC: B543ZZA Ultrasonography of Right Jugular Veins, Guidance (ICD-10-PCS; 2018-12-23)
PROC: 5A1D70Z Performance of Urinary Filtration, Intermittent, Less than 6 Hours Per Day (ICD-10-PCS; 2018-12-23)
PROC: 5A1D70Z Performance of Urinary Filtration, Intermittent, Less than 6 Hours Per Day (ICD-10-PCS; 2018-12-24)
PROC: 0DBB8ZX Excision of Ileum, Via Natural or Artificial Opening Endoscopic, Diagnostic (ICD-10-PCS; principal; 2018-12-26)
PROC: 0DBN8ZX Excision of Sigmoid Colon, Via Natural or Artificial Opening Endoscopic, Diagnostic (ICD-10-PCS; 2018-12-26)
PROC: 0DBP8ZX Excision of Rectum, Via Natural or Artificial Opening Endoscopic, Diagnostic (ICD-10-PCS; 2018-12-26)
PROC: 0DB98ZX Excision of Duodenum, Via Natural or Artificial Opening Endoscopic, Diagnostic (ICD-10-PCS; 2018-12-26)
PROC: 0DB78ZX Excision of Stomach, Pylorus, Via Natural or Artificial Opening Endoscopic, Diagnostic (ICD-10-PCS; 2018-12-26)
PROC: 0DB28ZX Excision of Middle Esophagus, Via Natural or Artificial Opening Endoscopic, Diagnostic (ICD-10-PCS; 2018-12-26)
PROC: 5A1D70Z Performance of Urinary Filtration, Intermittent, Less than 6 Hours Per Day (ICD-10-PCS; 2018-12-26)
PROC: 5A1D70Z Performance of Urinary Filtration, Intermittent, Less than 6 Hours Per Day (ICD-10-PCS; 2018-12-31)
PROC: 5A1935Z Respiratory Ventilation, Less than 24 Consecutive Hours (ICD-10-PCS; 2019-01-01)
PROC: 0BH17EZ Insertion of Endotracheal Airway into Trachea, Via Natural or Artificial Opening (ICD-10-PCS; 2019-01-01)
PROC: 5A12012 Performance of Cardiac Output, Single, Manual (ICD-10-PCS; 2019-01-01)
DX: B20 Human immunodeficiency virus [HIV] disease (principal); N17.0 Acute kidney failure with tubular necrosis; A41.89 Other specified sepsis; R65.20 Severe sepsis without septic shock; G92 Toxic encephalopathy; E43 Unspecified severe protein-calorie malnutrition; K22.10 Ulcer of esophagus without bleeding; A08.4 Viral intestinal infection, unspecified; K44.9 Diaphragmatic hernia without obstruction or gangrene; I49.01 Ventricular fibrillation; E87.5 Hyperkalemia; G43.909 Migraine, unspecified, not intractable, without status migrainosus; R13.10 Dysphagia, unspecified; A03.9 Shigellosis, unspecified; K64.8 Other hemorrhoids; E86.0 Dehydration; R06.6 Hiccough; Z66 Do not resuscitate; I46.9 Cardiac arrest, cause unspecified; Z82.49 Family history of ischemic heart disease and other diseases of the circulatory system; Z68.20 Body mass index [BMI] 20.0-20.9, adult
CPT/HCPCS: 36415; 36558; 36600; 70450; 71045; 74018; 74176; 76770; 77001; 80048; 80053; 80061; 80074; 81001; 82024; 82140; 82533; 82550; 82553; 82803; 82962; 83516; 83690; 83735; 83880; 84100; 84132; 84439; 84443; 84478; 84484; 85007; 85025; 85027; 85610; 86403; 86689; 87045; 87086; 87177; 87493; 87497; 87536; 87806; 87901; 88305; 88312; 88341; 88342; 93005; 93010; 93306; 94002; 94760; G0378; C1750; J0171; J0456; J0696; J1265; J1570; J1644; J1650; J1956; J2060; J2250; J2270; J2370; J2405; J2704; J2765; J3010; J3230; J3480; J7030; J7040; J7042; J7050; J7070